=== PATIENT | female | born 1950 | race Caucasian/White ===

== ENCOUNTER → 2016-11-01 | Day surgery (SDC) | payer OTHER ==
[2016-10-31 13:31] VITALS: Ht 172.7 cm; Wt 94.1 kg
[~2016-11-01] VITALS: Ht 172.7 cm; Wt 94.1 kg
[~2016-11-01] MED LIST: FERR1TAB62 PO; FURO-85 PO; LIDOCAINE HCL 2% 2 ML VIAL (20MG/ML) ONE; LPR25 PO; MULT-506 PO; PROPOFOL IV EMULSION 10 MG/ML 20 ML VIAL IV ONE; SODIUM CHLORIDE 0.9% 500ML 500 ML IV ONE; TRAM-10 PO; WARF5TAB90 PO
[2016-11-01 08:52] VITALS: TEMP 36.5
--- NOTE | 2016-11-01 09:35 | Endo History and Physical ---
History & Physical Date of Service: November 01, 2016. Chief Complaint: varices Referring Physician: Dr. Ishan García History of Present Illness h/o varices, banding Past Medical History Atrial Fibrillation, Arthritis, Liver Disease Past Surgical History Hx Cardiac Surgery: Yes (HEART CATH, RESECTION OF PERICARDIAL CYST) Hx Internal Defibrillator: No Hx Pacemaker: Yes (PACEMAKER PLACED) Hx Abdominal Surgery: Yes (REBECCA, ABDOMINAL HERNIA, GASTRIC BYPASS, SPLEENECTOMY) Hx of Implantable Prosthesis: No Hx Post-Op Nausea and Vomiting: No Hx Cancer Surgery: No Hx Thoracic Surgery: No Hx Orthopedic: No Hx Urinary Tract Surgery: No Family History None Social History Smoking Status: Current Every Day Smoker Hx Substance Use: No Hx Alcohol Use: No Allergies Coded Allergies: Quinolones (Verified Allergy, Unknown, LOCAL REACTION TO LEVAQUIN, 10/31/16 ) ITCHING AND RASH Codeine (Verified Adverse Reaction, Unknown, VOMITING, 10/31/16) Current Medications Reported Home Medications Medications Dose Route/Sig Max Daily Dose Days Date Category Ultram (Tramadol HCl) 50 Mg Tab 50 Mg PO Q6H PRN 07/13/16 Reported Lasix (Furosemide) 20 Mg Tab 20 Mg PO DAILY PRN 07/13/16 Reported Ferrous Sulfate 325 Mg Tab 1 Tab PO BID 07/13/16 Reported Lopressor (Metoprolol Tartrate) 25 Mg Tab 0.5 Tab PO BID 07/13/16 Reported Coumadin (Warfarin Sodium) 5 Mg Tab 1.5 Tab PO 5XWK 07/13/16 Reported Coumadin (Warfarin Sodium) 5 Mg Tab 1 Tab PO 2XWK 90 07/13/16 Reported Multivitamin (Multivitamins) Tab 1 Tab PO QAM 12/28/14 Reported Vital Signs Weight (Kilograms): 94.09 Height (Feet): 5 Height (Inches): 8 Date Time Temp Pulse Resp B/P Pulse Ox O2 Delivery O2 Flow Rate FiO2 11/01/16 08:58 184/91 11/01/16 08:52 36.5 71 20 160/109 98 Room Air Physical Exam General Appearance: no apparent distress Respiratory/Chest: Respiratory effort: no dyspnea Cardiovascular: Heart Auscultation: RRR Abdomen: Inspection & Palpation: soft Assessment and Plan Varices = EGD
--- NOTE | 2016-11-01 09:45 | Discharge Instructions ---
Endoscopy Patient Instructions Date / Procedure(s) Performed November 01, 2016. EGD Allergy Information Coded Allergies: Quinolones (Verified Allergy, Unknown, LOCAL REACTION TO LEVAQUIN, 10/31/16 ) ITCHING AND RASH Codeine (Verified Adverse Reaction, Unknown, VOMITING, 10/31/16) Discharge Date / Findings November 01, 2016. Small varices Medication Instructions Stopped Medication(s): last dose coumadin on Sunday,bridged with Lovenox,last dose Sunday Resume coumadin today Provider Instructions Activity Restrictions - No exercising or heavy lifting for 24 hours. - Do not drink alcohol the day of the procedure. - Do not drive a car or operate machinery until the day after the procedure. - Do not make any important decisions or sign important papers in 24 hours after the procedure. Following Day: - Return to full activity which may include returning to work/school. Diet Start your diet with liquids and light foods (jello, soup, juice, toast). Then eat your usual diet if not nauseated. Treatment For Common After Affects For mild abdominal pain, bloating, or excessive gas: - Rest - Eat lightly - Lie on right side Follow-Up Information Follow-up with Dr. Ishan García as scheduled Anesthesia Information What You Should Know You have had a procedure that required some medicine to reduce anxiety and discomfort. This treatment is called moderate sedation. After receiving the treatment, you may be sleepy, but you will be able to breathe on your own. The effects of the treatment may last for several hours. Follow these instructions along with Activity/Diet recommendations noted above: * Do NOT do anything where dizziness or clumsiness would be dangerous. * Rest quietly at home today, then you can be up and about tomorrow. * Have a responsible person stay with you the rest of today. * You may have had an I.V. today. If so, you may take the dressing off later today. Recommendations Call your doctor if: * Trouble breathing * Continuous vomiting for more than 24 hours * Temperature above 101 degrees * Severe abdominal pain or bloating * Pain not relieved by pain medicine ordered * There is increased drainage or redness from any incision * A large amount of rectal bleeding greater than 2-3 tablespoons. (If you had a polyp/s removed or have hemorrhoids, a small amount of blood - from the rectum is to be expected.) * You have any unanswered questions or concerns. IN THE EVENT OF A SERIOUS EMERGENCY, GO TO THE NEAREST EMERGENCY ROOM Your discharge instructions were prepared by provider Rich Eason. Patient Instructions Signature Page Elly Lancaster Patient (or Guardian) Signature/Date: I have read and understand the instructions given to me by my caregivers. Caregiver/RN/Doctor Signature/Date: The above-named patient and/or guardian has received patient instructions on this date. + Original Patient Signature Page (only) stays with chart. Please make copy for patient.
--- NOTE | 2016-11-01 09:58 | GI REPORT ---
Procedure Date: 11/01/2016 9:31 AM Procedure: Upper GI endoscopy Indications: Follow-up of esophageal varices Medicines: See the Anesthesia note for documentation of the administered medications Complications: No immediate complications. Estimated Blood Loss: Estimated blood loss: none. Procedure: Pre-Anesthesia Assessment: - ASA Grade Assessment: III - A patient with severe systemic disease. After obtaining informed consent, the endoscope was passed under direct vision. Throughout the procedure, the patient's blood pressure, pulse, and oxygen saturations were monitored continuously. The scope was introduced through the mouth, and advanced to the afferent and efferent jejunal loops. The upper GI endoscopy was accomplished without difficulty. The patient tolerated the procedure well. Findings: Grade I varices were found in the lower third of the esophagus. There was stigmata of prior banding. The GE junction was at 35 cm. There was an unremarkable gastric pouch. There was an unremarkable gastroenteric anastamosis. There was suture material at the anastamosis. The small intestine was normal. Impression: - Grade I esophageal varices. - No specimens collected. Recommendation: - Discharge patient to home. Repeat exam in 2-3 years. Rich Quijano M.D. Rich Quijano MD 11/01/2016 9:59:05 AM This report has been signed electronically. Note Initiated On: 11/01/2016 9:31 AM I attest to the content of the Intraoperative Record and orders documented therein, exceptions below
[2016-11-01 10:30] VITALS: BP 160/92; PULSE 60; O2SAT 97
--- NOTE | 2016-11-01 10:50 | Anesthesiology Progress Note ---
Anesthesia Post Op Note Date & Time November 01, 2016 at 10:50 Vital Signs Pain Intensity: 0 Vital Signs Past 12 Hours Date Time Temp Pulse Resp B/P Pulse Ox O2 Delivery O2 Flow Rate FiO2 11/01/16 10:30 60 20 160/92 97 Room Air 11/01/16 10:14 61 20 166/93 97 Room Air 11/01/16 09:56 65 20 184/91 97 Room Air 11/01/16 08:58 184/91 11/01/16 08:52 36.5 71 20 160/109 98 Room Air Notes Mental Status: alert / awake / arousable, participated in evaluation Pt Amnestic to Procedure: Yes Nausea / Vomiting: adequately controlled Pain: adequately controlled Airway Patency, RR, SpO2: stable & adequate BP & HR: stable & adequate Hydration State: stable & adequate Anesthetic Complications: no major complications apparent
== END | disposition home or self-care (01) ==
LOC: C.GI 08:30
PROVIDERS: ATTEND Internal Medicine Gastroenterology
DX: Z09 Encounter for follow-up examination after completed treatment for conditions other than malignant neoplasm (principal); I85.00 Esophageal varices without bleeding; I10 Essential (primary) hypertension; I48.91 Unspecified atrial fibrillation; F17.200 Nicotine dependence, unspecified, uncomplicated; Z95.0 Presence of cardiac pacemaker; Z88.5 Allergy status to narcotic agent; Z90.49 Acquired absence of other specified parts of digestive tract; Z90.89 Acquired absence of other organs; Z98.890 Other specified postprocedural states; Z86.718 Personal history of other venous thrombosis and embolism; Z86.73 Personal history of transient ischemic attack (TIA), and cerebral infarction without residual deficits; Z98.49 Cataract extraction status, unspecified eye; Z98.84 Bariatric surgery status; Z68.31 Body mass index [BMI] 31.0-31.9, adult; Z79.01 Long term (current) use of anticoagulants

== ENCOUNTER 2017-06-06 10:30 | Emergency (ER) | payer OTHER ==
[~2017-06-06] VITALS: Ht 172.7 cm; Wt 97.4 kg
[~2017-06-06 10:30] MED LIST changes: -FERR1TAB62 PO; -LIDOCAINE HCL 2% 2 ML VIAL (20MG/ML) ONE; -MULT-506 PO; -PROPOFOL IV EMULSION 10 MG/ML 20 ML VIAL IV ONE; -SODIUM CHLORIDE 0.9% 500ML 500 ML IV ONE; -TRAM-10 PO
[2017-06-06 10:32] VITALS: TEMP 36.4; Ht 172.7 cm; Wt 97.4 kg
[2017-06-06] MEDS ORDERED: CIPR1TAB11 PO (11:15)
[2017-06-06] MEDS ORDERED: FERR1TAB61 PO (11:15)
[2017-06-06] MEDS ORDERED: ACETAMINOPHEN IV 100 ML IV ONE (11:45)
[2017-06-06 12:20] LABS: MANUAL MICROSCOPIC REQUIRED? NO; REVIEW REQ? YES; URINE APPEARANCE CLOUDY (CLEAR); URINE BILIRUBIN NEG (NEG); URINE COLOR DK YELLOW; URINE EPITHELIAL CELL AUTO >30 /lpf (0-5); URINE NITRITE NEG (NEG); URINE SPECIFIC GRAVITY 1.021 (1.000-1.030); UROBILINOGEN NEG (NEG)
[2017-06-06 12:28] LABS: BASO % 4.4 %; EOS % 8.2 %; HEMATOCRIT 36.4 % (37-47); IG% 0.1 %; LYMPH % 25.9 %; LYMPH ABS # 1.78 K/uL (1.2-3.4); MEAN CELL VOLUME 84.8 fL (80-100); MEAN CORPUSCULAR HGB CONC 31.9 g/dl (32-36); MONO % 10.9 %; NEUT % 50.5 %; PLATELET COUNT 248 K/uL (130-400); RED BLOOD COUNT 4.29 M/uL (4.2-5.4); WHITE BLOOD COUNT 6.87 K/uL (4.8-10.8)
[2017-06-06 12:38] LABS: INR 2.5 (0.9-1.1); PARTIAL THROMBOPLASTIN RATIO 1.4
[2017-06-06 12:49] LABS: BUN/CREATININE RATIO 22.5 (10-20); CALCIUM 8.6 mg/dl (8.5-10.1); CREATININE 1.06 mg/dl (0.60-1.20); POTASSIUM 4.1 mmol/L (3.5-5.1)
[2017-06-06 12:50] LABS: ACANTHOCYTES 1+; ANISOCYTOSIS PRESENT; COMPLETE YES; GIANT PLATELETS 1+; TARGET CELLS 1+
--- NOTE | 2017-06-06 13:20 | DIAGNOSTIC IMAGING REPORT ---
SACRUM COCCYX MIN 2 VIEWS CLINICAL HISTORY: sacrum pain pain COMPARISON STUDY: None FINDINGS: Nondisplaced cortical fracture sacrococcygeal junction. Sacral foramina are symmetric. Moderate degenerative change lower lumbar spine. Moderate degenerative sclerotic changes of the sacroiliac joints. IMPRESSION: Nondisplaced cortical fracture sacrococcygeal junction. Moderate generalized degenerative change. The above report was generated using voice recognition software. It may contain grammatical, syntax or spelling errors. Electronically signed by: Miguel Kessler M.D. 06/06/2017 1:19 PM Dictated Date/Time: 06/06/2017 1:18 PM
[2017-06-06] MEDS ORDERED: HYDR-5688 PO (13:49)
[2017-06-06 14:00] VITALS: BP 165/93; PULSE 60; O2SAT 99
--- NOTE | 2017-06-06 21:24 | EMERGENCY ROOM VISIT NOTE ---
ED Visit Note First contact with patient: 11:23 Chief Complaint: Left hip and buttocks pain. History of Present Illness: Ms. Lancaster is a 67-year-old white female who ambulates into the ED accompanied by her daughter complaining of pain in the left buttocks just lateral to the sacrum. Patient reports her pain started approximately 2 weeks ago and has been constant. She denies any initial injuries. She reports she is pain-free at rest, but when she is moving from the sitting to standing position or rolling in bed her pain becomes severe. She has difficulty describing her pain but she has good use acronym of sharp. She rates her discomfort 9/10. She reports last evening in bed for the first time her pain radiated down the posterior aspect of the left thigh and stopped at the level of the knee. She has been using acetaminophen for pain with minimal relief. Additionally she does report she was recently treated for urinary tract infection with ciprofloxacin. She reports she has a history of urinary incontinence and feels it is slightly worse since the onset of her pain 2 weeks ago. She denies any associated symptoms including falls, fevers, chills, skin eruptions, lower back pain, abdominal pain, nausea, vomiting, urinary symptoms, flank pain, diarrhea, constipation, fecal incontinence, lower extremity weakness /numbness/tingling, genital paresthesias. Review of Systems: As noted above in history of present illness. All body systems were reviewed and found to be negative as noted above. Past Medical History: Hypertension, pneumonia, gastric ulcers, lower extremity DVT, unspecified urinary symptoms, status post gastric bypass, pericardial sac removal, cholecystectomy, splenectomy, appendectomy, pacemaker implantation, colostomy. Current Medications: Allergies to Medications: Codeine, quinolones. Social History: Patient is currently employed; she feels safe in her home environment; she admits to tobacco and alcohol use. Physical Examination: Vital Signs: Date Time Temp Pulse Resp B/P (MAP) Pulse Ox O2 Delivery O2 Flow Rate FiO2 06/06/17 14:00 60 18 165/93 99 06/06/17 12:54 64 16 167/96 99 Room Air 06/06/17 10:32 36.4 64 18 119/81 99 Room Air GENERAL: 67-year-old female in mild to moderate distress due to pain, nontoxic- appearing, afebrile and hemodynamically stable. NEUROLOGICAL: Awake, alert and oriented to person, place and time. Answering questions appropriately and following commands. Normal gait. Good hand eye coordination. No focal motor or sensory deficits. SKIN: Warm, dry and pink. No soft tissue eruptions or trauma noted. HEENT: Atraumatic and normocephalic. PERRLA. Sclera white and conjunctiva pink. No drainage from naris. Oral cavity moist and pink. Pharynx is nonerythematous or edematous. Speech normal. No lymphadenopathy. Trachea midline. No jugular venous distention. BACK: No tenderness over the bony cervical, thoracic and lumbar spine. No CVA tenderness. Mild tenderness over the distal sacrum and coccyx without bony deformity or crepitus. I do not see any local swelling or ecchymosis. THORAX: Lungs sounds are clear to auscultation and equal bilaterally with symmetrical chest wall. No wheezing, rales or rhonchi. No crepitus, tenderness , subcutaneous air or deformities noted. HEART: Regular rate and rhythm. No gallops, rubs or murmurs are appreciated. ABDOMEN: Distended, soft and nontender. Positive bowel sounds in all quadrants. No guarding, rigidity or organomegaly. EXTREMITIES: Moves all extremities well on command and with purpose. All distal neurovascular statuses are intact and equal bilaterally. No calf tenderness or cords. ED Course: Patient is assessed as noted above. Patient's medication list was reviewed. Laboratory Testing: Test 06/06/17 12:00 06/06/17 12:05 Range/Units Urine Color DK YELLOW Urine Appearance CLOUDY CLEAR Urine pH 6.0 4.5-7.5 Urine Specific Varney 1.021 1.000-1.030 Urine Protein NEG NEG Urine Glucose (UA) NEG NEG Urine Ketones TRACE NEG Urine Occult Blood NEG NEG Urine Nitrite NEG NEG Urine Bilirubin NEG NEG Urine Urobilinogen NEG NEG Urine Leukocyte Esterase TRACE NEG Urine WBC (Auto) 1-5 0-5 /hpf Urine RBC (Auto) 0-4 0-4 /hpf Urine Hyaline Casts (Auto) 5-10 0-5 /lpf Urine Epithelial Cells (Auto) >30 0-5 /lpf Urine Bacteria (Auto) NEG NEG Urine Crystals TALC NONE PRSENT White Blood Count 6.87 4.8-10.8 K/uL Red Blood Count 4.29 4.2-5.4 M/uL Hemoglobin 11.6 12.0-16.0 g/dL Hematocrit 36.4 37-47 % Mean Corpuscular Volume 84.8 80-100 fL Mean Corpuscular Hemoglobin 27.0 25-34 pg Mean Corpuscular Hemoglobin Concent 31.9 32-36 g/dl Platelet Count 248 130-400 K/uL Mean Platelet Volume 12.0 7.4-10.4 fL Neutrophils (%) (Auto) 50.5 % Lymphocytes (%) (Auto) 25.9 % Monocytes (%) (Auto) 10.9 % Eosinophils (%) (Auto) 8.2 % Basophils (%) (Auto) 4.4 % Neutrophils # (Auto) 3.47 1.4-6.5 K/uL Lymphocytes # (Auto) 1.78 1.2-3.4 K/uL Monocytes # (Auto) 0.75 0.11-0.59 K/uL Eosinophils # (Auto) 0.56 0-0.5 K/uL Basophils # (Auto) 0.30 0-0.2 K/uL RDW Standard Deviation 70.3 36.4-46.3 fL RDW Coefficient of Variation 22.7 11.5-14.5 % Immature Granulocyte % (Auto) 0.1 % Immature Granulocyte # (Auto) 0.01 0.00-0.02 K/uL Giant Platelets 1+ Anisocytosis PRESENT Target Cells 1+ Acanthocytes 1+ Prothrombin Time 26.0 9.0-12.0 SECONDS Prothromb Time International Ratio 2.5 0.9-1.1 Activated Partial Thromboplast Time 35.2 21.0-31.0 SECONDS Partial Thromboplastin Ratio 1.4 Sodium Level 141 136-145 mmol/L Potassium Level 4.1 3.5-5.1 mmol/L Chloride Level 114 98-107 mmol/L Carbon Dioxide Level 24 21-32 mmol/L Anion Gap 3.0 3-11 mmol/L Blood Urea Nitrogen 24 7-18 mg/dl Creatinine 1.06 0.60-1.20 mg/dl Est Creatinine Clear Calc Drug Dose 64.6 ml/min Estimated GFR () 63.8 Estimated GFR (Non- 55.1 BUN/Creatinine Ratio 22.5 10-20 Random Glucose 87 70-99 mg/dl Calcium Level 8.6 8.5-10.1 mg/dl Total Bilirubin 0.6 0.2-1 mg/dl Direct Bilirubin 0.1 0-0.2 mg/dl Aspartate Amino Transf (AST/SGOT) 25 15-37 U/L Alanine Aminotransferase (ALT/SGPT) 25 12-78 U/L Alkaline Phosphatase 108 45-117 U/L Total Protein 6.8 6.4-8.2 gm/dl Albumin 3.3 3.4-5.0 gm/dl Sacrum/Coccyx X-Rays: Was reviewed by myself and read by the radiologist showing a nondisplaced cortical fracture of the sacrococcygeal junction. Moderate generalized degenerative changes. Patient was given 100 mL of acetaminophen IV for her pain. Patient was reassessed multiple times during her stay in the emergency department. Patient's case was reviewed with Dr. Portillo; we agreed on diagnostic approach , treatment, disposition and plan. Patient was educated about today's findings and instructed on her treatment plan ; she verbalized understanding and agreement with this plan. Clinical Impression: Fracture of the sacrococcygeal junction. Decision-Making: Slim a differential diagnosis I considered fracture, herniated disc with radicular pain, abscess, contusion and other causes. Disposition: Patient discharged home in stable condition accompanied by female friends; prior to departure she was reassessed and subjectively reported she was feeling much better and reported that she was pain-free. Plan: Patient was encouraged to continue her current medications as prescribed by her primary care provider. Patient was encouraged to rate her pain every 6 hours and for mild pain she should use 650 mg of acetaminophen and for severe pain she should use one Mather tablet; she was given appropriate narcotic precautions and her name was checked in the state database and no red flags were noted. Additional comfort measures were discussed with the patient including rest, proper lifting and moving techniques. Patient is encouraged follow-up with her PCP for recheck. Patient is encouraged return ED for worsening/uncontrolled pain, uncontrolled swelling, leg weakness/numbness/tingling, bright red blood per rectum or any new /concerning symptoms.
== END 2017-06-06 14:05 | disposition home or self-care (01) ==
LOC: C.EDB 10:31 → C.EDA 14:05
DX: S32.10XA Unspecified fracture of sacrum, initial encounter for closed fracture (principal); X58.XXXA Exposure to other specified factors, initial encounter; I10 Essential (primary) hypertension; K59.00 Constipation, unspecified; F17.200 Nicotine dependence, unspecified, uncomplicated; Z98.84 Bariatric surgery status; Z95.0 Presence of cardiac pacemaker; Z93.3 Colostomy status; Z86.718 Personal history of other venous thrombosis and embolism

== ENCOUNTER 2017-06-11 16:26 | Emergency (ER) | payer OTHER ==
[~2017-06-11] VITALS: Ht 172.7 cm; Wt 90.2 kg
[~2017-06-11 16:26] MED LIST changes: +CIPR1TAB11 PO; +FERR1TAB61 PO; +HYDR-5688 PO
[2017-06-11 16:39] VITALS: TEMP 36.6; Ht 172.7 cm; Wt 90.2 kg
[2017-06-11] MEDS ORDERED: IBUP-103 PO (16:53)
--- NOTE | 2017-06-11 16:54 | EMERGENCY ROOM VISIT NOTE ---
ED Visit Note First contact with patient: 16:48 CHIEF COMPLAINT: Tailbone pain HISTORY OF PRESENT ILLNESS: This 8-year-old female patient presents to the emergency department by private vehicle with her son complaining of pain in the tailbone for the past week. She was seen on 06/06, had an x-ray and diagnosed with a stress fracture of her sacrococcygeal junction. Patient states that she was given a prescription for Barnwell, she took her last pill of this this morning , but is still having pain. The patient rates the pain as aching and 6/10. She denies any known injury to the area, and denies any previous fractures to the area. She has not had any further injuries or falls. The patient has not had blood in their stool. The patient has not had difficulty with bowel or bladder functions. The patient is able to walk and denies numbness or tingling to the lower extremities. REVIEW OF SYSTEMS: A 6 system review of systems was completed with positives and pertinent negatives listed in the HPI. ALLERGIES: Reviewed in chart MEDICATIONS: Reviewed in chart PMH: Reviewed in chart SOCIAL HISTORY: Lives at home. Current smoker. PHYSICAL EXAM: VITALS: Vitals are noted on the nurse's note and reviewed by myself. Vital signs stable. GENERAL: Pleasant cooperative, in no acute distress, non-diaphoretic, well- developed well-nourished. HEART: Regular rate and rhythm, normal peripheral perfusion, 2+ radial and DP pulses, no edema. LUNGS: Clear to auscultation throughout, no wheezes, rhonchi, crackles heard. Equal expansion bilaterally. ABDOMEN: Soft, nontender, nondistended. Normal bowel sounds throughout. MUSCULOSKELETAL: The patient is tender to palpation over the coccyx. There is no tenderness to palpation over the thoracic or lumbar spine. No erythema, edema, or abscesses present. Full range of motion of the bilateral lower extremities. Strength 5/5 and equal in the bilateral lower extremities. Peripheral pulses 2+. Normal gait observed. NEURO: Patient was alert and oriented to person place and time. Normal sensation to light and sharp touch. No focal neurologic deficits. EMERGENCY DEPARTMENT COURSE: I examined the patient. No neurologic deficits. Patient states she is here because she needs something else for pain. I did explain to the patient that I am unable to prescribe her any further narcotics, but did offer her a dose of Percocet here for her pain, which she was agreeable to. I encouraged the patient to continue treating her pain with NSAIDs, and also suggested alternating ice and heat and the use of a donut cushion to help alleviate some of her pain. The patient was encouraged to follow closely with her primary care provider for ongoing pain management, she verbalized understanding. Patient was discharged home in stable condition and ambulatory. Medication Reconciliation: I attest that I have personally reviewed the patient' s current medication list. Blood pressure screening: The patient was found to have an elevated blood pressure and was referred to their primary doctor for recheck and further treatment. Problem List Medical Problems: (1) Cholecystectomy Status: Resolved (2) Cirrhosis of liver Status: Chronic (3) CL SKUL BASE FX W/O COMA Status: Chronic (4) Closed fracture thoracic vertebra Status: Resolved (5) Colostomy Status: Chronic (6) Gastric Bypass Status: Resolved (7) Hernia repair Status: Resolved (8) INTESTINAL BYPASS STATUS Status: Chronic (9) Iron deficiency anemia Status: Chronic (10) Open Heart Sugery Status: Resolved (11) Splenectomy Status: Resolved Current/Historical Medications Scheduled Ferrous Sulfate (Iron), 1 TAB PO DAILY Metoprolol Tartrate (Lopressor), 0.5 TAB PO BID Warfarin Sodium (Coumadin), 1 TAB PO DAILY Scheduled PRN Furosemide (Lasix), 20 MG PO DAILY PRN for LEG SWELLING Hydrocodone/Acetaminophen 5MG/325MG (Barnwell 5MG/325MG), 1 TABLET PO Q6H PRN for Pain Ibuprofen Tab (Advil), 400 MG PO Q6 PRN for Pain Allergies Coded Allergies: Quinolones (Verified Allergy, Unknown, LOCAL REACTION TO LEVAQUIN, 10/31/16 ) ITCHING AND RASH Codeine (Verified Adverse Reaction, Unknown, VOMITING, 10/31/16) Vital Signs Date Time Temp Pulse Resp B/P (MAP) Pulse Ox O2 Delivery O2 Flow Rate FiO2 06/11/17 17:32 60 18 138/79 97 06/11/17 16:39 36.6 63 20 150/96 100 Room Air Medications Administered Medications (Trade) Dose Ordered Sig/Tyrell Route Start Time Stop Time Status Last Admin Dose Admin Oxycodone/ Acetaminophen (Percocet 5-325mg Tab) 1 tab NOW ONCE PO 06/11/17 17:15 1/1/18 17:16 DC 06/11/17 17:13 1 TAB Departure Information Impression Primary Impression: Coccyx pain Dispostion Home / Self-Care Condition GOOD Referrals Ishan García D.OGustavo (PCP) Patient Instructions Coccygodynia, ED Fx Coccyx, [facility] Additional Instructions Take Aleve 1-2 tablets every 12 hours as needed for pain. You may also continue to take Tylenol 1,000mg every 8 hours as needed for pain. You can get a doughnut pillow from [employer] or most pharmacies that you can use to sit on to help reduce pain in your tailbone. Alternate between ice and heat to your tailbone area to help reduce discomfort. Follow-up with your primary care provider in the next few days if your symptoms are not getting any better.
[2017-06-11] MEDS ORDERED: OXYCODONE/ACETAMINOPHEN 5-325 TAB PO ONE (17:15)
[2017-06-11 17:32] VITALS: BP 138/79; PULSE 60; O2SAT 97
[2017-09-13] MEDS ORDERED: DILT-202 PO (12:09)
[2017-09-13] MEDS ORDERED: METO50TA16 PO (12:09)
[2017-09-13] MEDS ORDERED: LVNIS80 SQ (12:21)
[2017-09-13] MEDS ORDERED: KFL500 PO (12:22)
== END 2017-06-11 17:33 | disposition home or self-care (01) ==
LOC: C.EDB 16:27 → C.EDD 17:33
DX: M53.3 Sacrococcygeal disorders, not elsewhere classified (principal); F17.200 Nicotine dependence, unspecified, uncomplicated; K74.60 Unspecified cirrhosis of liver; D50.0 Iron deficiency anemia secondary to blood loss (chronic); Z79.01 Long term (current) use of anticoagulants

== ENCOUNTER 2017-09-10 00:35 | Inpatient (IN) | payer OTHER ==
[2017-09-10] VITALS (7 sets, daily range): BP systolic 110–135; BP diastolic 73–87; PULSE 91–130; TEMP 36.4–36.7; O2SAT 95–99; Ht 170.2 cm; Wt 103.7 kg
[~2017-09-10] VITALS: Ht 170.2 cm; Wt 103.7 kg
[~2017-09-10 00:35] MED LIST changes: -CIPR1TAB11 PO; +IBUP-103 PO
--- NOTE | 2017-09-10 01:04 | EMERGENCY ROOM VISIT NOTE ---
History Report prepared by Lorena: Shi Cantu Under the Supervision of: Dr. Susana Collins D.O. First contact with patient: 00:44 Chief Complaint: RESPIRATORY PROBLEMS Stated Complaint: CAN'T BREATHE History of Present Illness The patient is a 67 year old female who presents to the Emergency Room with complaints of worsening respiratory problems starting yesterday. She states that she is having difficulty breathing. She reports that her last Coumadin level was low. She states that she goes back on Sunday to have it rechecked. 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 The patient denies a history of PEs, chest pain, abdominal pain, nausea, vomiting, diaphoresis, swelling in her legs, and leg cramping. The patient notes a history of atrial fibrillation, pneumonia, and the placement of a pacemaker. Source of History: patient Onset: yesterday Position: other (global) Quality: other (respiraotry problems) Timing: worsening Associated Symptoms: No diaphoresis, No chest pain, No nausea, No vomiting, No abdominal pain Note: The patient denies swelling in her legs and leg cramping. Review of Systems See HPI for pertinent positives & negatives. A total of 10 systems reviewed and were otherwise negative. 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 Family History Hypertension Social History Smoking Status: Current Some Day Smoker Alcohol Use: none Drug Use: none Marital Status: Housing Status: lives with family Occupation Status: disabled Current/Historical Medications Scheduled Ferrous Sulfate (Iron), 1 TAB PO DAILY Metoprolol Tartrate (Lopressor), 0.5 TAB PO BID Warfarin Sodium (Coumadin), 1 TAB PO DAILY Scheduled PRN Furosemide (Lasix), 20 MG PO DAILY PRN for LEG SWELLING Ibuprofen Tab (Advil), 400 MG PO Q6 PRN for Pain Allergies Coded Allergies: Quinolones (Verified Allergy, Unknown, LOCAL REACTION TO LEVAQUIN, 4/2/18) ITCHING AND RASH Codeine (Verified Adverse Reaction, Unknown, VOMITING, 09/10/17) Physical Exam Vital Signs Date Time Temp Pulse Resp B/P (MAP) Pulse Ox O2 Delivery O2 Flow Rate FiO2 09/10/17 03:31 85 18 133/84 95 Room Air 09/10/17 03:01 88 12 137/64 96 Room Air 09/10/17 02:31 130 20 121/69 96 Room Air 09/10/17 02:25 121 16 110/74 94 Room Air 09/10/17 01:31 124 20 108/72 100 Room Air 09/10/17 01:00 137 16 108/73 99 Room Air 09/10/17 00:56 Room Air 09/10/17 00:51 129 09/10/17 00:40 36.3 64 24 114/75 100 Room Air Physical Exam HEENT: Head - normocephalic and atraumatic Pupils are equal, round, and reactive to light. Extraocular eye muscles are intact, and sclera are anicteric. Nose - moist nasal mucosa without discharge. Mouth - moist buccal mucosa. Oropharynx is nonerythematous and there is no tonsillar exudate or edema noted. Neck: Supple; no JVD, nuchal rigidity, cervical lymphadenopathy. Heart: Tachycardic rate and irregularly irregular rhythm. There is a normal S1 and S2 with no murmurs, clicks, or gallops appreciated. Lungs: Diminished breath sounds in bilateral lung bases. Clear to auscultation bilaterally with no wheezes, rales, or rhonchi. Abdomen: Soft, completely nontender, nondistended, with good bowel sounds. There are no palpable pulsatile masses or hepatosplenomegaly. There is no guarding, rigidity, or rebound noted. Extremities: 2+ edema in her lower extremities. No evidence of cyanosis or clubbing. There are easily palpable peripheral pulses. Skin: warm and dry with good turgor and no rashes. Medical Decision & Procedures ER Provider Diagnostic Interpretation: Radiology results as stated below per my review and the radiologist's interpretation: CHEST X-RAY: The results were interpreted by me. Cardiomegaly. Cardiac pacemaker in place. Mild pulmonary vascular congestion. CT CHEST With Contrast: No evidence of pulmonary embolus or aortic dissection. Main pulmonary artery is dilated. Pericardial calcifications and calcified left perihilar lymph nodes. Scattered calcified granulomas. Numerous upper abdominal varices and gastroesophageal varices. Post surgical changes involving the stomach. Radiologist: Rafael Rico DO Study ready at 02:25 and initial results transmitted at 02:32. Laboratory Results 09/10/17 01:02 Red Blood Count 3.58, Mean Corpuscular Volume 89.4, Mean Corpuscular Hemoglobin 29.9, Mean Corpuscular Hemoglobin Concent 33.4, Mean Platelet Volume 12.1, Neutrophils (%) (Auto) 36.0, Lymphocytes (%) (Auto) 46.0, Monocytes (%) (Auto) 11.3, Eosinophils (%) (Auto) 3.8, Basophils (%) (Auto) 2.8, Neutrophils # (Auto ) 2.89, Lymphocytes # (Auto) 3.68, Monocytes # (Auto) 0.90, Eosinophils # (Auto ) 0.30, Basophils # (Auto) 0.22 09/10/17 01:02 Test 09/10/17 01:02 09/10/17 02:48 White Blood Count 8.00 K/uL (4.8-10.8) Red Blood Count 3.58 M/uL (4.2-5.4) Hemoglobin 10.7 g/dL (12.0-16.0) Hematocrit 32.0 % (37-47) Mean Corpuscular Volume 89.4 fL (80-100) Mean Corpuscular Hemoglobin 29.9 pg (25-34) Mean Corpuscular Hemoglobin Concent 33.4 g/dl (32-36) Platelet Count 299 K/uL (130-400) Mean Platelet Volume 12.1 fL (7.4-10.4) Neutrophils (%) (Auto) 36.0 % Lymphocytes (%) (Auto) 46.0 % Monocytes (%) (Auto) 11.3 % Eosinophils (%) (Auto) 3.8 % Basophils (%) (Auto) 2.8 % Neutrophils # (Auto) 2.89 K/uL (1.4-6.5) Lymphocytes # (Auto) 3.68 K/uL (1.2-3.4) Monocytes # (Auto) 0.90 K/uL (0.11-0.59) Eosinophils # (Auto) 0.30 K/uL (0-0.5) Basophils # (Auto) 0.22 K/uL (0-0.2) RDW Standard Deviation 50.8 fL (36.4-46.3) RDW Coefficient of Variation 15.7 % (11.5-14.5) Immature Granulocyte % (Auto) 0.1 % Immature Granulocyte # (Auto) 0.01 K/uL (0.00-0.02) Prothrombin Time 14.0 SECONDS (9.0-12.0) Prothromb Time International Ratio 1.3 (0.9-1.1) Activated Partial Thromboplast Time 27.5 SECONDS (21.0-31.0) Partial Thromboplastin Ratio 1.1 Anion Gap 11.0 mmol/L (3-11) Est Creatinine Clear Calc Drug Dose 51.4 ml/min Estimated GFR () 48.1 Estimated GFR (Non- 41.5 BUN/Creatinine Ratio 29.8 (10-20) Calcium Level 8.3 mg/dl (8.5-10.1) Pro-B-Type Natriuretic Peptide 2264 pg/ml (0-900) Urine Color YELLOW Urine Appearance CLEAR (CLEAR) Urine pH 5.0 (4.5-7.5) Urine Specific [place] 1.045 (1.000-1.030) Urine Protein NEG (NEG) Urine Glucose (UA) NEG (NEG) Urine Ketones TRACE (NEG) Urine Occult Blood NEG (NEG) Urine Nitrite POS (NEG) Urine Bilirubin NEG (NEG) Urine Urobilinogen NEG (NEG) Urine Leukocyte Esterase SMALL (NEG) Urine WBC (Auto) 5-10 /hpf (0-5) Urine RBC (Auto) 0-4 /hpf (0-4) Urine Hyaline Casts (Auto) 1-5 /lpf (0-5) Urine Epithelial Cells (Auto) >30 /lpf (0-5) Urine Bacteria (Auto) 4+ (NEG) Laboratory results per my review. Medications Administered Medications (Trade) Dose Ordered Sig/Tyrell Route Start Time Stop Time Status Last Admin Dose Admin Diltiazem HCl (Cardizem Inj) 10 mg NOW STAT IV 09/10/17 02:41 09/10/17 02:43 DC 09/10/17 02:51 10 MG Procedure 0241: Ordered Cardizem Inj 10 mg IV. ECG Per My Interpretation Indication: SOB/dyspnea Rate (beats per minute): 129 Rhythm: atrial fibrillation (with RVR) Findings: T-wave inversion (Lateral, Inferior), other (concerning for ischemia) Comparison ECG Date: 08/12/2015 Change: Old showed atrial paced rhythm unlike the new. ED Course 0046: Past medical records reviewed. The patient was evaluated in room B2. A complete history and physical exam was performed. Laboratory studies were drawn as above. The patient was observed on the caul fat puller and pulse oximeter. A portable chest x-ray was performed. 0157: I revaluated the patient and her heart rate is still up. She will go for CT scan of the chest to rule out PE. 0241: The patient remains in atrial fibrillation with rapid ventricular response. I ordered Cardizem Inj 10 mg IV. 0310: I reevaluated the patient and she feels much better. Her breathing is much better, but her heart rate continues to go into the 120s. The patient had a repeat troponin which was 0.020. 0322: Discussed the patient's case with Dr. Be Carcamo. The patient will be evaluated for further management. Medical Decision The patient is a 67 year old female who presents to the Emergency Room with complaints of worsening respiratory problems starting yesterday. Differential diagnoses include PE, CHF, acute coronary syndrome. LABS: No leukocytosis Hemoglobin 10.7 Troponin 0.022 BNP 2264 BUN 40 Creatinine 1.3 INR 1.3 This is a 67-year-old female patient presents to the emergency department with a fairly sudden onset of shortness of breath. The patient has atrial fibrillation with a rapid ventricular response. She has a history of tachybradycardia syndrome for which she had a pacemaker placed. The pacer is not currently firing or overdrive pacing. The patient has a subtherapeutic INR. She was significantly short of breath upon presentation. I discussed the case with the [facility] and they will evaluate for further care. Medication Reconcilliation Current Medication List: was personally reviewed by me Blood Pressure Screening Patient's blood pressure: Normal blood pressure Will be monitored by the hospitalist. Consults Time Called: [phone] Consulting Physician: Dr. Be Carcamo Returned Call: [phone] Discussed the patient's case with Dr. Be Carcamo. The patient will be evaluated for further management. Impression Primary Impression: Atrial fibrillation with RVR Additional Impression: Subtherapeutic international normalized ratio (INR) Scribe Attestation The scribe's documentation has been prepared under my direction and personally reviewed by me in its entirety. I confirm that the note above accurately reflects all work, treatment, procedures, and medical decision making performed by me. Departure Information Dispostion Being Evaluated By Hospitalist Referrals Ishan García D.OGustavo (PCP) Patient Instructions My [facility] Problem Qualifiers
[2017-09-10 01:14] LABS: BASO % 2.8 %; BASO ABS # 0.22 K/uL (0-0.2); EOS % 3.8 %; HEMOGLOBIN 10.7 g/dL (12.0-16.0); IG# 0.01 K/uL (0.00-0.02); LYMPH ABS # 3.68 K/uL (1.2-3.4); MEAN CELL VOLUME 89.4 fL (80-100); MEAN CORPUSCULAR HEMOGLOBIN 29.9 pg (25-34); MEAN CORPUSCULAR HGB CONC 33.4 g/dl (32-36); MEAN PLATELET VOLUME 12.1 fL (7.4-10.4); MONO % 11.3 %; NEUT ABS # 2.89 K/uL (1.4-6.5); PLATELET COUNT 299 K/uL (130-400); RED CELL DISTRIBUTION WIDTH CV 15.7 % (11.5-14.5); RED CELL DISTRIBUTION WIDTH SD 50.8 fL (36.4-46.3)
[2017-09-10 01:24] LABS: INR 1.3 (0.9-1.1); PTT PATIENT 27.5 SECONDS (21.0-31.0)
[2017-09-10 01:34] LABS: CALCIUM 8.3 mg/dl (8.5-10.1); CREATININE 1.34 mg/dl (0.60-1.20); POTASSIUM 4.3 mmol/L (3.5-5.1)
[2017-09-10] MEDS ORDERED: OPTIRAY 320 IV PRN (02:00)
[2017-09-10] MEDS ORDERED: DILTIAZEM HCL 5 MG/ML 5 ML VIAL IV STA (02:41)
[2017-09-10] MEDS ORDERED: PERCOCET HOME PACK PO ONE (03:45)
[2017-09-10] MEDS ORDERED: CEFTRIAXONE SOD INJ 1 GM ADDVIAL IV STA (04:02)
[2017-09-10] MEDS ORDERED: METOPROLOL TARTRATE 25 MG TAB PO ONE (04:11)
[2017-09-10] MEDS ORDERED: WARFARIN SOD 5 MG TAB PO ONE (04:12)
[2017-09-10] MEDS ORDERED: TRAMADOL HCL 50 MG TAB PO PRN (04:15)
[2017-09-10] MEDS ORDERED: SODIUM CHLORIDE 0.45% 1000ML 1,000 ML IV SCH (04:15)
[2017-09-10] MEDS ORDERED: SODIUM CHLORIDE 0.45% 1000ML 1,000 ML IV ONE ×2 (04:15→07:00)
[2017-09-10] MEDS ORDERED: HYDROmorphone INJ 0.5 MG/0.5 ML SYR IV PRN (04:15)
[2017-09-10] MEDS ORDERED: ACETAMINOPHEN 325 MG TAB PO PRN (04:15)
[2017-09-10] MEDS ORDERED: PROCHLORPERAZINE INJ 5 MG in SYRINGE 4 ML IV PRN (04:15)
[2017-09-10] MEDS ORDERED: NITROGLYCERIN 0.4 MG SL PER TAB CHARGE SL PRN (04:15)
[2017-09-10 04:22] LABS: ALBUMIN 2.9 gm/dl (3.4-5.0)
[2017-09-10] MEDS ORDERED: HEPARIN IV LOW DOSE NO BOLUS SCH (04:27)
[2017-09-10] MEDS ORDERED: IV FLUIDS COMPLETED PRN (04:45)
[2017-09-10] MEDS ORDERED: HEPARIN 25000 UNIT/500 ML D5W ONE (05:16)
[2017-09-10] MEDS: HEPARIN 25,000 UNIT/500ML D5W 500 ML IV SCH ×2 (05:34→13:17)
--- NOTE | 2017-09-10 05:43 | HISTORY & PHYSICAL EXAMINATION ---
DATE OF ADMISSION: 09/10/2017 PRIMARY CARE DOCTOR: Dr. Walden. CHIEF COMPLAINT: Shortness of breath. HISTORY OF PRESENT ILLNESS: History obtained form the patient and record. Medical history significant for AFib, history of DVT on Coumadin, hypertension, ongoing tobacco abuse, history of gastric bypass, history of CVA as per records, chronic anemia (baseline hemoglobin 11-12), history mixed urinary incontinence as per records Recent confinement August 2015 for rapid AFib. Patient later noted to have bradycardic episodes. PPM placed for sick sinus syndrome. Yesterday patient noted shortness of breath symptoms on exertion. Denies palpitations. Denies chest pain. No unusual fluid retention as per patient. Increased urinary frequency, no fever, no chills, no abdominal pain, no black or bloody stools. At the Emergency Room, patient noted to be in rapid AFib, CR 130s. Received IV Diltiazem in the ER. CR currently 90-110s. MEDICAL HISTORY: As above. A 2D echo from 2014 showed AFib, EF 60-65%, LA dilatation, mild MR. SURGERIES: She has had splenectomy, gastric bypass, cholecystectomy, pacemaker placement, facial fracture surgery, resection of pericardial cyst HOME MEDICATIONS: Include furosemide p.r.n., ibuprofen, metoprolol, Coumadin, ferrous sulfate. FAMILY HISTORY: Hypertension. SOCIAL AND PERSONAL HISTORY: Past tobacco use, no chronic intake of alcoholic beverages. 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 REVIEW OF SYSTEMS: As per HPI. All 10 systems reviewed. All other ROS negative. PHYSICAL EXAMINATION: VITAL SIGNS: Blood pressure was noted to be 114/75, pulse rate 130 later 98, RR 24, temperature 36.3, sats 100 on room air. GENERAL: Noted to be obese, comfortable, no respiration distress. SKIN: Pallor, warm. HEENT: Pale palpebral conjunctiva. No ptosis. Dry mucosa. NECK: Supple, nontender. CHEST: Decreased breath sounds. No tenderness. HEART: irregular, no murmur. ABDOMEN: Some distention, nontender. RECTAL: Intact sphincter, yellow stool, heme negative. EXTREMITIES: No edema. No tenderness. No gross deformity except for healed scar on the right leg. NEUROLOGIC: Coherent. No gross focality. LABORATORY DATA: Hemoglobin noted to be 10.7, hematocrit 32, white cell count 10, platelets noted to be 299. Sodium 140, potassium 4.3, chloride 115, CO2 19, BUN 40, creatinine 1.34, glucose was noted to be 88. Troponin 0.022. INR 1.3. CTA initial read, no PE, dilated pulmonary artery, pericardial calcification, granulomas, numerous upper abdominal varices, postop gastric changes. UA, nitrite positive, WBCs positive, ketones. EKG as per my interpretation, rate 130s, AFib, some ST depression in inferolateral leads ASSESSMENT: 1. Rapid atrial fibrillation hx SSS sp PPM Multifactorial : Acute renal failure, mild clinical dehydration on the basis of ketonuria complicated urinary tract infection (hx mixed incontinence as per records). No overt sepsis for now. INR subtherapeutic. 2. HTN, stable History of deep venous thrombosis on anticoagulation. 3. Cirrhosis secondary to NAFLD no gross decompensation_. 4. History of cerebrovascular accident as per records. 5. Ongoing tobacco abuse. 6. Acute on chronic anemia, hemoglobin drop from baseline. Negative occult GI bleed iron deficiency from outpatient workup 7. hx CVA as per records 8. hx of bariatric surgery PLAN: PCU titrate Lopressor. (Patient takes only 6.25 mg PO BID citing fatigue at higher doses but is willing to try a gradual dose increase) Update TTE, Cardio consult, rapid AFib. monitor creatinine response to gentle IV hydrationt. Home diuretics for now. Follow urine cultures. IV Ceftriaxone. DVT prophylaxis, IV Heparin-Coumadin bridge. Goal INR 2-3 Patient counseled to stop smoking. Full code. MTDD
--- NOTE | 2017-09-10 06:58 | DIAGNOSTIC IMAGING REPORT ---
CT ANGIOGRAM OF THE CHEST CLINICAL HISTORY: Shortness of breath. COMPARISON STUDY: May 2008 TECHNIQUE: Following the IV administration of 110 mL of Optiray-320, CT angiogram of the thorax was performed from the thoracic inlet to the lung bases utilizing the pulmonary embolus protocol. Images are reviewed in the axial, sagittal, and coronal planes. IV contrast was administered without complication. MIP imaging was performed. A dose lowering technique was utilized adhering to the principles of ALARA. CT DOSE: 428.36 mGy.cm FINDINGS: There is a left-sided dual-chamber central venous pacemaker. There is a hiatal hernia. There are multiple esophageal varices. There are densely calcified left hilar lymph nodes. There are pericardial calcifications. There was no evidence of thoracic aortic dilatation. There were no pulmonary artery filling defects to indicate acute pulmonary embolism. There is mild dilatation of the main pulmonary artery segment. No pleural effusions are visualized. There is moderate respiratory motion artifact. There is no focal pulmonary consolidation. There is slight mosaic attenuation the lungs, likely secondary to air-trapping. There is mild lower lobe bronchial wall thickening. There are dependent atelectatic changes. There is scattered granulomatous calcifications. IMPRESSION: 1. No evidence of acute pulmonary embolism 2. Extensive esophageal varices 3. Mild lower lobe bronchial wall thickening 4. Pericardial calcifications. Densely calcified left hilar lymph nodes. 5. Slight mosaic attenuation, suggestive of air trapping. Electronically signed by: Jroje Fink M.D. 09/10/2017 6:56 AM Dictated Date/Time: 09/10/2017 6:51 AM
--- NOTE | 2017-09-10 07:08 | DIAGNOSTIC IMAGING REPORT ---
CHEST ONE VIEW PORTABLE HISTORY: Short of breath. COMPARISON: Chest 08/13/2015. FINDINGS: No pneumothorax. No pleural effusions. Density of the left lung base persist and favor scarring or atelectasis. No new focal lung consolidations. Stable calcified granuloma within the right midlung zone. Calcified left hilar lymph nodes and left pericardial calcification. Poststernotomy changes. Left-sided dual-chamber pacemaker. No evidence for pulmonary edema. The heart is mildly enlarged. IMPRESSION: No significant change compared to the prior study. No acute process. Electronically signed by: Tommie Ayon M.D. 09/10/2017 7:06 AM Dictated Date/Time: 09/10/2017 7:05 AM
[2017-09-10] MEDS: FERROUS SULFATE 325 MG TAB PO SCH (08:39)
--- NOTE | 2017-09-10 08:47 | ECHOCARDIOGRAM REPORT ---
*NOTICE TO RECEIVING LIBERTARIAN AGENCY This information is strictly Confidential and protected under [place] law. [place] law prohibits you from making any further disclosure of this information unless further disclosure is expressly permitted by the written consent of the person to whom it pertains or is authorized by law. A general authorization for the release of medical or other information is not sufficient for this purpose. Hospital accepts no responsibility if the information is made available to any other person, INCLUDING THE PATIENT. Interpretation Summary * Name: URMILA MOONEY Study Date: 09/10/2017 07:05 AM BP: 119/79 mmHg * Patient Location: C.2T\S\S233\S\1 HR: 110 * : 1950 (M/d/yyyy) Gender: Female Height: 67 in * Age: 67 yrs Ethnicity: CA Weight: 225 lb * Ordering Physician: Vega Lr * Referring Physician: Self, Referred * Performed By: Rosita Gurrola RDCS * * Reason For Study: AFIB * BSA: 2.1 m2 * -- Conclusions -- * Normal LV chamber size with moderate concentric LVH. * Normal LV systolic function, EF 60-65%. * No segmental left ventricular wall motion abnormalities are noted. * The right ventricular cavity size is normal (basal dimension <4.2 cm in right ventricular apical 4-chamber view). Reduced RV systolic function by TAPSE. * Aortic valve sclerosis mild, without significant aortic valvular stenosis. * Moderate left atrial enlargement. Procedure Details * A complete two-dimensional transthoracic echocardiogram was performed (2D, M-mode, Doppler and color flow Doppler). Left Ventricle * The left ventricle is normal in size. * There is moderate concentric left ventricular hypertrophy. * Left ventricular systolic function is normal. * No segmental left ventricular wall motion abnormalities are noted. * Ejection Fraction = 60-65%. * Flattened septum is consistent with RV pressure/volume overload. Right Ventricle * The right ventricular cavity size is normal (basal dimension <4.2 cm in right ventricular apical 4-chamber view). * There is a pacemaker lead in the right ventricle. * The right ventricular systolic function is reduced as assessed by tricuspid annular plane systolic excursion (TAPSE) (TAPSE <1.6 cm). Atria * The left atrium is moderately dilated. * Right atrial size is normal. * No ASD detected; PFO is not assessed. Mitral Valve * The mitral valve is normal in structure and function. Tricuspid Valve * The tricuspid valve is normal in structure and function. Aortic Valve * The aortic valve is trileaflet. * Aortic valve sclerosis mild, without significant aortic valvular stenosis. * There is no significant aortic regurgitation. Pulmonic Valve * The pulmonary valve is not well seen, but the Doppler examination is normal without significant regurgitation or stenosis. Great Vessels * The aortic root is normal size. Pericardium/Pleural * There is no pericardial effusion. MMode 2D Measurements and Calculations IVSd 1.9 cm IVSs 2.1 cm LVIDd 3.7 cm LVIDs 2.5 cm LVPWd 1.8 cm LVPWs 2.1 cm IVS/LVPW 1.1 FS 33.7 % EDV(Teich) 59.5 ml ESV(Teich) 21.8 ml EF(Teich) 63.4 % EDV(cubed) 52.1 ml ESV(cubed) 15.2 ml EF(cubed) 70.9 % % IVS thick 13.4 % % LVPW thick 21.9 % LV mass(C)d 288.6 grams LV mass(C)dI 135.8 grams/m\S\2 LV mass(C)s 241.9 grams LV mass(C)sI 113.8 grams/m\S\2 SV(Teich) 37.7 ml SI(Teich) 17.7 ml/m\S\2 SV(cubed) 37.0 ml SI(cubed) 17.4 ml/m\S\2 Ao root diam 3.2 cm Ao root area 8.1 cm\S\2 LA dimension 4.6 cm LA/Ao 1.4 LVAd ap4 25.3 cm\S\2 LVLd ap4 7.2 cm EDV(MOD-sp4) 73.5 ml EDV(sp4-el) 75.0 ml LVAs ap4 14.2 cm\S\2 LVLs ap4 6.1 cm ESV(MOD-sp4) 27.6 ml ESV(sp4-el) 27.9 ml EF(MOD-sp4) 62.4 % EF(sp4-el) 62.8 % LVAd ap2 27.6 cm\S\2 LVLd ap2 7.4 cm EDV(MOD-sp2) 85.4 ml EDV(sp2-el) 86.8 ml LVAs ap2 16.2 cm\S\2 LVLs ap2 7.0 cm ESV(MOD-sp2) 35.6 ml ESV(sp2-el) 31.9 ml EF(MOD-sp2) 58.3 % EF(sp2-el) 63.3 % LVLd %diff 2.7 % EDV(MOD-bp) 80.3 ml LVLs %diff 12.2 % ESV(MOD-bp) 32.9 ml EF(MOD-bp) 59.0 % SV(MOD-sp4) 45.9 ml SI(MOD-sp4) 21.6 ml/m\S\2 SV(MOD-sp2) 49.8 ml SI(MOD-sp2) 23.4 ml/m\S\2 SV(MOD-bp) 47.4 ml SI(MOD-bp) 22.3 ml/m\S\2 SV(sp4-el) 47.1 ml SI(sp4-el) 22.1 ml/m\S\2 SV(sp2-el) 54.9 ml SI(sp2-el) 25.8 ml/m\S\2 Doppler Measurements and Calculations Ao V2 max 116.5 cm/sec Ao max PG 5.4 mmHg Ao max PG (full) 3.0 mmHg LV V1 max PG 2.4 mmHg LV V1 max 77.1 cm/sec TR max lilly 177.3 cm/sec
--- NOTE | 2017-09-10 09:27 | Progress Note ---
Subjective Date of Service: Sep 10, 2017. Subjective Pt evaluation today including: conversation w/ patient, physical exam, lab review, review of studies, review of inpatient medication list Saw/examined the patient in room 233 No problems/issues at this time Her shortness of breath - resolved Denies chest pain or palpitations Problem List Medical Problems: (1) Atrial fibrillation with RVR Status: Acute (2) Atrial fibrillation with RVR Status: Acute (3) Coccyx pain Status: Acute (4) Increased ammonia level Status: Acute (5) Stress fracture of sacrococcygeal region Status: Acute (6) Subtherapeutic international normalized ratio (INR) Status: Acute (7) Subtherapeutic international normalized ratio (INR) Status: Acute Review of Systems Constitutional: No fever, No chills Respiratory: No cough, No sputum, No wheezing, No shortness of breath Cardiac: No chest pain, No edema, No palpitations Medications Current Inpatient Medications Medications (Trade) Dose Ordered Sig/Tyrell Route Start Time Stop Time Status Last Admin Dose Admin Ioversol (Optiray 320) 100 ml UD PRN IV 09/10/17 02:00 09/14/17 01:59 Metoprolol Tartrate (Lopressor Tab) 12.5 mg BID PO 09/10/17 21:00 10/10/17 20:59 Acetaminophen (Tylenol Tab) 650 mg Q4H PRN PO 09/10/17 04:15 10/10/17 04:14 Nitroglycerin (Nitrostat Tab) 0.4 mg UD PRN SL 09/10/17 04:15 10/10/17 04:14 Warfarin Sodium (Coumadin Tab) 5 mg DAILY@16 PO 09/11/17 16:00 10/11/17 15:59 Hydromorphone HCl (Dilaudid Inj) 0.5 mg Q3H PRN IV 09/10/17 04:15 09/24/17 04:14 Tramadol HCl (Ultram Tab) 25 mg Q6H PRN PO 09/10/17 04:15 10/10/17 04:14 Prochlorperazine Edisylate 5 mg/ Syringe 5 ml @ 5 mls/min Q6H PRN IV 09/10/17 04:15 10/10/17 04:14 Ceftriaxone Sodium 1 gm/ Dextrose 50 ml @ 100 mls/hr Q24H IV 09/11/17 04:00 09/21/17 03:59 Sodium Chloride 1,000 ml @ 75 mls/hr [id number] ONCE IV 09/10/17 07:00 09/10/17 20:19 09/10/17 08:40 75 MLS/HR Ferrous Sulfate (Feosol Tab) 325 mg DAILY PO 09/10/17 09:00 10/10/17 08:59 09/10/17 08:39 325 MG Miscellaneous (Iv Fluids Completed) 1 ea PRN PRN N/A 09/10/17 04:45 09/10/18 04:44 Heparin Sodium/ Dextrose 500 ml @ 18 mls/hr Q24H IV 09/10/17 05:30 10/10/17 05:29 09/10/17 05:34 18 MLS/HR Objective Vital Signs Date Time Temp Pulse Resp B/P (MAP) Pulse Ox O2 Delivery O2 Flow Rate FiO2 09/10/17 07:15 36.4 97 19 119/79 (92) 98 Room Air 09/10/17 04:20 36.4 91 18 135/87 (103) 99 Room Air 09/10/17 04:20 36.4 91 18 135/87 99 Room Air 09/10/17 03:54 98 09/10/17 03:53 85 18 133/84 95 09/10/17 03:31 85 18 133/84 95 Room Air 09/10/17 03:01 88 12 137/64 96 Room Air 09/10/17 02:31 130 20 121/69 96 Room Air 09/10/17 02:25 121 16 110/74 94 Room Air 09/10/17 01:31 124 20 108/72 100 Room Air 09/10/17 01:00 137 16 108/73 99 Room Air 09/10/17 00:56 Room Air 09/10/17 00:51 129 09/10/17 00:40 36.3 64 24 114/75 100 Room Air Physical Exam General Appearance: no apparent distress Respiratory/Chest: chest non-tender, lungs clear, normal breath sounds, no respiratory distress, no accessory muscle use, + pertinent finding (pacemaker in L chest wall) Cardiovascular: no murmur, + tachycardia, + irregularly irregular Extremities: normal inspection, no pedal edema Neurologic/Psychiatric: no motor/sensory deficits, alert, normal mood/affect Laboratory Results Last 24 Hours Test 09/10/17 01:02 09/10/17 02:48 09/10/17 03:44 White Blood Count 8.00 K/uL Red Blood Count 3.58 M/uL Hemoglobin 10.7 g/dL Hematocrit 32.0 % Mean Corpuscular Volume 89.4 fL Mean Corpuscular Hemoglobin 29.9 pg Mean Corpuscular Hemoglobin Concent 33.4 g/dl Platelet Count 299 K/uL Mean Platelet Volume 12.1 fL Neutrophils (%) (Auto) 36.0 % Lymphocytes (%) (Auto) 46.0 % Monocytes (%) (Auto) 11.3 % Eosinophils (%) (Auto) 3.8 % Basophils (%) (Auto) 2.8 % Neutrophils # (Auto) 2.89 K/uL Lymphocytes # (Auto) 3.68 K/uL Monocytes # (Auto) 0.90 K/uL Eosinophils # (Auto) 0.30 K/uL Basophils # (Auto) 0.22 K/uL RDW Standard Deviation 50.8 fL RDW Coefficient of Variation 15.7 % Immature Granulocyte % (Auto) 0.1 % Immature Granulocyte # (Auto) 0.01 K/uL Prothrombin Time 14.0 SECONDS Prothromb Time International Ratio 1.3 Activated Partial Thromboplast Time 27.5 SECONDS Partial Thromboplastin Ratio 1.1 Sodium Level 145 mmol/L Potassium Level 4.3 mmol/L Chloride Level 115 mmol/L Carbon Dioxide Level 19 mmol/L Anion Gap 11.0 mmol/L Blood Urea Nitrogen 40 mg/dl Creatinine 1.34 mg/dl Est Creatinine Clear Calc Drug Dose 51.4 ml/min Estimated GFR () 48.1 Estimated GFR (Non- 41.5 BUN/Creatinine Ratio 29.8 Random Glucose 88 mg/dl Calcium Level 8.3 mg/dl Troponin I 0.022 ng/ml 0.020 ng/ml Pro-B-Type Natriuretic Peptide 2264 pg/ml Urine Color YELLOW Urine Appearance CLEAR Urine pH 5.0 Urine Specific [place] 1.045 Urine Protein NEG Urine Glucose (UA) NEG Urine Ketones TRACE Urine Occult Blood NEG Urine Nitrite POS Urine Bilirubin NEG Urine Urobilinogen NEG Urine Leukocyte Esterase SMALL Urine WBC (Auto) 5-10 /hpf Urine RBC (Auto) 0-4 /hpf Urine Hyaline Casts (Auto) 1-5 /lpf Urine Epithelial Cells (Auto) >30 /lpf Urine Bacteria (Auto) 4+ Magnesium Level 2.3 mg/dl Total Bilirubin 0.7 mg/dl Direct Bilirubin 0.2 mg/dl Aspartate Amino Transf (AST/SGOT) 19 U/L Alanine Aminotransferase (ALT/SGPT) 17 U/L Alkaline Phosphatase 97 U/L Total Protein 6.0 gm/dl Albumin 2.9 gm/dl Thyroid Stimulating Hormone (TSH) 3.370 uIu/ml Assessment and Plan This is a 67 year old female with a PMH of paroxysmal atrial fibrillation, tachy -kaz syndrome s/p permanent pacemaker, hx of DVT on long-term anticoagulation , liver cirrhosis with esophageal varices and hx. of hepatic encephalopathy, anemia of chronic disease, hypertension, vitamin D deficiency - presents with shortness of breath and subsequently found to have atrial fibrillation with RVR , dehydration, acute kidney injury, and UTI Atrial Fibrillation with RVR - likely exacerbated by dehydration and UTI - patient's symptoms included shortness of breath - takes Lopressor 12.5mg BID - may consider increasing this; has had bradycardic episodes, but now has a pacemaker placed - will give IVFs and abx. monitor HRs - currently on IV heparin drip bridge to Coumadin; INR = 1.3, goal 2-3 Urinary Tract Infection - UA dirty, urine culture pending - previous cultures have grown E. coli and Klebsiella, sensitive to most abx. - currently on Rocephin, de-escalate once cultures return Acute Kidney Injury - secondary to dehydration - creatinine on admission 1.3, baseline is 1.0 - giving IVFs; received 1L, encourage PO intake Hx. of DVT - on Coumadin - plan to bridge with IV heparin Tachy-Kaz Syndrome s/p Permanent Pacemaker Liver Cirrhosis Esophageal Varices Anemia of Chronic Disease - Hgb is stable - no signs of ascitic fluid buildup - gentle IVF hydration given - LFTs wnl - boost breeze DVT ppx - IV heparin; Coumadin FULL CODE
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
[2017-09-10 12:12] LABS: PTT PATIENT 37.3 SECONDS (21.0-31.0)
[2017-09-10] MEDS ORDERED: HEPARIN IV BOLUS 4,500 UNIT in SYRINGE 0 ML IV ONE (13:15)
[2017-09-10] MEDS ORDERED: DILTIAZEM BOLUS / DRIP IV STA (16:35)
[2017-09-10] MEDS ORDERED: DILTIAZEM HCL 5 MG/ML 5 ML VIAL BOLUS/OMNI IV SCH (16:45)
[2017-09-10] MEDS ORDERED: DILTIAZEM HCL INJ 125 MG in DEXTROSE 5% 100ML IV PRN (16:45)
[2017-09-10 19:34] LABS: PTT PATIENT 66.2 SECONDS (21.0-31.0)
[2017-09-10] MEDS: METOPROLOL TARTRATE 25 MG TAB PO SCH (20:05)
[2017-09-10] MEDS ORDERED: METOPROLOL TARTRATE 25 MG TAB PO SCH (21:00)
[2017-09-11] VITALS (11 sets, daily range): BP systolic 92–127; BP diastolic 57–82; PULSE 66–95; TEMP 36.5–36.8; O2SAT 92–97
[2017-09-11] MEDS: CEFTRIAXONE SOD INJ 1 GM in DEXTROSE 5% ADD-VANTAGE 50ML 50 ML IV SCH (03:30)
[2017-09-11 06:13] LABS: BASO % 2.7 %; BASO ABS # 0.19 K/uL (0-0.2); EOS % 6.6 %; EOS ABS # 0.46 K/uL (0-0.5); HEMATOCRIT 28.8 % (37-47); HEMOGLOBIN 9.5 g/dL (12.0-16.0); IG# 0.01 K/uL (0.00-0.02); LYMPH % 49.9 %; LYMPH ABS # 3.46 K/uL (1.2-3.4); MEAN CELL VOLUME 88.1 fL (80-100); MEAN CORPUSCULAR HEMOGLOBIN 29.1 pg (25-34); MONO % 12.1 %; MONO ABS # 0.84 K/uL (0.11-0.59); NEUT % 28.6 %; NEUT ABS # 1.98 K/uL (1.4-6.5); PLATELET COUNT 285 K/uL (130-400); RED CELL DISTRIBUTION WIDTH CV 15.7 % (11.5-14.5); RED CELL DISTRIBUTION WIDTH SD 50.8 fL (36.4-46.3); WHITE BLOOD COUNT 6.94 K/uL (4.8-10.8)
[2017-09-11 06:30] LABS: INR 1.7 (0.9-1.1)
[2017-09-11 06:43] LABS: CALCIUM 7.9 mg/dl (8.5-10.1); CREATININE 1.06 mg/dl (0.60-1.20)
[2017-09-11 06:49] LABS: PTT PATIENT 49.5 SECONDS (21.0-31.0)
[2017-09-11] MEDS: HEPARIN 25,000 UNIT/500ML D5W 500 ML IV SCH (07:08)
--- NOTE | 2017-09-11 07:37 | Clinical Documentation Query ---
CLINICAL DOCUMENTATION QUERY 67 yo female admitted with A-fib with RVR. Echo showed moderate concentric LVH and EF = 60-65%. CXR showed cardiomegaly. Patient takes Lasix 20mg PO at home. In your clinical opinion is this patient being managed for: ( ) Chronic diastolic CHF ( ) Not Agree ( X ) Other explanation of clinical findings (Please Explain) - valvular heart disease; R ventricular systolic dysfunction ( ) Unable to determine (Please Define) ( ) Need to Discuss The medical record reflects the following clinical findings, treatment, and risk factors. Clinical Indicators: As above Treatment: Echo, CXR, telemetry Risk Factors: Age, A-fib, HTN, LENORE Please clarify and document your clinical opinion in the progress notes and discharge summary. Terms such as "probable", "suspected", "likely", "questionable", "possible", or "still to be ruled out" are acceptable. IF IN AGREEMENT, YOU MUST DOCUMENT ABOVE DIAGNOSTIC STATEMENT IN DAILY PROGRESS NOTES AND DISCHARGE SUMMARY. This document is not part of the patient's record. Thank You, Melyssa Davidson RN [phone]
[2017-09-11] MEDS: FERROUS SULFATE 325 MG TAB PO SCH (08:58)
[2017-09-11] MEDS: METOPROLOL TARTRATE 25 MG TAB PO SCH (08:58)
--- NOTE | 2017-09-11 10:10 | Cardiology Follow-Up ---
Subjective General Date of Service: Sep 11, 2017. Chief Complaint: Shortness of breath Pt evaluation today including: conversation w/ patient, physical exam, chart review, lab review, review of studies, review of inpatient medication list History of Present Illness Patient seen and examined. Didn't sleep well last night secondary to frequent interruptions. No further shortness of breath. Denies chest pain. Denies palpitations. Denies cough, orthopnea, PND, or increased peripheral edema. Telemetry: Atrial fibrillation ranging from 70 to 150 bpm, currently ~110 bpm. No sinus over the last 24 hours. Allergies Coded Allergies: Quinolones (Verified Allergy, Unknown, LOCAL REACTION TO LEVAQUIN, 09/10/17) ITCHING AND RASH Codeine (Verified Adverse Reaction, Unknown, VOMITING, 09/10/17) Social History Hx Tobacco Use In Past Year?: No Hx Alcohol Use - Type And Amou: No Hx Substance Use - Type And Am: No Problem List Medical Problems: (1) Atrial fibrillation with RVR Status: Acute (2) Atrial fibrillation with RVR Status: Acute (3) Coccyx pain Status: Acute (4) Increased ammonia level Status: Acute (5) Stress fracture of sacrococcygeal region Status: Acute (6) Subtherapeutic international normalized ratio (INR) Status: Acute (7) Subtherapeutic international normalized ratio (INR) Status: Acute Physical Exam Vital Signs Last Vital Signs Documentation Date Time Temp Pulse Resp B/P (MAP) Pulse Ox O2 Delivery O2 Flow Rate FiO2 09/11/17 09:02 77 102/65 (77) 09/11/17 07:24 36.5 18 94 Room Air Physical Exam Constitutional: Level of Distress: NAD Psychiatric: Mental Status: active & alert Orientation: to time, to place, to person Memory: recent memory normal, remote memory normal Head: normocephalic, atraumatic Eyes: Pupils: PERRLA Neck: pertinent finding (Normal JVP) Lungs: Respiratory effort: no dyspnea Auscultation: no wheezing, no rales/crackles, no rhonchi, deminished air movement Cardiovascular: Heart Auscultation: no murmurs, tachycardia, irregular rate rhythm Abdomen: Bowel Sounds: normal Inspection & Palpation: soft Extremities: no cyanosis, no clubbing, edema Neurologic: Cranial Nerves: grossly intact Assessment and Plan Assessment and Plan Admission with acute on chronic exertional dyspnea (resolved), UTI with associated acute kidney injury/dehydration, and recurrent paroxysmal atrial fibrillation with a RVR History of Tachy-Tod Syndrome s/p permanent dual chamber Medtronic pacemaker implantation History of DVT on long-term anticoagulation History of liver cirrhosis with esophageal varices, hepatic encephalopathy, anemia of chronic disease RECOMMENDATIONS: Rate control + proper anticoagulation. Increase Lopressor. Wean IV diltiazem No antiarrhythmic therapy or direct current cardioversion at this point given her asymptomatic state and the subtherapeutic INR on presentation. Heparin to proper Coumadin anticoagulation. INR Goal 2.0 to 3.0 Outpatient pharmacological stress testing Cardiology attending: Pt seen and examined, agree with findings and assessment as per Miguel Fallon. Rate stabilized with cardizem gtt. Will now start po cardizem and attempt to wean gtt to off. Laboratory Results Last 24 Hours Test 09/10/17 11:50 09/10/17 18:57 09/11/17 05:58 Activated Partial Thromboplast Time 37.3 SECONDS 66.2 SECONDS 49.5 SECONDS Partial Thromboplastin Ratio 1.4 2.5 1.9 White Blood Count 6.94 K/uL Red Blood Count 3.27 M/uL Hemoglobin 9.5 g/dL Hematocrit 28.8 % Mean Corpuscular Volume 88.1 fL Mean Corpuscular Hemoglobin 29.1 pg Mean Corpuscular Hemoglobin Concent 33.0 g/dl Platelet Count 285 K/uL Mean Platelet Volume 12.0 fL Neutrophils (%) (Auto) 28.6 % Lymphocytes (%) (Auto) 49.9 % Monocytes (%) (Auto) 12.1 % Eosinophils (%) (Auto) 6.6 % Basophils (%) (Auto) 2.7 % Neutrophils # (Auto) 1.98 K/uL Lymphocytes # (Auto) 3.46 K/uL Monocytes # (Auto) 0.84 K/uL Eosinophils # (Auto) 0.46 K/uL Basophils # (Auto) 0.19 K/uL RDW Standard Deviation 50.8 fL RDW Coefficient of Variation 15.7 % Immature Granulocyte % (Auto) 0.1 % Immature Granulocyte # (Auto) 0.01 K/uL Prothrombin Time 17.2 SECONDS Prothromb Time International Ratio 1.7 Sodium Level 143 mmol/L Potassium Level 4.0 mmol/L Chloride Level 115 mmol/L Carbon Dioxide Level 21 mmol/L Anion Gap 7.0 mmol/L Blood Urea Nitrogen 27 mg/dl Creatinine 1.06 mg/dl Est Creatinine Clear Calc Drug Dose 64.4 ml/min Estimated GFR () 63.8 Estimated GFR (Non- 55.1 BUN/Creatinine Ratio 25.1 Random Glucose 89 mg/dl Calcium Level 7.9 mg/dl
[2017-09-11] MEDS ORDERED: DILTIAZEM HCL 120 MG CAPCR PO ONE (12:32)
--- NOTE | 2017-09-11 14:59 | Progress Note ---
Internal Med Progress Note Date of Service: Sep 11, 2017. Provider Documentation: Subjective Patient has been off diltiazem drip. Ambulatory. Denies shortness of breath or chest pain or palpitations. Remains on heparin drip Physical Exam General: no acute distress Lungs: CTABL, no wheezing Heart: rate controlled, irregular Abdomen: soft, nontender, + bowel sounds Extremities: no edema ASSESSMENT & PLAN: Admission with acute on chronic exertional dyspnea (resolved), UTI with associated acute kidney injury/dehydration, and recurrent paroxysmal atrial fibrillation with a RVR History of Tachy-Tod Syndrome s/p permanent dual chamber Medtronic pacemaker implantation History of DVT on long-term anticoagulation History of liver cirrhosis with esophageal varices, hepatic encephalopathy, anemia of chronic disease Atrial Fibrillation with RVR -Rate stabilized with cardizem drip which is now stopped and started oral cardizem; Lopressor oral increased from 12.5 mg BID to 50 mg BID as per cardiology service -continue IV heparin drip bridge to Coumadin; INR = 1.7, goal 2 to 3 Urinary Tract Infection -previous cultures have grown E. coli and Klebsiella, sensitive to most abx. -currently on Rocephin -urine culture as gram negative bacilli, sensitivities to follow Acute Kidney Injury - secondary to dehydration vs UTI -creatinine downtrending Liver: normal LFTs, normal platelets, anemia present Hx. of DVT - on Coumadin, bridge with IV heparin to therapeutic INR FULL CODE Vital Signs: Date Time Temp Pulse Resp B/P (MAP) Pulse Ox O2 Delivery O2 Flow Rate FiO2 09/11/17 16:00 95 Room Air 09/11/17 15:18 36.6 95 20 127/82 (97) 97 Room Air 09/11/17 12:00 93 Room Air 09/11/17 11:37 36.7 76 18 92/57 (69) 95 Room Air 09/11/17 09:02 77 102/65 (77) 09/11/17 08:00 94 Room Air 09/11/17 07:24 36.5 76 18 98/64 (75) 94 Room Air 09/11/17 04:02 36.6 73 17 104/71 (82) 96 Room Air 09/11/17 04:00 Room Air 09/11/17 00:00 36.6 81 20 97 Room Air 09/11/17 00:00 97 Room Air 09/10/17 20:00 Room Air 09/10/17 19:40 36.7 94 20 121/78 (92) 95 Room Air Lab Results: Results Past 24 Hours Test 09/10/17 18:57 09/11/17 05:58 Range/Units Activated Partial Thromboplast Time 66.2 49.5 21.0-31.0 SECONDS Partial Thromboplastin Ratio 2.5 1.9 White Blood Count 6.94 4.8-10.8 K/uL Red Blood Count 3.27 4.2-5.4 M/uL Hemoglobin 9.5 12.0-16.0 g/dL Hematocrit 28.8 37-47 % Mean Corpuscular Volume 88.1 80-100 fL Mean Corpuscular Hemoglobin 29.1 25-34 pg Mean Corpuscular Hemoglobin Concent 33.0 32-36 g/dl Platelet Count 285 130-400 K/uL Mean Platelet Volume 12.0 7.4-10.4 fL Neutrophils (%) (Auto) 28.6 % Lymphocytes (%) (Auto) 49.9 % Monocytes (%) (Auto) 12.1 % Eosinophils (%) (Auto) 6.6 % Basophils (%) (Auto) 2.7 % Neutrophils # (Auto) 1.98 1.4-6.5 K/uL Lymphocytes # (Auto) 3.46 1.2-3.4 K/uL Monocytes # (Auto) 0.84 0.11-0.59 K/uL Eosinophils # (Auto) 0.46 0-0.5 K/uL Basophils # (Auto) 0.19 0-0.2 K/uL RDW Standard Deviation 50.8 36.4-46.3 fL RDW Coefficient of Variation 15.7 11.5-14.5 % Immature Granulocyte % (Auto) 0.1 % Immature Granulocyte # (Auto) 0.01 0.00-0.02 K/uL Prothrombin Time 17.2 9.0-12.0 SECONDS Prothromb Time International Ratio 1.7 0.9-1.1 Sodium Level 143 136-145 mmol/L Potassium Level 4.0 3.5-5.1 mmol/L Chloride Level 115 98-107 mmol/L Carbon Dioxide Level 21 21-32 mmol/L Anion Gap 7.0 3-11 mmol/L Blood Urea Nitrogen 27 7-18 mg/dl Creatinine 1.06 0.60-1.20 mg/dl Est Creatinine Clear Calc Drug Dose 64.4 ml/min Estimated GFR () 63.8 Estimated GFR (Non- 55.1 BUN/Creatinine Ratio 25.1 10-20 Random Glucose 89 70-99 mg/dl Calcium Level 7.9 8.5-10.1 mg/dl
[2017-09-11] MEDS: WARFARIN SOD 5 MG TAB PO SCH (16:44)
[2017-09-11] MEDS: METOPROLOL TARTRATE 50 MG TAB PO SCH (21:30)
[2017-09-12] VITALS (7 sets, daily range): BP systolic 111–118; BP diastolic 66–77; PULSE 80–112; TEMP 36.4–36.7; O2SAT 96–98
[2017-09-12] MEDS: CEFTRIAXONE SOD INJ 1 GM in DEXTROSE 5% ADD-VANTAGE 50ML 50 ML IV SCH (04:45)
[2017-09-12 04:57] LABS: BASO % 2.5 %; BASO ABS # 0.16 K/uL (0-0.2); EOS % 8.8 %; EOS ABS # 0.57 K/uL (0-0.5); HEMATOCRIT 27.5 % (37-47); HEMOGLOBIN 9.2 g/dL (12.0-16.0); IG# 0.02 K/uL (0.00-0.02); LYMPH % 49.5 %; MEAN CELL VOLUME 87.9 fL (80-100); MEAN CORPUSCULAR HEMOGLOBIN 29.4 pg (25-34); MEAN CORPUSCULAR HGB CONC 33.5 g/dl (32-36); MEAN PLATELET VOLUME 11.8 fL (7.4-10.4); MONO % 12.1 %; MONO ABS # 0.78 K/uL (0.11-0.59); NEUT % 26.8 %; NEUT ABS # 1.73 K/uL (1.4-6.5); PLATELET COUNT 262 K/uL (130-400); RED CELL DISTRIBUTION WIDTH CV 15.8 % (11.5-14.5); RED CELL DISTRIBUTION WIDTH SD 50.9 fL (36.4-46.3); WHITE BLOOD COUNT 6.46 K/uL (4.8-10.8)
[2017-09-12 05:15] LABS: CREATININE 0.91 mg/dl (0.60-1.20); POTASSIUM 4.1 mmol/L (3.5-5.1)
[2017-09-12 05:16] LABS: INR 1.5 (0.9-1.1)
[2017-09-12 05:17] LABS: PTT PATIENT 48.7 SECONDS (21.0-31.0)
[2017-09-12] MEDS: HEPARIN 25,000 UNIT/500ML D5W 500 ML IV SCH (06:16)
[2017-09-12] MEDS: FERROUS SULFATE 325 MG TAB PO SCH (09:29)
[2017-09-12] MEDS: METOPROLOL TARTRATE 50 MG TAB PO SCH ×2 (09:29→19:59)
[2017-09-12] MEDS: DILTIAZEM HCL 120 MG CAPCR PO SCH (09:30)
--- NOTE | 2017-09-12 10:22 | Cardiology Follow-Up ---
Subjective General Date of Service: Sep 12, 2017. Chief Complaint: Shortness of breath Pt evaluation today including: conversation w/ patient, physical exam, chart review, lab review, review of studies, review of inpatient medication list History of Present Illness Patient seen and examined. Mild lightheadedness when first rising from bed and walking in the hallway. No chest pain. No palpitations. No new or worsening shortness of breath. No cough, orthopnea, PND, or lower extremity peripheral edema. Telemetry: Atrial fibrillation ranging from 70 to 150 bpm, currently ~80 to 100 bpm. No sinus over the last 24 hours. Heart rates have come under better control following titration of Lopressor and the addition of oral Cardizem. Allergies Coded Allergies: Quinolones (Verified Allergy, Unknown, LOCAL REACTION TO LEVAQUIN, 09/10/17) ITCHING AND RASH Codeine (Verified Adverse Reaction, Unknown, VOMITING, 09/10/17) Social History Hx Tobacco Use In Past Year?: No Hx Alcohol Use - Type And Amou: No Hx Substance Use - Type And Am: No Problem List Medical Problems: (1) Atrial fibrillation with RVR Status: Acute (2) Atrial fibrillation with RVR Status: Acute (3) Coccyx pain Status: Acute (4) Increased ammonia level Status: Acute (5) Stress fracture of sacrococcygeal region Status: Acute (6) Subtherapeutic international normalized ratio (INR) Status: Acute (7) Subtherapeutic international normalized ratio (INR) Status: Acute Physical Exam Vital Signs Last Vital Signs Documentation Date Time Temp Pulse Resp B/P (MAP) Pulse Ox O2 Delivery O2 Flow Rate FiO2 09/12/17 08:00 Room Air 09/12/17 07:12 36.4 92 20 114/66 (82) 97 Physical Exam Constitutional: Level of Distress: NAD Psychiatric: Mental Status: active & alert Orientation: to time, to place, to person Memory: recent memory normal, remote memory normal Head: normocephalic, atraumatic Eyes: Pupils: PERRLA Neck: pertinent finding (Normal JVP) Lungs: Respiratory effort: no dyspnea Auscultation: no wheezing, no rales/crackles, no rhonchi, deminished air movement Cardiovascular: Heart Auscultation: no murmurs, tachycardia, irregular rate rhythm Abdomen: Bowel Sounds: normal Inspection & Palpation: soft Extremities: no cyanosis, no clubbing, edema Neurologic: Cranial Nerves: grossly intact Assessment and Plan Assessment and Plan Admission with acute on chronic exertional dyspnea (resolved), UTI with associated acute kidney injury/dehydration, and recurrent atrial fibrillation with a RVR History of Tachy-Tod Syndrome s/p permanent dual chamber Medtronic pacemaker implantation History of DVT on long-term anticoagulation History of liver cirrhosis with esophageal varices, hepatic encephalopathy, anemia of chronic disease RECOMMENDATIONS: Rate control + proper anticoagulation. No antiarrhythmic therapy or direct current cardioversion at this point given her asymptomatic state and the subtherapeutic INR. Heparin to proper Coumadin anticoagulation. INR Goal 2.0 to 3.0 Pending symptoms and ventricular response, future consideration may need to be made for utilization of antiarrhythmic therapy +/- DCC. Outpatient pharmacological stress testing Increase activity as tolerated. Cardiology attending: Pt seen and examined, agree with findings and assessment as per Miguel Fallon. Some lightheadedness overnight. Rates somewhat improved with addition of cardizem, will give additional 120mg po now and follow rates. Cont heparin/ coumadin. Patient asymptomatic with a history of esophageal varices, would like to avoid HALIE if at all possible. Will cont with rate control strategy, patient agreeable. Laboratory Results Last 24 Hours Test 09/12/17 04:42 White Blood Count 6.46 K/uL Red Blood Count 3.13 M/uL Hemoglobin 9.2 g/dL Hematocrit 27.5 % Mean Corpuscular Volume 87.9 fL Mean Corpuscular Hemoglobin 29.4 pg Mean Corpuscular Hemoglobin Concent 33.5 g/dl Platelet Count 262 K/uL Mean Platelet Volume 11.8 fL Neutrophils (%) (Auto) 26.8 % Lymphocytes (%) (Auto) 49.5 % Monocytes (%) (Auto) 12.1 % Eosinophils (%) (Auto) 8.8 % Basophils (%) (Auto) 2.5 % Neutrophils # (Auto) 1.73 K/uL Lymphocytes # (Auto) 3.20 K/uL Monocytes # (Auto) 0.78 K/uL Eosinophils # (Auto) 0.57 K/uL Basophils # (Auto) 0.16 K/uL RDW Standard Deviation 50.9 fL RDW Coefficient of Variation 15.8 % Immature Granulocyte % (Auto) 0.3 % Immature Granulocyte # (Auto) 0.02 K/uL Prothrombin Time 15.4 SECONDS Prothromb Time International Ratio 1.5 Activated Partial Thromboplast Time 48.7 SECONDS Partial Thromboplastin Ratio 1.9 Sodium Level 143 mmol/L Potassium Level 4.1 mmol/L Chloride Level 116 mmol/L Carbon Dioxide Level 20 mmol/L Anion Gap 7.0 mmol/L Blood Urea Nitrogen 30 mg/dl Creatinine 0.91 mg/dl Est Creatinine Clear Calc Drug Dose 72.0 ml/min Estimated GFR () 76.7 Estimated GFR (Non- 66.2 BUN/Creatinine Ratio 32.5 Random Glucose 90 mg/dl Calcium Level 8.0 mg/dl
[2017-09-12] MEDS ORDERED: DILTIAZEM HCL 120 MG CAPCR PO ONE (14:02)
[2017-09-12] MEDS: WARFARIN SOD 5 MG TAB PO SCH (15:20)
--- NOTE | 2017-09-12 18:48 | Progress Note ---
Internal Med Progress Note Date of Service: Sep 12, 2017. Provider Documentation: Subjective Ambulatory. Denies shortness of breath or chest pain or palpitations. Remains on heparin drip Physical Exam General: no acute distress Lungs: CTABL, no wheezing Heart: rate controlled, irregular Abdomen: soft, nontender, + bowel sounds Extremities: no edema ASSESSMENT & PLAN: Admission with acute on chronic exertional dyspnea (resolved), UTI with associated acute kidney injury/dehydration, and recurrent paroxysmal atrial fibrillation with a RVR History of Tachy-Tod Syndrome s/p permanent dual chamber Medtronic pacemaker implantation History of DVT on long-term anticoagulation History of liver cirrhosis with esophageal varices, hepatic encephalopathy, anemia of chronic disease Atrial Fibrillation with RVR -Rate stabilized after she was on cardizem drip. currently on oral cardizem with doses adjusted by cardiology service; Lopressor oral increased from 12.5 mg BID to 50 mg BID as per cardiology service -continue IV heparin drip bridge to Coumadin; INR = 1.5, goal 2 to 3 Urinary Tract Infection -has been on Ceftriaxone and with urine culture results as E.coli, the Ceftriaxone has been stopped and patient to be on oral BID Keflex -urine culture as gram negative bacilli, sensitivities to follow Acute Kidney Injury -secondary to dehydration vs UTI -creatinine downtrending Liver: normal LFTs, normal platelets, anemia present Hx. of DVT -on Coumadin, bridge with IV heparin to therapeutic INR FULL CODE Vital Signs: Date Time Temp Pulse Resp B/P (MAP) Pulse Ox O2 Delivery O2 Flow Rate FiO2 09/12/17 15:57 98 Room Air 09/12/17 15:24 36.4 85 20 112/74 (87) 97 Room Air 09/12/17 12:19 98 Room Air 09/12/17 11:13 36.6 112 20 118/76 (90) 98 Room Air 09/12/17 08:00 Room Air 09/12/17 07:12 36.4 92 20 114/66 (82) 97 Room Air 09/12/17 04:00 Room Air 09/12/17 03:44 36.7 80 20 117/72 (87) 96 Room Air 09/12/17 00:01 Room Air 09/11/17 23:50 36.8 82 20 105/71 (82) 97 Room Air 09/11/17 20:00 Room Air 09/11/17 19:31 36.5 66 18 126/71 (89) 92 Room Air Lab Results: Results Past 24 Hours Test 09/12/17 04:42 Range/Units White Blood Count 6.46 4.8-10.8 K/uL Red Blood Count 3.13 4.2-5.4 M/uL Hemoglobin 9.2 12.0-16.0 g/dL Hematocrit 27.5 37-47 % Mean Corpuscular Volume 87.9 80-100 fL Mean Corpuscular Hemoglobin 29.4 25-34 pg Mean Corpuscular Hemoglobin Concent 33.5 32-36 g/dl Platelet Count 262 130-400 K/uL Mean Platelet Volume 11.8 7.4-10.4 fL Neutrophils (%) (Auto) 26.8 % Lymphocytes (%) (Auto) 49.5 % Monocytes (%) (Auto) 12.1 % Eosinophils (%) (Auto) 8.8 % Basophils (%) (Auto) 2.5 % Neutrophils # (Auto) 1.73 1.4-6.5 K/uL Lymphocytes # (Auto) 3.20 1.2-3.4 K/uL Monocytes # (Auto) 0.78 0.11-0.59 K/uL Eosinophils # (Auto) 0.57 0-0.5 K/uL Basophils # (Auto) 0.16 0-0.2 K/uL RDW Standard Deviation 50.9 36.4-46.3 fL RDW Coefficient of Variation 15.8 11.5-14.5 % Immature Granulocyte % (Auto) 0.3 % Immature Granulocyte # (Auto) 0.02 0.00-0.02 K/uL Prothrombin Time 15.4 9.0-12.0 SECONDS Prothromb Time International Ratio 1.5 0.9-1.1 Activated Partial Thromboplast Time 48.7 21.0-31.0 SECONDS Partial Thromboplastin Ratio 1.9 Sodium Level 143 136-145 mmol/L Potassium Level 4.1 3.5-5.1 mmol/L Chloride Level 116 98-107 mmol/L Carbon Dioxide Level 20 21-32 mmol/L Anion Gap 7.0 3-11 mmol/L Blood Urea Nitrogen 30 7-18 mg/dl Creatinine 0.91 0.60-1.20 mg/dl Est Creatinine Clear Calc Drug Dose 72.0 ml/min Estimated GFR () 76.7 Estimated GFR (Non- 66.2 BUN/Creatinine Ratio 32.5 10-20 Random Glucose 90 70-99 mg/dl Calcium Level 8.0 8.5-10.1 mg/dl
[2017-09-12] MEDS ORDERED: NURSING VERBAL MED ORDER ONE (19:15)
[2017-09-12] MEDS: CEPHALEXIN MONOHYDRATE 500 MG CAP PO SCH (20:00)
[2017-09-12] MEDS ORDERED: SULFAMETHOXAZOLE/TRIMETHOPRIM DS 800/160MG TAB PO SCH (21:00)
[2017-09-13] VITALS (7 sets, daily range): BP systolic 98–111; BP diastolic 66–77; PULSE 78–96; TEMP 36.6–36.8; O2SAT 95–98
[2017-09-13] MEDS ORDERED: POLYETHYLENE (MIRALAX) 17 GM PACK PO STA (04:56)
[2017-09-13] MEDS: HEPARIN 25,000 UNIT/500ML D5W 500 ML IV SCH (05:04)
[2017-09-13 05:11] LABS: BASO ABS # 0.14 K/uL (0-0.2); EOS % 8.8 %; EOS ABS # 0.63 K/uL (0-0.5); HEMATOCRIT 28.8 % (37-47); HEMOGLOBIN 9.4 g/dL (12.0-16.0); IG# 0.01 K/uL (0.00-0.02); LYMPH % 43.3 %; LYMPH ABS # 3.09 K/uL (1.2-3.4); MEAN CELL VOLUME 88.3 fL (80-100); MEAN CORPUSCULAR HEMOGLOBIN 28.8 pg (25-34); MEAN CORPUSCULAR HGB CONC 32.6 g/dl (32-36); MEAN PLATELET VOLUME 11.4 fL (7.4-10.4); MONO % 12.1 %; MONO ABS # 0.86 K/uL (0.11-0.59); NEUT % 33.7 %; PLATELET COUNT 299 K/uL (130-400); RED CELL DISTRIBUTION WIDTH SD 51.1 fL (36.4-46.3); WHITE BLOOD COUNT 7.13 K/uL (4.8-10.8)
[2017-09-13 05:27] LABS: INR 1.5 (0.9-1.1)
[2017-09-13 05:31] LABS: PTT PATIENT 48.5 SECONDS (21.0-31.0)
[2017-09-13 05:36] LABS: CREATININE 0.93 mg/dl (0.60-1.20); POTASSIUM 3.9 mmol/L (3.5-5.1)
[2017-09-13] MEDS: CEPHALEXIN MONOHYDRATE 500 MG CAP PO SCH (08:33)
[2017-09-13] MEDS: FERROUS SULFATE 325 MG TAB PO SCH (08:33)
[2017-09-13] MEDS: DILTIAZEM HCL 120 MG CAPCR PO SCH (08:37)
[2017-09-13] MEDS: METOPROLOL TARTRATE 50 MG TAB PO SCH (08:37)
[2017-09-13] MEDS ORDERED: CEPHALEXIN MONOHYDRATE 500 MG CAP PO SCH (09:00)
--- NOTE | 2017-09-13 09:40 | Cardiology Follow-Up ---
Subjective General Date of Service: Sep 13, 2017. Chief Complaint: Shortness of breath Pt evaluation today including: conversation w/ patient, physical exam, chart review, lab review, review of studies, review of inpatient medication list History of Present Illness Patient seen and examined. Attributes fatigue to metoprolol. Denies chest pain, palpitations, new or worsening shortness of breath, cough, orthopnea, PND, peripheral edema, lightheadedness, dizziness, or near syncope. Constipated. Telemetry: Atrial fibrillation with a controlled ventricular response. Currently in the s. Rare ventricular pacing. No periods of sinus. Allergies Coded Allergies: Quinolones (Verified Allergy, Unknown, LOCAL REACTION TO LEVAQUIN, 09/10/17) ITCHING AND RASH Codeine (Verified Adverse Reaction, Unknown, VOMITING, 09/10/17) Social History Hx Tobacco Use In Past Year?: No Hx Alcohol Use - Type And Amou: No Hx Substance Use - Type And Am: No Problem List Medical Problems: (1) Atrial fibrillation with RVR Status: Acute (2) Atrial fibrillation with RVR Status: Acute (3) Coccyx pain Status: Acute (4) Increased ammonia level Status: Acute (5) Stress fracture of sacrococcygeal region Status: Acute (6) Subtherapeutic international normalized ratio (INR) Status: Acute (7) Subtherapeutic international normalized ratio (INR) Status: Acute Physical Exam Vital Signs Last Vital Signs Documentation Date Time Temp Pulse Resp B/P (MAP) Pulse Ox O2 Delivery O2 Flow Rate FiO2 09/13/17 07:33 36.6 78 20 98/66 (77) 95 Room Air Physical Exam Constitutional: Level of Distress: NAD Psychiatric: Mental Status: active & alert Orientation: to time, to place, to person Memory: recent memory normal, remote memory normal Head: normocephalic, atraumatic Eyes: Pupils: PERRLA Neck: pertinent finding (Normal JVP) Lungs: Respiratory effort: no dyspnea Auscultation: no wheezing, no rales/crackles, no rhonchi, deminished air movement Cardiovascular: Heart Auscultation: no murmurs, irregular rate rhythm Abdomen: Bowel Sounds: normal Inspection & Palpation: soft Extremities: no cyanosis, no clubbing, edema Neurologic: Cranial Nerves: grossly intact Assessment and Plan Assessment and Plan Admission with acute on chronic exertional dyspnea (resolved), UTI with associated acute kidney injury/dehydration, and recurrent atrial fibrillation with a RVR History of Tachy-Tod Syndrome s/p permanent dual chamber Medtronic pacemaker implantation History of DVT on long-term anticoagulation History of liver cirrhosis with esophageal varices, hepatic encephalopathy, anemia of chronic disease RECOMMENDATIONS: Rate control + proper anticoagulation. No antiarrhythmic therapy or direct current cardioversion at this point given her asymptomatic state and the subtherapeutic INR. Pending symptoms and ventricular response going forward, future (outpatient) consideration may need to be made for utilization of antiarrhythmic therapy +/- DCC. Note: Avoiding HALIE giving her history of esophageal varices. Heparin to proper Coumadin anticoagulation. INR Goal 2.0 to 3.0 Outpatient pharmacological stress testing Outpatient cardiology follow-up in 1-2 weeks at the [facility]. Cardiology attending: Pt seen and examined, agree with findings and assessment as per Miguel Fallon. Pt states that she feels fatigued and believes due to metoprolol, however, more likely due to interrupted sleep while hospitalized. Rates well controlled, INR still not at goal of 2-3, spoke with Dr. Linder, will see if we can get her Lovenox for home so she can be discharged. F/U as above. Laboratory Results Last 24 Hours Test 09/13/17 04:53 White Blood Count 7.13 K/uL Red Blood Count 3.26 M/uL Hemoglobin 9.4 g/dL Hematocrit 28.8 % Mean Corpuscular Volume 88.3 fL Mean Corpuscular Hemoglobin 28.8 pg Mean Corpuscular Hemoglobin Concent 32.6 g/dl Platelet Count 299 K/uL Mean Platelet Volume 11.4 fL Neutrophils (%) (Auto) 33.7 % Lymphocytes (%) (Auto) 43.3 % Monocytes (%) (Auto) 12.1 % Eosinophils (%) (Auto) 8.8 % Basophils (%) (Auto) 2.0 % Neutrophils # (Auto) 2.40 K/uL Lymphocytes # (Auto) 3.09 K/uL Monocytes # (Auto) 0.86 K/uL Eosinophils # (Auto) 0.63 K/uL Basophils # (Auto) 0.14 K/uL RDW Standard Deviation 51.1 fL RDW Coefficient of Variation 16.0 % Immature Granulocyte % (Auto) 0.1 % Immature Granulocyte # (Auto) 0.01 K/uL Prothrombin Time 15.3 SECONDS Prothromb Time International Ratio 1.5 Activated Partial Thromboplast Time 48.5 SECONDS Partial Thromboplastin Ratio 1.9 Sodium Level 143 mmol/L Potassium Level 3.9 mmol/L Chloride Level 117 mmol/L Carbon Dioxide Level 21 mmol/L Anion Gap 5.0 mmol/L Blood Urea Nitrogen 30 mg/dl Creatinine 0.93 mg/dl Est Creatinine Clear Calc Drug Dose 74.6 ml/min Estimated GFR () 74.7 Estimated GFR (Non- 64.5 BUN/Creatinine Ratio 32.3 Random Glucose 84 mg/dl Calcium Level 8.0 mg/dl
[2017-09-13] MEDS ORDERED: DILT-202 PO (12:09)
[2017-09-13] MEDS ORDERED: METO50TA16 PO (12:09)
[2017-09-13] MEDS ORDERED: LVNIS80 SQ (12:21)
[2017-09-13] MEDS ORDERED: KFL500 PO (12:22)
[2017-09-13] MEDS ORDERED: LOVENOX TEACHING KIT SCH (14:00)
[2017-09-13] MEDS ORDERED: WARFARIN SOD 5 MG TAB PO ONE (14:30)
[2017-09-13] MEDS ORDERED: ENOXAPARIN 150 MG/1ML SYR SQ ONE (14:30)
--- NOTE | 2017-09-13 14:37 | Progress Note ---
Internal Med Progress Note Date of Service: Sep 13, 2017. Provider Documentation: Subjective Ambulatory. Denies shortness of breath or chest pain or palpitations. INR today is still 1.5 Physical Exam General: no acute distress Lungs: CTABL, no wheezing Heart: rate controlled, irregular Abdomen: soft, nontender, + bowel sounds Extremities: no edema ASSESSMENT & PLAN: Hospital Course Admission with acute on chronic exertional dyspnea (resolved), UTI with associated acute kidney injury/dehydration, and recurrent paroxysmal atrial fibrillation with a RVR History of Tachy-Tod Syndrome s/p permanent dual chamber Medtronic pacemaker implantation History of DVT on long-term anticoagulation History of liver cirrhosis with esophageal varices, hepatic encephalopathy, anemia of chronic disease (Avoid HALIE given her history of esophageal varices) Atrial Fibrillation with RVR -Rate stabilized after she was on diltiazem drip. Currently on oral diltiazem; Lopressor oral increased from 12.5 mg BID to 50 mg BID as per cardiology service ; Patient to be discharged with prescriptions for diltiazem 120 mg daily and Metoprolol 50 mg BID -Patient to be discharged with Lovenox to bridge to coumadin with therapeutic INR. Heparin drip stopped and patient to received 5 mg coumadin and 150 mg Lovenox subcutaneous before leaving the hospital then she will continue coumadin and Lovenox at home for 3 more days before following up with anticoagulation clinic on 09/17/2017 Acute Kidney Injury secondary Urinary Tract Infection -has been on Ceftriaxone and with urine culture results as E.coli, the Ceftriaxone has been stopped and patient to be discharged on oral BID cephalexin (Keflex) Liver: normal LFTs, normal platelets, anemia present Discharge Instructions Patient is to take 150 mg Lovenox injections daily with her oral coumadin for 3 days and then follow up with 09/17/2017 6:15 PM [facility] to check the INR. Target INR is 2 to 3 Patient also to be taking Diltazem 120 mg once daily and Metoprolol 50 mg twice a day to control the heart rate Patient is to be taking cephalexin twice a day to complete antiniotic treatment for urinary tract infection Patient to also follow up with: 09/20/2017 11:00 AM Ishan García DO General Internal Medicine [facility] 09/28/2017 11:30 AM [facility] (possible Outpatient pharmacological stress testing) Vital Signs: Date Time Temp Pulse Resp B/P (MAP) Pulse Ox O2 Delivery O2 Flow Rate FiO2 09/13/17 12:00 95 Room Air 09/13/17 11:17 36.7 87 20 104/70 (81) 95 Room Air 09/13/17 08:00 95 Room Air 09/13/17 07:33 36.6 78 20 98/66 (77) 95 Room Air 09/13/17 04:00 Room Air 09/13/17 03:54 36.7 96 20 107/68 (81) 96 Room Air 09/13/17 00:06 36.8 84 18 111/77 (88) 98 Room Air 09/12/17 23:59 Room Air 09/12/17 20:00 Room Air 09/12/17 19:26 36.5 87 20 111/77 (88) 97 Room Air 09/12/17 15:57 98 Room Air 09/12/17 15:24 36.4 85 20 112/74 (87) 97 Room Air Lab Results: Results Past 24 Hours Test 09/13/17 04:53 Range/Units White Blood Count 7.13 4.8-10.8 K/uL Red Blood Count 3.26 4.2-5.4 M/uL Hemoglobin 9.4 12.0-16.0 g/dL Hematocrit 28.8 37-47 % Mean Corpuscular Volume 88.3 80-100 fL Mean Corpuscular Hemoglobin 28.8 25-34 pg Mean Corpuscular Hemoglobin Concent 32.6 32-36 g/dl Platelet Count 299 130-400 K/uL Mean Platelet Volume 11.4 7.4-10.4 fL Neutrophils (%) (Auto) 33.7 % Lymphocytes (%) (Auto) 43.3 % Monocytes (%) (Auto) 12.1 % Eosinophils (%) (Auto) 8.8 % Basophils (%) (Auto) 2.0 % Neutrophils # (Auto) 2.40 1.4-6.5 K/uL Lymphocytes # (Auto) 3.09 1.2-3.4 K/uL Monocytes # (Auto) 0.86 0.11-0.59 K/uL Eosinophils # (Auto) 0.63 0-0.5 K/uL Basophils # (Auto) 0.14 0-0.2 K/uL RDW Standard Deviation 51.1 36.4-46.3 fL RDW Coefficient of Variation 16.0 11.5-14.5 % Immature Granulocyte % (Auto) 0.1 % Immature Granulocyte # (Auto) 0.01 0.00-0.02 K/uL Prothrombin Time 15.3 9.0-12.0 SECONDS Prothromb Time International Ratio 1.5 0.9-1.1 Activated Partial Thromboplast Time 48.5 21.0-31.0 SECONDS Partial Thromboplastin Ratio 1.9 Sodium Level 143 136-145 mmol/L Potassium Level 3.9 3.5-5.1 mmol/L Chloride Level 117 98-107 mmol/L Carbon Dioxide Level 21 21-32 mmol/L Anion Gap 5.0 3-11 mmol/L Blood Urea Nitrogen 30 7-18 mg/dl Creatinine 0.93 0.60-1.20 mg/dl Est Creatinine Clear Calc Drug Dose 74.6 ml/min Estimated GFR () 74.7 Estimated GFR (Non- 64.5 BUN/Creatinine Ratio 32.3 10-20 Random Glucose 84 70-99 mg/dl Calcium Level 8.0 8.5-10.1 mg/dl
--- NOTE | 2017-09-13 14:46 | Discharge Instructions ---
Discharge Instructions Date of Service Sep 13, 2017. Admission Reason for Admission: Complicated Uti, Rapid Atrial Fibrillation Discharge Discharge Diagnosis / Problem: atrial fibrillation with RVR, on coumadin, urinary tract infection Discharge Goals Goal(s): Improve function, Improve disease control Activity Recommendations Activity Limitations: per Instructions/Follow-up section Shower/Bathe: no limitations . Instructions / Follow-Up Instructions / Follow-Up Hospital Course Admission with acute on chronic exertional dyspnea (resolved), UTI with associated acute kidney injury/dehydration, and recurrent paroxysmal atrial fibrillation with a RVR History of Tachy-Tod Syndrome s/p permanent dual chamber Medtronic pacemaker implantation History of DVT on long-term anticoagulation History of liver cirrhosis with esophageal varices, hepatic encephalopathy, anemia of chronic disease (Avoid HALIE given her history of esophageal varices) Atrial Fibrillation with RVR -Rate stabilized after she was on diltiazem drip. Currently on oral diltiazem; Lopressor oral increased from 12.5 mg BID to 50 mg BID as per cardiology service ; Patient to be discharged with prescriptions for diltiazem 120 mg daily and Metoprolol 50 mg BID -Patient to be discharged with Lovenox to bridge to coumadin with therapeutic INR. Heparin drip stopped and patient to received 5 mg coumadin and 150 mg Lovenox subcutaneous before leaving the hospital then she will continue coumadin and Lovenox at home for 3 more days before following up with anticoagulation clinic on 09/17/2017 Acute Kidney Injury secondary Urinary Tract Infection -has been on Ceftriaxone and with urine culture results as E.coli, the Ceftriaxone has been stopped and patient to be discharged on oral BID cephalexin (Keflex) Liver: normal LFTs, normal platelets, anemia present Discharge Instructions Patient is to take 150 mg Lovenox injections daily with her oral coumadin for 3 days and then follow up with 09/17/2017 6:15 PM [facility], [facility] to check the INR. Target INR is 2 to 3 Patient also to be taking Diltazem 120 mg once daily and Metoprolol 50 mg twice a day to control the heart rate Patient is to be taking cephalexin twice a day to complete antiniotic treatment for urinary tract infection Patient to also follow up with: 09/20/2017 11:00 AM Ishan García DO General Internal Medicine [facility] 09/28/2017 11:30 AM [facility], [facility] (possible Outpatient pharmacological stress testing) Current Hospital Diet Patient's current hospital diet: AHA Diet (Heart Healthy) Discharge Diet Recommended Diet: AHA Diet (Heart Healthy) Pending Studies Studies pending at discharge: no Laboratory Results 09/13/17 04:53 Red Blood Count 3.26, Mean Corpuscular Volume 88.3, Mean Corpuscular Hemoglobin 28.8, Mean Corpuscular Hemoglobin Concent 32.6, Mean Platelet Volume 11.4, Neutrophils (%) (Auto) 33.7, Lymphocytes (%) (Auto) 43.3, Monocytes (%) (Auto) 12.1, Eosinophils (%) (Auto) 8.8, Basophils (%) (Auto) 2.0, Neutrophils # (Auto ) 2.40, Lymphocytes # (Auto) 3.09, Monocytes # (Auto) 0.86, Eosinophils # (Auto ) 0.63, Basophils # (Auto) 0.14 09/13/17 04:53 Test 09/10/17 01:02 09/10/17 02:48 09/10/17 03:44 09/13/17 04:53 Pro-B-Type Natriuretic Peptide 2264 pg/ml (0-900) Urine Color YELLOW Urine Appearance CLEAR (CLEAR) Urine pH 5.0 (4.5-7.5) Urine Specific [place] 1.045 (1.000-1.030) Urine Protein NEG (NEG) Urine Glucose (UA) NEG (NEG) Urine Ketones TRACE (NEG) Urine Occult Blood NEG (NEG) Urine Nitrite POS (NEG) Urine Bilirubin NEG (NEG) Urine Urobilinogen NEG (NEG) Urine Leukocyte Esterase SMALL (NEG) Urine WBC (Auto) 5-10 /hpf (0-5) Urine RBC (Auto) 0-4 /hpf (0-4) Urine Hyaline Casts (Auto) 1-5 /lpf (0-5) Urine Epithelial Cells (Auto) >30 /lpf (0-5) Urine Bacteria (Auto) 4+ (NEG) Magnesium Level 2.3 mg/dl (1.8-2.4) Total Bilirubin 0.7 mg/dl (0.2-1) Direct Bilirubin 0.2 mg/dl (0-0.2) Aspartate Amino Transf (AST/SGOT) 19 U/L (15-37) Alanine Aminotransferase (ALT/SGPT) 17 U/L (12-78) Alkaline Phosphatase 97 U/L (45-117) Troponin I 0.020 ng/ml (0-0.045) Total Protein 6.0 gm/dl (6.4-8.2) Albumin 2.9 gm/dl (3.4-5.0) Thyroid Stimulating Hormone (TSH) 3.370 uIu/ml (0.300-4.500) White Blood Count 7.13 K/uL (4.8-10.8) Red Blood Count 3.26 M/uL (4.2-5.4) Hemoglobin 9.4 g/dL (12.0-16.0) Hematocrit 28.8 % (37-47) Mean Corpuscular Volume 88.3 fL (80-100) Mean Corpuscular Hemoglobin 28.8 pg (25-34) Mean Corpuscular Hemoglobin Concent 32.6 g/dl (32-36) Platelet Count 299 K/uL (130-400) Mean Platelet Volume 11.4 fL (7.4-10.4) Neutrophils (%) (Auto) 33.7 % Lymphocytes (%) (Auto) 43.3 % Monocytes (%) (Auto) 12.1 % Eosinophils (%) (Auto) 8.8 % Basophils (%) (Auto) 2.0 % Neutrophils # (Auto) 2.40 K/uL (1.4-6.5) Lymphocytes # (Auto) 3.09 K/uL (1.2-3.4) Monocytes # (Auto) 0.86 K/uL (0.11-0.59) Eosinophils # (Auto) 0.63 K/uL (0-0.5) Basophils # (Auto) 0.14 K/uL (0-0.2) RDW Standard Deviation 51.1 fL (36.4-46.3) RDW Coefficient of Variation 16.0 % (11.5-14.5) Immature Granulocyte % (Auto) 0.1 % Immature Granulocyte # (Auto) 0.01 K/uL (0.00-0.02) Prothrombin Time 15.3 SECONDS (9.0-12.0) Prothromb Time International Ratio 1.5 (0.9-1.1) Activated Partial Thromboplast Time 48.5 SECONDS (21.0-31.0) Partial Thromboplastin Ratio 1.9 Anion Gap 5.0 mmol/L (3-11) Est Creatinine Clear Calc Drug Dose 74.6 ml/min Estimated GFR () 74.7 Estimated GFR (Non- 64.5 BUN/Creatinine Ratio 32.3 (10-20) Calcium Level 8.0 mg/dl (8.5-10.1) Date/Time Source Procedure Growth Status 09/10/17 02:48 Urine , Clean Catch Urine Culture - Final Escherichia Coli Escherichia Coli#2 Complete Medical Emergencies . Who to Call and When: Medical Emergencies: If at any time you feel your situation is an emergency, please call 911 immediately. . Non-Emergent Contact Non-Emergency issues call your: Primary Care Provider, [employer] . . "Provider Documentation" section prepared by Anselmo Linder. .
--- NOTE | 2017-09-13 14:48 | Discharge Summary ---
Discharge Summary Date of Service Sep 13, 2017. Discharge Summary Admission Date: Sep 10, 2017 at 16:42 Discharge Date: Sep 13, 2017 Discharge Disposition: Home Principal Diagnosis: Atrial Fibrillation with RVR, on coumadin with subtherapeutic INR, was anticoagulated on heparin drip inpatient, urinary tract infection , acute kidney injury Procedures: TTE Normal LV chamber size with moderate concentric LVH. Normal LV systolic function, EF 60-65%. No segmental left ventricular wall motion abnormalities are noted. The right ventricular cavity size is normal (basal dimension <4.2 cm in right ventricular apical 4-chamber view). Reduced RV systolic function by TAPSE. Aortic valve sclerosis mild, without significant aortic valvular stenosis. Moderate left atrial enlargement. Procedure Details A complete two-dimensional transthoracic echocardiogram was performed (2D, M- mode, Doppler and color flow Doppler). Left Ventricle The left ventricle is normal in size. There is moderate concentric left ventricular hypertrophy. Left ventricular systolic function is normal. No segmental left ventricular wall motion abnormalities are noted. Ejection Fraction = 60-65%. Flattened septum is consistent with RV pressure/volume overload. Right Ventricle The right ventricular cavity size is normal (basal dimension <4.2 cm in right ventricular apical 4-chamber view). There is a pacemaker lead in the right ventricle. The right ventricular systolic function is reduced as assessed by tricuspid annular plane systolic excursion (TAPSE) (TAPSE <1.6 cm). Atria The left atrium is moderately dilated. Right atrial size is normal. No ASD detected; PFO is not assessed. Mitral Valve The mitral valve is normal in structure and function. Tricuspid Valve The tricuspid valve is normal in structure and function. Aortic Valve The aortic valve is trileaflet. Aortic valve sclerosis mild, without significant aortic valvular stenosis. There is no significant aortic regurgitation. Pulmonic Valve The pulmonary valve is not well seen, but the Doppler examination is normal without significant regurgitation or stenosis. Great Vessels The aortic root is normal size. Pericardium/Pleural There is no pericardial effusion. Consultations: cardiology Medication Reconciliation New Medications: Enoxaparin (Lovenox) 80 Mg/0.8 Ml Inj 150 MG SQ DAILY for 3 Days, #3 UNIT Cephalexin Monohydrate (Cephalexin) 500 Mg Cap 500 MG PO BID for 4 Days, #8 CAP Diltiazem HCl (Diltiazem Cd) 120 Mg Capcr 120 MG PO QAM for 30 Days, #30 Metoprolol Tartrate (Lopressor) (Lopressor) 50 Mg Tab 50 MG PO BID for 30 Days, #60 TAB Continued Medications: Ferrous Sulfate (Iron) 45 Mg Tab 1 TAB PO DAILY Furosemide (Lasix) 20 Mg Tab 20 MG PO DAILY PRN for LEG SWELLING, TAB Ibuprofen Tab (Advil) 200 Mg Tab 400 MG PO Q6 PRN for Pain, TAB Warfarin Sodium (Coumadin) 5 Mg Tab 1 TAB PO DAILY for 90 Days, #90 TAB 3 Refills Discontinued Medications: Metoprolol Tartrate (Lopressor) 25 Mg Tab 0.5 TAB PO BID, TAB Admission Information HPI (per Admitting provider): CHIEF COMPLAINT: Shortness of breath. HISTORY OF PRESENT ILLNESS: History obtained form the patient and record. Medical history significant for AFib, history of DVT on Coumadin, hypertension, ongoing tobacco abuse, history of gastric bypass, history of CVA as per records, chronic anemia (baseline hemoglobin 11-12), history mixed urinary incontinence as per records Recent confinement August 2015 for rapid AFib. Patient later noted to have bradycardic episodes. PPM placed for sick sinus syndrome. Yesterday patient noted shortness of breath symptoms on exertion. Denies palpitations. Denies chest pain. No unusual fluid retention as per patient. Increased urinary frequency, no fever, no chills, no abdominal pain, no black or bloody stools. At the Emergency Room, patient noted to be in rapid AFib, CR 130s. Received IV Diltiazem in the ER. CR currently 90-110s. Physical Exam (per Admitting): PHYSICAL EXAMINATION: VITAL SIGNS: Blood pressure was noted to be 114/75, pulse rate 130 later 98, RR 24, temperature 36.3, sats 100 on room air. GENERAL: Noted to be obese, comfortable, no respiration distress. SKIN: Pallor, warm. HEENT: Pale palpebral conjunctiva. No ptosis. Dry mucosa. NECK: Supple, nontender. CHEST: Decreased breath sounds. No tenderness. HEART: irregular, no murmur. ABDOMEN: Some distention, nontender. RECTAL: Intact sphincter, yellow stool, heme negative. EXTREMITIES: No edema. No tenderness. No gross deformity except for healed scar on the right leg. NEUROLOGIC: Coherent. No gross focality. Hospital Course Hospital Course Admission with acute on chronic exertional dyspnea (resolved), UTI with associated acute kidney injury/dehydration, and recurrent paroxysmal atrial fibrillation with a RVR History of Tachy-Tod Syndrome s/p permanent dual chamber Medtronic pacemaker implantation History of DVT on long-term anticoagulation History of liver cirrhosis with esophageal varices, hepatic encephalopathy, anemia of chronic disease (Avoid HALIE given her history of esophageal varices) Atrial Fibrillation with RVR -Rate stabilized after she was on diltiazem drip. Currently on oral diltiazem; Lopressor oral increased from 12.5 mg BID to 50 mg BID as per cardiology service ; Patient to be discharged with prescriptions for diltiazem 120 mg daily and Metoprolol 50 mg BID -Patient to be discharged with Lovenox to bridge to coumadin with therapeutic INR. Heparin drip stopped and patient to received 5 mg coumadin and 150 mg Lovenox subcutaneous before leaving the hospital then she will continue coumadin and Lovenox at home for 3 more days before following up with anticoagulation clinic on 09/17/2017 Acute Kidney Injury secondary Urinary Tract Infection -has been on Ceftriaxone and with urine culture results as E.coli, the Ceftriaxone has been stopped and patient to be discharged on oral BID cephalexin (Keflex) Liver: normal LFTs, normal platelets, anemia present Discharge Instructions Patient is to take 150 mg Lovenox injections daily with her oral coumadin for 3 days and then follow up with 09/17/2017 6:15 PM [facility], [facility] to check the INR. Target INR is 2 to 3 Patient also to be taking Diltazem 120 mg once daily and Metoprolol 50 mg twice a day to control the heart rate Patient is to be taking cephalexin twice a day to complete antiniotic treatment for urinary tract infection Patient to also follow up with: 09/20/2017 11:00 AM Ishan García DO General Internal Medicine [facility] 09/28/2017 11:30 AM [facility], [facility] (possible Outpatient pharmacological stress testing) Total time spent on discharge = 40 minutes This includes examination of the patient, discharge planning, medication reconciliation, and communication with other providers. Discharge Instructions see above
== END 2017-09-13 16:05 | disposition home or self-care (01) | DRG 309 ==
LOC: C.EDB 00:36 → C.2T 03:39 → ENRESERV 03:48 → OBSVTOIN 16:42
PROVIDERS: ADMIT Internal Medicine; ATTEND Hospitalist
DX: I48.0 Paroxysmal atrial fibrillation (principal); N17.9 Acute kidney failure, unspecified; N39.0 Urinary tract infection, site not specified; B96.20 Unspecified Escherichia coli [E. coli] as the cause of diseases classified elsewhere; E86.0 Dehydration; R79.1 Abnormal coagulation profile; I10 Essential (primary) hypertension; K74.60 Unspecified cirrhosis of liver; D63.8 Anemia in other chronic diseases classified elsewhere; N39.46 Mixed incontinence; F17.210 Nicotine dependence, cigarettes, uncomplicated; Z95.0 Presence of cardiac pacemaker; Z98.84 Bariatric surgery status; Z86.718 Personal history of other venous thrombosis and embolism; Z86.73 Personal history of transient ischemic attack (TIA), and cerebral infarction without residual deficits; Z79.01 Long term (current) use of anticoagulants; Z79.899 Other long term (current) drug therapy; Z88.1 Allergy status to other antibiotic agents; Z88.5 Allergy status to narcotic agent

== ENCOUNTER 2018-06-15 04:51 | Inpatient (IN) ==
[2018-06-15] MEDS ORDERED: SODIUM CHLORIDE 0.9% 1000ML 1,000 ML IV ONE (05:14)
[2018-06-15 05:27] LABS: Basophils % (auto) 2.3 %; Eosinophils # (auto) 0.46 K/uL (0-0.5); Eosinophils % (auto) 5.4 %; Hematocrit (blood only) 22.4 % (37-47); Hemoglobin 7.1 g/dL (12.0-16.0); Immature Granulocytes # (auto) 0.01 K/uL (0.00-0.02); Immature Granulocytes % (auto) 0.1 %; Lymphocytes # (auto) 3.12 K/uL (1.2-3.4); Lymphocytes % (auto) 36.5 %; Mean Corpuscular Hgb Conc 31.7 g/dL (32-36); Mean Corpuscular Volume 86.8 fL (80-100); Mean Platelet Volume 11.8 fL (7.4-10.4); Monocytes # (auto) 0.99 K/uL (0.11-0.59); Monocytes % (auto) 11.6 %; Neutrophils # (auto) 3.77 K/uL (1.4-6.5); Neutrophils % (auto) 44.1 %; Nucleated RBC # (auto) 0.03 K/uL (0-0); Nucleated RBC % (auto) 0.3 %; Platelet Count 358 K/uL (130-400); RDW Coefficient of Variation 16.2 % (11.5-14.5); RDW Standard Deviation 51.6 fL (36.4-46.3); Red Blood Count 2.58 M/uL (4.2-5.4); White Blood Count 8.55 K/uL (4.8-10.8)
[2018-06-15 05:45] LABS: Alanine Aminotransferase 19 U/L (12-78); Albumin Level 2.4 gm/dl (3.4-5.0); Aspartate Aminotransferase 20 U/L (15-37); BUN Creatinine Ratio 31.8 (10-20); Bilirubin Direct 0.2 mg/dl (0-0.2); Blood Urea Nitrogen 32 mg/dl (7-18); Calcium 7.7 mg/dl (8.5-10.1); Carbon Dioxide 19 mmol/L (21-32); Chloride 119 mmol/L (98-107); Est GFR (African American) 66.4; Est GFR (Non-African American) 57.3; Glucose 94 mg/dl (70-99); Magnesium 2.2 mg/dl (1.8-2.4); Sodium 144 mmol/L (136-145)
[2018-06-15 05:56] LABS: Alkaline Phosphatase 102 U/L (45-117); Bilirubin,Total 0.6 mg/dl (0.2-1); Total Protein 5.4 gm/dl (6.4-8.2); Troponin I 0.028 ng/ml (0-0.045)
[2018-06-15] MEDS ORDERED: PANTOPRAZOLE BOLUS/DRIP 1 EA IV STA (05:58)
[2018-06-15] MEDS ORDERED: PANTOprazole 80 MG in DEXTROSE 5% 100 ML IV ONE (05:58)
[2018-06-15] MEDS ORDERED: METOPROLOL TARTRATE 1 MG/ML VIAL IV STA (05:58)
[2018-06-15 06:01] LABS: Echinocytes 1+; Howell-Jolly Bodies 1+; Hypochromasia Present; Pappenheimer Bodies 1+; Schistocytes 1+
[2018-06-15] MEDS ORDERED: ALBUMIN 25% 50 ML IV ONE (06:06)
[2018-06-15 06:10] LABS: Prothrombin Time 89.6 Seconds (9.0-12.0)
--- NOTE | 2018-06-15 06:11 | Emergency Department Note ---
Entered by Rafael Loera acting as a scribe for ED Provider Note Name: Elly Lancaster Age: 68 Arrives Via: Personal vehicle Informant: Patient CC: Shortness of breath HPI: The patient is a 68 year old female who presents to the Emergency Room with complaints of intermittent shortness of breath that started this morning when she woke up. She did note it is getting better at the moment and she denies any chest pain, abdominal pain, urinary symptoms, fevers, falls, or syncopal episodes. However she has had diarrhea for the last couple of days, but it has resolved. Also, she had her INR checked yesterday and it came back at 13 so she was started on vitamin K. She is a current everyday smoker. ROS: See above HPI for pertinent positives & negatives. A total of 10 systems reviewed and were otherwise negative. Past Medical History: DVT, Afib, Pacemaker, pericarditis, liver cirrhosis see chart for complete list Past Surgical History: Gastric bypass, heart surgery, splenectomy, see chart for complete list Family History: Family history non contributory Social History: Smoker Home Medications: Metoprolol, Lovenox, Diltiazem, Lasix, Lopressor, Warfarin, see chart for complete list Allergies Quinolones and codeine Physical: Vitals: BP: 91/59, AZ: 101, RR: 22, Temp: 98.1F, O2 Sat: 100 on RA Exam: GENERAL: Patient is chronically unwell and dehydrated appearing and in mild distress. EYES: No scleral icterus, unremarkable pupils. ENT: Mucous membranes dry, no nasal congestion. NECK: No masses appreciated, no meningismus, trachea is midline. RESPIRATORY: No dyspnea. Clear to auscultation and equal bilaterally. No wheeze , no rhonchi. Mildly tachypneic. CARDIOVASCULAR: Tachycardic rate and irregular rhythm. No murmurs, rubs, gallops appreciated. GASTROINTESTINAL: Abdomen soft, non-tender, no peritonitis. Bowel sounds positive. No masses appreciated. BACK: No midline tenderness, no CVA tenderness EXTREMITIES: Normal motion all extremities, no cyanosis, no edema. NEUROLOGIC: Alert and oriented, no acute motor or sensory deficits, no focal weakness, cranial nerves grossly intact. SKIN: No rash, no jaundice, no diaphoresis. ED Course: Prior Medical Record, Triage/Nursing Notes, Medications, Allergies reviewed by Me Vital Signs: reviewed and remarkable for tachy, mild hypoxia Labs: Reviewed and remarkable for Elevated INR, low HgB Interventions: Saline Lock, NSS bolus 1 L IV, Lopressor 2.5mg IV, 2 U PRBC, VitK 5mg IV, Protonix IV Imaging: X ray results are stated below per my interpretation: Chest: 1 view: No overt low bar infiltrate, no effusion, normal cardiac border. Diffuse congestive findings. Pacemaker and sternal wires are intact. When compared to xray from 09/2017, congestion has increased. EKG: Atrial fibrillation with RVR rate of 130, anterior ST depressions, no STEMI, QTc 529. When compared to previous there is an increase in heart rate and new ST depressions Consults: Dr Lr 06:00 for admission Reassessments/Times: 0505: Past medical records reviewed. The patient was evaluated in room B03, and a complete history and physical examination were performed. 0530: Mild improvement in HR still afib RVR. Notes sob improved. 05:45; Stable. Rectal exam done with nurse present and dark brown soft ++Heme positive stool. Blood pressure: Low. No Referral necessary Disposition: Admission to hospitalist Prescriptions: none. Differentials: Differential: Sepsis, Infectious (UTI/Pneumonia/Meningitis/etc), Metabolic/Electrolyte Abnormality, Cardiac, Dehydration, Anemia, Hepatic, Endocrine, Toxicologic, Neurologic, amongst other pathologies entertained. Medical Decision Making: Pleasant 68 yr old female with complex PMH who arrives for sob this morning. She notes awakening with shob and fast HR. She was noted to have elevated INR yesterday and started on Vit K (2.5mg yesterday). She has had diarrhea the last several days as well which finally firmed up over last 12 hours. She denies syncope, chest pain. Exam consistent with chronic disease. Mild hypotension with Afib RVR thus with dehydrated exam given IV fluids first. HgB quite low from baseline thus rectal exam which revealed obvious heme + blood consistent with GI Bleed. Protonix Ordered as well as 2 U PRBC given her anemia , hypotension, and lateral ST depressions. She is not having chest pain and notes SOB improved. BP mildly improved with IV fluids thus given small dose Lopressor to try and help get HR under control as still afib RVR. She was foudn to have INR > 10 and thus given Vit K 5mg IV. Hospitalist consulted for further management. Suspect upper GI source given naproxen use, but will need further work-up evaluation for this. Impression: Atrial Fibrillation with Rapid Ventricular Response Acute GI Bleeding Acute Blood Loss Anemia Elevated INR Critical Care Time: I have personally spent greater than 45 minutes of critical care time in the direct management of this patient. Afib RVR with acute GI bleed, hypotension, elevated INR who required IV Vit K, PRBC Transfusion, IV Lopressor. This was a life/limb threatening event. This includes time spent evaluating patient, direct bedside care, chart review, placing orders, interpretation of diagnostic studies, discussion with consultants, patient, and family members, as well as other required patient management activities. This 45 minutes is in excess of all separately billable procedures. Austin Hankins MD The scribe's documentation has been prepared under my direction and personally reviewed by me in its entirety. I confirm that the note above accurately reflects all work, treatment, procedures, and medical decision making performed by me. Impression & Plan Atrial fibrillation with rapid ventricular response, Acute GI bleeding, Acute blood loss anemia, Elevated INR Past Med/Surg History Social History Feels Safe at Home: Yes Smoking Status: Current every day smoker Results & Data Vital Signs Vital Signs - 24 hr 06/15/18 04:54 06/15/18 06:04 06/15/18 06:19 Temperature 36.7 C Temperature Source Oral Sepsis Recent Fever Within 48 Hours No Sepsis Action Taken by Nursing No Action Required Pulse Rate 101 H Pulse Rate [Finger] 106 H Respiratory Rate 22 20 Respiratory Effort / Characteristics Non-Labored Respiratory Depth Normal Blood Pressure 91/59 L Blood Pressure [Left Arm] 93/67 L Blood Pressure Mean 69 Blood Pressure Mean [Left Arm] 75 Blood Pressure Position Sitting Pulse Oximetry 100 99 97 Oxygen Delivery Method Room Air Room Air Room Air 06/15/18 06:20 06/15/18 06:41 06/15/18 07:22 Temperature Temperature Source Sepsis Recent Fever Within 48 Hours Sepsis Action Taken by Nursing Pulse Rate Pulse Rate [Finger] 121 H 103 H 104 H Respiratory Rate 18 18 18 Respiratory Effort / Characteristics Non-Labored Non-Labored Respiratory Depth Normal Normal Blood Pressure Blood Pressure [Left Arm] 101/65 104/56 L 112/70 Blood Pressure Mean Blood Pressure Mean [Left Arm] 77 72 84 Blood Pressure Position Pulse Oximetry 97 98 94 Oxygen Delivery Method Room Air Room Air Room Air Laboratory Data Result diagrams: 06/15/18 05:12 06/15/18 05:12 Lab Results 06/15/18 06/15/18 06/15/18 Range/Units 05:12 05:12 05:12 WBC 8.55 (4.8-10.8) K/uL RBC 2.58 L (4.2-5.4) M/uL Hgb 7.1 L (12.0-16.0) g/dL Hct 22.4 L (37-47) % MCV 86.8 (80-100) fL MCH 27.5 (25-34) pg MCHC 31.7 L (32-36) g/dL RDW Std Deviation 51.6 H (36.4-46.3) fL RDW Coeff of Dayne 16.2 H (11.5-14.5) % Plt Count 358 (130-400) K/uL MPV 11.8 H (7.4-10.4) fL Immature Gran % (Auto) 0.1 % Neut % (Auto) 44.1 % Lymph % (Auto) 36.5 % [place] % (Auto) 11.6 % Eos % (Auto) 5.4 % Baso % (Auto) 2.3 % Immature Gran # (Auto) 0.01 (0.00-0.02) K/uL Neut # (Auto) 3.77 (1.4-6.5) K/uL Lymph # (Auto) 3.12 (1.2-3.4) K/uL [place] # (Auto) 0.99 H (0.11-0.59) K/uL Eos # (Auto) 0.46 (0-0.5) K/uL Baso # (Auto) 0.20 (0-0.2) K/uL Absolute Nucleated RBC 0.03 H (0-0) K/uL Nucleated RBC % (auto) 0.3 % Giant Platelets 1+ Hypochromasia Present Pappenheimer Bodies 1+ [place] Bodies 1+ Echinocytes 1+ Schistocytes 1+ PT 89.6 H (9.0-12.0) Seconds INR > 10.0 H* (0.9-1.1) Sodium 144 (136-145) mmol/L Potassium 4.0 (3.5-5.1) mmol/L Chloride 119 H (98-107) mmol/L Carbon Dioxide 19 L (21-32) mmol/L Anion Gap 6.0 (3-11) BUN 32 H (7-18) mg/dl Creatinine 1.02 (0.6-1.2) mg/dl Est Cr Clr Drug Dosing Not Reportable Est GFR ( Amer) 66.4 Est GFR (Non-Af Amer) 57.3 BUN/Creatinine Ratio 31.8 H (10-20) Glucose 94 (70-99) mg/dl Calcium 7.7 L (8.5-10.1) mg/dl Magnesium 2.2 (1.8-2.4) mg/dl Total Bilirubin 0.6 (0.2-1) mg/dl Direct Bilirubin 0.2 (0-0.2) mg/dl AST 20 (15-37) U/L ALT 19 (12-78) U/L Alkaline Phosphatase 102 (45-117) U/L Troponin I 0.028 (0-0.045) ng/ml NT-Pro-B Natriuret Pep (0-900) pg/ml Total Protein 5.4 L (6.4-8.2) gm/dl Albumin 2.4 L (3.4-5.0) gm/dl TSH 5.680 H (0.300-4.500) uIu/ml Urine Color Urine Appearance (Clear) Urine pH (4.5-7.5) Ur Specific [place] (1.000-1.030) Urine Protein (Negative) Urine Glucose (UA) (Negative) Urine Ketones (Negative) Urine Blood (Negative) Urine Nitrite (Negative) Urine Bilirubin (Negative) Urine Urobilinogen (Negative) Ur Leukocyte Esterase (Negative) Blood Type Antibody Screen Crossmatch 06/15/18 06/15/18 06/15/18 Range/Units 05:57 06:11 06:11 WBC (4.8-10.8) K/uL RBC (4.2-5.4) M/uL Hgb (12.0-16.0) g/dL Hct (37-47) % MCV (80-100) fL MCH (25-34) pg MCHC (32-36) g/dL RDW Std Deviation (36.4-46.3) fL RDW Coeff of Dayne (11.5-14.5) % Plt Count (130-400) K/uL MPV (7.4-10.4) fL Immature Gran % (Auto) % Neut % (Auto) % Lymph % (Auto) % [place] % (Auto) % Eos % (Auto) % Baso % (Auto) % Immature Gran # (Auto) (0.00-0.02) K/uL Neut # (Auto) (1.4-6.5) K/uL Lymph # (Auto) (1.2-3.4) K/uL [place] # (Auto) (0.11-0.59) K/uL Eos # (Auto) (0-0.5) K/uL Baso # (Auto) (0-0.2) K/uL Absolute Nucleated RBC (0-0) K/uL Nucleated RBC % (auto) % Giant Platelets Hypochromasia Pappenheimer Bodies [place] Bodies Echinocytes Schistocytes PT (9.0-12.0) Seconds INR (0.9-1.1) Sodium (136-145) mmol/L Potassium (3.5-5.1) mmol/L Chloride (98-107) mmol/L Carbon Dioxide (21-32) mmol/L Anion Gap (3-11) BUN (7-18) mg/dl Creatinine (0.6-1.2) mg/dl Est Cr Clr Drug Dosing Est GFR ( Amer) Est GFR (Non-Af Amer) BUN/Creatinine Ratio (10-20) Glucose (70-99) mg/dl Calcium (8.5-10.1) mg/dl Magnesium (1.8-2.4) mg/dl Total Bilirubin (0.2-1) mg/dl Direct Bilirubin (0-0.2) mg/dl AST (15-37) U/L ALT (12-78) U/L Alkaline Phosphatase (45-117) U/L Troponin I (0-0.045) ng/ml NT-Pro-B Natriuret Pep 547 (0-900) pg/ml Total Protein (6.4-8.2) gm/dl Albumin (3.4-5.0) gm/dl TSH (0.300-4.500) uIu/ml Urine Color Yellow Urine Appearance Clear (Clear) Urine pH 6.0 (4.5-7.5) Ur Specific [place] 1.020 (1.000-1.030) Urine Protein Negative (Negative) Urine Glucose (UA) Negative (Negative) Urine Ketones Negative (Negative) Urine Blood Negative (Negative) Urine Nitrite Negative (Negative) Urine Bilirubin Negative (Negative) Urine Urobilinogen Negative (Negative) Ur Leukocyte Esterase Negative (Negative) Blood Type B Negative Antibody Screen NEGATIVE Crossmatch See Detail Administered Medications Pantoprazole Sodium 40 mg/ (Dextrose) 100 mls @ 20 mls/hr IV Q5H MECHE Stop: 07/15/18 05:59 Last Admin: 06/15/18 06:36 Dose: 20 mls/hr Discontinued Medications Digoxin (Lanoxin) 250 mcg IV ONE ONE Stop: 06/15/18 06:24 Last Admin: 06/15/18 06:38 Dose: 250 mcg Sodium Chloride (Nss 1000ml) 1,000 mls @ 999 mls/hr IV .Q1H1M ONE Stop: 06/15/18 06:14 Last Infusion: 06/15/18 06:22 Dose: 0 mls/hr Admin: 06/15/18 05:21 Dose: 999 mls/hr Pantoprazole Sodium (Protonix Bolus/Drip) 0 mls @ 1 mls/hr IV ONE STA Stop: 06/15/18 05:59 Last Admin: 06/15/18 06:24 Dose: Not Given Pantoprazole Sodium 80 mg/ (Dextrose) 120 mls @ 400 mls/hr IV NOW ONE Stop: 06/15/18 06:15 Last Infusion: 06/15/18 06:49 Dose: Admin: 06/15/18 06:16 Dose: 400 mls/hr Albumin Human (Albumin 25%) 50 mls @ 50 mls/hr IV ONE ONE Stop: 06/15/18 07:05 Last Admin: 06/15/18 06:41 Dose: 50 mls/hr Phytonadione 10 mg/ Sodium (Chloride) 51 mls @ 102 mls/hr IV ONE ONE Stop: 06/15/18 07:03 Last Admin: 06/15/18 07:17 Dose: 102 mls/hr Prothrombin Complex Concent ( (Human) 5,000 units/ Syringe) 200 mls @ 10 mls/ min IV NOW ONE; Protocol Stop: 06/15/18 07:19 Last Admin: 06/15/18 07:17 Dose: 10 mls/min Metoprolol Tartrate (Lopressor) 2.5 mg IV NOW STA Stop: 06/15/18 05:59 Last Admin: 06/15/18 06:09 Dose: 2.5 mg Discharge Plan Visit Data Chief Complaint: Shortness of Breath/Dyspnea Stated Complaint: SOB ED Provider: Austin Hankins Discharge Problem: Atrial fibrillation with rapid ventricular response, Acute GI bleeding, Acute blood loss anemia, Elevated INR Forms Stand Alone Forms: My [facility] Prescriptions Prescriptions: No Action phytonadione (vitamin K1) 5 mg Tablet 2.5 mg PO UD RF: 0 warfarin 5 mg Tablet 5 mg PO DAILY RF: 0 nitroglycerin [Nitrostat] 0.4 mg Tablet, Sublingual 0.4 mg Sublingual UD RF: 0 ferrous sulfate 325 mg (65 mg iron) Tablet 325 mg PO BID RF: 0 diltiazem HCl [Cardizem CD] 120 mg Capsule,Extended Release 24hr 120 mg PO DAILY RF: 0 metoprolol tartrate 50 mg Tablet 50 mg PO BID RF: 0 furosemide 20 mg Tablet 20 mg PO UD PRN (Reason: Edema) RF: 0 multivitamin [Multiple Vitamins] Tablet 1 tab PO DAILY RF: 0 naproxen sodium 220 mg Capsule 440 mg PO BIDM RF: 0 lactulose 10 gram/15 mL Solution 30 ml PO BID RF: 0 acetaminophen [Tylenol Extra Strength] 500 mg Tablet 500 mg PO Q6H PRN (Reason: Pain) RF: 0 ciprofloxacin HCl [Cipro] 250 mg Tablet 250 mg PO BID RF: 0 The scribe's documentation has been prepared under my direction and personally reviewed by me in its entirety. I confirm that the note above accurately reflects all work, treatment, procedures, and medical decision making performed by me.
[2018-06-15] MEDS ORDERED: DIGOXIN 500 MCG/2 ML AMP IV ONE (06:23)
[2018-06-15 06:31] LABS: INR > 10.0 (0.9-1.1)
[2018-06-15] MEDS ORDERED: PHYTONADIONE 5 MG in SODIUM CHLORIDE 0.9% 50 ML IV ONE (06:32)
[2018-06-15] MEDS ORDERED: PHYTONADIONE 10 MG in SODIUM CHLORIDE 0.9% 50 ML IV ONE (06:34)
[2018-06-15] MEDS: PANTOprazole 40 MG in DEXTROSE 5% 100 ML IV SCH ×4 (06:36→20:41)
--- NOTE | 2018-06-15 06:49 | XRay Report ---
XR chest 1V portable CLINICAL HISTORY: shob, weak dyspnea COMPARISON STUDY: 09/10/2017 FINDINGS: Mild cardiomegaly. Increased prominence of the pulmonary vasculature. Slightly progressive interstitial change left base. IMPRESSION: Mild congestive heart failure. Potential superimposed infiltrative process left base. The above report was generated using voice recognition software. It may contain grammatical, syntax or spelling errors. Electronically signed by: Miguel Kessler M.D. 06/15/2018 6:48 AM
[2018-06-15] MEDS ORDERED: PROTHROMBIN COMP CONC- KCENTRA 5,000 UNITS in SYRINGE 0 ML IV ONE (07:00)
--- NOTE | 2018-06-15 07:02 | History & Physical Report ---
Date of Service June 15, 2018 Assessment & Plan (1) UGIB (upper gastrointestinal bleed): Coumadin coagulopathy hx NAFLD cirrhosis Possible etiologies : Gastritis, PUD, variceal bleed hemodynamic instability with borderline BP and tachycardia, hemoglobin drop from baseline Rapid A. fib secondary to UGIB hx SSS sp PPM INR supratherapeutic Shortness of breath secondary to anemia, rapid A. fib, mild pulmonary congestion past hx DVT as per records hypertension, BP on the lower side History CVA as per records past tobacco abuse, history of gastric bypass, ICU Hold Coumadin Vitamin K and Kcentra appropriate for Coumadin coagulopathy with hemodynamic instability as per Hematology recommendations Transfuse pRBC for symptomatic anemia IV PPI for UGIB IV Octreotide drip for possible variceal bleed IV Ceftriaxone for SBP prophylaxis in a cirrhotic patient with ongoing UGIB GI consult RE UGIB Hold parameters for home BB, CCB given borderline BP DVT prophylaxis. SCDs while INR less than 2 while Coumadin on hold Full code Total critical time was 45 minutes. History of Present Illness Chief Complaint: Weakness Primary Care Provider: Ishan García DO History obtained from patient and records. Medical history significant for SSS sp PPM on Coumadin, past hx DVT, hypertension, History CVA, NAFLD cirrhosis, history of esophageal varices, hx gastric bypass, past tobacco abuse, history of gastric bypass, chronic anemia (baseline hemoglobin 9-10), history mixed urinary incontinence as per records Recent confinement September 2017 for A. fib with RVR. Last week patient had a transient diarrheal illness. 2 days ago outpatient INR was noted to be greater than 8. Patient instructed by Coumadin clinic to hold Coumadin and take vitamin K tablet. Yesterday patient noted generalized weakness, shortness of breath on exertion. Dark stools noted at home. No emesis. No abdominal pain. Intake of Aleve tablets at least once weekly for joint aches as per patient. At the ER, IV PPI given for UGIB. MEDICAL HISTORY: As above. EGD October 2016 showed grade 1 esophageal varices SURGERIES: She has had splenectomy, gastric bypass, cholecystectomy, pacemaker placement, facial fracture surgery, resection of pericardial cyst, hernia repair FAMILY HISTORY: Hypertension. SOCIAL AND PERSONAL HISTORY: Past tobacco use, no chronic intake of alcoholic beverages. 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 Allergies Allergy/AdvReac Type Severity Reaction Status Date / Time Quinolones Allergy Unknown LOCAL Verified 06/15/18 05:30 REACTION TO LEVAQUIN codeine AdvReac Unknown VOMITING Verified 06/15/18 05:30 nickel AdvReac Redness of Verified 06/15/18 11:13 Skin Home Medications Home Medications Medication Instructions Recorded Confirmed Type acetaminophen [Tylenol Extra 500 mg PO Q6H PRN 06/15/18 06/15/18 History Strength] ciprofloxacin HCl [Cipro] 250 mg PO BID 06/15/18 06/15/18 History diltiazem HCl [Cardizem CD] 120 mg PO DAILY 06/15/18 06/15/18 History ferrous sulfate 325 mg PO BID 06/15/18 06/15/18 History furosemide 20 mg PO UD PRN 06/15/18 06/15/18 History lactulose 30 ml PO BID 06/15/18 06/15/18 History metoprolol tartrate 50 mg PO BID 06/15/18 06/15/18 History multivitamin [Multiple Vitamins] 1 tab PO DAILY 06/15/18 06/15/18 History naproxen sodium 440 mg PO BIDM 06/15/18 06/15/18 History nitroglycerin [Nitrostat] 0.4 mg SUBLINGUAL UD 06/15/18 06/15/18 History phytonadione (vitamin K1) 2.5 mg PO UD 06/15/18 06/15/18 History warfarin 5 mg PO DAILY 06/15/18 06/15/18 History Past Med/Surg History Medical History Anemia Atrial fibrillation with RVR CVA (cerebral vascular accident) Patient denies states she had metabolic encephalopathy from elevated ammonia levels. 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 Placed for tachy-kaz syndrome UGIB (upper gastrointestinal bleed) Surgical History H/O gastric bypass History of esophagogastroduodenoscopy (EGD) Social History Current Living Situation: Family Other Information That Helps Us Care for You: No Feels Safe at Home: Yes Safety Concerns: Feels Safe At This Time Smoking Status: Current some day smoker Tobacco Type: cigarettes Do You Dip or Chew Tobacco: No Hx Alcohol Use: No Hx Substance Use: No Beliefs That Will Affect Care: None Communication Ability: Effective Review of Systems As per HPI, all 10 systems reviewed, all other ROS negative Physical Exam 2 Vital Signs (Past 24 Hours): Last Vital Signs Temp 36.7 C 06/15/18 04:54 Pulse 103 H 06/15/18 06:41 Resp 18 06/15/18 06:41 BP 104/56 L 06/15/18 06:41 Pulse Ox 98 06/15/18 06:41 Physical Exam: GENERAL: Slightly anxious, obese , no respiratory distress SKIN: Pallor, warm HEENT: Pale palpebral conjunctivae, no ptosis, dry buccal mucosa NECK : Supple, short, no tenderness CHEST : CTA, no tenderness HEART : Irregular, tachycardic, systolic murmur ABDOMEN: Some distention, no overt tenderness EXTREMITIES : minimal LE swelling, no tenderness, no other conspicuous deformities noted NEUROLOGIC : Coherent, no facial asymmetry, no other gross focality Results & Data Laboratory Results Laboratory Results WBC 8.55 K/uL (4.8-10.8) 06/15/18 05:12 RBC 2.58 M/uL (4.2-5.4) L 06/15/18 05:12 Hgb 7.1 g/dL (12.0-16.0) L 06/15/18 05:12 Hct 22.4 % (37-47) L 06/15/18 05:12 MCV 86.8 fL (80-100) 06/15/18 05:12 MCH 27.5 pg (25-34) 06/15/18 05:12 MCHC 31.7 g/dL (32-36) L 06/15/18 05:12 RDW Std Deviation 51.6 fL (36.4-46.3) H 06/15/18 05:12 RDW Coeff of Dayne 16.2 % (11.5-14.5) H 06/15/18 05:12 Plt Count 358 K/uL (130-400) 06/15/18 05:12 MPV 11.8 fL (7.4-10.4) H 06/15/18 05:12 Immature Gran % (Auto) 0.1 % 06/15/18 05:12 Neut % (Auto) 44.1 % 06/15/18 05:12 Lymph % (Auto) 36.5 % 06/15/18 05:12 [place] % (Auto) 11.6 % 06/15/18 05:12 Eos % (Auto) 5.4 % 06/15/18 05:12 Baso % (Auto) 2.3 % 06/15/18 05:12 Immature Gran # (Auto) 0.01 K/uL (0.00-0.02) 06/15/18 05:12 Neut # (Auto) 3.77 K/uL (1.4-6.5) 06/15/18 05:12 Lymph # (Auto) 3.12 K/uL (1.2-3.4) 06/15/18 05:12 [place] # (Auto) 0.99 K/uL (0.11-0.59) H 06/15/18 05:12 Eos # (Auto) 0.46 K/uL (0-0.5) 06/15/18 05:12 Baso # (Auto) 0.20 K/uL (0-0.2) 06/15/18 05:12 Absolute Nucleated RBC 0.03 K/uL (0-0) H 06/15/18 05:12 Nucleated RBC % (auto) 0.3 % 06/15/18 05:12 Giant Platelets 1+ 06/15/18 05:12 Hypochromasia Present 06/15/18 05:12 Pappenheimer Bodies 1+ 06/15/18 05:12 [place] Bodies 1+ 06/15/18 05:12 Echinocytes 1+ 06/15/18 05:12 Schistocytes 1+ 06/15/18 05:12 PT 89.6 Seconds (9.0-12.0) H 06/15/18 05:12 INR > 10.0 (0.9-1.1) H* 06/15/18 05:12 Sodium 144 mmol/L (136-145) 06/15/18 05:12 Potassium 4.0 mmol/L (3.5-5.1) 06/15/18 05:12 Chloride 119 mmol/L (98-107) H 06/15/18 05:12 Carbon Dioxide 19 mmol/L (21-32) L 06/15/18 05:12 Anion Gap 6.0 (3-11) 06/15/18 05:12 BUN 32 mg/dl (7-18) H 06/15/18 05:12 Creatinine 1.02 mg/dl (0.6-1.2) 06/15/18 05:12 Est Cr Clr Drug Dosing Not Reportable 06/15/18 05:12 Est GFR ( Amer) 66.4 06/15/18 05:12 Est GFR (Non-Af Amer) 57.3 06/15/18 05:12 BUN/Creatinine Ratio 31.8 (10-20) H 06/15/18 05:12 Glucose 94 mg/dl (70-99) 06/15/18 05:12 Calcium 7.7 mg/dl (8.5-10.1) L 06/15/18 05:12 Magnesium 2.2 mg/dl (1.8-2.4) 06/15/18 05:12 Total Bilirubin 0.6 mg/dl (0.2-1) 06/15/18 05:12 Direct Bilirubin 0.2 mg/dl (0-0.2) 06/15/18 05:12 AST 20 U/L (15-37) 06/15/18 05:12 ALT 19 U/L (12-78) 06/15/18 05:12 Alkaline Phosphatase 102 U/L (45-117) 06/15/18 05:12 Troponin I 0.028 ng/ml (0-0.045) 06/15/18 05:12 Total Protein 5.4 gm/dl (6.4-8.2) L 06/15/18 05:12 Albumin 2.4 gm/dl (3.4-5.0) L 06/15/18 05:12 TSH 5.680 uIu/ml (0.300-4.500) H 06/15/18 05:12 Crossmatch See Detail 06/15/18 06:11 Diagnostic Findings Chest x-ray as per my interpretation congestion, atelectasis EKG as per my interpretation : Rate 130, A. fib, ST depression lateral leads
[2018-06-15 07:10] LABS: Appearance Urine Clear (Clear); Bilirubin Urine Negative (Negative); Color Urine Yellow; Glucose Urine UA Negative (Negative); Ketones Urine Negative (Negative); Leukocyte Esterase Urine Negative (Negative); Nitrite Urine Negative (Negative); Protein Urine Negative (Negative); Urobilinogen Urine Negative (Negative)
[2018-06-15] MEDS ORDERED: OCTREOTIDE ACETATE 50 MCG in SYRINGE 9.5 ML IV STA (08:06)
[2018-06-15] MEDS ORDERED: ACETAMINOPHEN 325 MG TAB PO PRN (08:11)
[2018-06-15] MEDS ORDERED: ICU PROTOCOL FOR HYPERGLYCEMIA PRN (08:11)
[2018-06-15] MEDS ORDERED: PROCHLORPERAZINE 5 MG in SYRINGE 4 ML IV PRN (08:11)
[2018-06-15] MEDS ORDERED: TRAMADOL HCL 50 MG TABLET PO PRN (08:11)
[2018-06-15] MEDS: OCTREOTIDE ACETATE 500 MCG in 0.9 % SODIUM CHLORIDE 100 ML IV SCH ×2 (08:29→17:48)
--- NOTE | 2018-06-15 09:25 | History & Physical Report ---
Date of Service June 15, 2018 History of Present Illness Chief Complaint: Anemia Primary Care Provider: Ishan García, DO 68 yo fm with a history of prior rygb in 2002, cirrhosis (last imaging in [facility]- [facility] in 2014) with prior pvt with cavernous transformation, afib on coumadin, pacemaker in place, last cath done in 2018 with normal ef, admitted now with reported dark stools and found to be in afib. She is hemodynamically stable and without overt complaints of hematemesis, abdominal pain, melena at bedside. States she always has dark stools as she takes her iron and has been for years. She was folding laundry yesterday and felt fine other than a little sob that has improved now. She went to the coumadin clinic yesterday and was told her INR was 13, took one vitamin K orally but then came in thru the ER thereafter. She was admitted thru the ER early this am. Hemodynamically stable other that tachycardia from afib. Labs sig for hgb of 7, normal platelets, suprathepeutic INR of 10. She is voicing no complaints of hematemesis/belly pain, melena at the current time. She is alert and oriented to person/place/time. Aware that she used to follow with Dr. Curtis but states she hasn't seen him in some time. Her prior records indicate she had cirrhosis per imaging last in 2014, she had borderline ev and phg per last endoscopy also in 2014, other decompensation in the form of he. She has had issues with iron deficiency anemia in the past from her prior rygb for which she has remained on oral iron for the past few years. Allergies Allergy/AdvReac Type Severity Reaction Status Date / Time Quinolones Allergy Unknown LOCAL Verified 06/15/18 05:30 REACTION TO LEVAQUIN codeine AdvReac Unknown VOMITING Verified 06/15/18 05:30 Home Medications Home Medications Medication Instructions Recorded Confirmed Type acetaminophen [Tylenol Extra 500 mg PO Q6H PRN 06/15/18 06/15/18 History Strength] ciprofloxacin HCl [Cipro] 250 mg PO BID 06/15/18 06/15/18 History diltiazem HCl [Cardizem CD] 120 mg PO DAILY 06/15/18 06/15/18 History ferrous sulfate 325 mg PO BID 06/15/18 06/15/18 History furosemide 20 mg PO UD PRN 06/15/18 06/15/18 History lactulose 30 ml PO BID 06/15/18 06/15/18 History metoprolol tartrate 50 mg PO BID 06/15/18 06/15/18 History multivitamin [Multiple Vitamins] 1 tab PO DAILY 06/15/18 06/15/18 History naproxen sodium 440 mg PO BIDM 06/15/18 06/15/18 History nitroglycerin [Nitrostat] 0.4 mg SUBLINGUAL UD 06/15/18 06/15/18 History phytonadione (vitamin K1) 2.5 mg PO UD 06/15/18 06/15/18 History warfarin 5 mg PO DAILY 06/15/18 06/15/18 History Past Med/Surg History Social History Current Living Situation: Family Other Information That Helps Us Care for You: No Feels Safe at Home: Yes Safety Concerns: Feels Safe At This Time Smoking Status: Current some day smoker Tobacco Type: cigarettes Do You Dip or Chew Tobacco: No Second Hand Exposure: No Tobacco Cessation Education Requested by Patient: No Hx Alcohol Use: No Hx Substance Use: No Beliefs That Will Affect Care: None Preferred Language: Nepalese Communication Ability: Effective Enterprise Infrastructure Architect Required: No Review of Systems Constitutional: no fever and no chills No jaundice Respiratory: no cough and no dyspnea Cardiovascular: no chest pain Gastrointestinal: no abdominal pain, no vomiting, no coffee ground emesis and no hematemesis Physical Exam 2 Vital Signs (Past 24 Hours): Last Vital Signs Temp 36.7 C 06/15/18 08:50 Pulse 121 H 06/15/18 08:50 Resp 18 06/15/18 08:50 BP 102/73 06/15/18 08:50 Pulse Ox 100 06/15/18 08:50 Physical Exam: Lying in bed in no acute distress Constitutional: well developed and well nourished Respiratory: normal respiratory effort Cardiovascular: Rate/Rhythm: + tachycardic Gastrointestinal (Abdomen): normal bowel sounds, soft, nontender, no hepatosplenomegaly Neurologic: PERRL, EOMI, accommodation nl, no face palsy, no dysarthria Results & Data Laboratory Results Labs reviewed Hgb of 7 INR of 10 Normal platelets Normal wbc count Diagnostic Findings Cxray reviewed Supervising Physician Co-Signing Physician Notes 68 yo fm with a known history of afib on coumadin, prior pacemaker placement ( recent cath in 2018 shows normal ef), cirrhosis presumably from jonny/boland per imaging last in 2015 (abd gina), known phg and known cee from prior rygb for which she is on oral iron. Admitted thru the ER to medicine then the ICU for reported dark stools and labs significant for hgb of 7 and high INR. She is denying any abdominal pain, confusion, or hematemesis currently. Recent ? URI but breathing fine. She is currently in afib on the monitor. Her black stools she states are chronic as she has been on oral iron for the past few years. If they had become more black it could be in the setting of a supratherapeutic INR at this time. She is reluctant to undergo an egd unless absolutely necessary as she was stating she does nt ohave insurance at this time. At the current time, we discussed trying to medically optimize her- reverse her INR, give her 1 unit of blood (with PHG and her liver condition ideally her hgb should be around 8), would not attempt to over transfuse her, IV PPI infusion and octreotide infusions and once more medically optimized will assess her need for egd. Repeat hgb/INR pending blood transfusion and vitamin K administration. Her Cxray is suggestive of possible chf- would defer to primary team's workup/ mgmt of this. She is alert and oriented at the time of my examination. If EGD is pursued, will likely need to be done in the OR with anesthesia.
[2018-06-15 09:37] LABS: INR 1.1 (0.9-1.1); Prothrombin Time 11.2 Seconds (9.0-12.0)
[2018-06-15] MEDS: MULTIVITAMIN TAB PO SCH (09:48)
[2018-06-15] MEDS: LACTULOSE SYRUP 20 GM/30 ML UDC PO SCH ×2 (09:49→20:41)
[2018-06-15] MEDS: cefTRIAXone SODIUM 1,000 MG in DEXTROSE 5% 50 ML IV SCH (10:06)
--- NOTE | 2018-06-15 11:49 | Anesthesiology Consultation ---
Date of Service June 15, 2018 Per [employer] rep a magnet placed during the procedure is nor necessary unless there is interference in which it ill pace at 88 bpm. No postop interrogation is necessary. Assessment & Plan (1) Encounter for pre-operative examination: Chart Review Chart Review: Acceptable Risk for Surgery History Surgery Operation Date: 06/15/18 13:00 Proposed Procedures p EGD Biopsy Dilatation - Annette Brock M.D. Height/Weight Height: 5 ft 8 in Weight: 104.8 kg Allergies Allergy/AdvReac Type Severity Reaction Status Date / Time Quinolones Allergy Unknown LOCAL Verified 06/15/18 05:30 REACTION TO LEVAQUIN codeine AdvReac Unknown VOMITING Verified 06/15/18 05:30 nickel AdvReac Redness of Verified 06/15/18 11:13 Skin Medications Home Medications Medication Instructions Recorded Confirmed Last Taken acetaminophen [Tylenol Extra 500 mg PO Q6H PRN 06/15/18 06/15/18 Unknown Strength] ciprofloxacin HCl [Cipro] 250 mg PO BID 06/15/18 06/15/18 Unknown diltiazem HCl [Cardizem CD] 120 mg PO DAILY 06/15/18 06/15/18 Unknown ferrous sulfate 325 mg PO BID 06/15/18 06/15/18 Unknown furosemide 20 mg PO UD PRN 06/15/18 06/15/18 Unknown lactulose 30 ml PO BID 06/15/18 06/15/18 Unknown metoprolol tartrate 50 mg PO BID 06/15/18 06/15/18 Unknown multivitamin [Multiple Vitamins] 1 tab PO DAILY 06/15/18 06/15/18 Unknown naproxen sodium 440 mg PO BIDM 06/15/18 06/15/18 Unknown nitroglycerin [Nitrostat] 0.4 mg SUBLINGUAL UD 06/15/18 06/15/18 Unknown phytonadione (vitamin K1) 2.5 mg PO UD 06/15/18 06/15/18 06/14/18 warfarin 5 mg PO DAILY 06/15/18 06/15/18 06/13/18 Active Medications Generic Name Dose Route Start Last Admin Trade Name Freq PRN Reason Stop Dose Admin Pantoprazole Sodium 40 mg/ 100 mls @ 20 mls/hr 06/15/18 06:00 06/15/18 11:30 Dextrose IV 07/15/18 05:59 20 mls/hr Q5H MECHE Administration Octreotide Acetate 500 mcg/ 105 mls @ 10.5 mls/hr 06/15/18 08:15 06/15/18 08: 29 Sodium Chloride IV 07/15/18 08:14 50 mcg/hr .Q10H MECHE 10.5 mls/hr Administration 50 MCG/HR Ceftriaxone Sodium 1,000 mg/ 60 mls @ 100 mls/hr 06/15/18 09:30 06/15/18 10: 40 Dextrose IV 06/25/18 09:29 Infused Q24H MECHE Infusion Lactulose 20 gm 06/15/18 09:30 06/15/18 09:49 Chronulac PO 07/15/18 09:29 Not Given BID MECHE Multivitamins 1 tab 06/15/18 09:30 06/15/18 09:48 Multivitamin PO 07/15/18 09:29 Not Given DAILY MECHE Past Medical History Medical History Anemia Atrial fibrillation with RVR CVA (cerebral vascular accident) Patient denies states she had metabolic encephalopathy from elevated ammonia levels. 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 Placed for tachy-kaz syndrome UGIB (upper gastrointestinal bleed) Past Surgical History Surgical History H/O gastric bypass History of esophagogastroduodenoscopy (EGD) Social History Smoking Status: Current some day smoker tobacco type: cigarettes Do You Dip or Chew Tobacco: No Hx Alcohol Use: No Hx Substance Use: No Physical Exam Vital Signs Last Vital Signs Temp 36.8 C 06/15/18 12:28 Pulse 119 H 06/15/18 12:28 Resp 16 06/15/18 12:28 BP 95/65 L 06/15/18 12:28 Pulse Ox 100 06/15/18 12:28 Testing Electrocardiogram Date: 06/15/18 Atrial fibrillation with rapid ventricular response ST & T wave abnormality, consider inferior ischemia Abnormal ECG When compared with ECG of 10-SEP-2017 06:23, Nonspecific T wave abnormality, improved in Anterior leads Chest X-Ray Date: 06/15/18 Mild congestive heart failure. Potential superimposed infiltrative process left base. Echocardiogram Date: 04/02/18 Normal LV chamber size with moderate concentric LVH. Normal LV systolic function, EF 60-65%. No segmental left ventricular wall motion abnormalities are noted. The right ventricular cavity size is normal (basal dimension <4.2 cm in right ventricular apical 4-chamber view). Reduced RV systolic function by TAPSE. Aortic valve sclerosis mild, without significant aortic valvular stenosis. Moderate left atrial enlargement. Laboratory Results 06/15/18 11:52 06/15/18 05:12 Blood Type B Negative 06/15/18 06:11 Antibody Screen NEGATIVE 06/15/18 06:11 PT 11.2 Seconds (9.0-12.0) 06/15/18 09:14 INR 1.1 (0.9-1.1) 06/15/18 09:14 Urine Color Yellow 06/15/18 05:57 Urine Appearance Clear (Clear) 06/15/18 05:57 Urine pH 6.0 (4.5-7.5) 06/15/18 05:[address] [place] 1.020 (1.000-1.030) 06/15/18 05:57 Urine Protein Negative (Negative) 06/15/18 05:57 Urine Glucose (UA) Negative (Negative) 06/15/18 05:57 Urine Ketones Negative (Negative) 06/15/18 05:57 Urine Nitrite Negative (Negative) 06/15/18 05:57 Ur Leukocyte Esterase Negative (Negative) 06/15/18 05:57 06/15/18 11:34 POC Glucose 110 H
[2018-06-15 12:12] LABS: Hematocrit (blood only) 24.5 % (37-47); Hemoglobin 7.7 g/dL (12.0-16.0)
[2018-06-15] MEDS ORDERED: PROPOFOL IV EMULSION 10 MG/ML 20 ML VIAL IV ONE (12:37)
[2018-06-15] MEDS ORDERED: LIDOCAINE HCL 2% 2 ML VIAL/AMP(20MG/ML) INFIL ONE (12:37)
[2018-06-15] MEDS ORDERED: ONDANSETRON INJ 2 MG/ML 2 ML VIAL ONE (12:52)
[2018-06-15] MEDS ORDERED: ETOMIDATE 2 MG/ML 20 ML VIAL IV ONE (12:52)
--- NOTE | 2018-06-15 13:02 | History & Physical Bridge Note ---
Date of Service June 15, 2018 History & Physical Bridge Note I have examined the patient, reviewed the History & Physical and in the interval since the performance of the History & Physical I have noted the following changes of clinical significance: no changes noted She has received 1 unit of blood since initial examination this am - slight increase in her hgb (less than 1 gram after 1 unit). Her heart rate has improved slightly with blood transfusion. She is in no acute distress currently. Consent signed. Proceed with EGD in the OR.
--- NOTE | 2018-06-15 13:53 | Hospitalist Progress Note ---
Date of Service June 15, 2018 Assessment & Plan (1) UGIB (upper gastrointestinal bleed): Coumadin Induced coagulopathy Symptomatic Anemia H/O NAFLD cirrhosis, Iron deficeicny anemia, Gastric Bypass S/P VItamin K and Kcentra S/P PRBC transfusion PT/INR: >10 >>1.1 Planned for EGD Continue Protonix ggt and Octreotide Monitor H&H Appreciate GI help Cautious use of IV fluids given mild volume overload status On lactulose and diuretics at home Continue Ceftriaxone in setting of Upper GI bleed with H/O cirrhosis Avoid NSAIDs Afib RVR INR supratherapeutic Mild Pulmonary congestion Continue Metoprolol Resume Cardizem when appropriate Monitor INR HTN: Bp relatively low monitor H/O DVT was on Coumadin at home DVT Px: SCDs Re: GI bleed Code Status: Full Code Subjective Patient is seen and examined at bedside Currently offers no symptoms Dyspnea improved Denies any chest pain, dizziness, nausea, abd pain Had blood transfusion Planned for EGD today Afib RVR on monitor, patient asymptomatic Physical Exam 2 Vital Signs (Past 24 Hours): Last Vital Signs Temp 36.8 C 06/15/18 12:28 Pulse 133 H 06/15/18 13:00 Resp 15 06/15/18 13:00 BP 116/87 06/15/18 12:46 Pulse Ox 99 06/15/18 13:00 Physical Exam: Physical Exam: Vitals signs as noted above General Appearance:Moderately built and nourished, no apparent distress Head: normocephalic, Atraumatic Eyes: normal inspection, EOMI Neck: supple, Trachea midline Respiratory/Chest: Decreased breath sounds, CTA Cardiovascular: Irregularly Irregular, +Tachycardia, No murmur Abdomen/GI:Soft, Non tender, +distended, Bowel sounds present Extremities/Musculoskelatal:normal inspection, 1-2 + B/L LE edema Neurologic/Psych:AAOX3, grossly no focal neurological deficits Skin: normal color, warm Results & Data Laboratory Results Short CBC 06/15/18 06/15/18 Range/Units 05:12 11:52 WBC 8.55 (4.8-10.8) K/uL Hgb 7.1 L 7.7 L (12.0-16.0) g/dL Hct 22.4 L 24.5 L (37-47) % Plt Count 358 (130-400) K/uL BMP 06/15/18 05:12 Sodium 144 Potassium 4.0 Chloride 119 H Carbon Dioxide 19 L BUN 32 H Creatinine 1.02 Glucose 94 Calcium 7.7 L Cardiac Enzymes 06/15/18 Range/Units 05:12 Troponin I 0.028 (0-0.045) ng/ml Liver Function 06/15/18 Range/Units 05:12 Total Bilirubin 0.6 (0.2-1) mg/dl Direct Bilirubin 0.2 (0-0.2) mg/dl AST 20 (15-37) U/L ALT 19 (12-78) U/L Alkaline Phosphatase 102 (45-117) U/L Albumin 2.4 L (3.4-5.0) gm/dl Urine 06/15/18 Range/Units 05:57 Urine Color Yellow Urine Appearance Clear (Clear) Urine pH 6.0 (4.5-7.5) Ur Specific [place] 1.020 (1.000-1.030) Urine Protein Negative (Negative) Urine Glucose (UA) Negative (Negative) Diagnostic Findings CXR: Mild congestive heart failure. Potential superimposed infiltrative process left base. Medications Administered Current Inpatient Medications Acetaminophen (Tylenol) 325 mg PO Q6H PRN PRN Reason: Fever Stop: 07/15/18 08:10 Pantoprazole Sodium 40 mg/ (Dextrose) 100 mls @ 20 mls/hr IV Q5H [facility] Stop: 07/15/18 05:59 Last Admin: 06/15/18 11:30 Dose: 20 mls/hr Octreotide Acetate 500 mcg/ (Sodium Chloride) 105 mls @ 10.5 mls/hr IV .Q10H MECHE Stop: 07/15/18 08:14 Last Admin: 06/15/18 08:29 Dose: 50 mcg/hr, 10.5 mls/hr Ceftriaxone Sodium 1,000 mg/ (Dextrose) 60 mls @ 100 mls/hr IV Q24H MECHE Stop: 06/25/18 09:29 Last Infusion: 06/15/18 10:40 Dose: Infused Prochlorperazine 5 mg/ Syringe 5 mls @ 5 mls/min IV Q6H PRN PRN Reason: Nausea And Vomiting Stop: 07/15/18 08:10 Lactulose (Chronulac) 20 gm PO BID MECHE Stop: 07/15/18 09:29 Last Admin: 06/15/18 09:49 Dose: Not Given Metoprolol Tartrate (Lopressor) 12.5 mg PO BID MECHE Stop: 07/15/18 20:59 Miscellaneous (Icu Protocol For Hyperglycemia) 1 ea N/A PRN PRN; Protocol PRN Reason: Hyperglycemia Protocol Stop: 06/17/18 08:10 Multivitamins (Multivitamin) 1 tab PO DAILY MECHE Stop: 07/15/18 09:29 Last Admin: 06/15/18 09:48 Dose: Not Given Tramadol HCl (Ultram) 25 mg PO Q4H PRN PRN Reason: Pain Stop: 07/15/18 08:10
[2018-06-15] MEDS ORDERED: ACETAMINOPHEN 500 MG TAB PO PRN (13:55)
[2018-06-15] MEDS ORDERED: FUROSEMIDE 20 MG TAB PO PRN (13:55)
--- NOTE | 2018-06-15 13:57 | Operative Report ---
Post Operative Report Pre & Post Diagnosis Operation Date: 06/15/18 13:00 Pre-Op Diagnosis: Anemia Black Stools Post-Op Diagnosis: Anastomtic Ulcer Procedure Operation Date: 06/15/18 13:00 Actual Procedures p EGD - Annette Brock M.D. Surgeon Annette Brock Skiving Machine Operator Layne Pozo Estimated Blood Loss 0 Findings Consistent with Post-Op Diagnosis Specimens None I attest to the content of the Intraoperative Record and any orders documented therein. Any exceptions are noted below.
[2018-06-15] MEDS ORDERED: PHYTONADIONE 5 MG TAB PO SCH (14:00)
[2018-06-15] MEDS ORDERED: NITROGLYCERIN SL 0.4 MG/TAB TAB SL PRN (14:00)
[2018-06-15] MEDS ORDERED: SUCRALFATE 1 GM TAB PO STA (14:08)
--- NOTE | 2018-06-15 14:30 | GI REPORT ---
Patient Name: Elly Lancaster Procedure Date: 06/15/2018 1:32 PM Date of : 1950 Admit Type: Inpatient Age: 68 Gender: Female Attending MD: Annette Brock M.d. Procedure: Upper GI endoscopy Providers: Annette Brock M.d. Referring MD: Simone Cordova Md Indications: Anemia and black stools Medicines: Propofol per Anesthesia, See anesthesia record for additional medications administered Complications: No immediate complications. Estimated Blood Loss: Estimated blood loss was minimal. Estimated blood loss: none. Procedure: Pre-Anesthesia Assessment: - Patient identification and proposed procedure were verified prior to the procedure by the physician, the nurse and the anesthesiologist. The procedure was verified in the pre-procedure area. - Prior to the procedure, a History and Physical was performed, and patient medications, allergies and sensitivities were reviewed. The patient's tolerance of previous anesthesia was reviewed. - The risks and benefits of the procedure and the sedation options and risks were discussed with the patient. All questions were answered and informed consent was obtained. - ASA Grade Assessment: IV - A patient with severe systemic disease that is a constant threat to life. After obtaining informed consent, the endoscope was passed under direct vision. Throughout the procedure, the patient's blood pressure, pulse, and oxygen saturations were monitored continuously. The Scope was introduced through the mouth, and advanced to the jejunum. The upper GI endoscopy was accomplished without difficulty. The patient tolerated the procedure well. Findings: The examined esophagus appeared normal. After insufflation of the esophagus, no evidence of varices was noted. Evidence of a gastric bypass was found. A gastric pouch with a normal size was found. There was a clean based ulcer without a visible vessel or pigmented spot seen within the ulcer. The gastrojejunal anastomosis was traversed. The examined jejunum appeared normal. Impression: - Normal esophagus. - Gastric bypass with a normal-sized pouch and a clean based ulcer noted in the gastric pouch without evidence of a visible vessel or pigmented spot. Suture was noted but this could not be removed. - Normal examined jejunum. Recommendation: - She may have bled from a supratherapeutic INR in the setting of an anastomotic ulcer noted on the gastric side of her pouch. It was clean based and without evidence of a visible vessel or pigmented spot. - Recommend liquid Carafate 1 gram QID, PPI infusion for the next 24-48 hours. - She can try a clear liquid diet later today. - Avoid NSAID's, tobacco. Annette Brock M.D. Annette Brock M.d. 06/15/2018 2:29:58 PM This report has been signed electronically. Note Initiated On: 06/15/2018 1:32 PM Number of Addenda: 0 I attest to the content of the Intraoperative Record and orders documented therein, exceptions below {[id number]}
--- NOTE | 2018-06-15 14:57 | Anesthesiology Progress Note ---
Date of Service June 15, 2018 Anesthesia Post Procedure Vital Signs Vital Signs: Temp Pulse Pulse Pulse Resp BP BP 06/15/18 14:26 122 H 15 116/86 06/15/18 14:21 123 H 15 140/98 06/15/18 14:19 36.5 C 126 H 16 123/95 06/15/18 14:17 114 H 17 06/15/18 14:16 36.6 C 133 H 133 H 18 123/95 123/95 06/15/18 14:15 113 H 18 06/15/18 14:11 36.4 C L 110 H 115 H 18 119/93 119/83 06/15/18 14:10 132 H 18 127/75 06/15/18 14:08 36.5 C 109 H 18 103/79 06/15/18 14:03 125 H 22 103/79 06/15/18 14:02 36.4 C L 138 H 121 H 18 103/79 06/15/18 13:16 124 H 20 141/109 H 06/15/18 13:15 123 H 16 06/15/18 13:01 132 H 18 146/97 H 06/15/18 13:00 133 H 15 06/15/18 12:46 109 H 23 116/87 06/15/18 12:45 121 H 20 06/15/18 12:31 115 H 13 128/80 06/15/18 12:30 109 H 16 06/15/18 12:28 36.8 C 119 H 16 95/65 L 06/15/18 12:16 103 H 21 95/65 L 06/15/18 12:15 115 H 13 06/15/18 12:01 110 H 21 123/77 06/15/18 12:00 116 H 17 06/15/18 11:46 127 H 20 115/71 06/15/18 11:45 117 H 18 06/15/18 11:31 120 H 15 110/72 06/15/18 11:30 122 H 14 06/15/18 11:16 149 H 14 127/75 06/15/18 11:15 114 H 14 06/15/18 11:01 130 H 16 112/80 06/15/18 11:00 101 H 11 L 06/15/18 10:46 125 H 16 111/78 06/15/18 10:45 104 H 20 06/15/18 10:31 125 H 15 116/69 06/15/18 10:30 123 H 14 06/15/18 10:16 110 H 16 99/64 L 06/15/18 10:15 119 H 15 06/15/18 10:11 118 H 18 92/63 L 06/15/18 10:01 122 H 16 06/15/18 09:59 123 H 16 06/15/18 09:45 112 H 12 06/15/18 09:31 130 H 13 111/60 06/15/18 09:30 109 H 16 06/15/18 09:22 135 H 15 104/57 L 06/15/18 09:16 109 H 17 06/15/18 09:15 121 H 16 06/15/18 09:02 114 H 18 06/15/18 09:00 119 H 17 06/15/18 08:50 36.7 C 121 H 18 102/73 06/15/18 08:49 36.4 C L 120 H 18 102/73 06/15/18 08:48 110 H 14 116/72 06/15/18 08:45 111 H 11 L 06/15/18 08:30 112 H 26 H 06/15/18 08:21 112 H 19 107/98 06/15/18 08:20 06/15/18 08:15 36.4 C L 113 H 18 107/98 06/15/18 07:56 100 H 18 122/84 06/15/18 07:22 104 H 18 112/70 06/15/18 06:41 103 H 18 104/56 L 06/15/18 06:20 121 H 18 101/65 06/15/18 06:19 06/15/18 06:04 106 H 20 93/67 L 06/15/18 04:54 36.7 C 101 H 22 91/59 L Pulse Ox 06/15/18 14:26 93 06/15/18 14:21 93 06/15/18 14:19 94 06/15/18 14:17 93 06/15/18 14:16 94 06/15/18 14:15 97 06/15/18 14:11 93 06/15/18 14:10 95 06/15/18 14:08 98 06/15/18 14:03 100 06/15/18 14:02 99 06/15/18 13:16 97 06/15/18 13:15 99 06/15/18 13:01 100 06/15/18 13:00 99 06/15/18 12:46 92 06/15/18 12:45 98 06/15/18 12:31 92 06/15/18 12:30 97 06/15/18 12:28 100 06/15/18 12:16 98 06/15/18 12:15 98 06/15/18 12:01 98 06/15/18 12:00 100 06/15/18 11:46 98 06/15/18 11:45 98 06/15/18 11:31 96 06/15/18 11:30 98 06/15/18 11:16 95 06/15/18 11:15 95 06/15/18 11:01 96 06/15/18 11:00 96 06/15/18 10:46 98 06/15/18 10:45 97 06/15/18 10:31 95 06/15/18 10:30 95 06/15/18 10:16 95 06/15/18 10:15 97 06/15/18 10:11 98 06/15/18 10:01 99 06/15/18 09:59 98 06/15/18 09:45 06/15/18 09:31 95 06/15/18 09:30 95 06/15/18 09:22 100 06/15/18 09:16 100 06/15/18 09:15 99 06/15/18 09:02 99 06/15/18 09:00 98 06/15/18 08:50 100 06/15/18 08:49 100 06/15/18 08:48 96 06/15/18 08:45 100 06/15/18 08:30 06/15/18 08:21 100 06/15/18 08:20 99 06/15/18 08:15 100 06/15/18 07:56 99 06/15/18 07:22 94 06/15/18 06:41 98 06/15/18 06:20 97 06/15/18 06:19 97 06/15/18 06:04 99 06/15/18 04:54 100 Notes Mental Status: alert / awake / arousable and participated in evaluation Nausea / Vomiting: adequately controlled Pain: adequately controlled Airway Patency, RR, SpO2: stable & adequate BP & HR: stable & adequate Hydration State: stable & adequate Anesthetic Complications: no major complications apparent and Pt Satisfied with anesthetic care
[2018-06-15] MEDS: SUCRALFATE 1 GM/10 ML UDC PO SCH ×3 (15:43→20:41)
[2018-06-15] MEDS ORDERED: SUCRALFATE 1 GM TAB PO SCH (17:00)
[2018-06-15 18:24] LABS: Hematocrit (blood only) 28.8 % (37-47); Hemoglobin 9.1 g/dL (12.0-16.0)
--- NOTE | 2018-06-15 19:13 | Critical Care Consultation ---
Date of Consultation June 15, 2018 Assessment & Plan (1) UGIB (upper gastrointestinal bleed): Impression: 1. Upper GI bleeding secondary to anastomosis peptic ulcer disease. Status post EGD by Dr. Brock. Appreciated. 2. History of [place], history of esophageal varices in the past, followed by Dr. Castro. 3. A. fib, RVR, due to volume loss. 4. Coagulopathy secondary to Coumadin use, given K Centra, vitamin K. Current INR is 1.1. 5. History of Naprosyn use prior to arrival. Plan: 1. Continue with H&H monitoring. 2. 2 units of packed RBC has been transfused. 3. INR has been normalized today, we will recheck it in the morning. 4. Appreciate Dr. Brock input from GI, status post EGD with anastomosis ulcers of previous gastric bypass, managed endoscopically. 5. Follow the blood pressure. 6. Once the patient blood pressure is acceptable, I will start the patient on RVR controlling medicine. 7. SCD for DVT prophylaxis. 8. Continue IV fluid. 9. Continue with Protonix drip. 10. Continue with octreotide drip. 11. If stated otherwise for the drips by GI, will follow recommendations. 12. Discussed with the staff on rounds and details, discussed with Dr. Edwards , appreciate his assistance. Critical care time spent with the patient was 45 minutes. History of Present Illness Reason for Consultation: GI bleeding Requesting Physician: Dr. Edwards Attending Physician: Simone Cordova MD History of Present Illness Dear Dr. Alarcon: Thank you for the kind referral of Mrs. Lancaster to critical care service. This is 68-year-old female with a history of [place], has been seen by Dr. Castro as an outpatient, the patient has endoscopy done in the past where she has esophageal varices according to her, she does not remember what to be done at that time. The patient was in her usual status of health up until today when she started feeling nauseous and she threw up with bile and denies any hematemesis. She denies any bloody diarrhea but she did have diarrhea for the past several days. No abdominal pain was reported. The patient has been taking Naprosyn for the past several days on regular basis for her arthritis. She did not have dizziness in supine position but only in standing up. She felt generalized fatigue, no pain whatsoever. No shortness of breath as well. The patient is on Coumadin for A. fib, and recently was seen in the Coumadin clinic and found to have INR elevated, she was advised to take vitamin K p.o. And hold the Coumadin. In the ED, the patient was found to have low hematocrit compared to her baseline , and her INR was above than 10. She was tachycardic and hypotensive requiring IV fluid resuscitation, the patient was given 2 units of blood in addition she received K Centra and vitamin K. The patient was admitted to the ICU for further management. She underwent EGD by Dr. Brock, and found to have peptic ulcer disease at the anastomosis from previous gastric bypass surgery. Her family history is not contributing to her current illness, she is non- smoker lifetime, but she does have secondhand exposure to smoking. Her past medical history as mentioned above. Allergies Allergy/AdvReac Type Severity Reaction Status Date / Time Quinolones Allergy Unknown LOCAL Verified 06/15/18 05:30 REACTION TO LEVAQUIN codeine AdvReac Unknown VOMITING Verified 06/15/18 05:30 nickel AdvReac Redness of Verified 06/15/18 11:13 Skin Home Medications Home Medications Medication Instructions Recorded Confirmed Type acetaminophen [Tylenol Extra 500 mg PO Q6H PRN 06/15/18 06/15/18 History Strength] ciprofloxacin HCl [Cipro] 250 mg PO BID 06/15/18 06/15/18 History diltiazem HCl [Cardizem CD] 120 mg PO DAILY 06/15/18 06/15/18 History ferrous sulfate 325 mg PO BID 06/15/18 06/15/18 History furosemide 20 mg PO UD PRN 06/15/18 06/15/18 History lactulose 30 ml PO BID 06/15/18 06/15/18 History metoprolol tartrate 50 mg PO BID 06/15/18 06/15/18 History multivitamin [Multiple Vitamins] 1 tab PO DAILY 06/15/18 06/15/18 History naproxen sodium 440 mg PO BIDM 06/15/18 06/15/18 History nitroglycerin [Nitrostat] 0.4 mg SUBLINGUAL UD 06/15/18 06/15/18 History phytonadione (vitamin K1) 2.5 mg PO UD 06/15/18 06/15/18 History warfarin 5 mg PO DAILY 06/15/18 06/15/18 History Patient History Medical History Anemia Atrial fibrillation with RVR CVA (cerebral vascular accident) Patient denies states she had metabolic encephalopathy from elevated ammonia levels. 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 Placed for tachy-kaz syndrome UGIB (upper gastrointestinal bleed) Surgical History H/O gastric bypass History of esophagogastroduodenoscopy (EGD) Social History Current Living Situation: Family Other Information That Helps Us Care for You: No Feels Safe at Home: Yes Safety Concerns: Feels Safe At This Time Smoking Status: Current some day smoker Tobacco Type: cigarettes Do You Dip or Chew Tobacco: No Hx Alcohol Use: No Hx Substance Use: No Beliefs That Will Affect Care: None Preferred Language: Uzbek Communication Ability: Effective Spine Supervisor Required: No Review of Systems 14 systems has been reviewed, apart from the above, it was unremarkable. Physical Exam 2 Vital Signs (Past 24 Hours): Last Vital Signs Temp 36.5 C 06/15/18 14: Pulse 117 H 06/15/18 18:01 Resp 14 06/15/18 18:01 BP 136/98 06/15/18 18:01 Pulse Ox 96 06/15/18 18:01 Physical Exam: Physical exam revealed elderly female, appears pale, not in apparent distress, vital signs showed blood pressure is borderline and heart rate is 122 with A. fib. S1-S2 audible, abdomen is soft and benign, no edema. Neurologically she is intact. She does have pallor in her conjunctiva. Results & Data Laboratory Results Hematocrit was noted to be dropping down from 33-24, and then dropped down further to 21, her platelet counts remain stable. BUN and creatinine also are stable. Diagnostic Findings Chest x-ray without any significant changes although it was read as pulmonary vascular congestion but I did not appreciate that on my own evaluation.
[2018-06-15] MEDS: FERROUS SULFATE 325 MG TAB PO SCH (20:41)
[2018-06-15] MEDS: METOPROLOL TARTRATE 25 MG TAB PO SCH (20:41)
[2018-06-15] MEDS ORDERED: METOPROLOL TARTRATE 50 MG TAB PO SCH (21:00)
[2018-06-16] MEDS: PANTOprazole 40 MG in DEXTROSE 5% 100 ML IV SCH ×5 (01:46→23:34)
[2018-06-16] MEDS: OCTREOTIDE ACETATE 500 MCG in 0.9 % SODIUM CHLORIDE 100 ML IV SCH ×2 (04:03→13:34)
[2018-06-16 05:09] LABS: Basophils # (auto) 0.17 K/uL (0-0.2); Basophils % (auto) 2.2 %; Eosinophils # (auto) 0.58 K/uL (0-0.5); Eosinophils % (auto) 7.7 %; Hematocrit (blood only) 27.3 % (37-47); Hemoglobin 8.6 g/dL (12.0-16.0); Immature Granulocytes # (auto) 0.01 K/uL (0.00-0.02); Immature Granulocytes % (auto) 0.1 %; Lymphocytes # (auto) 3.13 K/uL (1.2-3.4); Lymphocytes % (auto) 41.3 %; Mean Corpuscular Hgb Conc 31.5 g/dL (32-36); Mean Corpuscular Volume 87.2 fL (80-100); Monocytes # (auto) 1.37 K/uL (0.11-0.59); Monocytes % (auto) 18.1 %; Neutrophils # (auto) 2.31 K/uL (1.4-6.5); Neutrophils % (auto) 30.6 %; Nucleated RBC # (auto) 0.04 K/uL (0-0); Nucleated RBC % (auto) 0.5 %; Platelet Count 292 K/uL (130-400); RDW Coefficient of Variation 15.4 % (11.5-14.5); Red Blood Count 3.13 M/uL (4.2-5.4); White Blood Count 7.57 K/uL (4.8-10.8)
[2018-06-16 05:27] LABS: INR 1.1 (0.9-1.1); Prothrombin Time 11.1 Seconds (9.0-12.0)
[2018-06-16 05:35] LABS: Albumin Level 2.4 gm/dl (3.4-5.0); BUN Creatinine Ratio 22.8 (10-20); Calcium 7.7 mg/dl (8.5-10.1); Creatinine Clr Calc Pharmacy 92.3 ml/min; Est GFR (African American) 94.7; Est GFR (Non-African American) 81.7; Potassium 3.7 mmol/L (3.5-5.1)
[2018-06-16 05:39] LABS: Albumin Globulin Ratio 0.8 (0.9-2); Bilirubin,Total 1.2 mg/dl (0.2-1); Globulin 2.9 gm/dl (2.5-4.0); Total Protein 5.3 gm/dl (6.4-8.2)
[2018-06-16 05:44] LABS: Howell-Jolly Bodies 1+; Poikilocytosis Present; Target Cells 1+
[2018-06-16] MEDS: SUCRALFATE 1 GM/10 ML UDC PO SCH ×4 (07:47→21:53)
[2018-06-16] MEDS: LACTULOSE SYRUP 20 GM/30 ML UDC PO SCH ×2 (07:47→21:53)
[2018-06-16] MEDS: dilTIAZem HCL 120 MG CAPCR PO SCH (07:47)
[2018-06-16] MEDS: METOPROLOL TARTRATE 25 MG TAB PO SCH ×2 (07:48→21:54)
[2018-06-16] MEDS: FERROUS SULFATE 325 MG TAB PO SCH ×2 (07:48→21:53)
[2018-06-16] MEDS: MULTIVITAMIN TAB PO SCH (07:48)
--- NOTE | 2018-06-16 07:55 | Anesthesiology Progress Note ---
Date of Service June 16, 2018 Anesthesia Post Procedure Vital Signs Vital Signs: Temp Pulse Pulse Pulse Resp BP BP 06/16/18 06:01 99 H 17 129/77 06/16/18 05:01 106 H 14 103/59 L 06/16/18 04:10 36.6 C 06/16/18 04:02 114 H 18 118/68 06/16/18 03:01 84 17 130/87 06/16/18 02:01 108 H 18 115/89 06/16/18 01:01 107 H 17 138/84 06/16/18 00:01 110 H 16 159/113 H 06/15/18 23:45 36.8 C 06/15/18 23:01 103 H 11 L 155/102 H 06/15/18 22:01 102 H 13 161/126 H 06/15/18 21:02 130 H 19 158/54 H 06/15/18 20:02 114 H 17 146/81 H 06/15/18 19:42 36.8 C 06/15/18 19:01 99 H 14 153/105 H 06/15/18 18:01 117 H 14 136/98 06/15/18 18:00 116 H 15 06/15/18 17:50 120 H 27 H 06/15/18 17:48 105 H 18 152/114 H 06/15/18 17:40 93 H 16 06/15/18 17:30 115 H 18 06/15/18 17:20 106 H 22 06/15/18 17:10 81 15 06/15/18 17:01 89 18 126/95 06/15/18 17:00 122 H 17 06/15/18 16:50 117 H 17 06/15/18 16:40 113 H 18 06/15/18 16:30 123 H 18 06/15/18 16:20 108 H 17 06/15/18 16:10 108 H 18 06/15/18 16:02 103 H 13 141/98 H 06/15/18 16:00 102 H 14 06/15/18 15:50 107 H 13 06/15/18 15:45 103 H 19 69/54 L 06/15/18 15:41 106 H 14 136/79 06/15/18 15:40 96 H 16 06/15/18 15:36 96 H 15 130/105 H 06/15/18 15:31 111 H 14 124/89 06/15/18 15:30 107 H 15 06/15/18 15:26 138 H 16 135/113 H 06/15/18 15:22 104 H 15 117/92 06/15/18 15:20 101 H 14 06/15/18 15:16 113 H 15 129/93 06/15/18 15:11 112 H 14 111/89 06/15/18 15:10 120 H 14 06/15/18 15:07 116 H 15 124/83 06/15/18 15:01 89 15 105/86 06/15/18 15:00 110 H 17 06/15/18 14:56 106 H 17 112/88 06/15/18 14:52 134 H 16 126/89 06/15/18 14:50 108 H 14 06/15/18 14:46 106 H 19 167/158 H 06/15/18 14:41 104 H 15 136/84 06/15/18 14:40 115 H 12 06/15/18 14:36 88 12 141/86 H 06/15/18 14:31 121 H 15 123/99 06/15/18 14:30 132 H 17 06/15/18 14:26 122 H 15 116/86 06/15/18 14:21 123 H 15 140/98 06/15/18 14:20 115 H 15 06/15/18 14:19 36.5 C 126 H 16 123/95 06/15/18 14:17 114 H 17 06/15/18 14:16 36.6 C 133 H 133 H 18 123/95 123/95 06/15/18 14:15 113 H 18 06/15/18 14:11 36.4 C L 110 H 115 H 18 119/93 119/83 06/15/18 14:10 132 H 18 127/75 06/15/18 14:08 36.5 C 109 H 18 103/79 06/15/18 14:03 125 H 22 103/79 06/15/18 14:02 36.4 C L 138 H 121 H 18 103/79 06/15/18 13:20 124 H 14 06/15/18 13:16 124 H 20 141/109 H 06/15/18 13:15 123 H 16 06/15/18 13:10 122 H 15 06/15/18 13:01 132 H 18 146/97 H 06/15/18 13:00 133 H 15 06/15/18 12:50 114 H 11 L 06/15/18 12:46 109 H 23 116/87 06/15/18 12:45 121 H 20 06/15/18 12:40 113 H 18 06/15/18 12:31 115 H 13 128/80 06/15/18 12:30 109 H 16 06/15/18 12:28 36.8 C 119 H 16 95/65 L 06/15/18 12:20 144 H 23 06/15/18 12:16 103 H 21 95/65 L 06/15/18 12:15 115 H 13 06/15/18 12:10 109 H 16 06/15/18 12:01 110 H 21 123/77 06/15/18 12:00 116 H 17 06/15/18 11:50 107 H 16 06/15/18 11:46 127 H 20 115/71 06/15/18 11:45 117 H 18 06/15/18 11:40 97 H 25 H 06/15/18 11:31 120 H 15 110/72 06/15/18 11:30 122 H 14 06/15/18 11:20 125 H 15 06/15/18 11:16 149 H 14 127/75 06/15/18 11:15 114 H 14 06/15/18 11:10 116 H 15 06/15/18 11:01 130 H 16 112/80 06/15/18 11:00 101 H 11 L 06/15/18 10:50 105 H 14 06/15/18 10:46 125 H 16 111/78 06/15/18 10:45 104 H 20 06/15/18 10:40 113 H 15 06/15/18 10:31 125 H 15 116/69 06/15/18 10:30 123 H 14 06/15/18 10:20 117 H 12 06/15/18 10:16 110 H 16 99/64 L 06/15/18 10:15 119 H 15 06/15/18 10:11 118 H 18 92/63 L 06/15/18 10:10 122 H 12 06/15/18 10:01 122 H 16 06/15/18 09:59 123 H 16 06/15/18 09:50 136 H 17 06/15/18 09:45 112 H 12 06/15/18 09:40 118 H 15 06/15/18 09:31 130 H 13 111/60 06/15/18 09:30 109 H 16 06/15/18 09:22 135 H 15 104/57 L 06/15/18 09:20 128 H 15 06/15/18 09:16 109 H 17 06/15/18 09:15 121 H 16 06/15/18 09:10 120 H 18 06/15/18 09:02 114 H 18 06/15/18 09:00 119 H 17 06/15/18 08:50 36.7 C 121 H 18 102/73 06/15/18 08:49 36.4 C L 120 H 18 102/73 06/15/18 08:48 110 H 14 116/72 06/15/18 08:45 111 H 11 L 06/15/18 08:30 112 H 26 H 06/15/18 08:21 112 H 19 107/98 06/15/18 08:20 06/15/18 08:15 36.4 C L 113 H 18 107/98 06/15/18 07:56 100 H 18 122/84 Pulse Ox 06/16/18 06:01 94 06/16/18 05:01 92 06/16/18 04:10 06/16/18 04:02 94 06/16/18 03:01 95 06/16/18 02:01 96 06/16/18 01:01 96 06/16/18 00:01 95 06/15/18 23:45 06/15/18 23:01 98 06/15/18 22:01 95 06/15/18 21:02 90 06/15/18 20:02 94 06/15/18 19:42 06/15/18 19:01 95 06/15/18 18:01 96 06/15/18 18:00 92 06/15/18 17:50 91 06/15/18 17:48 95 06/15/18 17:40 96 06/15/18 17:30 97 06/15/18 17:20 95 06/15/18 17:10 96 06/15/18 17:01 94 06/15/18 17:00 94 06/15/18 16:50 95 06/15/18 16:40 97 06/15/18 16:30 95 06/15/18 16:20 97 06/15/18 16:10 95 06/15/18 16:02 95 06/15/18 16:00 94 06/15/18 15:50 97 06/15/18 15:45 92 06/15/18 15:41 93 06/15/18 15:40 93 06/15/18 15:36 94 06/15/18 15:31 96 06/15/18 15:30 93 06/15/18 15:26 96 06/15/18 15:22 93 06/15/18 15:20 94 06/15/18 15:16 94 06/15/18 15:11 94 06/15/18 15:10 93 06/15/18 15:07 93 06/15/18 15:01 93 06/15/18 15:00 93 06/15/18 14:56 96 06/15/18 14:52 99 06/15/18 14:50 98 06/15/18 14:46 90 06/15/18 14:41 97 06/15/18 14:40 98 06/15/18 14:36 95 06/15/18 14:31 93 06/15/18 14:30 94 06/15/18 14:26 93 06/15/18 14:21 93 06/15/18 14:20 92 06/15/18 14:19 94 06/15/18 14:17 93 06/15/18 14:16 94 06/15/18 14:15 97 06/15/18 14:11 93 06/15/18 14:10 95 06/15/18 14:08 98 06/15/18 14:03 100 06/15/18 14:02 99 06/15/18 13:20 98 06/15/18 13:16 97 06/15/18 13:15 99 06/15/18 13:10 94 06/15/18 13:01 100 06/15/18 13:00 99 06/15/18 12:50 99 06/15/18 12:46 92 06/15/18 12:45 98 06/15/18 12:40 99 06/15/18 12:31 92 06/15/18 12:30 97 06/15/18 12:28 100 06/15/18 12:20 98 06/15/18 12:16 98 06/15/18 12:15 98 06/15/18 12:10 97 06/15/18 12:01 98 06/15/18 12:00 100 06/15/18 11:50 97 06/15/18 11:46 98 06/15/18 11:45 98 06/15/18 11:40 95 06/15/18 11:31 96 06/15/18 11:30 98 06/15/18 11:20 97 06/15/18 11:16 95 06/15/18 11:15 95 06/15/18 11:10 96 06/15/18 11:01 96 06/15/18 11:00 96 06/15/18 10:50 97 06/15/18 10:46 98 06/15/18 10:45 97 06/15/18 10:40 94 06/15/18 10:31 95 06/15/18 10:30 95 06/15/18 10:20 97 06/15/18 10:16 95 06/15/18 10:15 97 06/15/18 10:11 98 06/15/18 10:10 94 06/15/18 10:01 99 06/15/18 09:59 98 06/15/18 09:50 99 06/15/18 09:45 06/15/18 09:40 94 06/15/18 09:31 95 06/15/18 09:30 95 06/15/18 09:22 100 06/15/18 09:20 99 06/15/18 09:16 100 06/15/18 09:15 99 06/15/18 09:10 99 06/15/18 09:02 99 06/15/18 09:00 98 06/15/18 08:50 100 06/15/18 08:49 100 06/15/18 08:48 96 06/15/18 08:45 100 06/15/18 08:30 06/15/18 08:21 100 06/15/18 08:20 99 06/15/18 08:15 100 06/15/18 07:56 99 Notes Mental Status: alert / awake / arousable and participated in evaluation Nausea / Vomiting: adequately controlled Pain: adequately controlled Airway Patency, RR, SpO2: stable & adequate BP & HR: stable & adequate Hydration State: stable & adequate Anesthetic Complications: no major complications apparent and Pt Satisfied with anesthetic care
[2018-06-16] MEDS ORDERED: WARFARIN SOD 5 MG TAB PO SCH (09:00)
--- NOTE | 2018-06-16 09:25 | Gastroenterology Progress Note ---
Date of Service June 16, 2018 Supervising Physician Co-Signing Physician Notes 68 yo fm with prior rgyb on supplemental oral iron admitted with afib with rvr with supratherapeutic INR and reported dark stools with anemia. S/p EGD on 06/14/18 showing a clean based ulcer in her gastric pouch - treating with IV PPI + liquid carafate quid. Would advance her diet to liquids today. Let IV PPI infusion run out, then oral PPI twice daily. Carafate can be converted to tablets when ready for discharge. Primary team can resume anticoagulation Sunday if remains stable today for her afib. Further mgmt of her afib per primary team. She will need outpatient hepatology follow-up with Dr. Magallon (her prior provider) or someone from the [facility] group when ready for discharge. Subjective No acute distress Sitting up in bed feeling better this morning Talking on the phone Review of Systems All systems reviewed & are unremarkable except as noted in HPI & below Constitutional: no fever and no chills Eyes: as per Subjective / HPI Respiratory: no cough and no chest congestion Gastrointestinal: no abdominal pain Physical Exam 2 Vital Signs (Past 24 Hours): Last Vital Signs Temp 36.9 C 06/16/18 07:00 Pulse 57 L 06/16/18 08:40 Resp 16 06/16/18 08:40 BP 111/74 06/16/18 08:01 Pulse Ox 98 06/16/18 08:40 Physical Exam: Sitting up beside her bed in no acute distress Constitutional: well developed and well nourished Eyes: PERRL, conjunctivae normal, anicteric sclerae Cardiovascular: Rate/Rhythm: + tachycardic Gastrointestinal (Abdomen): normal bowel sounds, soft, nontender, no hepatosplenomegaly Results & Data Laboratory Results Hgb has improved post 2 units of transfusion on 06/15/18 to 9 and slight downward trend BUN has normalized
[2018-06-16] MEDS: cefTRIAXone SODIUM 1,000 MG in DEXTROSE 5% 50 ML IV SCH (09:53)
--- NOTE | 2018-06-16 12:21 | Critical Care Progress Note ---
Date of Service June 16, 2018 Assessment & Plan (1) UGIB (upper gastrointestinal bleed): Impression: 1. Upper GI bleeding secondary to anastomosis peptic ulcer disease. Status post EGD by Dr. Brock. Appreciated. 2. History of [place], history of esophageal varices in the past, followed by Dr. Castro. 3. A. fib, RVR, due to volume loss. 4. Coagulopathy secondary to Coumadin use, given K Centra, vitamin K. Current INR is 1.1. 5. History of Naprosyn use prior to arrival. Plan: 1. Check hemoglobin and hematocrit this afternoon. 2. Daily labs. 3. We will check with GI to discontinue octreotide. 4. Appreciate Dr. Brock input from GI, status post EGD with anastomosis ulcers of previous gastric bypass, managed endoscopically. 5. Continue with Protonix drip. 6. Oral intake if recommended by GI. 7. SCD for DVT prophylaxis. 8. Continue IV fluid. 9. We will keep in mind the need for Coumadin down the road was cleared by GI. 10. INR today is 1.1. 11. The patient was given ceftriaxone I would assume prophylactically. Also check with GI if it can be stopped. 12. Discussed with the staff on rounds and details. 13. Transferred to regular floor, discussed with Dr. Lopez, appreciate his acceptance of this case. Critical care time spent with the patient was 35 minutes. Subjective The patient is asymptomatic today, sitting out of bed in upright position, denies any nausea or vomiting, no abdominal pain, no dizziness, no hematemesis or hematochezia. Appears comfortable and hemodynamically stable. No events overnight. Hematocrit is remained stable. Physical Exam 2 Vital Signs (Past 24 Hours): Last Vital Signs Temp 36.9 C 06/16/18 07:00 Pulse 76 06/16/18 12:10 Resp 13 06/16/18 12:10 BP 130/91 06/16/18 12:01 Pulse Ox 92 06/16/18 12:10 Physical Exam: Vital signs are stable, S1-S2 irregularly irregular, abdomen is benign, edema in the periphery. No asterixis. Neurologically she is intact. Results & Data Laboratory Results Hematocrit is stable, she received 2 units of blood transfusion yesterday. No evidence of active bleeding. Diagnostic Findings No new imaging. Previous chest x-ray from yesterday showed pulmonary edema.
[2018-06-16 15:58] LABS: Hematocrit (blood only) 30.2 % (37-47); Hemoglobin 9.4 g/dL (12.0-16.0)
--- NOTE | 2018-06-16 16:32 | Hospitalist Progress Note ---
Date of Service June 16, 2018 Assessment & Plan (1) UGIB (upper gastrointestinal bleed): Anastomotic Peptic Ulcer disease Coumadin Induced coagulopathy Symptomatic Anemia H/O NAFLD cirrhosis, Iron deficeicny anemia, Gastric Bypass S/P VItamin K and Kcentra S/P PRBC transfusion PT/INR: >10 >>1.1 S/P EGD:clean based ulcer in her gastric pouch Continue Protonix ggt and Octreotide ggt today Monitor H&H Appreciate GI help Received IV fluids On lactulose and diuretics at home Continue Ceftriaxone in setting of Upper GI bleed with H/O cirrhosis Avoid NSAIDs Plan to switch to PO Protonix in AM Liquid diet today Needs outpatient Hepatology follow up upon discharge Afib RVR INR supratherapeutic Mild Pulmonary congestion Continue Metoprolol, Cardizem when appropriate Monitor INR Increase Metoprolol to home dose as able HTN: Stable monitor Continue current meds H/O DVT was on Coumadin at home DVT Px: SCDs Re: GI bleed Code Status: Full Code Subjective Patient is seen and examined at bedside States feeling very tired today Had BM, denies bleeding today Denies any chest pain, dyspnea, dizziness, nausea, abd pain Physical Exam 2 Vital Signs (Past 24 Hours): Last Vital Signs Temp 36.9 C 06/16/18 07:00 Pulse 76 06/16/18 12:10 Resp 13 06/16/18 12:10 BP 130/91 06/16/18 12:01 Pulse Ox 92 06/16/18 12:10 Physical Exam: Physical Exam: Vitals signs as noted above General Appearance:Moderately built and nourished, no apparent distress Head: normocephalic, Atraumatic Eyes: normal inspection, EOMI Neck: supple, Trachea midline Respiratory/Chest: Decreased breath sounds, CTA Cardiovascular: Irregularly Irregular, +Tachycardia, No murmur Abdomen/GI:Soft, Non tender, +distended, Bowel sounds present Extremities/Musculoskelatal:normal inspection, 1-2 + B/L LE edema Neurologic/Psych:AAOX3, grossly no focal neurological deficits Skin: normal color, warm Results & Data Laboratory Results Short CBC 06/15/18 06/16/18 06/16/18 Range/Units 18:00 04:37 15:48 WBC 7.57 (4.8-10.8) K/uL Hgb 9.1 L 8.6 L 9.4 L (12.0-16.0) g/dL Hct 28.8 L 27.3 L 30.2 L (37-47) % Plt Count 292 (130-400) K/uL BMP 06/16/18 04:37 Sodium 142 Potassium 3.7 Chloride 117 H Carbon Dioxide 22 BUN 17 Creatinine 0.76 Glucose 106 H Calcium 7.7 L Liver Function 06/16/18 Range/Units 04:37 Total Bilirubin 1.2 H D (0.2-1) mg/dl AST 20 (15-37) U/L ALT 17 (12-78) U/L Alkaline Phosphatase 88 (45-117) U/L Albumin 2.4 L (3.4-5.0) gm/dl
[2018-06-17] MEDS: OCTREOTIDE ACETATE 500 MCG in 0.9 % SODIUM CHLORIDE 100 ML IV SCH (02:07)
[2018-06-17] MEDS: PANTOprazole 40 MG in DEXTROSE 5% 100 ML IV SCH ×2 (04:28→09:54)
[2018-06-17 06:55] LABS: Hematocrit (blood only) 27.3 % (37-47); Hemoglobin 8.7 g/dL (12.0-16.0)
[2018-06-17 07:13] LABS: INR 1.1 (0.9-1.1); Prothrombin Time 11.3 Seconds (9.0-12.0)
[2018-06-17 07:37] LABS: BUN Creatinine Ratio 10.6 (10-20); Calcium 7.9 mg/dl (8.5-10.1); Creatinine Clr Calc Pharmacy 81.1 ml/min; Est GFR (African American) 82.8; Est GFR (Non-African American) 71.4; Potassium 3.4 mmol/L (3.5-5.1)
--- NOTE | 2018-06-17 08:08 | Anesthesiology Progress Note ---
Date of Service June 17, 2018 Anesthesia Post Procedure Vital Signs Vital Signs: Temp Pulse Pulse Resp BP BP Pulse Ox 06/17/18 07:58 36.5 C 65 18 150/79 H 93 06/17/18 04:00 36.3 C L 87 20 121/72 95 06/16/18 23:00 36.9 C 76 19 148/85 H 94 06/16/18 19:00 36.3 C L 85 20 142/95 H 97 06/16/18 17:30 36.5 C 89 20 139/76 97 06/16/18 16:32 82 17 06/16/18 16:20 78 16 100 06/16/18 16:10 91 H 14 96 06/16/18 16:01 87 22 135/82 96 06/16/18 16:00 37.0 C 84 15 97 06/16/18 15:50 82 21 98 06/16/18 15:40 84 13 100 06/16/18 15:30 78 13 100 06/16/18 15:20 75 15 96 06/16/18 15:10 92 H 14 98 06/16/18 15:01 89 14 139/91 99 06/16/18 15:00 75 17 96 06/16/18 14:51 79 9 L 06/16/18 14:40 102 H 15 97 06/16/18 14:30 82 18 86 L 06/16/18 14:20 65 18 94 06/16/18 14:10 73 18 96 06/16/18 14:01 95 H 16 127/96 96 06/16/18 14:00 96 H 19 97 06/16/18 13:50 88 20 94 06/16/18 13:40 102 H 16 91 06/16/18 13:33 82 19 137/89 96 06/16/18 13:30 102 H 32 H 06/16/18 13:20 109 H 15 95 06/16/18 13:10 97 H 16 96 06/16/18 13:01 87 14 147/97 H 91 06/16/18 13:00 93 H 21 90 06/16/18 12:50 94 H 17 96 06/16/18 12:40 92 H 17 92 06/16/18 12:33 86 16 141/85 H 94 06/16/18 12:30 89 13 94 01/06/19 12:20 85 14 92 06/16/18 12:10 76 13 92 06/16/18 12:01 87 19 130/91 91 06/16/18 12:00 105 H 19 93 06/16/18 11:50 81 14 94 06/16/18 11:40 101 H 23 96 06/16/18 11:30 103 H 19 94 06/16/18 11:20 84 12 91 06/16/18 11:10 93 H 14 90 06/16/18 11:01 89 0 L 126/76 94 06/16/18 11:00 75 9 L 90 06/16/18 10:50 69 0 L 95 06/16/18 10:40 110 H 14 90 06/16/18 10:30 87 15 95 06/16/18 10:20 93 H 15 94 06/16/18 10:10 80 17 95 06/16/18 10:01 97 H 22 117/90 89 L 06/16/18 10:00 81 18 97 06/16/18 09:50 115 H 12 06/16/18 09:40 88 17 06/16/18 09:30 94 H 19 97 06/16/18 09:20 79 19 97 06/16/18 09:10 107 H 15 97 06/16/18 09:01 102 H 17 125/87 97 06/16/18 09:00 89 16 97 06/16/18 08:50 83 18 96 06/16/18 08:40 57 L 16 98 06/16/18 08:30 90 21 93 06/16/18 08:20 95 H 22 96 06/16/18 08:10 111 H 11 L 93 Notes Mental Status: alert / awake / arousable and participated in evaluation Patient Amnestic to Procedure: Yes Nausea / Vomiting: adequately controlled Pain: adequately controlled Airway Patency, RR, SpO2: stable & adequate BP & HR: stable & adequate Hydration State: stable & adequate Anesthetic Complications: no major complications apparent
[2018-06-17] MEDS: METOPROLOL TARTRATE 25 MG TAB PO SCH ×2 (08:29→21:01)
[2018-06-17] MEDS: MULTIVITAMIN TAB PO SCH (08:29)
[2018-06-17] MEDS: FERROUS SULFATE 325 MG TAB PO SCH ×2 (08:29→21:01)
[2018-06-17] MEDS: LACTULOSE SYRUP 20 GM/30 ML UDC PO SCH ×3 (08:30→21:04)
[2018-06-17] MEDS: dilTIAZem HCL 120 MG CAPCR PO SCH (08:30)
[2018-06-17] MEDS: PANTOprazole 40 MG TAB PO SCH ×2 (08:30→21:01)
[2018-06-17] MEDS: SUCRALFATE 1 GM/10 ML UDC PO SCH ×4 (08:30→21:01)
[2018-06-17] MEDS ORDERED: POTASSIUM CHLORIDE 20 MEQ TABCR PO STA (09:05)
[2018-06-17] MEDS: cefTRIAXone SODIUM 1,000 MG in DEXTROSE 5% 50 ML IV SCH (09:53)
[2018-06-17] MEDS ORDERED: FUROSEMIDE 40 MG TAB PO ONE (10:05)
--- NOTE | 2018-06-17 16:51 | Hospitalist Progress Note ---
Date of Service June 17, 2018 Assessment & Plan (1) UGIB (upper gastrointestinal bleed): Anastomotic Peptic Ulcer disease Coumadin Induced coagulopathy Symptomatic Anemia H/O NAFLD cirrhosis, Iron deficeicny anemia, Gastric Bypass S/P VItamin K and Kcentra S/P PRBC transfusion PT/INR: >10 >>1.1 S/P EGD:clean based ulcer in her gastric pouch Continue Protonix ggt and Octreotide ggt>> transitioned to PO Protonix BID Monitor H&H Appreciate GI help Received IV fluids On lactulose and diuretics at home Continue Ceftriaxone in setting of Upper GI bleed with H/O cirrhosis Avoid NSAIDs Advance diet as tolerated Needs outpatient Hepatology follow up upon discharge Hb stable Hypokalemia: Replace potassium as neeeded Afib RVR INR supratherapeutic Mild Pulmonary congestion Continue Metoprolol, Cardizem Monitor INR Resume coumadin today Monitor for any bleeding issues HTN: Stable monitor Continue current meds H/O DVT on Coumadin DVT Px: Initially SCDs Re: GI bleed Coumadin resumed Code Status: Full Code Subjective Patient is seen and examined at bedside Reports feeling tired and has dyspnea on exertion Denies any bleeding issues Denies any chest pain, dizziness, nausea, abd pain No other complaints Physical Exam 2 Vital Signs (Past 24 Hours): Last Vital Signs Temp 36.7 C 06/17/18 16:29 Pulse 103 H 06/17/18 16:29 Resp 20 06/17/18 16:29 BP 113/81 06/17/18 16:29 Pulse Ox 98 06/17/18 16:29 Physical Exam: Physical Exam: Vitals signs as noted above General Appearance:Moderately built and nourished, no apparent distress Head: normocephalic, Atraumatic Eyes: normal inspection, EOMI Neck: supple, Trachea midline Respiratory/Chest: Decreased breath sounds, Basal Crackles Cardiovascular: Irregularly Irregular, No murmur Abdomen/GI:Soft, Non tender, +distended, Bowel sounds present Extremities/Musculoskelatal:normal inspection, 1-2 + B/L LE edema Neurologic/Psych:AAOX3, grossly no focal neurological deficits Skin: normal color, warm Results & Data Laboratory Results Short CBC 06/17/18 Range/Units 06:35 Hgb 8.7 L (12.0-16.0) g/dL Hct 27.3 L (37-47) % BMP 06/17/18 06:35 Sodium 142 Potassium 3.4 L Chloride 113 H Carbon Dioxide 23 BUN 9 D Creatinine 0.85 Glucose 116 H Calcium 7.9 L Medications Administered Current Inpatient Medications Acetaminophen (Tylenol) 325 mg PO Q6H PRN PRN Reason: Fever Stop: 07/15/18 08:10 Diltiazem HCl (Cardizem Cd) 120 mg PO DAILY [facility] Stop: 07/16/18 08:59 Last Admin: 06/17/18 08:30 Dose: 120 mg Ferrous Sulfate (Feosol) 325 mg PO BID [facility] Stop: 07/15/18 20:59 Last Admin: 06/17/18 08:29 Dose: 325 mg Furosemide (Lasix) 20 mg PO MoWeFr PRN PRN Reason: Edema Stop: 07/15/18 13:54 Ceftriaxone Sodium 1,000 mg/ (Dextrose) 60 mls @ 100 mls/hr IV Q24H [facility] Stop: 06/25/18 09:29 Last Infusion: 06/17/18 10:45 Dose: Infused Prochlorperazine 5 mg/ Syringe 5 mls @ 5 mls/min IV Q6H PRN PRN Reason: Nausea And Vomiting Stop: 07/15/18 08:10 Lactulose (Chronulac) 20 gm PO BID [facility] Stop: 07/15/18 09:29 Last Admin: 06/17/18 08:30 Dose: 20 gm Metoprolol Tartrate (Lopressor) 12.5 mg PO BID [facility] Stop: 07/15/18 20:59 Last Admin: 06/17/18 08:29 Dose: 12.5 mg Miscellaneous (Order Awaiting Action) 1 ea N/A QS [facility] Stop: 07/15/18 15:59 Last Admin: 06/17/18 15:21 Dose: Not Given Multivitamins (Multivitamin) 1 tab PO DAILY [facility] Stop: 07/15/18 09:29 Last Admin: 06/17/18 08:29 Dose: 1 tab Nitroglycerin (Nitrostat) 0.4 mg SL UD PRN PRN Reason: Angina Stop: 07/15/18 13:59 Pantoprazole Sodium (Protonix) 40 mg PO BID [facility] Stop: 07/17/18 08:59 Last Admin: 06/17/18 08:30 Dose: 40 mg Sucralfate (Carafate) 1 gm PO QID [facility] Stop: 07/15/18 14:29 Last Admin: 06/17/18 15:21 Dose: 1 gm Tramadol HCl (Ultram) 25 mg PO Q4H PRN PRN Reason: Pain Stop: 07/15/18 08:10 Warfarin Sodium (Coumadin) 5 mg PO NOW ONE Stop: 06/17/18 16:44 Warfarin Sodium (Coumadin) 5 mg PO DAILY@1600 [facility] Stop: 07/18/18 15:59
[2018-06-17] MEDS ORDERED: WARFARIN SOD 5 MG TAB PO ONE (17:00)
[2018-06-17 20:18] LABS: Hematocrit (blood only) 29.2 % (37-47); Hemoglobin 9.2 g/dL (12.0-16.0)
--- NOTE | 2018-06-18 07:04 | XRay Report ---
XR chest 1V portable CLINICAL HISTORY: Dyspnea COMPARISON STUDY: 06/15/2018 FINDINGS: There are postsurgical changes of a midline sternotomy. There is a left subclavian dual-elías mber central venous pacemaker present. There is improving mild pulmonary vascular congestion. There i s no lobar consolidation. Old granulomatous changes are present with densely calcified mediastinal an d hilar lymph nodes. There is a right midlung zone calcified granuloma.[ IMPRESSION: Improving mild congestive failure. Electronically signed by: Jorje Fink M.D. 06/18/2018 7:02 AM
[2018-06-18 07:39] LABS: Hematocrit (blood only) 28.3 % (37-47)
[2018-06-18 07:45] LABS: INR 1.2 (0.9-1.1); Prothrombin Time 11.6 Seconds (9.0-12.0)
[2018-06-18 08:13] LABS: BUN Creatinine Ratio 8.8 (10-20); Calcium 7.8 mg/dl (8.5-10.1); Creatinine Clr Calc Pharmacy 60.5 ml/min; Est GFR (African American) 59.3; Est GFR (Non-African American) 51.1; Potassium 3.5 mmol/L (3.5-5.1)
[2018-06-18] MEDS: PANTOprazole 40 MG TAB PO SCH ×2 (08:19→20:23)
[2018-06-18] MEDS: MULTIVITAMIN TAB PO SCH (08:19)
[2018-06-18] MEDS: dilTIAZem HCL 120 MG CAPCR PO SCH (08:21)
[2018-06-18] MEDS: SUCRALFATE 1 GM/10 ML UDC PO SCH ×4 (08:21→20:21)
[2018-06-18] MEDS: LACTULOSE SYRUP 20 GM/30 ML UDC PO SCH ×2 (08:21→21:09)
[2018-06-18] MEDS: FERROUS SULFATE 325 MG TAB PO SCH ×2 (08:21→20:21)
[2018-06-18] MEDS: cefTRIAXone SODIUM 1,000 MG in DEXTROSE 5% 50 ML IV SCH (08:22)
[2018-06-18] MEDS: METOPROLOL TARTRATE 25 MG TAB PO SCH ×2 (08:32→20:22)
--- NOTE | 2018-06-18 15:37 | Hospitalist Progress Note ---
Date of Service June 18, 2018 Assessment & Plan (1) UGIB (upper gastrointestinal bleed): Anastomotic Peptic Ulcer disease Coumadin Induced coagulopathy Symptomatic Anemia H/O NAFLD cirrhosis, Iron deficeicny anemia, Gastric Bypass S/P Vitamin K and Kcentra S/P PRBC transfusion PT/INR: >10--Reversed S/P EGD:clean based ulcer in her gastric pouch Continue Protonix ggt and Octreotide ggt>> transitioned to PO Protonix BID Monitor H&H Appreciate GI help Received IV fluids On lactulose and diuretics at home for cirrhosis Avoid NSAIDs Needs outpatient Hepatology follow up upon discharge Hb stable Monitor H&H and transfuse PRBCs PRN Hypokalemia: Replace potassium as neeeded monitor Afib RVR Mild Pulmonary congestion Continue Metoprolol, Cardizem Monitor INR: 1.2 today Continue coumadin Monitor for any bleeding issues HTN: Stable monitor Continue current meds H/O DVT on Coumadin DVT Px: Initially SCDs Re: GI bleed Coumadin resumed Code Status: Full Code Disposition: PT/OT eval prior to DC Subjective Patient is seen and examined at bedside Feels very tired today Dyspnea improving Hb stable No bleeding issues Denies any chest pain, dizziness, abd pain No other complaints Physical Exam 2 Vital Signs (Past 24 Hours): Last Vital Signs Temp 36.6 C 06/18/18 15:24 Pulse 74 06/18/18 15:24 Resp 18 06/18/18 15:24 BP 124/79 06/18/18 15:24 Pulse Ox 92 06/18/18 15:24 Physical Exam: Physical Exam: Vitals signs as noted above General Appearance:Moderately built and nourished, no apparent distress Head: normocephalic, Atraumatic Eyes: normal inspection, EOMI Neck: supple, Trachea midline Respiratory/Chest: Decreased breath sounds, minimal Basal Crackles Cardiovascular: Irregularly Irregular, No murmur Abdomen/GI:Soft, Non tender, +distended, Bowel sounds present Extremities/Musculoskelatal:normal inspection, 1-2 + B/L LE edema Neurologic/Psych:AAOX3, grossly no focal neurological deficits Skin: normal color, warm Results & Data Laboratory Results Short CBC 06/17/18 06/18/18 Range/Units 19:58 06:54 Hgb 9.2 L 9.0 L (12.0-16.0) g/dL Hct 29.2 L 28.3 L (37-47) % BMP 06/18/18 06:54 Sodium 139 Potassium 3.5 Chloride 107 Carbon Dioxide 25 BUN 10 Creatinine 1.12 Glucose 102 H Calcium 7.8 L Diagnostic Findings CXR: Improving mild congestive failure.
[2018-06-18] MEDS: WARFARIN SOD 5 MG TAB PO SCH (16:01)
[2018-06-19 08:57] LABS: Hematocrit (blood only) 28.7 % (37-47)
[2018-06-19] MEDS: cefTRIAXone SODIUM 1,000 MG in DEXTROSE 5% 50 ML IV SCH (08:58)
[2018-06-19] MEDS: METOPROLOL TARTRATE 25 MG TAB PO SCH ×2 (08:58→21:44)
[2018-06-19] MEDS: MULTIVITAMIN TAB PO SCH (08:58)
[2018-06-19] MEDS: SUCRALFATE 1 GM/10 ML UDC PO SCH ×4 (08:59→21:41)
[2018-06-19] MEDS: LACTULOSE SYRUP 20 GM/30 ML UDC PO SCH ×2 (08:59→21:42)
[2018-06-19 09:03] LABS: INR 1.2 (0.9-1.1); Prothrombin Time 11.7 Seconds (9.0-12.0)
[2018-06-19] MEDS: PANTOprazole 40 MG TAB PO SCH ×2 (09:59→21:45)
[2018-06-19] MEDS: FERROUS SULFATE 325 MG TAB PO SCH ×2 (09:59→21:44)
[2018-06-19] MEDS: dilTIAZem HCL 120 MG CAPCR PO SCH (09:59)
[2018-06-19] MEDS: WARFARIN SOD 5 MG TAB PO SCH (16:18)
--- NOTE | 2018-06-19 16:46 | Hospitalist Progress Note ---
Date of Service June 19, 2018 Assessment & Plan (1) UGIB (upper gastrointestinal bleed): Anastomotic Peptic Ulcer disease Coumadin Induced coagulopathy H/O NAFLD cirrhosis, Iron deficeicny anemia, Gastric Bypass S/P Vitamin K and Kcentra S/P PRBC transfusion S/P EGD:clean based ulcer in her gastric pouch Continue Protonix ggt and Octreotide ggt>> transitioned to PO Protonix BID Avoid NSAIDs Needs outpatient Hepatology follow up upon discharge Hemoglobin remains stable Patient is likely to be discharged tomorrow following physical therapy evaluation Hypokalemia: Replace potassium as neeeded monitor-corrected Afib RVR Mild Pulmonary congestion Continue Metoprolol, Cardizem Monitor INR: 1.2 today Continue coumadin Monitor for any bleeding issues HTN: Stable monitor Continue current meds H/O DVT on Coumadin DVT Px: Initially SCDs Re: GI bleed Coumadin resumed INR is 1.2 today and will continue Coumadin at this dose Code Status: Full Code Disposition: PT/OT eval prior to DC Subjective 68 years old female with significant past medical history of SSS sp PPM on Coumadin, past hx DVT, hypertension, History CVA, NAFLD cirrhosis, history of esophageal varices, hx gastric bypass, past tobacco abuse, history of gastric bypass, chronic anemia (baseline hemoglobin 9-10), was admitted with melena with supratherapeutic INR. Noted to have anastomotic ulcer disease on EGD. 06/19 The patient was seen and examined in medical telemetry Complaint history of generalized weakness but no other symptoms Will ask for PT and OT evaluation before discharge Before Physical Exam 2 Vital Signs (Past 24 Hours): Last Vital Signs Temp 36.7 C 06/19/18 07:35 Pulse 105 H 06/19/18 07:35 Resp 20 06/19/18 07:35 BP 90/60 L 06/19/18 07:35 Pulse Ox 95 06/19/18 07:35 Constitutional: well developed, well nourished and + obese No apparent distress at rest Eyes: PERRL, conjunctivae normal, anicteric sclerae ENMT: Mouth: + dentures Mallampati Class: II Neck: normal visual inspection Respiratory: normal respiratory effort Auscultation: lungs clear to auscultation bilaterally Cardiovascular: Rate/Rhythm: + tachycardic; + abnormal rate and + abnormal rhythm Chest (Breasts): Chest: + pacemaker Gastrointestinal (Abdomen): normal bowel sounds, soft, nontender, no hepatosplenomegaly Neurologic: PERRL, EOMI, accommodation nl, no face palsy, no dysarthria Psychiatric: Orientation: alert and oriented x 3 Results & Data Laboratory Results Short CBC 06/19/18 Range/Units 08:37 Hgb 9.0 L (12.0-16.0) g/dL Hct 28.7 L (37-47) % Medications Administered Current Inpatient Medications Acetaminophen (Tylenol) 325 mg PO Q6H PRN PRN Reason: Fever Stop: 07/15/18 08:10 Diltiazem HCl (Cardizem Cd) 120 mg PO DAILY [facility] Stop: 07/16/18 08:59 Last Admin: 06/19/18 09:59 Dose: 120 mg Ferrous Sulfate (Feosol) 325 mg PO BID [facility] Stop: 07/15/18 20:59 Last Admin: 06/19/18 09:59 Dose: 325 mg Furosemide (Lasix) 20 mg PO MoWeFr PRN PRN Reason: Edema Stop: 07/15/18 13:54 Ceftriaxone Sodium 1,000 mg/ (Dextrose) 60 mls @ 100 mls/hr IV Q24H [facility] Stop: 06/25/18 09:29 Last Infusion: 06/19/18 10:37 Dose: Infused Prochlorperazine 5 mg/ Syringe 5 mls @ 5 mls/min IV Q6H PRN PRN Reason: Nausea And Vomiting Stop: 07/15/18 08:10 Lactulose (Chronulac) 20 gm PO BID [facility] Stop: 07/15/18 09:29 Last Admin: 06/19/18 08:59 Dose: Not Given Metoprolol Tartrate (Lopressor) 50 mg PO BID [facility] Stop: 07/17/18 20:59 Last Admin: 06/19/18 08:58 Dose: 50 mg Multivitamins (Multivitamin) 1 tab PO DAILY [facility] Stop: 07/15/18 09:29 Last Admin: 06/19/18 08:58 Dose: 1 tab Nitroglycerin (Nitrostat) 0.4 mg SL UD PRN PRN Reason: Angina Stop: 07/15/18 13:59 Pantoprazole Sodium (Protonix) 40 mg PO BID [facility] Stop: 07/17/18 08:59 Last Admin: 06/19/18 09:59 Dose: 40 mg Sucralfate (Carafate) 1 gm PO QID [facility] Stop: 07/15/18 14:29 Last Admin: 06/19/18 13:38 Dose: 1 gm Tramadol HCl (Ultram) 25 mg PO Q4H PRN PRN Reason: Pain Stop: 07/15/18 08:10 Warfarin Sodium (Coumadin) 5 mg PO DAILY@1600 [facility] Stop: 07/18/18 15:59 Last Admin: 06/19/18 16:18 Dose: 5 mg
[2018-06-20] MEDS: METOPROLOL TARTRATE 25 MG TAB PO SCH ×2 (07:45→21:17)
[2018-06-20] MEDS: MULTIVITAMIN TAB PO SCH (07:45)
[2018-06-20] MEDS: FERROUS SULFATE 325 MG TAB PO SCH ×2 (07:46→21:17)
[2018-06-20] MEDS: PANTOprazole 40 MG TAB PO SCH ×2 (07:46→21:17)
[2018-06-20] MEDS: LACTULOSE SYRUP 20 GM/30 ML UDC PO SCH ×2 (07:47→21:16)
[2018-06-20] MEDS: SUCRALFATE 1 GM/10 ML UDC PO SCH ×4 (07:47→21:17)
[2018-06-20] MEDS: dilTIAZem HCL 120 MG CAPCR PO SCH (07:48)
[2018-06-20 08:02] LABS: Basophils # (auto) 0.17 K/uL (0-0.2); Basophils % (auto) 1.7 %; Eosinophils # (auto) 0.45 K/uL (0-0.5); Eosinophils % (auto) 4.6 %; Hematocrit (blood only) 27.7 % (37-47); Hemoglobin 8.8 g/dL (12.0-16.0); Immature Granulocytes # (auto) 0.02 K/uL (0.00-0.02); Immature Granulocytes % (auto) 0.2 %; Lymphocytes # (auto) 2.39 K/uL (1.2-3.4); Lymphocytes % (auto) 24.5 %; Mean Corpuscular Hgb Conc 31.8 g/dL (32-36); Mean Corpuscular Volume 88.5 fL (80-100); Mean Platelet Volume 11.2 fL (7.4-10.4); Monocytes # (auto) 1.75 K/uL (0.11-0.59); Monocytes % (auto) 17.9 %; Neutrophils # (auto) 4.97 K/uL (1.4-6.5); Neutrophils % (auto) 51.1 %; Nucleated RBC # (auto) 0.07 K/uL (0-0); Nucleated RBC % (auto) 0.7 %; Platelet Count 215 K/uL (130-400); RDW Coefficient of Variation 17.9 % (11.5-14.5); RDW Standard Deviation 52.6 fL (36.4-46.3); Red Blood Count 3.13 M/uL (4.2-5.4); White Blood Count 9.75 K/uL (4.8-10.8)
[2018-06-20 08:09] LABS: INR 1.3 (0.9-1.1); Prothrombin Time 12.8 Seconds (9.0-12.0)
[2018-06-20 08:38] LABS: Howell-Jolly Bodies 1+; Target Cells 1+
[2018-06-20 08:56] LABS: BUN Creatinine Ratio 21.9 (10-20); Calcium 7.7 mg/dl (8.5-10.1); Creatinine Clr Calc Pharmacy 80.8 ml/min; Est GFR (African American) 81.6; Est GFR (Non-African American) 70.4; Magnesium 2.1 mg/dl (1.8-2.4); Potassium 3.5 mmol/L (3.5-5.1)
[2018-06-20] MEDS: cefTRIAXone SODIUM 1,000 MG in DEXTROSE 5% 50 ML IV SCH (09:45)
--- NOTE | 2018-06-20 14:46 | Hospitalist Progress Note ---
Date of Service June 20, 2018 Assessment & Plan (1) UGIB (upper gastrointestinal bleed): Anastomotic Peptic Ulcer disease Coumadin Induced coagulopathy H/O NAFLD cirrhosis, Iron deficeicny anemia, Gastric Bypass S/P Vitamin K and Kcentra S/P PRBC transfusion S/P EGD:clean based ulcer in her gastric pouch Continue Protonix ggt and Octreotide ggt>> transitioned to PO Protonix BID Avoid NSAIDs Needs outpatient Hepatology follow up upon discharge Hemoglobin remains stable Patient is likely to be discharged tomorrow following physical therapy evaluation Complaints of generalized weakness today Hemoglobin remains stable and did well physical Left thigh pain Likely secondary to superficial phlebitis Will get ultrasound to rule out any deep venous thrombosis Hypokalemia: Replace potassium as neeeded monitor-corrected Afib RVR Mild Pulmonary congestion Continue Metoprolol, Cardizem Monitor INR: 1.2 today Continue coumadin Monitor for any bleeding issues HTN: Stable monitor Continue current meds H/O DVT on Coumadin DVT Px: Initially SCDs Re: GI bleed Coumadin resumed INR is 1.2 today and will continue Coumadin at this dose Code Status: Full Code Disposition: PT/OT eval prior to DC Subjective 68 years old female with significant past medical history of SSS sp PPM on Coumadin, past hx DVT, hypertension, History CVA, NAFLD cirrhosis, history of esophageal varices, hx gastric bypass, past tobacco abuse, history of gastric bypass, chronic anemia (baseline hemoglobin 9-10), was admitted with melena with supratherapeutic INR. Noted to have anastomotic ulcer disease on EGD. 06/19 The patient was seen and examined in medical telemetry Complaint history of generalized weakness but no other symptoms Will ask for PT and OT evaluation before discharge 06/20 Patient was seen and examined in medical floor She complains of pain in the left thigh but apparently went down by herself to the gift shop Denies any other symptoms Physical Exam 2 Vital Signs (Past 24 Hours): Last Vital Signs Temp 37.5 C 06/20/18 11:05 Pulse 83 06/20/18 11:05 Resp 20 06/20/18 11:05 BP 102/64 06/20/18 11:05 Pulse Ox 95 06/20/18 11:05 Constitutional: well developed, well nourished and + obese Eyes: PERRL, conjunctivae normal, anicteric sclerae ENMT: Mouth: + dentures Mallampati Class: II Neck: normal visual inspection Respiratory: normal respiratory effort Auscultation: lungs clear to auscultation bilaterally Cardiovascular: Rate/Rhythm: + abnormal rate and + abnormal rhythm Chest (Breasts): Chest: + pacemaker Gastrointestinal (Abdomen): normal bowel sounds, soft, nontender, no hepatosplenomegaly Musculoskeletal: Minimal tenderness involving the medial aspect of left thigh likely secondary to superficial phlebitis Neurologic: PERRL, EOMI, accommodation nl, no face palsy, no dysarthria Psychiatric: Orientation: alert and oriented x 3 Results & Data Laboratory Results Short CBC 06/20/18 Range/Units 07:33 WBC 9.75 (4.8-10.8) K/uL Hgb 8.8 L (12.0-16.0) g/dL Hct 27.7 L (37-47) % Plt Count 215 (130-400) K/uL BMP 06/20/18 07:33 Sodium 142 Potassium 3.5 Chloride 113 H Carbon Dioxide 24 BUN 19 H Creatinine 0.86 Glucose 92 Calcium 7.7 L Medications Administered Current Inpatient Medications Acetaminophen (Tylenol) 325 mg PO Q6H PRN PRN Reason: Fever Stop: 07/15/18 08:10 Diltiazem HCl (Cardizem Cd) 120 mg PO DAILY [facility] Stop: 07/16/18 08:59 Last Admin: 06/20/18 07:48 Dose: 120 mg Ferrous Sulfate (Feosol) 325 mg PO BID [facility] Stop: 07/15/18 20:59 Last Admin: 06/20/18 07:46 Dose: 325 mg Furosemide (Lasix) 20 mg PO MoWeFr PRN PRN Reason: Edema Stop: 07/15/18 13:54 Ceftriaxone Sodium 1,000 mg/ (Dextrose) 60 mls @ 100 mls/hr IV Q24H [facility] Stop: 06/25/18 09:29 Last Infusion: 06/20/18 10:21 Dose: Infused Prochlorperazine 5 mg/ Syringe 5 mls @ 5 mls/min IV Q6H PRN PRN Reason: Nausea And Vomiting Stop: 07/15/18 08:10 Lactulose (Chronulac) 20 gm PO BID [facility] Stop: 07/15/18 09:29 Last Admin: 06/20/18 07:47 Dose: 20 gm Metoprolol Tartrate (Lopressor) 50 mg PO BID [facility] Stop: 07/17/18 20:59 Last Admin: 06/20/18 07:45 Dose: 50 mg Multivitamins (Multivitamin) 1 tab PO DAILY [facility] Stop: 07/15/18 09:29 Last Admin: 06/20/18 07:45 Dose: 1 tab Nitroglycerin (Nitrostat) 0.4 mg SL UD PRN PRN Reason: Angina Stop: 07/15/18 13:59 Pantoprazole Sodium (Protonix) 40 mg PO BID [facility] Stop: 07/17/18 08:59 Last Admin: 06/20/18 07:46 Dose: 40 mg Sucralfate (Carafate) 1 gm PO QID [facility] Stop: 07/15/18 14:29 Last Admin: 06/20/18 13:38 Dose: 1 gm Tramadol HCl (Ultram) 25 mg PO Q4H PRN PRN Reason: Pain Stop: 07/15/18 08:10 Warfarin Sodium (Coumadin) 5 mg PO DAILY@1600 [facility] Stop: 07/18/18 15:59 Last Admin: 06/19/18 16:18 Dose: 5 mg
--- NOTE | 2018-06-20 14:58 | Ultrasound Report ---
BILATERAL LOWER EXTREMITY VENOUS DOPPLER HISTORY: Acute pain and swelling of the bilateral lower extremities r/o DVT COMPARISON STUDY: Duplex venous Doppler study 11/21/2014. FINDINGS: RIGHT: Normal compressibility, flow, and augmentation within the right lower extremity deep venous structure s. LEFT: Occlusive thrombus involves the entirety of the greater saphenous vein extending 1.4 cm distal to the common femoral vein confluence. Linear stranding noted about the popliteal vein without occlusive th rombus. The remaining deep venous structures are unremarkable. IMPRESSION: 1. No sonographic evidence of right-sided deep venous thrombosis. 2. Extensive superficial venous thrombosis of the left greater saphenous vein extending 1.4 cm distal to the common femoral vein confluence. 3. Linear stranding about the left popliteal vein suggests fibrin from remote thrombus. No occlusive left deep venous thrombosis. Electronically signed by: Shyam Hughes M.D. 06/20/2018 2:57 PM
[2018-06-20] MEDS: WARFARIN SOD 5 MG TAB PO SCH (16:35)
[2018-06-21] MEDS: SUCRALFATE 1 GM/10 ML UDC PO SCH ×2 (09:00→13:32)
[2018-06-21] MEDS: METOPROLOL TARTRATE 25 MG TAB PO SCH (09:00)
[2018-06-21 09:01] LABS: INR 1.4 (0.9-1.1); Prothrombin Time 13.6 Seconds (9.0-12.0)
[2018-06-21] MEDS: MULTIVITAMIN TAB PO SCH (09:01)
[2018-06-21] MEDS: LACTULOSE SYRUP 20 GM/30 ML UDC PO SCH (09:01)
[2018-06-21] MEDS: FERROUS SULFATE 325 MG TAB PO SCH (09:01)
[2018-06-21] MEDS: dilTIAZem HCL 120 MG CAPCR PO SCH (09:01)
[2018-06-21] MEDS: PANTOprazole 40 MG TAB PO SCH (09:01)
[2018-06-21] MEDS: cefTRIAXone SODIUM 1,000 MG in DEXTROSE 5% 50 ML IV SCH (09:08)
--- NOTE | 2018-06-21 12:52 | Hospitalist Progress Note ---
Date of Service June 21, 2018 Assessment & Plan (1) UGIB (upper gastrointestinal bleed): Clean base peptic Ulcer in the gastric pouch Coumadin Induced coagulopathy H/O NAFLD cirrhosis, Iron deficeicny anemia, Gastric Bypass S/P Vitamin K and Kcentra S/P PRBC transfusion S/P EGD:clean based ulcer in her gastric pouch Continue Protonix ggt and Octreotide ggt>> transitioned to PO Protonix BID Avoid NSAIDs Needs outpatient Hepatology follow up upon discharge Hemoglobin remains stable Patient is likely to be discharged tomorrow following physical therapy evaluation Has been ambulating well and ready to be discharged left thigh pain Likely secondary to superficial phlebitis Will get ultrasound to rule out any deep venous thrombosis-no deep vein thrombosis noted Has superficial thrombophlebitis Will use local NSAID cream Hypokalemia: Replace potassium as neeeded monitor-corrected Afib RVR Mild Pulmonary congestion Continue Metoprolol, Cardizem Monitor INR: 1.2 today Continue coumadin Monitor for any bleeding issues HTN: Stable monitor Continue current meds H/O DVT on Coumadin DVT Px: Initially SCDs Re: GI bleed Coumadin resumed INR is 1.2 today and will continue Coumadin at this dose Code Status: Full Code Disposition: PT/OT eval prior to DC Subjective 68 years old female with significant past medical history of SSS sp PPM on Coumadin, past hx DVT, hypertension, History CVA, NAFLD cirrhosis, history of esophageal varices, hx gastric bypass, past tobacco abuse, history of gastric bypass, chronic anemia (baseline hemoglobin 9-10), was admitted with melena with supratherapeutic INR. Noted to have anastomotic ulcer disease on EGD. 06/19 The patient was seen and examined in medical telemetry Complaint history of generalized weakness but no other symptoms Will ask for PT and OT evaluation before discharge 06/20 Patient was seen and examined in medical floor She complains of pain in the left thigh but apparently went down by herself to the gift shop Denies any other symptoms 06/21 Patient was seen and examined in medical floor She complains to have left inner thigh pain Has been ambulating without any problem No more episodes of black stool Will be discharged home this afternoon Physical Exam 2 Vital Signs (Past 24 Hours): Last Vital Signs Temp 36.6 C 06/21/18 12:10 Pulse 69 06/21/18 12:10 Resp 16 06/21/18 12:10 BP 122/76 06/21/18 12:10 Pulse Ox 95 06/21/18 12:10 Constitutional: well developed, well nourished and + obese Eyes: PERRL, conjunctivae normal, anicteric sclerae ENMT: Mouth: + dentures Mallampati Class: II Neck: normal visual inspection Respiratory: normal respiratory effort Auscultation: lungs clear to auscultation bilaterally Cardiovascular: Rate/Rhythm: + abnormal rate and + abnormal rhythm Chest (Breasts): Chest: + pacemaker Gastrointestinal (Abdomen): normal bowel sounds, soft, nontender, no hepatosplenomegaly Musculoskeletal: Mild to moderate tenderness involving the inner side of the thigh Secondary to superficial thrombophlebitis Neurologic: PERRL, EOMI, accommodation nl, no face palsy, no dysarthria Psychiatric: Orientation: alert and oriented x 3 Results & Data Medications Administered Current Inpatient Medications Acetaminophen (Tylenol) 325 mg PO Q6H PRN PRN Reason: Fever Stop: 07/15/18 08:10 Last Admin: 06/21/18 00:17 Dose: 325 mg Diclofenac Sodium (Voltaren 1% Top) 1 appln EXT BID [facility] Stop: 07/21/18 12:59 Diltiazem HCl (Cardizem Cd) 120 mg PO DAILY [facility] Stop: 07/16/18 08:59 Last Admin: 06/21/18 09:01 Dose: 120 mg Ferrous Sulfate (Feosol) 325 mg PO BID [facility] Stop: 07/15/18 20:59 Last Admin: 06/21/18 09:01 Dose: 325 mg Furosemide (Lasix) 20 mg PO MoWeFr PRN PRN Reason: Edema Stop: 07/15/18 13:54 Ceftriaxone Sodium 1,000 mg/ (Dextrose) 60 mls @ 100 mls/hr IV Q24H [facility] Stop: 06/25/18 09:29 Last Infusion: 06/21/18 10:02 Dose: Infused Prochlorperazine 5 mg/ Syringe 5 mls @ 5 mls/min IV Q6H PRN PRN Reason: Nausea And Vomiting Stop: 07/15/18 08:10 Lactulose (Chronulac) 20 gm PO BID [facility] Stop: 07/15/18 09:29 Last Admin: 06/21/18 09:01 Dose: Not Given Metoprolol Tartrate (Lopressor) 50 mg PO BID [facility] Stop: 07/17/18 20:59 Last Admin: 06/21/18 09:00 Dose: 50 mg Multivitamins (Multivitamin) 1 tab PO DAILY [facility] Stop: 07/15/18 09:29 Last Admin: 06/21/18 09:01 Dose: 1 tab Nitroglycerin (Nitrostat) 0.4 mg SL UD PRN PRN Reason: Angina Stop: 07/15/18 13:59 Pantoprazole Sodium (Protonix) 40 mg PO BID [facility] Stop: 07/17/18 08:59 Last Admin: 06/21/18 09:01 Dose: 40 mg Sucralfate (Carafate) 1 gm PO QID [facility] Stop: 07/15/18 14:29 Last Admin: 06/21/18 09:00 Dose: 1 gm Tramadol HCl (Ultram) 25 mg PO Q4H PRN PRN Reason: Pain Stop: 07/15/18 08:10 Last Admin: 06/21/18 02:28 Dose: 25 mg Warfarin Sodium (Coumadin) 5 mg PO DAILY@1600 [facility] Stop: 07/18/18 15:59 Last Admin: 06/20/18 16:35 Dose: 5 mg
[2018-06-21] MEDS ORDERED: DICLOFENAC SOD 1% GEL 100 GM TUBE EXT SCH (13:00)
--- NOTE | 2018-06-22 08:10 | Discharge Summary ---
Date of Service June 22, 2018 Admission HPI Per Admitting Provider History obtained from patient and records. Medical history significant for SSS sp PPM on Coumadin, past hx DVT, hypertension, History CVA, NAFLD cirrhosis, history of esophageal varices, hx gastric bypass, past tobacco abuse, history of gastric bypass, chronic anemia (baseline hemoglobin 9-10), history mixed urinary incontinence as per records Recent confinement September 2017 for A. fib with RVR. Last week patient had a transient diarrheal illness. 2 days ago outpatient INR was noted to be greater than 8. Patient instructed by Coumadin clinic to hold Coumadin and take vitamin K tablet. Yesterday patient noted generalized weakness, shortness of breath on exertion. Dark stools noted at home. No emesis. No abdominal pain. Intake of Aleve tablets at least once weekly for joint aches as per patient. At the ER, IV PPI given for UGIB. MEDICAL HISTORY: As above. EGD October 2016 showed grade 1 esophageal varices SURGERIES: She has had splenectomy, gastric bypass, cholecystectomy, pacemaker placement, facial fracture surgery, resection of pericardial cyst, hernia repair FAMILY HISTORY: Hypertension. SOCIAL AND PERSONAL HISTORY: Past tobacco use, no chronic intake of alcoholic beverages. 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 Admission Exam Per Admitting Provider Vital Signs (Past 24 Hours): Last Vital Signs Temp 36.7 C 06/15/18 04:54 Pulse 103 H 06/15/18 06:41 Resp 18 06/15/18 06:41 BP 104/56 L 06/15/18 06:41 Pulse Ox 98 06/15/18 06:41 Physical Exam: GENERAL: Slightly anxious, obese , no respiratory distress SKIN: Pallor, warm HEENT: Pale palpebral conjunctivae, no ptosis, dry buccal mucosa NECK : Supple, short, no tenderness CHEST : CTA, no tenderness HEART : Irregular, tachycardic, systolic murmur ABDOMEN: Some distention, no overt tenderness EXTREMITIES : minimal LE swelling, no tenderness, no other conspicuous deformities noted NEUROLOGIC : Coherent, no facial asymmetry, no other gross focality Principal Diagnosis Upper GI bleed secondary to clean based peptic ulcer in the gastric pouch, atrial fibrillation on Coumadin Discharge Exam Constitutional well developed, well nourished and + obese Eyes PERRL, conjunctivae normal, anicteric sclerae ENMT Mouth: + dentures Mallampati Class: II Neck normal visual inspection Respiratory normal respiratory effort Auscultation: lungs clear to auscultation bilaterally Cardiovascular Rate/Rhythm: + abnormal rate and + abnormal rhythm Chest (Breasts) Chest: + pacemaker Gastrointestinal (Abdomen) normal bowel sounds, soft, nontender, no hepatosplenomegaly Neurologic PERRL, EOMI, accommodation nl, no face palsy, no dysarthria Psychiatric Orientation: alert and oriented x 3 Discharge Data Allergies Allergy/AdvReac Type Severity Reaction Status Date / Time Quinolones Allergy Unknown LOCAL Verified 06/15/18 05:30 REACTION TO LEVAQUIN codeine AdvReac Unknown VOMITING Verified 06/15/18 05:30 nickel AdvReac Redness of Verified 06/15/18 11:13 Skin Consultations 06/15/18 05:59 ED Decision to Admit Stat 06/15/18 06:56 Consult Food Expeditor Routine 06/15/18 08:11 Consult Case Management - Discharge Planning Routine Consult Gastroenterology Routine Procedures Performed Operation Date: 06/15/18 13:00 Actual Procedures p Esophagogastroduodenoscopy - Annette Brock M.D. Ordered Studies 06/20/18 11:57 US venous doppler [facility] Stat Hospital Course (1) UGIB (upper gastrointestinal bleed): Clean base peptic Ulcer in the gastric pouch Coumadin Induced coagulopathy H/O NAFLD cirrhosis, Iron deficeicny anemia, Gastric Bypass S/P Vitamin K and Kcentra S/P PRBC transfusion S/P EGD:clean based ulcer in her gastric pouch Continue Protonix ggt and Octreotide ggt>> transitioned to PO Protonix BID Avoid NSAIDs Needs outpatient Hepatology follow up upon discharge Hemoglobin remains stable Patient is likely to be discharged tomorrow following physical therapy evaluation Has been ambulating well and ready to be discharged left thigh pain Likely secondary to superficial phlebitis Will get ultrasound to rule out any deep venous thrombosis-no deep vein thrombosis noted Has superficial thrombophlebitis Will use local NSAID cream Hypokalemia: Replace potassium as neeeded monitor-corrected Afib RVR Mild Pulmonary congestion Continue Metoprolol, Cardizem Monitor INR: 1.2 today Continue coumadin Monitor for any bleeding issues HTN: Stable monitor Continue current meds H/O DVT on Coumadin DVT Px: Initially SCDs Re: GI bleed Coumadin resumed INR is 1.2 today and will continue Coumadin at this dose Code Status: Full Code Disposition: PT/OT eval prior to DC Total Time Total Time Spent Total Time Spent (In Minutes): 35 minutes Total Time Includes: Examination of the Patient, Discharge Planning, Medication Reconciliation and Communication With Other Providers Discharge Plan Discharge Items Patient Disposition: Home - Self-Care Reason For Visit: ANEMIA,GI BLEED Discharge Diagnosis: Upper GI bleed secondary to clean based peptic ulcer in the gastric pouch, atrial fibrillation on Coumadin Condition: Good Discharge Goals: Decrease discomfort, Improve disease control and Improve function Activity: Resume your previous activity Activity Comment: Please take precaution to avoid fall Non-emergency contact: Primary Care Provider Call non-emergency contact if: you have any medication questions and your symptoms worsen Follow-up/Referrals: Ishan García DO [Primary Care Provider] - 06/25/18 8:45 am (Will need to have GI follow-up with Dr. Quijano and regular coagulation clinic follow- up as well) Diet: Heart Healthy and Low Sodium (2gm) Addtl Provider Instructions: Do not use any oral NSAID Prescriptions: New sucralfate 100 mg/mL Suspension 10 ml PO QID 10 Days Qty: 400 RF: 0 pantoprazole 40 mg Tablet,Delayed Release (Dr/Ec) 40 mg PO BID 30 Days Qty: 60 RF: 0 diclofenac sodium [Voltaren] 1 % Gel 1 applic EXT BID 30 Days Qty: 25 RF: 0 Continue warfarin 5 mg Tablet 5 mg PO DAILY RF: 0 nitroglycerin [Nitrostat] 0.4 mg Tablet, Sublingual 0.4 mg Sublingual UD RF: 0 ferrous sulfate 325 mg (65 mg iron) Tablet 325 mg PO BID RF: 0 diltiazem HCl [Cardizem CD] 120 mg Capsule,Extended Release 24hr 120 mg PO DAILY RF: 0 metoprolol tartrate 50 mg Tablet 50 mg PO BID RF: 0 furosemide 20 mg Tablet 20 mg PO UD PRN (Reason: Edema) RF: 0 multivitamin [Multiple Vitamins] Tablet 1 tab PO DAILY RF: 0 lactulose 10 gram/15 mL Solution 30 ml PO BID RF: 0 acetaminophen [Tylenol Extra Strength] 500 mg Tablet 500 mg PO Q6H PRN (Reason: Pain) RF: 0 ciprofloxacin HCl [Cipro] 250 mg Tablet 250 mg PO BID RF: 0 Discontinued phytonadione (vitamin K1) 5 mg Tablet 2.5 mg PO UD RF: 0 naproxen sodium 220 mg Capsule 440 mg PO BIDM RF: 0 Visit Report Forms: [facility] Stand-Alone Forms: [facility] Discharge Orders: Discharge Order (Routine); Ordered 06/21/18 Ordered By: Luis Vaughn Admission Data Admit Date/Time: 06/15/18 06:56 Attending Provider: Luis Vaughn Admit Provider: Vega Lr Primary Care Provider: Ishan García Other Providers: Vega Lr ; Arpan Vela ; Laron Omer ; Angela Hendrix ; Taina Knowles ; Teddy Watters ; Tariq Kenny ; Rich Quijano ; Heidi Magdaleno ; Randall Castro ; Jimy Thurston. ; Suha Gong ; Zahraa Whipple ; Leah Shaffer ; Annette Brock ; Lakeshia Prado ; Simone Cordova Service: Medical Other Interventions: Discharge Summary Assessment (RN) Last Done: 06/21/18 12:10 DC Date/Time DO NOT enter until pt leaves facility: 06/21/18 14:25
== END 2018-06-21 14:25 | disposition home or self-care (01) | DRG 813 ==
LOC: ED 04:51 → 1E 06:56 → SUATTDRO 06:56 → 1E 08:05 → 2W 06-16 16:18 → 4W 06-20 18:59

== ENCOUNTER 2018-07-15 12:18 | Inpatient (IN) ==
[2018-07-15] MEDS ORDERED: SODIUM CHLORIDE 0.9% 500 ML IV STA (13:05)
[2018-07-15] MEDS ORDERED: METOPROLOL TARTRATE 1 MG/ML VIAL IV STA (13:05)
--- NOTE | 2018-07-15 13:11 | XRay Report ---
XR chest 1V portable CLINICAL HISTORY: 68 years-old Female presenting with SOB. TECHNIQUE: Portable upright AP view of the chest was obtained. COMPARISON: 06/18/2018. FINDINGS: Left subclavian pacer with leads to the right atrium and right ventricular apex. Median sternotomy wi res intact. Atherosclerosis of aortic arch. Cardiac silhouette mildly enlarged. Redemonstration of mu ltiple calcified left hilar lymph nodes. Pulmonary vascular prominence has increased from prior. Mild bronchial wall thickening is similar. Vague opacity in the right midlung most likely represents flui d in the right minor fissure new from prior. Small right pleural effusion. Mildly low lung volumes wi th minimal bibasilar opacities. No pneumothorax. Degenerative changes of the thoracic spine. Cholecys tectomy clips noted. IMPRESSION: 1. Mild cardiomegaly with volume overload/congestive change, which is stable to slightly worsened fr om prior exam. 2. Small right pleural effusion with fluid in the minor fissure. Electronically signed by: Dick Massey M.D. 07/15/2018 1:10 PM
[2018-07-15 14:18] LABS: Hematocrit (blood only) 29.7 % (37-47); Mean Corpuscular Hgb Conc 30.3 g/dL (32-36); Mean Corpuscular Volume 88.4 fL (80-100); Mean Platelet Volume 11.8 fL (7.4-10.4); Platelet Count 325 K/uL (130-400); RDW Coefficient of Variation 19.1 % (11.5-14.5); RDW Standard Deviation 60.3 fL (36.4-46.3); Red Blood Count 3.36 M/uL (4.2-5.4); White Blood Count 6.61 K/uL (4.8-10.8)
[2018-07-15 14:19] LABS: Alanine Aminotransferase 19 U/L (12-78); Albumin Globulin Ratio 0.7 (0.9-2); Albumin Level 2.6 gm/dl (3.4-5.0); Alkaline Phosphatase 125 U/L (45-117); Aspartate Aminotransferase 31 U/L (15-37); BUN Creatinine Ratio 20.9 (10-20); Bilirubin,Total 0.4 mg/dl (0.2-1); Blood Urea Nitrogen 19 mg/dl (7-18); Calcium 8.2 mg/dl (8.5-10.1); Carbon Dioxide 20 mmol/L (21-32); Chloride 116 mmol/L (98-107); Creatinine Clr Calc Pharmacy 75.7 ml/min; Est GFR (African American) 74.2; Globulin 3.8 gm/dl (2.5-4.0); Glucose 99 mg/dl (70-99); NT Pro B Type Natriuretic Pept 1610 pg/ml (0-900); Potassium 4.1 mmol/L (3.5-5.1); Sodium 143 mmol/L (136-145); Total Protein 6.4 gm/dl (6.4-8.2); Troponin I < 0.015 ng/ml (0-0.045)
[2018-07-15 14:21] LABS: Basophils # (auto) 0.19 K/uL (0-0.2); Basophils % (auto) 2.9 %; Echinocytes 1+; Eosinophils # (auto) 0.33 K/uL (0-0.5); Howell-Jolly Bodies 1+; Immature Granulocytes # (auto) 0.01 K/uL (0.00-0.02); Immature Granulocytes % (auto) 0.2 %; Lymphocytes # (auto) 2.28 K/uL (1.2-3.4); Lymphocytes % (auto) 34.5 %; Monocytes # (auto) 0.81 K/uL (0.11-0.59); Monocytes % (auto) 12.3 %; Neutrophils # (auto) 2.99 K/uL (1.4-6.5); Neutrophils % (auto) 45.1 %; Poikilocytosis Present; Schistocytes 1+
[2018-07-15] MEDS ORDERED: FUROSEMIDE 40 MG/4 ML VIAL IV STA (14:38)
[2018-07-15 15:25] LABS: Prothrombin Time 70.9 Seconds (9.0-12.0)
[2018-07-15 15:36] LABS: INR 7.9 (0.9-1.1); Partial Thromboplastin Time 51.7 Seconds (21.0-31.0)
--- NOTE | 2018-07-15 15:49 | History & Physical Report ---
Date of Service July 15, 2018 Assessment & Plan (1) CHF (congestive heart failure): Likely secondary to diastolic dysfunction with history of A. fib and RVR She had a right and left cardiac cath on 23 Oct 2017 in [place] and she was noted to have no coronary artery disease but had moderate elevation in left ventricular end-diastolic pressure and moderate increase in pulmonary capillary wedge pressure which were thought to be the cause for her shortness of breath. Chest x-ray suggestive of CHF and also has increased weight gain since discharge from the hospital Lasix 40 mg twice daily will be administered Echocardiogram Cardiology evaluation Present on Admission?: Yes (2) Atrial fibrillation with RVR: She has been on Cardizem as an outpatient Noted to have A. fib with RVR on admission with a heart rate of 131 Received 5 mg of IV Lopressor and the heart rate went down below 100 We will continue current medications Cardiology evaluation (3) Anemia: Has chronic anemia with hemoglobin around 9 EGD during last admission showed clean based gastric ulcer in the gastric pouch Has been on iron No recent history of hematemesis and melena We will continue Protonix and monitor hemoglobin (4) Cirrhosis: History of nonalcoholic cirrhosis History of esophageal varices No acute symptoms at this time (5) Esophageal varices: (6) DVT (deep venous thrombosis): She has history of DVT and atrial fibrillation Has been on Coumadin INR noted to be more than 7 in clinic today We will repeat INR Hold Coumadin for now We did not reverse INR as there is no evidence of bleeding History of Present Illness Chief Complaint: Increasing shortness of breath with palpitation Primary Care Provider: Ishan García DO She is a 68 years old female with significant past medical history of atrial fibrillation wth SSS sp PPM on Coumadin, past hx DVT, hypertension, h/o CVA, NAFLD cirrhosis, history of esophageal varices, hx gastric bypass, past tobacco abuse, chronic anemia (baseline hemoglobin 9-10), history mixed urinary incontinence as per records was brought into ER with increasing shortness of breath since middle of June associated with palpitation and fluid overload. Apparently she was discharged from the hospital when cleared from June following upper GI bleed secondary to clean based ulcer in the gastric pouch. She has been complaining of shortness of breath since discharge and Mr. appointment with the primary care as scheduled. She was seen by Dr. García in the clinic today and noted to have defibrillation with rapid ventricular response, CHF with fluid overload and increased INR from that point he was advised to come to the emergency room. She denies any chest pain but has palpitation, denies any abdominal pain, nausea and/or vomiting, denies any significant problem with urine and her bowel habit. She has noted to have CHF and chest x-ray and A. fib with RVR with an INR of more than 7 but hemoglobin is stable at one-point. She was admitted to telemetry unit for continued care. Allergies Allergy/AdvReac Type Severity Reaction Status Date / Time Quinolones Allergy Unknown LOCAL Verified 07/15/18 13:57 REACTION TO LEVAQUIN codeine AdvReac Unknown VOMITING Verified 07/15/18 13:57 nickel AdvReac Redness of Verified 07/15/18 13:57 Skin Home Medications Home Medications Medication Instructions Recorded Confirmed Type acetaminophen [Tylenol Extra 500 mg PO Q6H PRN 06/15/18 07/15/18 History Strength] ciprofloxacin HCl [Cipro] 250 mg PO BID 06/15/18 07/15/18 History diltiazem HCl [Cardizem CD] 120 mg PO DAILY 06/15/18 07/15/18 History ferrous sulfate 325 mg PO BID 06/15/18 07/15/18 History furosemide 20 mg PO UD PRN 06/15/18 07/15/18 History lactulose 30 ml PO BID 06/15/18 07/15/18 History metoprolol tartrate 50 mg PO BID 06/15/18 07/15/18 History multivitamin [Multiple Vitamins] 1 tab PO DAILY 06/15/18 07/15/18 History nitroglycerin [Nitrostat] 0.4 mg SUBLINGUAL UD 06/15/18 07/15/18 History diclofenac sodium [Voltaren] 1 applic EXT BID 30 Days #25 gm 06/21/18 07/15/18 Rx pantoprazole 40 mg PO BID 30 Days #60 tab 06/21/18 07/15/18 Rx warfarin 7.5 mg PO DAILY 07/15/18 07/15/18 History Past Med/Surg History Medical History UGIB (upper gastrointestinal bleed) Atrial fibrillation with RVR DVT (deep venous thrombosis) Pacemaker [employer]. Placed for tachy-kaz syndrome Anemia CVA (cerebral vascular accident) Patient denies states she had metabolic encephalopathy from elevated ammonia levels. Cirrhosis NAFLD Esophageal varices Surgical History H/O gastric bypass History of esophagogastroduodenoscopy (EGD) Social History Current Living Situation: Family Other Information That Helps Us Care for You: No Feels Safe at Home: Yes Safety Concerns: Feels Safe At This Time Smoking Status: Former smoker Tobacco Type: cigarettes Hx Alcohol Use: No Hx Substance Use: No Beliefs That Will Affect Care: None Preferred Language: Tanzanian Communication Ability: Effective Review of Systems All systems reviewed & are unremarkable except as noted in HPI & below Constitutional: + weight gain and + problem reported (Shortness of breath with minimal exertion) Gastrointestinal: no melena Physical Exam 2 Vital Signs (Past 24 Hours): Last Vital Signs Temp 36.4 C L 07/15/18 12:25 Pulse 96 H 07/15/18 14:52 Resp 18 07/15/18 14:52 BP 143/122 H 07/15/18 14:52 Pulse Ox 97 07/15/18 14:52 Physical Exam: Lying in bed comfortably with minimal or no respiratory distress Constitutional: WD/WN, vitals as above Eyes: PERRL, conjunctivae normal, anicteric sclerae ENMT: external ear and nose normal, oropharynx normal Neck: trachea midline, no thyromegaly Respiratory: + respiratory distress (Minimal ) Auscultation: + diminished lung sounds and + crackles (Bibasilar crackles); no wheezes Cardiovascular: Rate/Rhythm: + tachycardic; + abnormal rhythm Heart Sounds : normal S1 and normal S2 Extremities: + edema Gastrointestinal (Abdomen): Inspection/Auscultation: normal bowel sounds Percussion/Palpation: abdomen nontender A small ulceration above the umbilicus Neurologic: Alert, awake and oriented x3, generally weak Results & Data Laboratory Results Short CBC 07/15/18 Range/Units 13:34 WBC 6.61 (4.8-10.8) K/uL Hgb 9.0 L (12.0-16.0) g/dL Hct 29.7 L (37-47) % Plt Count 325 (130-400) K/uL BMP 07/15/18 13:34 Sodium 143 Potassium 4.1 Chloride 116 H Carbon Dioxide 20 L BUN 19 H Creatinine 0.93 Glucose 99 Calcium 8.2 L Cardiac Enzymes 07/15/18 Range/Units 13:34 Troponin I < 0.015 (0-0.045) ng/ml Liver Function 07/15/18 Range/Units 13:34 Total Bilirubin 0.4 (0.2-1) mg/dl AST 31 (15-37) U/L ALT 19 (12-78) U/L Alkaline Phosphatase 125 H (45-117) U/L Albumin 2.6 L (3.4-5.0) gm/dl Code Status & VTE Plan Code Status FUll VTE Prophylaxis Plan VTE Prophylaxis will be ordered: Yes _ (1) CHF (congestive heart failure) Heart failure chronicity: acute Heart failure type: unspecified Qualified Code(s): I50.9 - Heart failure, unspecified (2) Anemia Anemia type: unspecified type Bone marrow failure anemia type: Chronic kidney disease stage: Folate deficiency anemia type: Hemolytic anemia type: Iron deficiency anemia type: Other causes of anemia: Vitamin B12 deficiency anemia type: Qualified Code(s): D64.9 - Anemia, unspecified
--- NOTE | 2018-07-15 16:44 | Emergency Department Note ---
Entered by Melyssa Huffman acting as a scribe for History of Present Illness General Chief complaint: Shortness of Breath/Dyspnea Stated complaint: SHORTNESS OF BREATH - HIGH HEART RATE Time Seen by Provider: 07/15/18 12:55 Source: patient Mode of arrival: ambulatory Limitations: no limitations History of Present Illness Onset (ago): week(s) 1 Location: chest Pain Consistency: + other (worsening) Exacerbated By: + movement Associated symptoms: no cough and no fever/chills (The patient denies fever. ) The patient is a 68 year old female who presents to the ED with complaints of worsening shortness of breath that onset 1 week ago. Per nursing staff, the patient was sent to the ED by Dr. García for 1 week of shortness of breath. They note that they found pneumonia in the right lung, rapid atrial fibrillation , and an INR of 7. The patient states that the SOB is exacerbated with movement. The patient denies increased coughing and fever. She states that she has recently had a blood transfusion for an ulcer. The patient notes that she takes Coumadin and was told today to hold the Coumadin. Home Medications Home Medications Medication Instructions Recorded Confirmed Type acetaminophen [Tylenol Extra 500 mg PO Q6H PRN 06/15/18 07/15/18 History Strength] ciprofloxacin HCl [Cipro] 250 mg PO BID 06/15/18 07/15/18 History diltiazem HCl [Cardizem CD] 120 mg PO DAILY 06/15/18 07/15/18 History ferrous sulfate 325 mg PO BID 06/15/18 07/15/18 History furosemide 20 mg PO UD PRN 06/15/18 07/15/18 History lactulose 30 ml PO BID 06/15/18 07/15/18 History metoprolol tartrate 50 mg PO BID 06/15/18 07/15/18 History multivitamin [Multiple Vitamins] 1 tab PO DAILY 06/15/18 07/15/18 History nitroglycerin [Nitrostat] 0.4 mg SUBLINGUAL UD 06/15/18 07/15/18 History diclofenac sodium [Voltaren] 1 applic EXT BID 30 Days #25 gm 06/21/18 07/15/18 Rx pantoprazole 40 mg PO BID 30 Days #60 tab 06/21/18 07/15/18 Rx warfarin 7.5 mg PO DAILY 07/15/18 07/15/18 History Allergies Allergy/AdvReac Type Severity Reaction Status Date / Time Quinolones Allergy Unknown LOCAL Verified 07/15/18 13:57 REACTION TO LEVAQUIN codeine AdvReac Unknown VOMITING Verified 07/15/18 13:57 nickel AdvReac Redness of Verified 07/15/18 13:57 Skin Past Med/Surg History Medical History UGIB (upper gastrointestinal bleed) Atrial fibrillation with RVR DVT (deep venous thrombosis) Pacemaker [employer]. Placed for tachy-kaz syndrome Anemia CVA (cerebral vascular accident) Patient denies states she had metabolic encephalopathy from elevated ammonia levels. Cirrhosis NAFLD Esophageal varices Surgical History H/O gastric bypass History of esophagogastroduodenoscopy (EGD) Social History Current Living Situation: Family Other Information That Helps Us Care for You: No Feels Safe at Home: Yes Safety Concerns: Feels Safe At This Time Smoking Status: Former smoker Tobacco Type: cigarettes Hx Alcohol Use: No Hx Substance Use: No Beliefs That Will Affect Care: None Preferred Language: [place] Communication Ability: Effective Review of Systems See HPI for pertinent positives & negatives. and A total of 10 systems reviewed and were otherwise negative Physical Exam Vital Signs Vital Signs - 24 hr 07/15/18 12:25 07/15/18 12:50 07/15/18 12:52 Temperature 36.4 C L Temperature Source Oral Sepsis Recent Fever Within 48 Hours No Sepsis New/Unexplained Change in Mental Status No Sepsis Action Taken by Nursing No Action Required Pulse Rate 102 H Pulse Rate [Finger] 137 H Pulse Rhythm [Finger] Pulse Strength [Finger] Respiratory Rate 20 18 Respiratory Effort / Characteristics Non-Labored Respiratory Depth Normal Respiratory Pattern Blood Pressure 117/78 Blood Pressure [Left Arm] 119/71 Blood Pressure [Right Arm] Blood Pressure Mean 91 Blood Pressure Mean [Left Arm] 87 Blood Pressure Mean [Right Arm] Blood Pressure Position [Right Arm] Pulse Oximetry 95 100 100 Oxygen Delivery Method Room Air Nasal Cannula Nasal Cannula Oxygen Flow Rate 2 2 07/15/18 14:43 07/15/18 14:52 07/15/18 15:00 Temperature Temperature Source Sepsis Recent Fever Within 48 Hours Sepsis New/Unexplained Change in Mental Status Sepsis Action Taken by Nursing Pulse Rate 115 H Pulse Rate [Finger] 96 H Pulse Rhythm [Finger] Irregular Pulse Strength [Finger] Respiratory Rate 18 Respiratory Effort / Characteristics Non-Labored Spontaneous Short of Breath SOB on Exertion Respiratory Depth Normal Normal Respiratory Pattern Regular Tachypnea Blood Pressure 120/106 H Blood Pressure [Left Arm] 143/122 H Blood Pressure [Right Arm] Blood Pressure Mean Blood Pressure Mean [Left Arm] 129 Blood Pressure Mean [Right Arm] Blood Pressure Position [Right Arm] Pulse Oximetry 97 Oxygen Delivery Method Nasal Cannula Nasal Cannula Oxygen Flow Rate 2 2 07/15/18 17:22 Temperature 36.5 C Temperature Source Oral Sepsis Recent Fever Within 48 Hours Sepsis New/Unexplained Change in Mental Status Sepsis Action Taken by Nursing Pulse Rate Pulse Rate [Finger] 130 H Pulse Rhythm [Finger] Irregular Pulse Strength [Finger] Normal Respiratory Rate 20 Respiratory Effort / Characteristics SOB on Exertion Respiratory Depth Normal Respiratory Pattern Regular Blood Pressure Blood Pressure [Left Arm] Blood Pressure [Right Arm] 133/87 Blood Pressure Mean Blood Pressure Mean [Left Arm] Blood Pressure Mean [Right Arm] 102 Blood Pressure Position [Right Arm] Lying Pulse Oximetry 96 Oxygen Delivery Method Room Air Oxygen Flow Rate GENERAL: Patient is in no acute distress. HEENT: No acute trauma, normocephalic atraumatic, mucous membranes moist, no nasal congestion, no scleral icterus. NECK: No stridor, no adenopathy, no meningismus, trachea is midline. LUNGS: Crackles on the left. Right lung seems clear. No respiratory distress. Exam performed listening anteriorly. HEART: Tachycardic, rhythm is irregular, no murmurs. ABDOMEN: Soft, nontender, bowel sounds positive, no hernias, no peritonitis. EXTREMITIES: No cyanosis or edema, full range of motion of all the joints without pain or difficulty, no signs for acute trauma. NEUROLOGIC: Oriented x 3, no acute motor or sensory deficits, no focal weakness. SKIN: No rash, no jaundice, no diaphoresis. Course 1258: Past medical records reviewed. The patient was evaluated in room B5, and a complete history and physical examination were performed. 1421: I updated the patient. Upon reevaluation, the patient is resting comfortably. 1456: I reviewed the patient's case with Maribel Rodriguez. She will evaluate the patient for further management. Consultations Consultation #1: 1451: I reviewed the patient's case with Maribel Rodriguez. She will evaluate the patient for further management. Time: 14:56 Administered Medications Diltiazem HCl (Cardizem Cd) 120 mg PO DAILY MECHE Stop: 08/14/18 17:19 Last Admin: 07/15/18 18:09 Dose: 120 mg Ferrous Sulfate (Feosol) 325 mg PO BIDM MECHE Stop: 08/14/18 16:59 Last Admin: 07/15/18 18:09 Dose: 325 mg Furosemide 40 mg/ Syringe 4 mls @ 4 mls/min IV BID17 MECHE Stop: 08/14/18 16:59 Last Admin: 07/15/18 18:05 Dose: 4 mls/min Discontinued Medications Furosemide (Lasix) 40 mg IV NOW STA Stop: 07/15/18 14:39 Last Admin: 07/15/18 14:45 Dose: 40 mg Sodium Chloride (Nss) 500 mls @ 999 mls/hr IV .Q31M STA Stop: 07/15/18 13:35 Last Admin: 07/15/18 14:45 Dose: Not Given Metoprolol Tartrate (Lopressor) 5 mg IV NOW STA Stop: 07/15/18 13:06 Last Admin: 07/15/18 14:43 Dose: 5 mg Medical Decision Making Differential Diagnosis Differential Diagnoses Include: Rapid atrial fibrillation, anemia, electrolyte imbalance, CHF, PNA , [place], bronchitis. Medical Records Attestation: I reviewed the patient's medical records. Home Medications Current Medication List: was personally reviewed by me Laboratory Data Attestation: I reviewed the patient's lab results. Result diagrams: 07/15/18 13:34 07/15/18 13:34 Lab Results 07/15/18 07/15/18 07/15/18 Range/Units 13:34 13:34 13:34 WBC 6.61 (4.8-10.8) K/uL RBC 3.36 L (4.2-5.4) M/uL Hgb 9.0 L (12.0-16.0) g/dL Hct 29.7 L (37-47) % MCV 88.4 (80-100) fL MCH 26.8 (25-34) pg MCHC 30.3 L (32-36) g/dL RDW Std Deviation 60.3 H (36.4-46.3) fL RDW Coeff of Dayne 19.1 H (11.5-14.5) % Plt Count 325 (130-400) K/uL MPV 11.8 H (7.4-10.4) fL Immature Gran % (Auto) 0.2 % Neut % (Auto) 45.1 % Lymph % (Auto) 34.5 % [place] % (Auto) 12.3 % Eos % (Auto) 5.0 % Baso % (Auto) 2.9 % Immature Gran # (Auto) 0.01 (0.00-0.02) K/uL Neut # (Auto) 2.99 (1.4-6.5) K/uL Lymph # (Auto) 2.28 (1.2-3.4) K/uL [place] # (Auto) 0.81 H (0.11-0.59) K/uL Eos # (Auto) 0.33 (0-0.5) K/uL Baso # (Auto) 0.19 (0-0.2) K/uL Poikilocytosis Present Ramirez-Rubicon Bodies 1+ Echinocytes 1+ Schistocytes 1+ PT Cancelled INR Cancelled APTT Cancelled PTT Ratio Cancelled Sodium 143 (136-145) mmol/L Potassium 4.1 (3.5-5.1) mmol/L Chloride 116 H (98-107) mmol/L Carbon Dioxide 20 L (21-32) mmol/L Anion Gap 7.0 (3-11) BUN 19 H (7-18) mg/dl Creatinine 0.93 (0.6-1.2) mg/dl Est Cr Clr Drug Dosing 75.7 ml/min Est GFR ( Amer) 74.2 Est GFR (Non-Af Amer) 64.0 BUN/Creatinine Ratio 20.9 H (10-20) Glucose 99 (70-99) mg/dl Calcium 8.2 L (8.5-10.1) mg/dl Magnesium 2.0 (1.8-2.4) mg/dl Total Bilirubin 0.4 (0.2-1) mg/dl AST 31 (15-37) U/L ALT 19 (12-78) U/L Alkaline Phosphatase 125 H (45-117) U/L Troponin I < 0.015 (0-0.045) ng/ml NT-Pro-B Natriuret Pep 1610 H (0-900) pg/ml Total Protein 6.4 (6.4-8.2) gm/dl Albumin 2.6 L (3.4-5.0) gm/dl Globulin 3.8 (2.5-4.0) gm/dl Albumin/Globulin Ratio 0.7 L (0.9-2) Specimen Hemolysis Nasal Screen MRSA (PCR) (Negative) 07/15/18 07/15/18 Range/Units 14:40 17:00 WBC (4.8-10.8) K/uL RBC (4.2-5.4) M/uL Hgb (12.0-16.0) g/dL Hct (37-47) % MCV (80-100) fL MCH (25-34) pg MCHC (32-36) g/dL RDW Std Deviation (36.4-46.3) fL RDW Coeff of Dayne (11.5-14.5) % Plt Count (130-400) K/uL MPV (7.4-10.4) fL Immature Gran % (Auto) % Neut % (Auto) % Lymph % (Auto) % [place] % (Auto) % Eos % (Auto) % Baso % (Auto) % Immature Gran # (Auto) (0.00-0.02) K/uL Neut # (Auto) (1.4-6.5) K/uL Lymph # (Auto) (1.2-3.4) K/uL [place] # (Auto) (0.11-0.59) K/uL Eos # (Auto) (0-0.5) K/uL Baso # (Auto) (0-0.2) K/uL Poikilocytosis Ramirez-Rubicon Bodies Echinocytes Schistocytes PT 70.9 H INR 7.9 H* APTT 51.7 H* PTT Ratio 2.0 Sodium (136-145) mmol/L Potassium (3.5-5.1) mmol/L Chloride (98-107) mmol/L Carbon Dioxide (21-32) mmol/L Anion Gap (3-11) BUN (7-18) mg/dl Creatinine (0.6-1.2) mg/dl Est Cr Clr Drug Dosing ml/min Est GFR ( Amer) Est GFR (Non-Af Amer) BUN/Creatinine Ratio (10-20) Glucose (70-99) mg/dl Calcium (8.5-10.1) mg/dl Magnesium (1.8-2.4) mg/dl Total Bilirubin (0.2-1) mg/dl AST (15-37) U/L ALT (12-78) U/L Alkaline Phosphatase (45-117) U/L Troponin I (0-0.045) ng/ml NT-Pro-B Natriuret Pep (0-900) pg/ml Total Protein (6.4-8.2) gm/dl Albumin (3.4-5.0) gm/dl Globulin (2.5-4.0) gm/dl Albumin/Globulin Ratio (0.9-2) Specimen Hemolysis Nasal Screen MRSA (PCR) Negative (Negative) Imaging Data Radiologist's Impression: Radiology results as stated below per my review and the radiologist's interpretation: XR chest 1V portable CLINICAL HISTORY: 68 years-old Female presenting with SOB. TECHNIQUE: Portable upright AP view of the chest was obtained. COMPARISON: 06/18/2018. FINDINGS: Left subclavian pacer with leads to the right atrium and right ventricular apex. Median sternotomy wires intact. Atherosclerosis of aortic arch. Cardiac silhouette mildly enlarged. Redemonstration of multiple calcified left hilar lymph nodes. Pulmonary vascular prominence has increased from prior. Mild bronchial wall thickening is similar. Vague opacity in the right midlung most likely represents fluid in the right minor fissure new from prior. Small right pleural effusion. Mildly low lung volumes with minimal bibasilar opacities. No pneumothorax. Degenerative changes of the thoracic spine. Cholecystectomy clips noted. IMPRESSION: 1. Mild cardiomegaly with volume overload/congestive change, which is stable to slightly worsened from prior exam. 2. Small right pleural effusion with fluid in the minor fissure. Electronically signed by: Dick Massey M.D. 07/15/2018 1:10 PM Dictated: 07/15/18 1308 Transcribed: 07/15/18 1308 ECG Data Attestation: I personally reviewed and interpreted this ECG as follows: Indication: SOB/dyspnea Rate (beats per minute): 131 Rhythm: atrial fibrillation (rapid) Findings: + other (Non specific ST changes, artifact seen.); no ST elevation Blood Pressure Blood Pressure Findings: Elevated blood pressure Blood Pressure Disposition: further management by hospitalist MIGEL Narrative There is no leukocytosis. The patient is anemic but she carries this history and her hemoglobin value does seem stable looking back at previous testing. No significant electrolyte abnormality or kidney failure. BNP was elevated consistent with fluid overload. EKG shows a rapid A. fib, no acute ischemic changes. Cardiac enzyme testing x1 is not consistent with acute cardiac injury. INR was elevated at 7.9, she is over anticoagulated. Chest film does suggest CHF. No focal pneumonia, no pneumothorax. The patient was placed on nasal cannula O2. She received IV Lasix and IV metoprolol. Her heart rate is better controlled after the dose of metoprolol. Patient presents in rapid A. fib. She is short of breath and appears to be in heart failure. She has a history of anemia. Her dyspnea has worsened for the last week. With her findings, a hospital stay is warranted. I did speak to the patient and case management. The on-call hospitalist was consulted. Impression & Plan Atrial fibrillation, rapid, Breath shortness, Anemia, CHF (congestive heart failure) Discharge Plan Visit Data *Final* Discharge Date/Time: 07/15/18 16:59 Chief Complaint: Shortness of Breath/Dyspnea Stated Complaint: SHORTNESS OF BREATH - HIGH HEART RATE ED Provider: Maximino Elkins Discharge Problem: Atrial fibrillation, rapid, Breath shortness, Anemia, CHF (congestive heart failure) Patient Disposition: Admitted As Inpatient Discharge Instructions Interventions: ED Discharge Assessment Last Done: 07/15/18 16:59 The richibe's documentation has been prepared under my direction and personally reviewed by me in its entirety. I confirm that the note above accurately reflects all work, treatment, procedures, and medical decision making performed by me.
[2018-07-15] MEDS ORDERED: dilTIAZem HCL 120 MG CAPCR PO SCH (17:20)
[2018-07-15] MEDS ORDERED: NITROGLYCERIN SL 0.4 MG/TAB TAB SL PRN (17:20)
[2018-07-15] MEDS ORDERED: ACETAMINOPHEN 500 MG TAB PO PRN (17:20)
[2018-07-15] MEDS: FUROSEMIDE 40 MG in SYRINGE 0 ML IV SCH (18:05)
[2018-07-15] MEDS: FERROUS SULFATE 325 MG TAB PO SCH (18:09)
[2018-07-15] MEDS ORDERED: FUROSEMIDE 40 MG/4 ML VIAL IV SCH (21:00)
[2018-07-15] MEDS: DICLOFENAC SOD 1% GEL 100 GM TUBE EXT SCH (21:27)
[2018-07-15] MEDS ORDERED: DIGOXIN 250 MCG in SYRINGE 9 ML IV SCH (21:30)
[2018-07-15] MEDS ORDERED: ALBUMIN 25% 50 ML IV ONE (21:35)
[2018-07-15] MEDS: PANTOprazole 40 MG TAB PO SCH (21:39)
[2018-07-15] MEDS: METOPROLOL TARTRATE 50 MG TAB PO SCH (21:39)
[2018-07-15] MEDS: LACTULOSE SYRUP 20 GM/30 ML UDC PO SCH (21:39)
[2018-07-16 04:53] LABS: Basophils # (auto) 0.17 K/uL (0-0.2); Basophils % (auto) 2.8 %; Eosinophils # (auto) 0.48 K/uL (0-0.5); Eosinophils % (auto) 7.8 %; Hematocrit (blood only) 27.7 % (37-47); Hemoglobin 8.5 g/dL (12.0-16.0); Immature Granulocytes # (auto) 0.01 K/uL (0.00-0.02); Immature Granulocytes % (auto) 0.2 %; Lymphocytes # (auto) 2.41 K/uL (1.2-3.4); Lymphocytes % (auto) 39.1 %; Mean Corpuscular Hgb Conc 30.7 g/dL (32-36); Mean Platelet Volume 10.7 fL (7.4-10.4); Monocytes # (auto) 0.87 K/uL (0.11-0.59); Monocytes % (auto) 14.1 %; Neutrophils # (auto) 2.23 K/uL (1.4-6.5); Platelet Count 394 K/uL (130-400); RDW Coefficient of Variation 18.7 % (11.5-14.5); RDW Standard Deviation 57.7 fL (36.4-46.3); Red Blood Count 3.22 M/uL (4.2-5.4); White Blood Count 6.17 K/uL (4.8-10.8)
[2018-07-16 05:08] LABS: Prothrombin Time 65.5 Seconds (9.0-12.0)
[2018-07-16 05:13] LABS: BUN Creatinine Ratio 23.7 (10-20); Calcium 7.7 mg/dl (8.5-10.1); Creatinine Clr Calc Pharmacy 92.7 ml/min; Est GFR (African American) 94.7; Est GFR (Non-African American) 81.7; Potassium 3.6 mmol/L (3.5-5.1)
[2018-07-16 05:15] LABS: INR 7.3 (0.9-1.1)
[2018-07-16 05:28] LABS: Howell-Jolly Bodies 1+; Pappenheimer Bodies 1+; Schistocytes Occasional; Target Cells 1+
[2018-07-16] MEDS ORDERED: PHYTONADIONE 5 MG TAB PO STA (05:29)
[2018-07-16] MEDS ORDERED: PHYTONADIONE PED 2 MG, ORA-SWEET SYRUP 2.25 ML, ORA-PLUS SUSP VEHICLE 2.25 ML, BARCODE ... PO SCH (06:00)
[2018-07-16] MEDS: METOPROLOL TARTRATE 50 MG TAB PO SCH ×2 (09:00→20:41)
[2018-07-16] MEDS: LACTULOSE SYRUP 20 GM/30 ML UDC PO SCH ×4 (09:11→20:50)
[2018-07-16] MEDS: FUROSEMIDE 40 MG in SYRINGE 0 ML IV SCH ×2 (09:11→17:51)
[2018-07-16] MEDS: FERROUS SULFATE 325 MG TAB PO SCH ×2 (09:11→17:52)
[2018-07-16] MEDS: MULTIVITAMIN TAB PO SCH (09:11)
[2018-07-16] MEDS: PANTOprazole 40 MG TAB PO SCH ×2 (09:12→20:41)
[2018-07-16] MEDS: DICLOFENAC SOD 1% GEL 100 GM TUBE EXT SCH ×3 (09:12→20:50)
[2018-07-16] MEDS: dilTIAZem HCL 240 MG CAPCR PO SCH (09:14)
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
--- NOTE | 2018-07-16 19:36 | Hospitalist Progress Note ---
Date of Service July 16, 2018 Assessment & Plan (1) CHF (congestive heart failure): Presented with CHF associated with AF with RVR. Echo showed LVEF 70%. Acute on chronic left ventricular diastolic heart failure. Diurese. Manage AF as discussed below. (2) Atrial fibrillation with RVR: Ventricular rate improved. Continue metoprolol. Diltiazem added. Titrate warfarin. (3) Anemia: Chronic anemia, multifactoral. Recent GI bleed requiring 2 units pRBC's. Found to have anastomotic ulcer. Hgb 8.8 on 06/20/18. No melena or hematochezia. Hgb on admission 9.0, repeat today = 8.5. Hgb may rise with diuresis. Recheck H/H in the morning. Consider transfusion if Hgb remains < 9. Continue PPI. Check stools for OB. Reconsult GI if stools heme positive. (4) DVT prophylaxis: On warfarin with supratherapeutic INR. Ambulate as able. (5) Discharge planning issues: Anticipated discharge to home. Internal Medicine follow-up with Dr. García. Subjective Recheck for multiple problems. Pt seen in her room around 1930. Admitted with rapid AF and CHF. Feels better today. No chest pain. Less SOB. No fever. No cough. No nausea or vomiting. No melena or hematochezia. No dysuria. Physical Exam 2 Vital Signs (Past 24 Hours): Last Vital Signs Temp 36.7 C 07/16/18 16:00 Pulse 68 07/16/18 16:00 Resp 16 07/16/18 16:00 BP 108/59 L 07/16/18 16:00 Pulse Ox 95 07/16/18 16:00 Constitutional: no acute distress Respiratory: no respiratory distress Auscultation: lungs clear to auscultation bilaterally Cardiovascular: Rate/Rhythm: regular rhythm (irregularly irregular) Heart Sounds: no gallop Vessels: no JVD Extremities: + edema (trace); no calf tenderness Gastrointestinal (Abdomen): normal bowel sounds, soft, nontender, no hepatosplenomegaly Skin: no rashes, warm and dry Psychiatric: Orientation: alert and oriented x 3 Results & Data Laboratory Results Laboratory Results - last 24 hr 07/16/18 07/16/18 07/16/18 04:31 04:31 04:31 Hypersegmented Neuts 1+ Pappenheimer Bodies 1+ Target Cells 1+ Ramirez-Wanette Bodies 1+ Schistocytes Occasional PT 65.5 H INR 7.3 H* Sodium 144 Potassium 3.6 Chloride 112 H Carbon Dioxide 25 Anion Gap 7.0 BUN 18 Creatinine 0.76 Est Cr Clr Drug Dosing 92.7 Est GFR ( Amer) 94.7 Est GFR (Non-Af Amer) 81.7 BUN/Creatinine Ratio 23.7 H Glucose 81 Calcium 7.7 L _ (1) CHF (congestive heart failure) Heart failure chronicity: acute Heart failure type: unspecified Qualified Code(s): I50.9 - Heart failure, unspecified (2) Anemia Anemia type: unspecified type Bone marrow failure anemia type: Chronic kidney disease stage: Folate deficiency anemia type: Hemolytic anemia type: Iron deficiency anemia type: Other causes of anemia: Vitamin B12 deficiency anemia type: Qualified Code(s): D64.9 - Anemia, unspecified
--- NOTE | 2018-07-17 07:06 | XRay Report ---
XR chest 1V portable HISTORY: 68 years-old Female CHF acute shortness breath with congestive heart failure COMPARISON: Chest radiograph 07/15/2017, CTA chest 09/10/2017 TECHNIQUE: Portable AP view of the chest FINDINGS: Cardiac silhouette is enlarged, unchanged. Calcified hilar lymph nodes redemonstrated. Prior median s ternotomy. Left subclavian pacer appears unchanged. Pulmonary vascular congestion with slightly decre ased pulmonary edema. Trace pleural effusions with left basilar and right midlung alveolar opacities. No pneumothorax. Degenerative changes of the shoulders and spine. IMPRESSION: 1. Cardiomegaly and pulmonary vascular congestion with decreased pulmonary edema. 2. Trace pleural effusions with left basilar and right midlung alveolar opacities suggestive of atele ctasis or pneumonitis. 3. Prior granulomatous disease. The above report was generated using voice recognition software. It may contain grammatical, syntax o r spelling errors. Electronically signed by: Shyam Hughes M.D. 07/17/2018 7:05 AM
[2018-07-17] MEDS: LACTULOSE SYRUP 20 GM/30 ML UDC PO SCH ×2 (07:20→21:20)
[2018-07-17] MEDS: FERROUS SULFATE 325 MG TAB PO SCH ×2 (07:20→17:29)
[2018-07-17] MEDS: MULTIVITAMIN TAB PO SCH (07:21)
[2018-07-17] MEDS: PANTOprazole 40 MG TAB PO SCH ×2 (07:21→21:20)
[2018-07-17 07:29] LABS: Hematocrit (blood only) 29.2 % (37-47); Hemoglobin 9.1 g/dL (12.0-16.0)
[2018-07-17 07:38] LABS: INR 1.9 (0.9-1.1); Prothrombin Time 18.2 Seconds (9.0-12.0)
[2018-07-17] MEDS: DICLOFENAC SOD 1% GEL 100 GM TUBE EXT SCH ×2 (07:43→21:21)
[2018-07-17] MEDS: METOPROLOL TARTRATE 50 MG TAB PO SCH ×3 (07:44→21:20)
[2018-07-17] MEDS: dilTIAZem HCL 240 MG CAPCR PO SCH ×2 (07:44→10:50)
[2018-07-17 07:58] LABS: BUN Creatinine Ratio 21.1 (10-20); Calcium 7.9 mg/dl (8.5-10.1); Creatinine Clr Calc Pharmacy 58.7 ml/min; Est GFR (Non-African American) 50.1; Potassium 3.9 mmol/L (3.5-5.1)
[2018-07-17] MEDS: FUROSEMIDE 40 MG in SYRINGE 0 ML IV SCH (07:58)
--- NOTE | 2018-07-17 09:42 | Cardiology Progress Note ---
Date of Service July 17, 2018 Assessment & Plan (1) Atrial fibrillation, rapid: chronic rates improved with uptitration of cardizem cont cardizem and metoprolol will hold off adding dig at this time in terms of anticoagulation going forward: will need to follow patient very closely with [facility] clinic as outpatient do not believe she is a good candidate for NOAC given hx of noncompliance (2) CHF (congestive heart failure): likely a combination of diastolic dysfunction and high output failure with anemia does not examine as volume overloaded dry by numbers will hold further IV diuresis for now and follow volume status clinically daughter did speak with bedside nurse today to inform us that patient is not compliant with salt restriction or activity recommendations: she eats copious amounts of salt and only walks from her bed to the couch (3) Pacemaker: stable (4) Anemia: will defer to primary team (5) Elevated INR: will need very close follow up AST and ALT are normal Subjective Pt seen and examined, states that her breathing is improved now. Not sure if back to baseline yet but a definite improvement. She asked that I speak to son on the phone which I did to update him on her cardiac situation. Otherwise, denies chest pain, palpitations, lightheadedness or dizziness. tele reviewed: afib 80's-90's overnight Review of Systems All systems reviewed & are unremarkable except as noted in HPI & below Physical Exam 2 Vital Signs (Past 24 Hours): Last Vital Signs Temp 36.7 C 07/17/18 08:00 Pulse 79 07/17/18 04:17 Resp 16 07/17/18 04:17 BP 94/61 L 07/17/18 04:17 Pulse Ox 97 07/17/18 04:17 Physical Exam: General: Awake, alert and oriented x 3. No acute distress. HEENT: Normocephalic, atraumatic. Pupils equal, round and reactive to light and accommodation. Extraocular muscles are intact. Anicteric sclera. Moist mucous membranes. Neck: No JVD. No bruit. Cardiovascular: regularly irregular, unable to appreciate murmur, rub or gallop. Pulmonary: Clear to auscultation bilaterally. No rales, rhonchi, or wheezing. Abdomen: Bowel sounds x 4, soft. No rebound, guarding or tenderness. No organomegaly. Extremities: No clubbing, cyanosis or edema. +2 pedal pulses bilaterally. Skin: Warm and dry. _ (1) CHF (congestive heart failure) Heart failure chronicity: acute Heart failure type: unspecified Qualified Code(s): I50.9 - Heart failure, unspecified (2) Anemia Anemia type: unspecified type Bone marrow failure anemia type: Chronic kidney disease stage: Folate deficiency anemia type: Hemolytic anemia type: Iron deficiency anemia type: Other causes of anemia: Vitamin B12 deficiency anemia type: Qualified Code(s): D64.9 - Anemia, unspecified
[2018-07-17] MEDS: HEPARIN SOD 5,000 UNIT/0.5 ML VIAL SQ SCH ×2 (17:08→21:21)
[2018-07-17] MEDS: WARFARIN SOD 7.5 MG TAB PO SCH (17:08)
--- NOTE | 2018-07-17 17:59 | Hospitalist Progress Note ---
Date of Service July 17, 2018 Assessment & Plan (1) CHF (congestive heart failure): Presented with Decompensated CHF with diastolic dysfunction CHF associated with AF with RVR. Echo showed LVEF 70%.-Possible high output heart failure secondary to anemia Status post right and left heart cath on October 23, 2017 in [place] No evidence of coronary artery disease Moderate elevation of left ventricular end-diastolic pressure Mild increase in pulmonary capillary wedge pressure Acute on chronic left ventricular diastolic heart failure Appropriate diuresis with IV Lasix 40 mg twice daily Home regimen was 20 mg Lasix p.o. 2-3 times in a week as needed for lower extremity edema Will benefit with increased Lasix dose at home Poorly compliant with salt and fluid restriction Counseling provided (2) Atrial fibrillation with RVR: Presented with A. fib RVR, Appreciate input from cardiology/Remains in rate controlled A. fib, Cardizem dose increased Continue on metoprolol 50 mg twice daily On chronic anticoagulation with Coumadin Not a candidate for NOAC -For history of noncompliance Needs close follow-up with MTM to (3) Anemia: Chronic anemia, multifactoral. Recent GI bleed requiring 2 units pRBC's. EGD: Showed clean-based ulcer at the anastomotic site No evidence of GI bleed at present, stool heme occult negative Hemoglobin 9.1 Continue to monitor Transfuse for hemoglobin less than 9 (4) DVT prophylaxis: On warfarin INR 1.9 Added subcu heparin,-DC when INR 2 (5) Discharge planning issues: Lives at home with son and daughter Poorly compliant with salt restriction, fluid restriction, and medication Will benefit with [facility] referral Patient is counseled repeated time to limit salt intake PT OT evaluation ordered Plan of care discussed with son present at bedside Anticipated discharge to home. Internal Medicine follow-up with Dr. García. (6) Cirrhosis: History of cirrhosis, with evidence of esophageal varices in EGD No evidence of upper GI bleed, no hematemesis or melena (7) H/O gastric bypass: Subjective Patient seen at bedside, family visiting Patient states breathing, shortness of breath has markedly improved No orthopnea, no dyspnea on exertion On 2 L oxygen via nasal cannula (patient was not on home O2 Has minimum cough, no fever or chills Remains in rate controlled A. fib No blood noted in stool, no melena, has chronic dark stool (takes iron supplement Physical Exam 2 Vital Signs (Past 24 Hours): Last Vital Signs Temp 36.5 C 07/17/18 16:00 Pulse 84 07/17/18 16:00 Resp 18 07/17/18 16:00 BP 112/65 07/17/18 16:00 Pulse Ox 98 07/17/18 16:00 Constitutional: + ill appearing; no acute distress Eyes: PERRL, conjunctivae normal, anicteric sclerae ENMT: external ear and nose normal, oropharynx normal Neck: trachea midline, no thyromegaly Respiratory: normal respiratory effort and + cough Auscultation: + rales and + wheezes Cardiovascular: Rate/Rhythm: + abnormal rhythm (Chronic A. fib irregularly irregular with rate controlled) Gastrointestinal (Abdomen): Inspection/Auscultation: abdomen normal to inspection Percussion/Palpation: abdomen soft; abdomen nontender Musculoskeletal: Improved bilateral lower extremity edema Neurologic: PERRL, EOMI, accommodation nl, no face palsy, no dysarthria _ (1) CHF (congestive heart failure) Heart failure chronicity: acute Heart failure type: unspecified Qualified Code(s): I50.9 - Heart failure, unspecified (2) Anemia Anemia type: unspecified type Bone marrow failure anemia type: Chronic kidney disease stage: Folate deficiency anemia type: Hemolytic anemia type: Iron deficiency anemia type: Other causes of anemia: Vitamin B12 deficiency anemia type: Qualified Code(s): D64.9 - Anemia, unspecified (3) Cirrhosis Hepatic cirrhosis type: unspecified hepatic cirrhosis Ascites presence: without ascites Qualified Code(s): K74.60 - Unspecified cirrhosis of liver
[2018-07-18] MEDS: HEPARIN SOD 5,000 UNIT/0.5 ML VIAL SQ SCH (05:26)
[2018-07-18 06:57] LABS: Hematocrit (blood only) 30.8 % (37-47); Hemoglobin 9.5 g/dL (12.0-16.0); Mean Corpuscular Hgb Conc 30.8 g/dL (32-36); Mean Corpuscular Volume 86.8 fL (80-100); Mean Platelet Volume 10.5 fL (7.4-10.4); Nucleated RBC # (auto) 0.06 K/uL (0-0); Nucleated RBC % (auto) 1.2 %; Platelet Count 394 K/uL (130-400); RDW Coefficient of Variation 19.2 % (11.5-14.5); RDW Standard Deviation 60.6 fL (36.4-46.3); Red Blood Count 3.55 M/uL (4.2-5.4); White Blood Count 4.85 K/uL (4.8-10.8)
[2018-07-18 07:19] LABS: INR 1.6 (0.9-1.1); Prothrombin Time 15.5 Seconds (9.0-12.0)
[2018-07-18 07:24] LABS: BUN Creatinine Ratio 25.6 (10-20); Calcium 8.3 mg/dl (8.5-10.1); Creatinine Clr Calc Pharmacy 68.8 ml/min; Est GFR (African American) 71.4; Est GFR (Non-African American) 61.6; Potassium 3.9 mmol/L (3.5-5.1)
[2018-07-18] MEDS: MULTIVITAMIN TAB PO SCH (07:46)
[2018-07-18] MEDS: METOPROLOL TARTRATE 50 MG TAB PO SCH ×2 (07:46→20:29)
[2018-07-18] MEDS: PANTOprazole 40 MG TAB PO SCH ×2 (07:46→20:28)
[2018-07-18] MEDS: FERROUS SULFATE 325 MG TAB PO SCH ×2 (07:47→16:25)
[2018-07-18] MEDS: dilTIAZem HCL 240 MG CAPCR PO SCH (07:47)
[2018-07-18] MEDS: DICLOFENAC SOD 1% GEL 100 GM TUBE EXT SCH ×2 (07:49→20:28)
[2018-07-18] MEDS: LACTULOSE SYRUP 20 GM/30 ML UDC PO SCH ×3 (07:49→20:28)
[2018-07-18] MEDS ORDERED: Heparin IV Standard *NO* Bolus IV SCH (10:43)
--- NOTE | 2018-07-18 11:19 | Cardiology Progress Note ---
Date of Service July 18, 2018 Assessment & Plan (1) Atrial fibrillation, rapid: chronic rates improved with uptitration of cardizem cont cardizem and metoprolol will hold off adding dig at this time in terms of anticoagulation going forward: will need to follow patient very closely with [facility] clinic as outpatient do not believe she is a good candidate for NOAC given hx of noncompliance INR subtherapeutic today at 1.6 will give trial of heparin without bolus will then follow hemoglobin closely should it drop with therapeutic anticoagulation, would recommend reconsulting GI (2) CHF (congestive heart failure): likely a combination of diastolic dysfunction and high output failure with anemia does not examine as volume overloaded dry by numbers will hold further IV diuresis for now and follow volume status clinically daughter did speak with bedside nurse today to inform us that patient is not compliant with salt restriction or activity recommendations: she eats copious amounts of salt and only walks from her bed to the couch (3) Pacemaker: stable (4) Anemia: will defer to primary team (5) Elevated INR: will need very close follow up with MTM as outpatient given hx of cirrhosis AST and ALT are normal Subjective Pt seen and examined, states that she feels well. States that she feels back to her baseline. Denies Physical Exam 2 Vital Signs (Past 24 Hours): Last Vital Signs Temp 36.7 C 07/18/18 07:00 Pulse 80 07/18/18 07:00 Resp 18 07/18/18 07:00 BP 105/72 07/18/18 07:00 Pulse Ox 99 07/18/18 07:00 Physical Exam: General: Awake, alert and oriented x 3. No acute distress. HEENT: Normocephalic, atraumatic. Pupils equal, round and reactive to light and accommodation. Extraocular muscles are intact. Anicteric sclera. Moist mucous membranes. Neck: No JVD. No bruit. Cardiovascular: regularly irregular, unable to appreciate murmur, rub or gallop. Pulmonary: Clear to auscultation bilaterally. No rales, rhonchi, or wheezing. Abdomen: Bowel sounds x 4, soft. No rebound, guarding or tenderness. No organomegaly. Extremities: No clubbing, cyanosis or edema. +2 pedal pulses bilaterally. Skin: Warm and dry. _ (1) CHF (congestive heart failure) Heart failure chronicity: acute Heart failure type: unspecified Qualified Code(s): I50.9 - Heart failure, unspecified (2) Anemia Anemia type: unspecified type Bone marrow failure anemia type: Chronic kidney disease stage: Folate deficiency anemia type: Hemolytic anemia type: Iron deficiency anemia type: Other causes of anemia: Vitamin B12 deficiency anemia type: Qualified Code(s): D64.9 - Anemia, unspecified
[2018-07-18 12:07] LABS: Allen Test Pos (Pos); HCO3 ABG 23 mmol/L (19-24); PCO2 ABG 30 mmHg (35-46); PO2 ABG 89 mm/Hg (80-95); pH ABG 7.49 (7.35-7.45)
[2018-07-18] MEDS ORDERED: ONDANSETRON INJ 2 MG/ML 2 ML VIAL IV PRN (12:36)
--- NOTE | 2018-07-18 12:57 | CT Scan Report ---
CT head/brain wo con CLINICAL HISTORY: 68 years-old Female with confusion R/o CVA . Acutely altered mental status with co nfusion and acute strokelike symptoms TECHNIQUE: Multiple axial CT images of the head were obtained without contrast. A dose lowering tech nique was utilized adhering to the principles of ALARA. CT DOSE: 2106.94 mGycm COMPARISON: CT head 11/22/2014. FINDINGS: No acute intracranial hemorrhage, midline shift, intracranial mass, hydrocephalus, territorial ischem ia or abnormal extra-axial collection. Age-related involutional changes. Patchy white matter hypodens ities suggestive of chronic microvascular ischemic changes. Senescent calcifications noted about the lentiform nuclei. The calvarium is intact. Prior bilateral cataract repair. The paranasal sinuses, mastoid air cells, a nd middle ear cavities are clear. IMPRESSION: No acute intracranial abnormality. The above report was generated using voice recognition software. It may contain grammatical, syntax o r spelling errors. Electronically signed by: Shyam Hughes M.D. 07/18/2018 12:56 PM
[2018-07-18] MEDS: HEPARIN STANDARD DEXTROSE 25,000 UNITS/500 ML IV SCH (13:26)
[2018-07-18 13:48] LABS: Albumin Level 2.8 gm/dl (3.4-5.0); Bilirubin Direct 0.2 mg/dl (0-0.2); Bilirubin,Total 0.6 mg/dl (0.2-1); Total Protein 6.4 gm/dl (6.4-8.2)
[2018-07-18 14:05] LABS: Partial Thromboplastin Ratio 1.2; Partial Thromboplastin Time 31.1 Seconds (21.0-31.0)
--- NOTE | 2018-07-18 14:32 | Hospitalist Progress Note ---
Date of Service July 18, 2018 Assessment & Plan (1) CHF (congestive heart failure): clinically compensated at present no evidence of vol overload , lower ext edema improved lasix on hold for now per cardiology Presented with Decompensated CHF with diastolic dysfunction CHF associated with AF with RVR. Echo showed LVEF 70%.-Possible high output heart failure secondary to anemia Status post right and left heart cath on October 23, 2017 in [place] No evidence of coronary artery disease Moderate elevation of left ventricular end-diastolic pressure Mild increase in pulmonary capillary wedge pressure Acute on chronic left ventricular diastolic heart failure was diuresis with IV Lasix 40 mg twice daily Lasix been on hold ,as pt appeared to be on dry side was Home regimen was 20 mg Lasix p.o. 2-3 times in a week as needed for lower extremity edema Will benefit with increased Lasix dose at home-will d/w cardiology Poorly compliant with salt and fluid restriction Counseling provided (2) Atrial fibrillation with RVR: remains in rate controlled afib Presented with A. fib RVR, Appreciate input from cardiology/Remains in rate controlled A. fib, Cardizem dose increased Continue on metoprolol 50 mg twice daily On chronic anticoagulation with Coumadin Not a candidate for NOAC -For history of noncompliance on Coumadin and IV heparin bridge for INR ~1.4 Needs close follow-up with MTM to (3) Anemia: Chronic anemia, multifactorial.( anemi of chronic disease ) Recent GI bleed requiring 2 units pRBC's. EGD: Showed clean-based ulcer at the anastomotic site No evidence of GI bleed at present, stool heme occult negative Hemoglobin 9.1-remains stable , did not require any PRBC transfusion Continue to monitor Transfuse for hemoglobin less than 9 (4) Cirrhosis: History of cirrhosis, with evidence of esophageal varices in EGD No evidence of upper GI bleed, no hematemesis or melena cont on lactulose Lasix on hold for now will be resumed on discharge cont low salt diet with fluid restriction Present on Admission?: Yes (5) Hepatic encephalopathy: developed increased confusion /forgetfulness possible hepatic encephalopathy ( CT head negative for Acute CVA , no evidence of infection ) Ammonia level 112 cont lactulose will increase dose to TID monitor clinically (6) DVT prophylaxis: On warfarin /Iv heparin till INR theraputic (7) Discharge planning issues: Lives at home with son and daughter Poorly compliant with salt restriction, fluid restriction, and medication Will benefit with [facility] home referral Patient is counseled repeated time to limit salt intake cont PT OT evaluation Internal Medicine follow-up with Dr. García. (8) H/O gastric bypass: Subjective per nursing pt was more confused , forgetful this morning no focal weakness or slurred speech remains in rate controlled Afib stat CT head negative for acute CVA ABG shows no evidence of Co2 retention pt seen at bedside-awake , slow to answer questions , increased forgetfulness no overt agitation or confusion noted elevated Ammonia level > 100 pt refused lactulose this AM took Lactulose the afternoon pt is counselled to take lactulose as directed , willing to comply Physical Exam 2 Vital Signs (Past 24 Hours): Last Vital Signs Temp 37 C 07/18/18 11:44 Pulse 53 L 07/18/18 11:44 Resp 18 07/18/18 11:44 BP 113/70 07/18/18 11:44 Pulse Ox 99 07/18/18 07:00 Constitutional: + ill appearing and + altered mental status; no acute distress increased forgetful, slow to response -change from yesterday Eyes: PERRL, conjunctivae normal, anicteric sclerae ENMT: external ear and nose normal, oropharynx normal Neck: trachea midline, no thyromegaly Respiratory: normal respiratory effort and + cough Auscultation: + rales and + wheezes Cardiovascular: Rate/Rhythm: + abnormal rhythm (Chronic A. fib irregularly irregular with rate controlled) Gastrointestinal (Abdomen): Inspection/Auscultation: abdomen normal to inspection Percussion/Palpation: abdomen soft; abdomen nontender Neurologic: PERRL, EOMI, accommodation nl, no face palsy, no dysarthria Psychiatric: Orientation: alert, oriented to person and oriented to place _ (1) CHF (congestive heart failure) Heart failure chronicity: acute Heart failure type: unspecified Qualified Code(s): I50.9 - Heart failure, unspecified (2) Anemia Anemia type: unspecified type Bone marrow failure anemia type: Chronic kidney disease stage: Folate deficiency anemia type: Hemolytic anemia type: Iron deficiency anemia type: Other causes of anemia: Vitamin B12 deficiency anemia type: Qualified Code(s): D64.9 - Anemia, unspecified (3) Cirrhosis Hepatic cirrhosis type: unspecified hepatic cirrhosis Ascites presence: without ascites Qualified Code(s): K74.60 - Unspecified cirrhosis of liver
[2018-07-18] MEDS: WARFARIN SOD 7.5 MG TAB PO SCH (16:25)
[2018-07-18 20:37] LABS: Partial Thromboplastin Ratio 3.4
[2018-07-18 22:49] LABS: Partial Thromboplastin Time 87.4 Seconds (21.0-31.0)
[2018-07-19 07:03] LABS: Hematocrit (blood only) 32.3 % (37-47); Hemoglobin 9.8 g/dL (12.0-16.0); Mean Corpuscular Hgb Conc 30.3 g/dL (32-36); Mean Corpuscular Volume 86.8 fL (80-100); Platelet Count 434 K/uL (130-400); RDW Coefficient of Variation 19.3 % (11.5-14.5); Red Blood Count 3.72 M/uL (4.2-5.4); White Blood Count 6.38 K/uL (4.8-10.8)
[2018-07-19 07:35] LABS: INR 1.9 (0.9-1.1); Partial Thromboplastin Ratio 4.8; Prothrombin Time 18.5 Seconds (9.0-12.0)
[2018-07-19] MEDS: FERROUS SULFATE 325 MG TAB PO SCH ×2 (07:38→15:49)
[2018-07-19] MEDS: LACTULOSE SYRUP 20 GM/30 ML UDC PO SCH ×3 (07:38→20:26)
[2018-07-19] MEDS: METOPROLOL TARTRATE 50 MG TAB PO SCH ×2 (07:38→20:27)
[2018-07-19] MEDS: PANTOprazole 40 MG TAB PO SCH ×2 (07:38→20:27)
[2018-07-19] MEDS: dilTIAZem HCL 240 MG CAPCR PO SCH (07:38)
[2018-07-19] MEDS: MULTIVITAMIN TAB PO SCH (07:38)
[2018-07-19] MEDS: DICLOFENAC SOD 1% GEL 100 GM TUBE EXT SCH ×2 (07:39→20:27)
[2018-07-19 07:40] LABS: BUN Creatinine Ratio 30.4 (10-20); Calcium 8.3 mg/dl (8.5-10.1); Creatinine Clr Calc Pharmacy 83.2 ml/min; Est GFR (African American) 90.4; Potassium 3.7 mmol/L (3.5-5.1)
[2018-07-19 07:44] LABS: Partial Thromboplastin Time 123.5 Seconds (21.0-31.0)
[2018-07-19] MEDS: HEPARIN STANDARD DEXTROSE 25,000 UNITS/500 ML IV SCH (08:47)
--- NOTE | 2018-07-19 09:59 | Cardiology Progress Note ---
Date of Service July 19, 2018 Assessment & Plan (1) Atrial fibrillation, rapid: chronic rates improved with uptitration of cardizem cont cardizem and metoprolol will hold off adding dig at this time in terms of anticoagulation going forward: will need to follow patient very closely with [facility]TM clinic as outpatient do not believe she is a good candidate for NOAC given hx of noncompliance her hemoglobin has increased with therapeutic heparin gtt INR of 1.9 today ok to d/c to home from cardiac standpoint. my office will call to arrange f/u with Miguel Handy in 2-4 weeks (2) CHF (congestive heart failure): likely a combination of diastolic dysfunction and high output failure with anemia does not examine as volume overloaded dry by numbers daughter did speak with bedside nurse today to inform us that patient is not compliant with salt restriction or activity recommendations: she eats copious amounts of salt and only walks from her bed to the couch would d/c to home with lasix 20mg po daily recommend dietary eval to reinforce salt restriction (3) Pacemaker: stable (4) Anemia: will defer to primary team improved recommend close f/u as an outpatient (5) Elevated INR: will need very close follow up with MTM as outpatient given hx of cirrhosis AST and ALT are normal Subjective Pt seen and examined, oob in chair asleep, states that she feels well today just tired. Denies cp, sob, palpitations, lightheadedness or dizziness. tele reviewed: atrial fibrillation rate controlled Review of Systems All systems reviewed & are unremarkable except as noted in HPI & below Physical Exam 2 Vital Signs (Past 24 Hours): Last Vital Signs Temp 36.4 C L 07/19/18 08:00 Pulse 61 07/19/18 08:00 Resp 16 07/19/18 08:00 BP 89/58 L 07/19/18 08:00 Pulse Ox 100 07/19/18 08:00 Physical Exam: General: Awake, alert and oriented x 3. No acute distress. HEENT: Normocephalic, atraumatic. Pupils equal, round and reactive to light and accommodation. Extraocular muscles are intact. Anicteric sclera. Moist mucous membranes. Neck: No JVD. No bruit. Cardiovascular: irregularly irregular, unable to appreciate murmur, rub or gallop. Pulmonary: Clear to auscultation bilaterally. No rales, rhonchi, or wheezing. Abdomen: Bowel sounds x 4, soft. No rebound, guarding or tenderness. No organomegaly. Extremities: No clubbing, cyanosis or edema. +2 pedal pulses bilaterally. Skin: Warm and dry. _ (1) CHF (congestive heart failure) Heart failure chronicity: acute Heart failure type: unspecified Qualified Code(s): I50.9 - Heart failure, unspecified (2) Anemia Anemia type: unspecified type Bone marrow failure anemia type: Chronic kidney disease stage: Folate deficiency anemia type: Hemolytic anemia type: Iron deficiency anemia type: Other causes of anemia: Vitamin B12 deficiency anemia type: Qualified Code(s): D64.9 - Anemia, unspecified
[2018-07-19] MEDS: WARFARIN SOD 7.5 MG TAB PO SCH (15:48)
[2018-07-19 16:10] LABS: Partial Thromboplastin Ratio 2.3
[2018-07-19 16:18] LABS: Partial Thromboplastin Time 59.7 Seconds (21.0-31.0)
--- NOTE | 2018-07-19 19:14 | Hospitalist Progress Note ---
Date of Service July 19, 2018 Assessment & Plan (1) CHF (congestive heart failure): clinically compensated at present no evidence of vol overload , lower ext edema improved Compensated Presented with Decompensated CHF with diastolic dysfunction CHF associated with AF with RVR. Echo showed LVEF 70%.-Possible high output heart failure secondary to anemia Status post right and left heart cath on October 23, 2017 in [place] No evidence of coronary artery disease Moderate elevation of left ventricular end-diastolic pressure Mild increase in pulmonary capillary wedge pressure Acute on chronic left ventricular diastolic heart failure was diuresis with IV Lasix 40 mg twice daily Lasix been on hold ,as pt appeared to be on dry side was Home regimen was 20 mg Lasix p.o. 2-3 times in a week as needed for lower extremity edema Will benefit with increased Lasix dose at home-will d/w cardiology Poorly compliant with salt and fluid restriction Counseling provided (2) Atrial fibrillation with RVR: remains in rate controlled afib Presented with A. fib RVR, Appreciate input from cardiology/Remains in rate controlled A. fib, Cardizem dose increased Continue on metoprolol 50 mg twice daily On chronic anticoagulation with Coumadin Not a candidate for NOAC -For history of noncompliance on Coumadin and IV heparin bridge INR 1.9 today Plan to discharge home with family support tomorrow 07/20/2018 Needs close follow-up with MTM to (3) Anemia: Chronic anemia, multifactorial.( anemi of chronic disease ) Recent GI bleed requiring 2 units pRBC's. EGD: Showed clean-based ulcer at the anastomotic site No evidence of GI bleed at present, stool heme occult negative Hemoglobin 9.1-remains stable , did not require any PRBC transfusion (4) Cirrhosis: History of cirrhosis, with evidence of esophageal varices in EGD No evidence of upper GI bleed, no hematemesis or melena cont on lactulose Lasix on hold for now will be resumed on discharge cont low salt diet with fluid restriction (5) Hepatic encephalopathy: Resolved, mental status at baseline developed increased confusion /forgetfulness possible hepatic encephalopathy ( CT head negative for Acute CVA , no evidence of infection ) Ammonia level 112 cont lactulose (6) DVT prophylaxis: On warfarin /Iv heparin till INR theraputic (7) Discharge planning issues: Lives at home with son and daughter Poorly compliant with salt restriction, fluid restriction, and medication Will benefit with [facility] home referral Patient is counseled repeated time to limit salt intake Plan for discharge home tomorrow with family support Internal Medicine follow-up with Dr. García. (8) H/O gastric bypass: Subjective Mental status at baseline, alert and awake and appropriate answering question No cough no orthopnea no fever or chills Physical Exam 2 Vital Signs (Past 24 Hours): Last Vital Signs Temp 37.0 C 07/19/18 16:13 Pulse 83 07/19/18 16:13 Resp 18 07/19/18 16:13 BP 131/82 07/19/18 16:13 Pulse Ox 99 07/19/18 16:13 Constitutional: + ill appearing; no acute distress Eyes: + anicteric sclerae Neck: trachea midline Respiratory: no respiratory distress and no cough Cardiovascular: Rate/Rhythm: + abnormal rhythm (Chronic A. fib irregularly irregular with rate controlled) Gastrointestinal (Abdomen): Inspection/Auscultation: abdomen not distended and no abdominal edema Percussion/Palpation: abdomen soft; abdomen nontender Musculoskeletal: no cyanosis or clubbing, extremities motor strength 5/5 Head/Neck/Chest: normocephalic and head atraumatic Neurologic: PERRL, EOMI, accommodation nl, no face palsy, no dysarthria _ (1) CHF (congestive heart failure) Heart failure chronicity: acute Heart failure type: unspecified Qualified Code(s): I50.9 - Heart failure, unspecified (2) Anemia Anemia type: unspecified type Bone marrow failure anemia type: Chronic kidney disease stage: Folate deficiency anemia type: Hemolytic anemia type: Iron deficiency anemia type: Other causes of anemia: Vitamin B12 deficiency anemia type: Qualified Code(s): D64.9 - Anemia, unspecified (3) Cirrhosis Ascites presence: without ascites Hepatic cirrhosis type: unspecified hepatic cirrhosis Qualified Code(s): K74.60 - Unspecified cirrhosis of liver
[2018-07-20 07:40] LABS: Hematocrit (blood only) 29.6 % (37-47); Hemoglobin 9.1 g/dL (12.0-16.0); Mean Corpuscular Hgb Conc 30.7 g/dL (32-36); Mean Platelet Volume 10.6 fL (7.4-10.4); Platelet Count 385 K/uL (130-400); RDW Coefficient of Variation 19.5 % (11.5-14.5); RDW Standard Deviation 61.3 fL (36.4-46.3); Red Blood Count 3.44 M/uL (4.2-5.4); White Blood Count 7.56 K/uL (4.8-10.8)
[2018-07-20 08:01] LABS: Partial Thromboplastin Ratio 2.4
[2018-07-20] MEDS: PANTOprazole 40 MG TAB PO SCH (08:03)
[2018-07-20] MEDS: MULTIVITAMIN TAB PO SCH (08:03)
[2018-07-20] MEDS: METOPROLOL TARTRATE 50 MG TAB PO SCH (08:03)
[2018-07-20] MEDS: LACTULOSE SYRUP 20 GM/30 ML UDC PO SCH ×2 (08:04→14:03)
[2018-07-20] MEDS: dilTIAZem HCL 240 MG CAPCR PO SCH (08:04)
[2018-07-20] MEDS: FERROUS SULFATE 325 MG TAB PO SCH (08:04)
[2018-07-20] MEDS: DICLOFENAC SOD 1% GEL 100 GM TUBE EXT SCH (08:07)
[2018-07-20 08:24] LABS: Partial Thromboplastin Time 61.2 Seconds (21.0-31.0)
[2018-07-20] MEDS: HEPARIN STANDARD DEXTROSE 25,000 UNITS/500 ML IV SCH (09:23)
[2018-07-20 10:08] LABS: Prothrombin Time 28.9 Seconds (9.0-12.0)
--- NOTE | 2018-07-20 13:36 | Cardiology Progress Note ---
Date of Service July 20, 2018 Assessment & Plan (1) Atrial fibrillation, rapid: chronic rates improved with uptitration of cardizem cont cardizem and metoprolol will hold off adding dig at this time in terms of anticoagulation going forward: will need to follow patient very closely with [facility] clinic as outpatient do not believe she is a good candidate for NOAC given hx of noncompliance her hemoglobin has increased with therapeutic heparin gtt INR of 3 today ok to d/c to home from cardiac standpoint. my office will call to arrange f/u with Miguel Handy in 2-4 weeks recommend MTM follow up in next 2-3 days to follow closely (2) CHF (congestive heart failure): likely a combination of diastolic dysfunction and high output failure with anemia does not examine as volume overloaded dry by numbers daughter did speak with bedside nurse today to inform us that patient is not compliant with salt restriction or activity recommendations: she eats copious amounts of salt and only walks from her bed to the couch would d/c to home with lasix 20mg po daily recommend dietary eval to reinforce salt restriction (3) Pacemaker: stable (4) Anemia: will defer to primary team improved recommend close f/u as an outpatient (5) Elevated INR: will need very close follow up with [facility]TM as outpatient given hx of cirrhosis AST and ALT are normal Subjective Pt seen and examined, upright in bed asleep, states that she feels well today just tired. Denies cp, sob, palpitations, lightheadedness or dizziness. Anxious for discharge. tele reviewed: atrial fibrillation rate controlled Physical Exam 2 Vital Signs (Past 24 Hours): Last Vital Signs Temp 37.4 C 07/20/18 12:44 Pulse 77 07/20/18 12:44 Resp 18 07/20/18 12:44 BP 110/73 07/20/18 12:44 Pulse Ox 96 07/20/18 12:44 _ (1) CHF (congestive heart failure) Heart failure chronicity: acute Heart failure type: unspecified Qualified Code(s): I50.9 - Heart failure, unspecified (2) Anemia Anemia type: unspecified type Bone marrow failure anemia type: Chronic kidney disease stage: Folate deficiency anemia type: Hemolytic anemia type: Iron deficiency anemia type: Other causes of anemia: Vitamin B12 deficiency anemia type: Qualified Code(s): D64.9 - Anemia, unspecified
--- NOTE | 2018-07-20 15:58 | Discharge Summary ---
Date of Service July 20, 2018 Admission HPI Per Admitting Provider She is a 68 years old female with significant past medical history of atrial fibrillation wth SSS sp PPM on Coumadin, past hx DVT, hypertension, h/o CVA, NAFLD cirrhosis, history of esophageal varices, hx gastric bypass, past tobacco abuse, chronic anemia (baseline hemoglobin 9-10), history mixed urinary incontinence as per records was brought into ER with increasing shortness of breath since middle of June associated with palpitation and fluid overload. Apparently she was discharged from the hospital when cleared from June following upper GI bleed secondary to clean based ulcer in the gastric pouch. She has been complaining of shortness of breath since discharge and MrGustavo appointment with the primary care as scheduled. She was seen by Dr. García in the clinic today and noted to have defibrillation with rapid ventricular response, CHF with fluid overload and increased INR from that point he was advised to come to the emergency room. She denies any chest pain but has palpitation, denies any abdominal pain, nausea and/or vomiting, denies any significant problem with urine and her bowel habit. She has noted to have CHF and chest x-ray and A. fib with RVR with an INR of more than 7 but hemoglobin is stable at one-point. She was admitted to telemetry unit for continued care. Principal Diagnosis Rapid A. fib RVR, decompensated CHF with diastolic dysfunction Discharge Exam Constitutional + ill appearing; no acute distress Eyes PERRL, conjunctivae normal, anicteric sclerae + anicteric sclerae ENMT external ear and nose normal, oropharynx normal Neck trachea midline, no thyromegaly trachea midline Respiratory no respiratory distress and no cough Auscultation: + rales and + wheezes Cardiovascular Rate/Rhythm: + abnormal rhythm (Chronic A. fib irregularly irregular with rate controlled) Gastrointestinal (Abdomen) Inspection/Auscultation: abdomen not distended and no abdominal edema Percussion/Palpation: abdomen soft; abdomen nontender Musculoskeletal no cyanosis or clubbing, extremities motor strength 5/5 Head/Neck/Chest: normocephalic and head atraumatic Neurologic PERRL, EOMI, accommodation nl, no face palsy, no dysarthria Psychiatric Orientation: alert, oriented to person and oriented to place Discharge Data Allergies Allergy/AdvReac Type Severity Reaction Status Date / Time Quinolones Allergy Unknown LOCAL Verified 07/15/18 13:57 REACTION TO LEVAQUIN codeine AdvReac Unknown VOMITING Verified 07/15/18 13:57 nickel AdvReac Redness of Verified 07/15/18 13:57 Skin Consultations 07/15/18 14:55 ED Decision to Admit Stat 07/15/18 15:38 Consult Cardiology Routine 07/15/18 15:40 Consult Case Management - Discharge Planning Routine Ordered Studies 07/18/18 11:34 CT head/brain wo con Stat Hospital Course (1) CHF (congestive heart failure): clinically compensated at present no evidence of vol overload , lower ext edema improved Compensated Presented with Decompensated CHF with diastolic dysfunction CHF associated with AF with RVR. Echo showed LVEF 70%.-Possible high output heart failure secondary to anemia Status post right and left heart cath on October 23, 2017 in [place] No evidence of coronary artery disease Moderate elevation of left ventricular end-diastolic pressure Mild increase in pulmonary capillary wedge pressure Acute on chronic left ventricular diastolic heart failure was diuresis with IV Lasix 40 mg twice daily Lasix been on hold ,as pt appeared to be on dry side was Home regimen was 20 mg Lasix p.o. 2-3 times in a week as needed for lower extremity edema will be discharged with Lasix 20 mg daily Poorly compliant with salt and fluid restriction Counseling provided (2) Atrial fibrillation with RVR: remains in rate controlled afib Presented with A. fib RVR, Appreciate input from cardiology/Remains in rate controlled A. fib, Cardizem dose increased Continue on metoprolol 50 mg twice daily On chronic anticoagulation with Coumadin Not a candidate for NOAC -For history of noncompliance on Coumadin and IV heparin bridge INR theraputic ~3 Iv heparin D/cheri Plan to discharge home with family support Needs close follow-up with MTM has scheduled follow up on Saturday 07/22 (3) Anemia: Chronic anemia, multifactorial.( anemi of chronic disease ) Recent GI bleed requiring 2 units pRBC's. EGD: Showed clean-based ulcer at the anastomotic site No evidence of GI bleed at present, stool heme occult negative Hemoglobin 9.1-remains stable , did not require any PRBC transfusion (4) Cirrhosis: History of cirrhosis, with evidence of esophageal varices in EGD No evidence of upper GI bleed, no hematemesis or melena cont on lactulose /lasix dose adjusted to 20 mg dauily cont low salt diet with fluid restriction (5) Hepatic encephalopathy: Resolved, mental status at baseline developed increased confusion /forgetfulness possible hepatic encephalopathy ( CT head negative for Acute CVA , no evidence of infection ) Ammonia level 112 cont lactulose menttal status improved to baseline pt is counselled to take Lactulose twice daily as instructed ( has been refusing is past due to loose stool ) (6) DVT prophylaxis: INR theraputic on comadin (7) Discharge planning issues: discharged home today will make referral for [facility] at home Internal Medicine follow-up with Dr. García. (8) H/O gastric bypass: Total Time Total Time Spent Total Time Spent (In Minutes): 40 mins Total Time Includes: Discharge Planning and Medication Reconciliation Discharge Plan Discharge Items Patient Disposition: Home - Self-Care Reason For Visit: AF WITH RVR,CHF Discharge Diagnosis: Rapid A. fib RVR, decompensated CHF with diastolic dysfunction Discharge Goals: Decrease discomfort, Improve disease control and Therapeutic intervention Activity: Resume your previous activity Non-emergency contact: Primary Care Provider Call non-emergency contact if: you have any medication questions Follow-up/Referrals: Miguel Handy [Physician Patrol Deputy Sheriff] - Diet: Heart Healthy and Low Sodium (2gm) Fluids: 1500ml (6 cups) Other Ambulatory Orders: Basic Metabolic Panel (Routine) Timeframe: 20180722 Location: Determined by Patient Ordered By: Karen Myers Basic Metabolic Panel (Routine) Timeframe: 20180722 Location: Determined by Patient Ordered By: Karen Myers Add Provider Instructions: [facility], [facility] 07/22/2018 6:15 PM-for PT/INR check Fifi Rocha PA-C Cardiology, [facility] 08/02/2018 3:00 PM Call your Primary Care doctor if any of the following symptoms or problems start or get worse: * Shortness of breath or difficulty breathing * Wake up at night short of breath * Chest pain * Cough * Swelling of your hands, feet, or legs * More fatigued or tired with your normal activity * Palpitations - sudden fast heart beats WEIGHT * Weigh yourself every morning after using the bathroom. * Use the same scale. * Wear the same amount of clothing. * Write your weight down on a chart. * Call your Primary Care doctor if you gain more than 2-3 pounds in 1-2 days. MEDICATIONS * Use this discharge instruction sheet for medication instructions. * Take your medications at the time your doctor ordered. * Do not skip a dose of your medicines. * If you miss a dose of medicine, take it as soon as possible, but DO NOT DOUBLE A DOSE. * Read your medicine information when you get home. * Know all of the side effects of your medicine. If in doubt, ask your pharmacist * Call your Primary Care doctor's office if you have any side effects. * Be sure all of your doctors know what medicine and herbs you take (including cold, flu, and herbal medicine). Take the following with you to your follow-up doctor appointments: * Weight Chart * Medication List * List of questions Do not drink excessive alcohol, beer or wine. Prescriptions: New diltiazem HCl 240 mg Capsule,Extended Release 24hr 240 mg PO DAILY 30 Days Qty: 30 RF: 2 furosemide [Lasix] 20 mg tablet 20 mg PO DAILY 30 Days Qty: 30 RF: 3 Continue warfarin 7.5 mg Tablet 7.5 mg PO DAILY RF: 0 nitroglycerin [Nitrostat] 0.4 mg Tablet, Sublingual 0.4 mg Sublingual UD RF: 0 ferrous sulfate 325 mg (65 mg iron) Tablet 325 mg PO BID RF: 0 metoprolol tartrate 50 mg Tablet 50 mg PO BID RF: 0 multivitamin [Multiple Vitamins] Tablet 1 tab PO DAILY RF: 0 lactulose 10 gram/15 mL Solution 30 ml PO BID RF: 0 acetaminophen [Tylenol Extra Strength] 500 mg Tablet 500 mg PO Q6H PRN (Reason: Pain) RF: 0 Discontinued diltiazem HCl [Cardizem CD] 120 mg Capsule,Extended Release 24hr 120 mg PO DAILY RF: 0 furosemide 20 mg Tablet 20 mg PO UD PRN (Reason: Edema) RF: 0 ciprofloxacin HCl [Cipro] 250 mg Tablet 250 mg PO BID RF: 0 Stand-Alone Forms: [employer]/Other Patient Handouts: Choices Low Salt, Heart Failure Diet Changes Discharge Orders: Discharge Order (Routine); Ordered 07/20/18 Ordered By: Karen Myers Admission Data Admit Date/Time: 07/15/18 15:38 Attending Provider: Karen Myers Admit Provider: Luis Vaughn Primary Care Provider: Ishan García Other Providers: Luis Vaughn ; Abdiel Kraft ; Ady Christensen ; Oscar Hood ; Kan Foster ; Kobi Campo ; Miguel Handy ; Fifi Rocha ; Cornelia Bailey ; Munir Bradley Service: Telemetry Other Interventions: Discharge Summary Assessment (RN) Last Done: 07/20/18 14:55 DC Date/Time DO NOT enter until pt leaves facility: 07/20/18 15:30
== END 2018-07-20 15:30 | disposition home or self-care (01) | DRG 308 ==
LOC: ED 12:18 → 1E 15:38 → SUATTDRO 15:38 → 1E 16:59 → 2S 07-17 17:34

== ENCOUNTER 2019-02-20 15:54 | Inpatient (IN) ==
--- OUTSIDE RECORDS SUMMARY | 2019-02-20 15:58 | External Medical Summary | Continuity of Care Document ---
:1950 Author Name Rosa Wilkerson, Provider Address Unavailable Unavailable , Care Team Providers Name Role Phone Unavailable Unavailable Unavailable JULIET ALANIZ Unavailable Unavailable Problems Active medical history not documented Allergies and Adverse Reactions Allergy history not documented Medications Medications not documented Procedures Procedures not documented Immunizations Immunizations not documented Plan of Treatment Planned Observations Planned Goals not documented Results No Known Results Results not documented
--- NOTE | 2019-02-20 16:45 | XRay Report ---
XR chest 1V portable CLINICAL HISTORY: 69 years-old Female presenting with weakness. TECHNIQUE: Portable upright AP view of the chest was obtained. COMPARISON: 07/17/2018. FINDINGS: Left subclavian pacer with leads to the right atrium and right ventricular apex. Median sternotomy wi res. Calcified left hilar lymphadenopathy. Atherosclerosis of the aortic arch. Cardiac silhouette mil dly enlarged. Mild pulmonary vascular prominence. Mild bronchial wall thickening and vague perihilar opacity. Mildly low lung volumes as on prior exam. Minimal left basilar opacity. Trace pleural effusi ons may be present. No large pneumothorax. Degenerative changes of the thoracic spine. Upper abdomen normal. IMPRESSION: 1. Cardiomegaly with mild volume overload and congestive change. No lissy pulmonary edema. 2. Suspected left basilar atelectasis versus developing edema. 3. Trace pleural effusions may be present. 4. Evidence of old granulomatous disease. Electronically signed by: Dick Massey M.D. 02/20/2019 4:44 PM
[2019-02-20 17:27] LABS: Basophils # (auto) 0.31 K/uL (0-0.2); Basophils % (auto) 3.8 %; Eosinophils # (auto) 0.32 K/uL (0-0.5); Eosinophils % (auto) 3.9 %; Hematocrit (blood only) 32.6 % (37-47); Hemoglobin 9.7 g/dL (12.0-16.0); Immature Granulocytes # (auto) 0.01 K/uL (0.00-0.02); Immature Granulocytes % (auto) 0.1 %; Lymphocytes # (auto) 2.75 K/uL (1.2-3.4); Lymphocytes % (auto) 33.9 %; Mean Corpuscular Hemoglobin 25.7 pg (25-34); Mean Corpuscular Hgb Conc 29.8 g/dL (32-36); Mean Corpuscular Volume 86.5 fL (80-100); Mean Platelet Volume 12.3 fL (7.4-10.4); Monocytes # (auto) 0.98 K/uL (0.11-0.59); Monocytes % (auto) 12.1 %; Neutrophils # (auto) 3.75 K/uL (1.4-6.5); Neutrophils % (auto) 46.2 %; Platelet Count 343 K/uL (130-400); RDW Coefficient of Variation 16.8 % (11.5-14.5); RDW Standard Deviation 52.9 fL (36.4-46.3); Red Blood Count 3.77 M/uL (4.2-5.4); White Blood Count 8.12 K/uL (4.8-10.8)
[2019-02-20 17:45] LABS: Alanine Aminotransferase 25 U/L (12-78); Albumin Level 2.9 gm/dl (3.4-5.0); Aspartate Aminotransferase 25 U/L (15-37); Blood Urea Nitrogen 27 mg/dl (7-18); Calcium 8.7 mg/dl (8.5-10.1); Carbon Dioxide 19 mmol/L (21-32); Chloride 116 mmol/L (98-107); Est GFR (African American) 62.2; Est GFR (Non-African American) 53.7; Glucose 79 mg/dl (70-99); Potassium 4.1 mmol/L (3.5-5.1); Sodium 144 mmol/L (136-145)
[2019-02-20 17:55] LABS: Albumin Globulin Ratio 0.8 (0.9-2); Alkaline Phosphatase 100 U/L (45-117); Bilirubin,Total 0.7 mg/dl (0.2-1); Creatine Kinase 74 U/L (26-192); Creatine Kinase MB 1.2 ng/ml (0.5-3.6); Globulin 3.5 gm/dl (2.5-4.0); Total Protein 6.4 gm/dl (6.4-8.2); Troponin I < 0.015 ng/ml (0-0.045)
[2019-02-20] MEDS ORDERED: METOPROLOL TARTRATE 1 MG/ML VIAL IV PRN (18:31)
[2019-02-20 18:32] LABS: INR 2.2 (0.9-1.1); Prothrombin Time 20.9 Seconds (9.0-12.0)
[2019-02-20] MEDS: MAGNESIUM SULFATE / D5W 1 GM/100 ML BAG IV SCH ×4 (18:43→21:51)
[2019-02-20] MEDS: SODIUM CHLORIDE 0.9% 1000ML 1,000 ML IV ONE ×2 (18:43→22:44)
[2019-02-20] MEDS ORDERED: FUROSEMIDE 40 MG in SYRINGE 0 ML IV ONE (19:22)
[2019-02-20] MEDS ORDERED: METOPROLOL TARTRATE 1 MG/ML VIAL IV STA (19:23)
[2019-02-20] MEDS ORDERED: DIGOXIN 250 MCG in SYRINGE 9 ML IV STA (19:39)
[2019-02-20] MEDS ORDERED: FUROSEMIDE 40 MG/4 ML VIAL IV ONE (20:30)
[2019-02-20] MEDS ORDERED: METOPROLOL TARTRATE 50 MG TAB ONE (20:30)
--- NOTE | 2019-02-20 21:14 | History & Physical Report ---
Date of Service February 20, 2019 Assessment & Plan (1) Decompensated heart failure: hx chronic diastolic heart failure (EF 70%, TTE 2019) Multifactorial : Dietary discretion, home diuretic noncompliance, uncontrolled A. fib SSS sp PPM on Coumadin, patient in rapid A. fib, INR therapeutic past hx DVT/portal vein thrombosis hypertension, BP on the lower side prior to rapid A. fib history CVA NAFLD cirrhosis, no overt decompensation except fluid retention from CHF history of esophageal varices chronic anemia, hemoglobin at baseline ongoing tobacco abuse PCU Diuretic Rx Strict I/Os, daily weights, CHF education, fluid restriction Cardiology consult RE decompensated CHF Continue home beta-kike Rx for A. fib, may need dose titration if BP permits; Digoxin as needed for rate control given borderline BP Nicotine replacement therapy PRN DVT prophylaxis Coumadin INR goal between 2 and 3 Full code History of Present Illness Chief Complaint: Shortness of breath, sent by field laboratory operator Primary Care Provider: Ishan García, History obtained from patient and records. Medical history significant for chronic diastolic heart failure (EF 70%, TTE 2019), SSS sp PPM on Coumadin, past hx DVT/portal vein thrombosis, hypertension, History CVA, NAFLD cirrhosis, history of esophageal varices, hx gastric bypass, chronic anemia (baseline hemoglobin 9-10), history mixed urinary incontinence as per records, ongoing tobacco abuse. Recent confinement July 2018 for decompensated CHF. 2 weeks history of intermittent S OB and exertion without chest pain or palpitations, weight gain of 20 pounds, increase bilateral leg swelling. Patient admits to dietary indiscretion, consumption of fried potatoes, skipping some Lasix doses. Patient also had lightheadedness symptoms. At the field laboratory operator office, SBP noted to be 60-80s. Noted to be in rapid A. fib 130s. Patient sent to the ER for evaluation for CHF. MEDICAL HISTORY: As above. SURGERIES: She has had splenectomy, gastric bypass, cholecystectomy, pacemaker placement, facial fracture surgery, resection of pericardial cyst, hernia repair FAMILY HISTORY: Heart disease SOCIAL AND PERSONAL HISTORY: Few cigarettes a week, no chronic intake of alcoholic beverages. 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 Allergies Allergy/AdvReac Type Severity Reaction Status Date / Time Quinolones Allergy Unknown LOCAL Verified 02/20/19 16:43 REACTION TO LEVAQUIN codeine AdvReac Unknown VOMITING Verified 02/20/19 16:43 nickel AdvReac Redness of Verified 02/20/19 16:43 Skin Home Medications Home Medications Medication Instructions Recorded Confirmed Type acetaminophen [Tylenol Extra 500 mg PO Q6H PRN 06/15/18 02/20/19 History Strength] ferrous sulfate 325 mg PO BID 06/15/18 02/20/19 History lactulose 30 ml PO BID 06/15/18 02/20/19 History metoprolol tartrate 50 mg PO BID 06/15/18 02/20/19 History multivitamin [Multiple Vitamins] 1 tab PO DAILY 06/15/18 02/20/19 History nitroglycerin [Nitrostat] 0.4 mg SUBLINGUAL UD 06/15/18 02/20/19 History warfarin 2 mg PO 2XWK 02/20/19 02/20/19 History warfarin 4 mg PO 5XWK 02/20/19 02/20/19 History Past Med/Surg History Medical History UGIB (upper gastrointestinal bleed) Atrial fibrillation with RVR DVT (deep venous thrombosis) Pacemaker [employer]. Placed for tachy-kaz syndrome Anemia CVA (cerebral vascular accident) Patient denies states she had metabolic encephalopathy from elevated ammonia levels. Cirrhosis (Chronic) NAFLD Esophageal varices Surgical History H/O gastric bypass History of esophagogastroduodenoscopy (EGD) Social History Preferred Language: Andorran Communication Ability: Effective Visual Impairment: No Limitations Hearing Ability: Normal Marketing Associate Required: No Beliefs That Will Affect Care: None marital status: / Current Living Situation: Alone Feels Safe at Home: Yes Safety Concerns: Feels Safe At This Time Smoking Status: Smoker, status unknown Hx Alcohol Use: Yes ("once in a while") Alcohol type: beer Hx Substance Use: No Review of Systems Review of Systems: As per HPI, all 10 systems reviewed, all other ROS negative Physical Exam Physical Exam: GENERAL: Comfortable, obese, no respiratory distress SKIN: Pallor, warm HEENT: Pale palpebral conjunctivae, no ptosis, dry buccal mucosa NECK : Supple, short neck, no tenderness CHEST : Decreased breath sounds , no tenderness HEART : Tachycardic, irregular , no obvious murmurs ABDOMEN: distention, nontender EXTREMITIES : Bilateral LE swelling, no LE tenderness, no other conspicuous deformities noted NEUROLOGIC : Coherent, no facial asymmetry, no other gross focality Results & Data Vital Signs (Past 12 Hours) Vital Signs Temp Pulse Resp BP Pulse Ox 02/20/19 20:55 87 21 126/82 97 02/20/19 20:54 123 H 02/20/19 20:50 111 H 21 96 02/20/19 20:45 110 H 18 99 02/20/19 20:43 114 H 26 H 119/96 99 02/20/19 20:31 108 H 21 106/77 98 02/20/19 20:30 98 H 17 92 02/20/19 20:20 123 H 19 97 02/20/19 20:15 114 H 19 122/86 97 02/20/19 20:10 117 H 17 90 02/20/19 20:01 108 H 20 121/86 98 02/20/19 20:00 117 H 21 02/20/19 19:50 140 H 15 91 02/20/19 19:46 105 H 17 134/89 98 02/20/19 19:40 118 H 14 97 02/20/19 19:31 113 H 23 98 02/20/19 19:30 115 H 17 98 02/20/19 19:20 123 H 24 97 02/20/19 19:15 113 H 21 134/86 98 02/20/19 19:10 124 H 25 H 98 02/20/19 19:00 117 H 16 124/89 91 02/20/19 18:50 106 H 21 98 02/20/19 18:43 129 H 128/92 02/20/19 18:42 139 H 16 128/92 98 02/20/19 18:41 132 H 12 98 02/20/19 18:10 128 H 21 90 02/20/19 18:01 130 H 23 140/65 95 02/20/19 18:00 122 H 25 H 02/20/19 17:50 122 H 23 99 02/20/19 17:43 132 H 20 98/72 L 99 02/20/19 17:40 135 H 18 99 02/20/19 17:30 143 H 23 99 02/20/19 17:20 135 H 16 99 02/20/19 17:10 135 H 20 97 02/20/19 17:00 137 H 19 97 02/20/19 16:50 135 H 16 97 02/20/19 16:40 121 H 26 H 96 02/20/19 16:34 98 02/20/19 16:30 122 H 18 02/20/19 16:22 120 H 18 98 02/20/19 16:13 116 H 23 106/67 93 02/20/19 16:00 36.4 C L 83 22 90/53 L 99 Laboratory Results Laboratory Results WBC 8.12 K/uL (4.8-10.8) 02/20/19 17:19 RBC 3.77 M/uL (4.2-5.4) L 02/20/19 17:19 Hgb 9.7 g/dL (12.0-16.0) L 02/20/19 17:19 Hct 32.6 % (37-47) L 02/20/19 17:19 MCV 86.5 fL (80-100) 02/20/19 17:19 MCH 25.7 pg (25-34) 02/20/19 17:19 MCHC 29.8 g/dL (32-36) L 02/20/19 17:19 RDW Std Deviation 52.9 fL (36.4-46.3) H 02/20/19 17:19 RDW Coeff of Dayne 16.8 % (11.5-14.5) H 02/20/19 17:19 Plt Count 343 K/uL (130-400) 02/20/19 17:19 MPV 12.3 fL (7.4-10.4) H 02/20/19 17:19 Immature Gran % (Auto) 0.1 % 02/20/19 17:19 Neut % (Auto) 46.2 % 02/20/19 17:19 Lymph % (Auto) 33.9 % 02/20/19 17:19 Aiken % (Auto) 12.1 % 02/20/19 17:19 Eos % (Auto) 3.9 % 02/20/19 17:19 Baso % (Auto) 3.8 % 02/20/19 17:19 Immature Gran # (Auto) 0.01 K/uL (0.00-0.02) 02/20/19 17:19 Neut # (Auto) 3.75 K/uL (1.4-6.5) 02/20/19 17:19 Lymph # (Auto) 2.75 K/uL (1.2-3.4) 02/20/19 17:19 Aiken # (Auto) 0.98 K/uL (0.11-0.59) H 02/20/19 17:19 Eos # (Auto) 0.32 K/uL (0-0.5) 02/20/19 17:19 Baso # (Auto) 0.31 K/uL (0-0.2) H 02/20/19 17:19 PT 20.9 Seconds (9.0-12.0) H 02/20/19 18:10 INR 2.2 (0.9-1.1) H 02/20/19 18:10 Sodium 144 mmol/L (136-145) 02/20/19 17:19 Potassium 4.1 mmol/L (3.5-5.1) 02/20/19 17:19 Chloride 116 mmol/L (98-107) H 02/20/19 17:19 Carbon Dioxide 19 mmol/L (21-32) L 02/20/19 17:19 Anion Gap 9.0 (3-11) 02/20/19 17:19 BUN 27 mg/dl (7-18) H 02/20/19 17:19 Creatinine 1.07 mg/dl (0.6-1.2) 02/20/19 17:19 Est Cr Clr Drug Dosing Not Reportable 02/20/19 17:19 Est GFR ( Amer) 62.2 02/20/19 17:19 Est GFR (Non-Af Amer) 53.7 02/20/19 17:19 BUN/Creatinine Ratio 25.0 (10-20) H 02/20/19 17:19 Glucose 79 mg/dl (70-99) 02/20/19 17:19 Calcium 8.7 mg/dl (8.5-10.1) 02/20/19 17:19 Total Bilirubin 0.7 mg/dl (0.2-1) 02/20/19 17:19 AST 25 U/L (15-37) 02/20/19 17:19 ALT 25 U/L (12-78) 02/20/19 17:19 Alkaline Phosphatase 100 U/L (45-117) 02/20/19 17:19 Ammonia 22.0 umol/L (11-32) 02/20/19 17:19 Total Creatine Kinase 74 U/L (26-192) 02/20/19 17:19 CK-MB (CK-2) 1.2 ng/ml (0.5-3.6) 02/20/19 17: CK/CKMB % Calc 1.6 (0-3.0) 02/20/19 17:19 Troponin I < 0.015 ng/ml (0-0.045) 02/20/19 17:19 NT-Pro-B Natriuret Pep 3564 pg/ml (0-900) H 02/20/19 17: Total Protein 6.4 gm/dl (6.4-8.2) 02/20/19 17:19 Albumin 2.9 gm/dl (3.4-5.0) L 02/20/19 17:19 Globulin 3.5 gm/dl (2.5-4.0) 02/20/19 17:19 Albumin/Globulin Ratio 0.8 (0.9-2) L 02/20/19 17:19 TSH 3.400 uIu/ml (0.300-4.500) 02/20/19 17:19 Diagnostic Findings Chest x-ray : 1. Cardiomegaly with mild volume overload and congestive change. No lissy pulmonary edema. 2. Suspected left basilar atelectasis versus developing edema. 3. Trace pleural effusions may be present. 4. Evidence of old granulomatous disease. EKG as per my interpretation : Rate 120, A. fib, LAD, LAFB, incomplete RBBB, T wave abnormalities on the inferior and septal leads
[2019-02-20] MEDS ORDERED: PROMETHAZINE HCL 12.5 MG in SODIUM CHLORIDE 0.9% 50 ML IV PRN (22:41)
[2019-02-20] MEDS ORDERED: ACETAMINOPHEN 325 MG TAB PO PRN (22:41)
[2019-02-20] MEDS ORDERED: NITROGLYCERIN SL 0.4 MG/TAB TAB SL SCH (22:41)
[2019-02-20] MEDS ORDERED: NITROGLYCERIN SL 0.4 MG/TAB TAB SL PRN (22:41)
[2019-02-20] MEDS ORDERED: METOPROLOL TARTRATE 50 MG TAB PO SCH (23:00)
[2019-02-20] MEDS: LACTULOSE SYRUP 20 GM/30 ML UDC PO SCH (23:50)
[2019-02-21] MEDS ORDERED: DIGOXIN 250 MCG in SYRINGE 9 ML IV STA (00:01)
--- NOTE | 2019-02-21 00:21 | Emergency Department Note ---
Entered by Jasmyn Birch acting as a scribe for Fly Chaudhary MD History of Present Illness General Chief complaint: Arrhythmia/Palpitations Stated complaint: SOB,AFIB W RVR,DIZZINESS,WEIGH GAIN,HYPOTENSION Time Seen by Provider: 02/20/19 16:05 Source: patient History of Present Illness Onset (ago): day(s) 1 Location: left (lung) and right (lung) Pain Consistency: + other (Worsened) Quality: + other (Shortness of breath) Exacerbated By: + movement Associated symptoms: + shortness of breath and + other (Positive lower extremity swelling, dizziness. Negative abdominal pain.); no nausea/vomiting and no syncope The patient is a 69 year old female presenting to the Emergency Department complaining of persistent shortness of breath starting 1 day ago. The patient reports that she is short of breath. She states that her lower extremities are swollen and that this has worsened since yesterday. She explains that she feels dizzy and that when she gets up and walks around her dizziness and shortness of breath worsens. She notes that she sees her [facility] PCP at [facility]. She adds that her iron is usually low. The patient reports that she regularly takes Coumadin for her A-fib. She patient denies syncope, nausea, vomiting and abdominal pain. Home Medications Home Medications Medication Instructions Recorded Confirmed Type acetaminophen [Tylenol Extra 500 mg PO Q6H PRN 06/15/18 02/20/19 History Strength] ferrous sulfate 325 mg PO BID 06/15/18 02/20/19 History lactulose 30 ml PO BID 06/15/18 02/20/19 History metoprolol tartrate 50 mg PO BID 06/15/18 02/20/19 History multivitamin [Multiple Vitamins] 1 tab PO DAILY 06/15/18 02/20/19 History nitroglycerin [Nitrostat] 0.4 mg SUBLINGUAL UD 06/15/18 02/20/19 History warfarin 2 mg PO 2XWK 02/20/19 02/20/19 History warfarin 4 mg PO 5XWK 02/20/19 02/20/19 History Allergies Allergy/AdvReac Type Severity Reaction Status Date / Time Quinolones Allergy Unknown LOCAL Verified 02/20/19 16:43 REACTION TO LEVAQUIN codeine AdvReac Unknown VOMITING Verified 02/20/19 16:43 nickel AdvReac Redness of Verified 02/20/19 16:43 Skin Past Med/Surg History Medical History UGIB (upper gastrointestinal bleed) Atrial fibrillation with RVR DVT (deep venous thrombosis) Pacemaker Medtronic. Placed for tachy-kaz syndrome Anemia CVA (cerebral vascular accident) Patient denies states she had metabolic encephalopathy from elevated ammonia levels. Cirrhosis (Chronic) NAFLD Esophageal varices Surgical History H/O gastric bypass History of esophagogastroduodenoscopy (EGD) Social History Preferred Language: Japanese Communication Ability: Impaired Visual Impairment: No Limitations Hearing Ability: Normal Director Of Curriculum Required: No Beliefs That Will Affect Care: None marital status: / Current Living Situation: Alone Feels Safe at Home: Yes Safety Concerns: Feels Safe At This Time Smoking Status: Smoker, status unknown Hx Alcohol Use: Yes ("once in a while") Alcohol type: beer Hx Substance Use: No Review of Systems See HPI for pertinent positives & negatives. and A total of 10 systems reviewed and were otherwise negative Physical Exam Vital Signs Vital Signs - 24 hr 02/20/19 16:00 02/20/19 16:13 02/20/19 16:22 Temperature 36.4 C L Temperature Source Oral Sepsis Recent Fever Within 48 Hours No Sepsis New/Unexplained Change in Mental Status No Sepsis Action Taken by Nursing No Action Required Pulse Rate 83 116 H 120 H Pulse Rate from SpO2 Sensor 82 102 H Respiratory Rate 22 23 18 Respiratory Effort / Characteristics Non-Labored Spontaneous Blood Pressure 90/53 L 106/67 Blood Pressure Mean 65 80 Pulse Oximetry 99 93 98 Oxygen Delivery Method Room Air 02/20/19 16:30 02/20/19 16:34 02/20/19 16:40 Temperature Temperature Source Sepsis Recent Fever Within 48 Hours Sepsis New/Unexplained Change in Mental Status Sepsis Action Taken by Nursing Pulse Rate 122 H 121 H Pulse Rate from SpO2 Sensor 97 H 106 H Respiratory Rate 18 26 H Respiratory Effort / Characteristics Blood Pressure Blood Pressure Mean Pulse Oximetry 98 96 Oxygen Delivery Method Room Air 02/20/19 16:50 02/20/19 17:00 02/20/19 17:10 Temperature Temperature Source Sepsis Recent Fever Within 48 Hours Sepsis New/Unexplained Change in Mental Status Sepsis Action Taken by Nursing Pulse Rate 135 H 137 H 135 H Pulse Rate from SpO2 Sensor 89 99 H 86 Respiratory Rate 16 19 20 Respiratory Effort / Characteristics Blood Pressure Blood Pressure Mean Pulse Oximetry 97 97 97 Oxygen Delivery Method 02/20/19 17:20 02/20/19 17:30 02/20/19 17:40 Temperature Temperature Source Sepsis Recent Fever Within 48 Hours Sepsis New/Unexplained Change in Mental Status Sepsis Action Taken by Nursing Pulse Rate 135 H 143 H 135 H Pulse Rate from SpO2 Sensor 86 88 94 H Respiratory Rate 16 23 18 Respiratory Effort / Characteristics Blood Pressure Blood Pressure Mean Pulse Oximetry 99 99 99 Oxygen Delivery Method 02/20/19 17:43 02/20/19 17:50 02/20/19 18:00 Temperature Temperature Source Sepsis Recent Fever Within 48 Hours Sepsis New/Unexplained Change in Mental Status Sepsis Action Taken by Nursing Pulse Rate 132 H 122 H 122 H Pulse Rate from SpO2 Sensor 79 73 111 H Respiratory Rate 20 23 25 H Respiratory Effort / Characteristics Blood Pressure 98/72 L Blood Pressure Mean 80 Pulse Oximetry 99 99 Oxygen Delivery Method 02/20/19 18:01 02/20/19 18:10 02/20/19 18:41 Temperature Temperature Source Sepsis Recent Fever Within 48 Hours Sepsis New/Unexplained Change in Mental Status Sepsis Action Taken by Nursing Pulse Rate 130 H 128 H 132 H Pulse Rate from SpO2 Sensor 71 95 H 95 H Respiratory Rate 23 21 12 Respiratory Effort / Characteristics Blood Pressure 140/65 Blood Pressure Mean 90 Pulse Oximetry 95 90 98 Oxygen Delivery Method 02/20/19 18:42 02/20/19 18:43 02/20/19 18:50 Temperature Temperature Source Sepsis Recent Fever Within 48 Hours Sepsis New/Unexplained Change in Mental Status Sepsis Action Taken by Nursing Pulse Rate 139 H 129 H 106 H Pulse Rate from SpO2 Sensor 85 93 H Respiratory Rate 16 21 Respiratory Effort / Characteristics Blood Pressure 128/92 128/92 Blood Pressure Mean 104 Pulse Oximetry 98 98 Oxygen Delivery Method 02/20/19 19:00 02/20/19 19:10 02/20/19 19:15 Temperature Temperature Source Sepsis Recent Fever Within 48 Hours Sepsis New/Unexplained Change in Mental Status Sepsis Action Taken by Nursing Pulse Rate 117 H 124 H 113 H Pulse Rate from SpO2 Sensor 87 88 97 H Respiratory Rate 16 25 H 21 Respiratory Effort / Characteristics Blood Pressure 124/89 134/86 Blood Pressure Mean 100 102 Pulse Oximetry 91 98 98 Oxygen Delivery Method 02/20/19 19:20 02/20/19 19:30 02/20/19 19:31 Temperature Temperature Source Sepsis Recent Fever Within 48 Hours Sepsis New/Unexplained Change in Mental Status Sepsis Action Taken by Nursing Pulse Rate 123 H 115 H 113 H Pulse Rate from SpO2 Sensor 87 89 87 Respiratory Rate 24 17 23 Respiratory Effort / Characteristics Blood Pressure Blood Pressure Mean Pulse Oximetry 97 98 98 Oxygen Delivery Method 02/20/19 19:40 02/20/19 19:46 02/20/19 19:50 Temperature Temperature Source Sepsis Recent Fever Within 48 Hours Sepsis New/Unexplained Change in Mental Status Sepsis Action Taken by Nursing Pulse Rate 118 H 105 H 140 H Pulse Rate from SpO2 Sensor 101 H 80 93 H Respiratory Rate 14 17 15 Respiratory Effort / Characteristics Blood Pressure 134/89 Blood Pressure Mean 104 Pulse Oximetry 97 98 91 Oxygen Delivery Method 02/20/19 20:00 02/20/19 20:01 02/20/19 20:10 Temperature Temperature Source Sepsis Recent Fever Within 48 Hours Sepsis New/Unexplained Change in Mental Status Sepsis Action Taken by Nursing Pulse Rate 117 H 108 H 117 H Pulse Rate from SpO2 Sensor 84 84 105 H Respiratory Rate 21 20 17 Respiratory Effort / Characteristics Blood Pressure 121/86 Blood Pressure Mean 97 Pulse Oximetry 98 90 Oxygen Delivery Method 02/20/19 20:15 02/20/19 20:20 02/20/19 20:30 Temperature Temperature Source Sepsis Recent Fever Within 48 Hours Sepsis New/Unexplained Change in Mental Status Sepsis Action Taken by Nursing Pulse Rate 114 H 123 H 98 H Pulse Rate from SpO2 Sensor 98 H 93 H 97 H Respiratory Rate 19 19 17 Respiratory Effort / Characteristics Blood Pressure 122/86 Blood Pressure Mean 98 Pulse Oximetry 97 97 92 Oxygen Delivery Method 02/20/19 20:31 02/20/19 20:43 02/20/19 20:45 Temperature Temperature Source Sepsis Recent Fever Within 48 Hours Sepsis New/Unexplained Change in Mental Status Sepsis Action Taken by Nursing Pulse Rate 108 H 114 H 110 H Pulse Rate from SpO2 Sensor 85 98 H 88 Respiratory Rate 21 26 H 18 Respiratory Effort / Characteristics Blood Pressure 106/77 119/96 Blood Pressure Mean 86 103 Pulse Oximetry 98 99 99 Oxygen Delivery Method 02/20/19 20:50 02/20/19 20:54 02/20/19 20:55 Temperature Temperature Source Sepsis Recent Fever Within 48 Hours Sepsis New/Unexplained Change in Mental Status Sepsis Action Taken by Nursing Pulse Rate 111 H 123 H 87 Pulse Rate from SpO2 Sensor 98 H 83 Respiratory Rate 21 21 Respiratory Effort / Characteristics Blood Pressure 126/82 Blood Pressure Mean 96 Pulse Oximetry 96 97 Oxygen Delivery Method 02/20/19 21:00 02/20/19 21:10 Temperature Temperature Source Sepsis Recent Fever Within 48 Hours Sepsis New/Unexplained Change in Mental Status Sepsis Action Taken by Nursing Pulse Rate 124 H 93 H Pulse Rate from SpO2 Sensor 93 H 92 H Respiratory Rate 26 H 23 Respiratory Effort / Characteristics Blood Pressure 134/90 Blood Pressure Mean 104 Pulse Oximetry 98 98 Oxygen Delivery Method GENERAL: Awake, alert, well-appearing, in no acute distress HENT: Normocephalic, atraumatic. Oropharynx unremarkable. EYES: Normal conjunctiva. Sclera non-icteric. NECK: Supple. No nuchal rigidity. FROM. No JVD. RESPIRATORY: Clear to auscultation. CARDIAC: Regular rate, normal rhythm. Extremities warm and well perfused. Pulses equal. ABDOMEN: Soft, non-distended. No tenderness to palpation. No rebound or guarding. No masses. RECTAL: Deferred. MUSCULOSKELETAL: Chest examination reveals no tenderness. The back is symmetrical on inspection without obvious abnormality. There is no CVA tenderness to palpation. No joint edema. LOWER EXTREMITIES: Calves are equal size bilaterally and non-tender. No edema. No discoloration. NEURO: Normal sensorium. No sensory or motor deficits noted. SKIN: No rash or jaundice noted. Course 160: The patient was evaluated in room B8, and a complete history and physical examination were performed. 1917: I discussed the patient's case with Dr. Be tavarez. He will evaluate the patient for further management. 1919: I updated the patient at this time. Consultations Consultation #1: I discussed the patient's case with Dr. Be tavarez. He will evaluate the patient for further management. Time: 19:18 Administered Medications Digoxin (Lanoxin) 0.125 mg PO DAILY@1600 [facility] Stop: 03/23/19 09:59 Last Admin: 02/26/19 15:58 Dose: 0.125 mg Documented by: [id number] Admin: 02/25/19 17:06 Dose: 0.125 mg Documented by: [id number] Admin: 02/24/19 17:01 Dose: 0.125 mg Documented by: [id number] Admin: 02/23/19 17:38 Dose: 0.125 mg Documented by: [id number] Admin: 02/22/19 16:53 Dose: 0.125 mg Documented by: [id number] Admin: 02/21/19 10:55 Dose: 0.125 mg Documented by: [id number] Ferrous Sulfate (Feosol) 325 mg PO BID [facility] Stop: 03/23/19 08:59 Last Admin: 02/26/19 09:24 Dose: 325 mg Documented by: [id number] Admin: 02/25/19 20:57 Dose: 325 mg Documented by: [id number] Admin: 02/25/19 07:57 Dose: 325 mg Documented by: [id number] Admin: 02/24/19 21:00 Dose: 325 mg Documented by: [id number] Admin: 02/24/19 09:21 Dose: 325 mg Documented by: [id number] Admin: 02/23/19 20:48 Dose: 325 mg Documented by: [id number] Admin: 02/23/19 07:50 Dose: 325 mg Documented by: [id number] Admin: 02/22/19 19:39 Dose: 325 mg Documented by: [id number] Admin: 02/22/19 10:05 Dose: 325 mg Documented by: [id number] Admin: 02/21/19 20:04 Dose: 325 mg Documented by: [id number] Admin: 02/21/19 08:33 Dose: 325 mg Documented by: [id number] Furosemide (Lasix) 20 mg PO BID17 [facility] Stop: 03/28/19 16:59 Last Admin: 02/26/19 15:57 Dose: 20 mg Documented by: [id number] Lactulose (Chronulac) 30 gm PO BID [facility] Stop: 03/22/19 22:40 Last Admin: 02/26/19 09:24 Dose: Not Given Documented by: [id number] Admin: 02/25/19 21:00 Dose: Not Given Documented by: [id number] Admin: 02/25/19 08:02 Dose: Not Given Documented by: [id number] Admin: 02/24/19 21:01 Dose: 30 gm Documented by: [id number] Admin: 02/24/19 09:21 Dose: Not Given Documented by: [id number] Admin: 02/23/19 20:48 Dose: 30 gm Documented by: [id number] Admin: 02/23/19 10:29 Dose: Not Given Documented by: [id number] Admin: 02/22/19 19:45 Dose: Not Given Documented by: [id number] Admin: 02/22/19 09:58 Dose: Not Given Documented by: [id number] Admin: 02/21/19 19:59 Dose: 30 gm Documented by: [id number] Admin: 02/21/19 08:35 Dose: Not Given Documented by: [id number] Admin: 02/20/19 23:50 Dose: Not Given Documented by: [id number] Metoprolol Tartrate (Lopressor) 25 mg PO BID [facility] Stop: 03/26/19 20:59 Last Admin: 02/26/19 09:24 Dose: 25 mg Documented by: [id number] Admin: 02/25/19 20:57 Dose: 25 mg Documented by: [id number] Admin: 02/25/19 07:56 Dose: 25 mg Documented by: [id number] Admin: 02/24/19 21:01 Dose: 25 mg Documented by: [id number] Multivitamins (Multivitamin Tab) 1 tab PO DAILY [facility] Stop: 03/23/19 08:59 Last Admin: 02/26/19 09:24 Dose: 1 tab Documented by: [id number] Admin: 02/25/19 07:57 Dose: 1 tab Documented by: [id number] Admin: 02/24/19 09:21 Dose: 1 tab Documented by: [id number] Admin: 02/23/19 07:51 Dose: 1 tab Documented by: [id number] Admin: 02/22/19 10:05 Dose: 1 tab Documented by: [id number] Admin: 02/21/19 08:33 Dose: 1 tab Documented by: [id number] Rifaximin (Xifaxan) 550 mg PO Q12H [facility] Stop: 03/26/19 15:59 Last Admin: 02/26/19 09:24 Dose: 550 mg Documented by: [id number] Admin: 02/25/19 20:57 Dose: 550 mg Documented by: [id number] Admin: 02/25/19 07:57 Dose: 550 mg Documented by: [id number] Admin: 02/24/19 17:35 Dose: 550 mg Documented by: [id number] Tramadol HCl (Ultram) 25 mg PO Q4H PRN PRN Reason: Pain Stop: 03/22/19 22:40 Last Admin: 02/26/19 03:16 Dose: 25 mg Documented by: [id number] Admin: 02/21/19 22:39 Dose: 25 mg Documented by: [id number] Warfarin Sodium (Coumadin) 6 mg PO MoWeFr@1600 [facility] Stop: 03/23/19 18:29 Last Admin: 02/26/19 15:57 Dose: 6 mg Documented by: [id number] Admin: 02/24/19 17:02 Dose: 6 mg Documented by: [id number] Admin: 02/21/19 18:51 Dose: 6 mg Documented by: [id number] Warfarin Sodium (Coumadin) 4 mg PO SuTuThSa@1600 [facility] Stop: 03/24/19 15:59 Last Admin: 02/25/19 17:06 Dose: 4 mg Documented by: [id number] Admin: 02/23/19 17:38 Dose: 4 mg Documented by: [id number] Admin: 02/22/19 16:53 Dose: 4 mg Documented by: [id number] Discontinued Medications Furosemide (Lasix) Confirm Administered Dose 40 mg IV .STK-MED ONE Stop: 02/20/19 20:31 Last Admin: 02/20/19 20:38 Dose: 40 mg Documented by: [id number] Sodium Chloride (Nss 1000ml) 1,000 mls @ 999 mls/hr IV .Q1H1M ONE Stop: 02/20/19 17:31 Last Admin: 02/20/19 22:44 Dose: Not Given Documented by: [id number] Magnesium Sulfate/Dextrose (Magnesium Sulfate / D5w) 1 gm in 100 mls @ 100 m ls/hr IV Q1H [facility] Stop: 02/20/19 22:44 Last Infusion: 02/20/19 22:45 Dose: 0 mls/hr Documented by: [id number] Admin: 02/20/19 21:51 Dose: 130 mls/hr Documented by: [id number] Infusion: 02/20/19 21:51 Dose: 0 mls/hr Documented by: [id number] Admin: 02/20/19 20:40 Dose: 120 mls/hr Documented by: [id number] Infusion: 02/20/19 20:40 Dose: 0 mls/hr Documented by: [id number] Admin: 02/20/19 19:44 Dose: 130 mls/hr Documented by: [id number] Infusion: 02/20/19 19:44 Dose: 0 mls/hr Documented by: [id number] Admin: 02/20/19 18:43 Dose: 100 mls/hr Documented by: [id number] Furosemide 40 mg/ Syringe 4 mls @ 4 mls/min IV ONE ONE Stop: 02/20/19 19:23 Last Admin: 02/20/19 20:53 Dose: Not Given Documented by: [id number] Digoxin 250 mcg/ Syringe 10 mls @ 2 mls/min IV NOW STA Stop: 02/20/19 19:43 Last Admin: 02/20/19 20:54 Dose: 2 mls/min Documented by: [id number] Furosemide 40 mg/ Syringe 4 mls @ 4 mls/min IV BID@0900,1700 [facility] Stop: 02/21/19 17:00 Last Admin: 02/21/19 16:52 Dose: 4 mls/min Documented by: [id number] Admin: 02/21/19 08:35 Dose: 4 mls/min Documented by: [id number] Digoxin 250 mcg/ Syringe 10 mls @ 2 mls/min IV NOW STA Stop: 02/21/19 00:05 Last Admin: 02/21/19 00:34 Dose: 2 mls/min Documented by: [id number] Furosemide 40 mg/ Syringe 4 mls @ 4 mls/min IV Q12H [facility] Stop: 03/24/19 17:59 Last Admin: 02/22/19 18:37 Dose: 4 mls/min Documented by: [id number] Albumin Human (Albumin 25%) 50 mls @ 50 mls/hr IV ONE ONE Stop: 02/23/19 06:09 Last Infusion: 02/23/19 06:44 Dose: 0 mls/hr Documented by: [id number] Admin: 02/23/19 05:24 Dose: 50 mls/hr Documented by: [id number] Lorazepam (Ativan) 0.25 mg PO NOW STA Stop: 02/22/19 01:28 Last Admin: 02/22/19 01:51 Dose: 0.25 mg Documented by: [id number] Metoprolol Tartrate (Lopressor) 5 mg IV Q5M PRN PRN Reason: Tachycardia Stop: 03/22/19 18:30 Last Admin: 02/20/19 18:43 Dose: 5 mg Documented by: [id number] Metoprolol Tartrate (Lopressor) 2.5 mg IV NOW STA Stop: 02/20/19 19:24 Last Admin: 02/20/19 20:52 Dose: Not Given Documented by: [id number] Metoprolol Tartrate (Lopressor) 50 mg PO BID [facility] Stop: 03/22/19 22:59 Last Admin: 02/20/19 23:35 Dose: 50 mg Documented by: [id number] Metoprolol Tartrate (Lopressor) Confirm Administered Dose 50 mg .ROUTE .STK-MED ONE Stop: 02/20/19 20:31 Last Admin: 02/20/19 20:55 Dose: 50 mg Documented by: [id number] Metoprolol Tartrate (Lopressor) 50 mg PO BID [facility] Stop: 03/23/19 07:44 Last Admin: 02/22/19 19:39 Dose: 50 mg Documented by: [id number] Admin: 02/22/19 10:05 Dose: Not Given Documented by: [id number] Admin: 02/21/19 20:06 Dose: 50 mg Documented by: [id number] Admin: 02/21/19 08:34 Dose: 50 mg Documented by: [id number] Metoprolol Tartrate (Lopressor) 12.5 mg PO BID [facility] Stop: 03/25/19 08:59 Last Admin: 02/24/19 09:21 Dose: 12.5 mg Documented by: [id number] Admin: 02/23/19 20:49 Dose: 12.5 mg Documented by: [id number] Admin: 02/23/19 10:29 Dose: Not Given Documented by: [id number] Metoprolol Tartrate (Lopressor) 12.5 mg PO NOW ONE Stop: 02/24/19 10:01 Last Admin: 02/24/19 10:20 Dose: 12.5 mg Documented by: [id number] Potassium Chloride (Klor-Con M10) 20 meq PO BID [facility] Stop: 03/23/19 08:59 Last Admin: 02/23/19 07:50 Dose: 20 meq Documented by: [id number] Admin: 02/22/19 19:38 Dose: 20 meq Documented by: [id number] Admin: 02/22/19 10:04 Dose: 20 meq Documented by: [id number] Admin: 02/21/19 20:05 Dose: 20 meq Documented by: [id number] Admin: 02/21/19 08:33 Dose: 20 meq Documented by: [id number] Medical Decision Making Differential Diagnosis Differential diagnoses includes but is not limited to acute coronary syndrome, m yocardial infarction, pericarditis, pulmonary embolus, aortic dissection, pneumonia, pneumothorax, musculoskeletal, shingles, esophageal. Medical Records Attestation: I reviewed the patient's medical records. Home Medications Current Medication List: was personally reviewed by me Laboratory Data Attestation: I reviewed the patient's lab results. Result diagrams: 02/24/19 15:23 02/26/19 05:55 Lab Results 02/20/19 02/20/19 02/20/19 Range/Units 17:19 17: 17:19 WBC 8.12 (4.8-10.8) K/uL RBC 3.77 L (4.2-5.4) M/uL Hgb 9.7 L (12.0-16.0) g/dL Hct 32.6 L (37-47) % MCV 86.5 (80-100) fL MCH 25.7 (25-34) pg MCHC 29.8 L (32-36) g/dL RDW Std Deviation 52.9 H (36.4-46.3) fL RDW Coeff of Dayne 16.8 H (11.5-14.5) % Plt Count 343 (130-400) K/uL MPV 12.3 H (7.4-10.4) fL Immature Gran % (Auto) 0.1 % Neut % (Auto) 46.2 % Lymph % (Auto) 33.9 % [place] % (Auto) 12.1 % Eos % (Auto) 3.9 % Baso % (Auto) 3.8 % Immature Gran # (Auto) 0.01 (0.00-0.02) K/uL Neut # (Auto) 3.75 (1.4-6.5) K/uL Lymph # (Auto) 2.75 (1.2-3.4) K/uL [place] # (Auto) 0.98 H (0.11-0.59) K/uL Eos # (Auto) 0.32 (0-0.5) K/uL Baso # (Auto) 0.31 H (0-0.2) K/uL PT (9.0-12.0) Seconds INR (0.9-1.1) Sodium 144 (136-145) mmol/L Potassium 4.1 (3.5-5.1) mmol/L Chloride 116 H (98-107) mmol/L Carbon Dioxide 19 L (21-32) mmol/L Anion Gap 9.0 (3-11) BUN 27 H (7-18) mg/dl Creatinine 1.07 (0.6-1.2) mg/dl Est Cr Clr Drug Dosing Not Reportable Est GFR ( Amer) 62.2 Est GFR (Non-Af Amer) 53.7 BUN/Creatinine Ratio 25.0 H (10-20) Glucose 79 (70-99) mg/dl Calcium 8.7 (8.5-10.1) mg/dl Total Bilirubin 0.7 (0.2-1) mg/dl AST 25 (15-37) U/L ALT 25 (12-78) U/L Alkaline Phosphatase 100 (45-117) U/L Ammonia 22.0 (11-32) umol/L Total Creatine Kinase 74 (26-192) U/L CK-MB (CK-2) 1.2 (0.5-3.6) ng/ml CK/CKMB % Calc 1.6 (0-3.0) Troponin I < 0.015 (0-0.045) ng/ml NT-Pro-B Natriuret Pep (0-900) pg/ml Total Protein 6.4 (6.4-8.2) gm/dl Albumin 2.9 L (3.4-5.0) gm/dl Globulin 3.5 (2.5-4.0) gm/dl Albumin/Globulin Ratio 0.8 L (0.9-2) TSH 3.400 (0.300-4.500) uIu/ml 02/20/19 02/20/19 Range/Units 17:19 18:10 WBC (4.8-10.8) K/uL RBC (4.2-5.4) M/uL Hgb (12.0-16.0) g/dL Hct (37-47) % MCV (80-100) fL MCH (25-34) pg MCHC (32-36) g/dL RDW Std Deviation (36.4-46.3) fL RDW Coeff of Dayne (11.5-14.5) % Plt Count (130-400) K/uL MPV (7.4-10.4) fL Immature Gran % (Auto) % Neut % (Auto) % Lymph % (Auto) % [place] % (Auto) % Eos % (Auto) % Baso % (Auto) % Immature Gran # (Auto) (0.00-0.02) K/uL Neut # (Auto) (1.4-6.5) K/uL Lymph # (Auto) (1.2-3.4) K/uL [place] # (Auto) (0.11-0.59) K/uL Eos # (Auto) (0-0.5) K/uL Baso # (Auto) (0-0.2) K/uL PT 20.9 H (9.0-12.0) Seconds INR 2.2 H (0.9-1.1) Sodium (136-145) mmol/L Potassium (3.5-5.1) mmol/L Chloride (98-107) mmol/L Carbon Dioxide (21-32) mmol/L Anion Gap (3-11) BUN (7-18) mg/dl Creatinine (0.6-1.2) mg/dl Est Cr Clr Drug Dosing Est GFR ( Amer) Est GFR (Non-Af Amer) BUN/Creatinine Ratio (10-20) Glucose (70-99) mg/dl Calcium (8.5-10.1) mg/dl Total Bilirubin (0.2-1) mg/dl AST (15-37) U/L ALT (12-78) U/L Alkaline Phosphatase (45-117) U/L Ammonia (11-32) umol/L Total Creatine Kinase (26-192) U/L CK-MB (CK-2) (0.5-3.6) ng/ml CK/CKMB % Calc (0-3.0) Troponin I (0-0.045) ng/ml NT-Pro-B Natriuret Pep 3564 H (0-900) pg/ml Total Protein (6.4-8.2) gm/dl Albumin (3.4-5.0) gm/dl Globulin (2.5-4.0) gm/dl Albumin/Globulin Ratio (0.9-2) TSH (0.300-4.500) uIu/ml Imaging Data Radiologist's Impression: Radiology results as stated below per my review and the radiologist's interpretation: XR chest 1V portable CLINICAL HISTORY: 69 years-old Female presenting with weakness. TECHNIQUE: Portable upright AP view of the chest was obtained. COMPARISON: 07/17/2018. FINDINGS: Left subclavian pacer with leads to the right atrium and right ventricular apex. Median sternotomy wires. Calcified left hilar lymphadenopathy. Atherosclerosis of the aortic arch. Cardiac silhouette mildly enlarged. Mild pulmonary vascular prominence. Mild bronchial wall thickening and vague perihilar opacity. Mildly low lung volumes as on prior exam. Minimal left basilar opacity. Trace pleural effusions may be present. No large pneumothorax. Degenerative changes of the thoracic spine. Upper abdomen normal. IMPRESSION: 1. Cardiomegaly with mild volume overload and congestive change. No lissy pulmonary edema. 2. Suspected left basilar atelectasis versus developing edema. 3. Trace pleural effusions may be present. 4. Evidence of old granulomatous disease. Electronically signed by: Dick Massey M.D. 02/20/2019 4:44 PM ECG Data Attestation: I personally reviewed and interpreted this ECG as follows: Indication: SOB/dyspnea Rate (beats per minute): 120 Rhythm: atrial fibrillation (with RVR) Findings: + other (Prolonged QT. ); no ST depression and no ST elevation Blood Pressure Blood Pressure Findings: Elevated blood pressure Blood Pressure Disposition: further management by hospitalist MDM Narrative This is a 69-year-old female who presents emergency department complaining of A. fib with RVR. The patient is on metoprolol at home therefore was given multiple metoprolol.boluses here in the emergency department. She was discussed with the hospitalist service who decided to admit her to the hospital. Hemoglobin was found to be 10.2 and her INR was 2.6. She is slightly dehydrated. She was given a normal saline bolus. Impression & Plan Atrial fibrillation with RVR, Shortness of breath Critical Care Time Prolonged Care Time I have personally spent greater than 30 minutes of critical care time in the direct management of this patient. This includes bedside care, interpretation of diagnostic studies, and testing, discussion with consultants, patient, and family members, and other required patient management activities. This 30 minutes is in excess of all separately billable procedures. Discharge Plan Visit Data *Final* Discharge Date/Time: 02/20/19 22:00 Chief Complaint: Arrhythmia/Palpitations Stated Complaint: SOB,AFIB W RVR,DIZZINESS,WEIGH GAIN,HYPOTENSION ED Provider: Fly Chaudhary Discharge Problem: Atrial fibrillation with RVR, Shortness of breath Patient Disposition: Admitted As Inpatient Discharge Instructions Interventions: ED Discharge Assessment Last Done: 02/20/19 22:00 The scribe's documentation has been prepared under my direction and personally reviewed by me in its entirety. I confirm that the note above accurately reflects all work, treatment, procedures, and medical decision making performed by me.
[2019-02-21 06:00] LABS: Basophils # (auto) 0.32 K/uL (0-0.2); Basophils % (auto) 3.9 %; Eosinophils # (auto) 0.79 K/uL (0-0.5); Eosinophils % (auto) 9.7 %; Hematocrit (blood only) 26.9 % (37-47); Hemoglobin 8.3 g/dL (12.0-16.0); Immature Granulocytes # (auto) 0.01 K/uL (0.00-0.02); Immature Granulocytes % (auto) 0.1 %; Lymphocytes # (auto) 3.02 K/uL (1.2-3.4); Mean Corpuscular Hemoglobin 26.2 pg (25-34); Mean Corpuscular Hgb Conc 30.9 g/dL (32-36); Mean Corpuscular Volume 84.9 fL (80-100); Mean Platelet Volume 11.3 fL (7.4-10.4); Monocytes # (auto) 1.08 K/uL (0.11-0.59); Monocytes % (auto) 13.2 %; Neutrophils # (auto) 2.95 K/uL (1.4-6.5); Neutrophils % (auto) 36.1 %; Platelet Count 316 K/uL (130-400); RDW Coefficient of Variation 16.9 % (11.5-14.5); RDW Standard Deviation 52.3 fL (36.4-46.3); Red Blood Count 3.17 M/uL (4.2-5.4); White Blood Count 8.17 K/uL (4.8-10.8)
[2019-02-21 06:11] LABS: INR 2.2 (0.9-1.1); Prothrombin Time 21.2 Seconds (9.0-12.0)
[2019-02-21 06:30] LABS: BUN Creatinine Ratio 32.1 (10-20); Blood Urea Nitrogen 28 mg/dl (7-18); Calcium 7.8 mg/dl (8.5-10.1); Carbon Dioxide 24 mmol/L (21-32); Chloride 116 mmol/L (98-107); Creatinine Clr Calc Pharmacy 73.8 ml/min; Est GFR (African American) 79.9; Est GFR (Non-African American) 68.9; Glucose 86 mg/dl (70-99); Potassium 3.7 mmol/L (3.5-5.1); Sodium 145 mmol/L (136-145)
[2019-02-21 06:34] LABS: Troponin I < 0.015 ng/ml (0-0.045)
[2019-02-21] MEDS: POTASSIUM CHLORIDE 10 MEQ TABCR PO SCH ×2 (08:33→20:05)
[2019-02-21] MEDS: FERROUS SULFATE 325 MG TAB PO SCH ×2 (08:33→20:04)
[2019-02-21] MEDS: MULTIVITAMIN TAB PO SCH (08:33)
[2019-02-21] MEDS: METOPROLOL TARTRATE 50 MG TAB PO SCH ×2 (08:34→20:06)
[2019-02-21] MEDS: FUROSEMIDE 40 MG in SYRINGE 0 ML IV SCH ×2 (08:35→16:52)
[2019-02-21] MEDS: LACTULOSE SYRUP 20 GM/30 ML UDC PO SCH ×2 (08:35→19:59)
--- NOTE | 2019-02-21 08:47 | Cardiology Consultation ---
Date of Consultation February 21, 2019 Assessment & Plan (1) Acute diastolic HF (heart failure): Continue IV diuresis today. Monitor I+O's Low sodium diet Resume oral lasix on discharge. Patient non compliant with home dose. Compliance encouraged. (2) Atrial fibrillation with RVR: Metoprolol dose reduced on admission due to hypotension. Currently tolerating metoprolol 50 mg BID add digoxin 125 mcg daily. Received several IV doses on admission for load. Previously intolerant of cardizem or other CCB due to worsening LE edema. Borderline prolonged QT, would not tolerate amidoarone or sotalol. (3) Anemia: Hbg stable at 8.3. No evidence of acute GI bleed patient notn compliant with oral iron supplement to be scheduled for IV iron infusion per GI outpatient notes. (4) Pacemaker: Appropriate function and battery longevity per interrogation yesterday. Case discussed with Dr. Kraft. Overall symptoms improving with IV diuresis and afib rates improving with medication management. Non compliance likely contributing to her current issues. Likely discharge in 1-2 days. Supervising Physician Co-Signing Physician Notes Patient seen and examined with Fifi Rocha PA-C. Agree with findings and assessment as above. Pt noncompliant with oral diuretics with resultant decompensation. Clinically improving with IV diuresis. Unfortunately, afib with RVR persists. BP borderline and not tolerant of increased beta kike dose. Hx of intolerance to CCB. Digoxin as per above. Prolonged QT interval, not an antiarrhythmic candidate. Compliance encouraged. General: Awake, alert and oriented x 3. No acute distress. HEENT: Normocephalic, atraumatic. Pupils equal, round and reactive to light and accommodation. Extraocular muscles are intact. Anicteric sclera. Moist mucous membranes. Neck: No JVD. No bruit. Cardiovascular: irregularly irregular, unable to appreciate murmur, rub or gallop. Pulmonary: Clear to auscultation bilaterally. No rales, rhonchi, or wheezing. Abdomen: Bowel sounds x 4, soft. No rebound, guarding or tenderness. No organomegaly. Extremities: No clubbing, cyanosis or edema. +2 pedal pulses bilaterally. Skin: Warm and dry. History of Present Illness Reason for Consultation: CHF; Afib RVR Requesting Physician: Dr. Lr Attending Physician: Dr. Laly Kraft History of Present Illness Patient is a 69-year-old female well-known to [facility] cardiology. Sent from cardiology office yesterday for complaints of dizziness, SOB, 20 lb weight gain and findings of afib RVR, hypotension and signfiicant volume overload on exam. 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 Prior ischemic work up resulted in abnormal stress, with Subsequent diagnostic cardiac catheterization performed in [facility] on 10/23/17 which demonstrated normal coronary arteries. Right sided heart cath also completed due to symptoms of dyspnea and mildly elevated pulmonary pressures and LVEDP noted. In June 2018, patient was admitted to with possible GI bleed with INR greater than 8. Coumadin held and vitamin K initiated. She was found to have a clean ulceration in the gastric pouch. Hemoglobin improved without transfusion and she was restarted on her Coumadin on discharge. She was previously on Cardizem, but discontinued due to LE edema. On admission, patient was treated with IV lasix, IV metoprolol and IV digoxin to aid with her elevated HR's. Cardiac enzymes negative. ELevated BNP noted with pulm congestion on xray. she diuresed overnight signfiant amounts. weight down. Edema improving. at time of consult, patient resting in bed comfortably. SOB improving. Abdominal bloating improving. Edema improving. HR's trending down. No dizziness. BP borderline. Allergies Allergy/AdvReac Type Severity Reaction Status Date / Time Quinolones Allergy Unknown LOCAL Verified 02/20/19 16:43 REACTION TO LEVAQUIN codeine AdvReac Unknown VOMITING Verified 02/20/19 16:43 nickel AdvReac Redness of Verified 02/20/19 16:43 Skin Home Medications Home Medications Medication Instructions Recorded Confirmed Type acetaminophen [Tylenol Extra 500 mg PO Q6H PRN 06/15/18 02/20/19 History Strength] ferrous sulfate 325 mg PO BID 06/15/18 02/20/19 History lactulose 30 ml PO BID 06/15/18 02/20/19 History metoprolol tartrate 50 mg PO BID 06/15/18 02/20/19 History multivitamin [Multiple Vitamins] 1 tab PO DAILY 06/15/18 02/20/19 History nitroglycerin [Nitrostat] 0.4 mg SUBLINGUAL UD 06/15/18 02/20/19 History warfarin 2 mg PO 2XWK 02/20/19 02/20/19 History warfarin 4 mg PO 5XWK 02/20/19 02/20/19 History Patient History Medical History UGIB (upper gastrointestinal bleed) Atrial fibrillation with RVR DVT (deep venous thrombosis) Pacemaker [employer]. Placed for tachy-kaz syndrome Anemia CVA (cerebral vascular accident) Patient denies states she had metabolic encephalopathy from elevated ammonia levels. Cirrhosis (Chronic) NAFLD Esophageal varices Surgical History H/O gastric bypass History of esophagogastroduodenoscopy (EGD) Social History Preferred Language: Samoan Communication Ability: Effective Visual Impairment: No Limitations Hearing Ability: Normal Cook Soup Required: No Beliefs That Will Affect Care: None marital status: / Current Living Situation: Alone Feels Safe at Home: Yes Safety Concerns: Feels Safe At This Time Smoking Status: Smoker, status unknown Hx Alcohol Use: Yes ("once in a while") Alcohol type: beer Hx Substance Use: No Review of Systems Review of Systems: All systems reviewed & are unremarkable except as noted in HPI & below Physical Exam Constitutional: WD/WN, vitals as above + obese; no acute distress Respiratory: normal respiratory effort Auscultation: + rales (bases b/l); no diminished lung sounds Cardiovascular: Rate/Rhythm: + tachycardic and + irregularly irregular Heart Sounds: + murmur (II/ systolic murmur) Extremities: + edema (trace pretibial and 1+ ankle b/l) Gastrointestinal (Abdomen): normal bowel sounds, soft, nontender, no hepatosplenomegaly Psychiatric: A+Ox3, euthymic affect Results & Data Vital Signs (Past 12 Hours) Vital Signs Temp Pulse Pulse Resp BP BP BP 02/21/19 03:29 36.6 C 98 H 19 150/68 H 02/20/19 23:36 36.6 C 91 H 20 113/73 02/20/19 23:30 102 H 02/20/19 22:41 02/20/19 22:21 36.4 C L 23 105/69 02/20/19 22:00 103 H 14 126/80 02/20/19 21:50 96 H 20 02/20/19 21:40 115 H 19 02/20/19 21:30 95 H 19 132/90 02/20/19 21:20 118 H 17 02/20/19 21:10 93 H 23 02/20/19 21:00 124 H 26 H 134/90 02/20/19 20:55 87 21 126/82 02/20/19 20:54 123 H 02/20/19 20:50 111 H 21 Pulse Ox Pulse Ox 02/21/19 03:29 92 02/20/19 23:36 99 02/20/19 23:30 02/20/19 22:41 96 02/20/19 22:21 97 02/20/19 22:00 97 02/20/19 21:50 98 02/20/19 21:40 97 02/20/19 21:30 97 02/20/19 21:20 98 02/20/19 21:10 98 02/20/19 21:00 98 02/20/19 20:55 97 02/20/19 20:54 02/20/19 20:50 96 Laboratory Results 02/21/19 02/21/19 02/21/19 Range/Units 05:32 05:32 05:32 WBC 8.17 (4.8-10.8) K/uL RBC 3.17 L (4.2-5.4) M/uL Hgb 8.3 L (12.0-16.0) g/dL Hct 26.9 L (37-47) % MCV 84.9 (80-100) fL MCH 26.2 (25-34) pg MCHC 30.9 L (32-36) g/dL RDW Std Deviation 52.3 H (36.4-46.3) fL RDW Coeff of Dayne 16.9 H (11.5-14.5) % Plt Count 316 (130-400) K/uL MPV 11.3 H (7.4-10.4) fL Immature Gran % (Auto) 0.1 % Neut % (Auto) 36.1 % Lymph % (Auto) 37.0 % Burt % (Auto) 13.2 % Eos % (Auto) 9.7 % Baso % (Auto) 3.9 % Immature Gran # (Auto) 0.01 (0.00-0.02) K/uL Neut # (Auto) 2.95 (1.4-6.5) K/uL Lymph # (Auto) 3.02 (1.2-3.4) K/uL Burt # (Auto) 1.08 H (0.11-0.59) K/uL Eos # (Auto) 0.79 H (0-0.5) K/uL Baso # (Auto) 0.32 H (0-0.2) K/uL PT 21.2 H (9.0-12.0) Seconds INR 2.2 H (0.9-1.1) Sodium 145 (136-145) mmol/L Potassium 3.7 (3.5-5.1) mmol/L Chloride 116 H (98-107) mmol/L Carbon Dioxide 24 (21-32) mmol/L Anion Gap 5.0 (3-11) BUN 28 H (7-18) mg/dl Creatinine 0.87 (0.6-1.2) mg/dl Est Cr Clr Drug Dosing 73.8 Est GFR ( Amer) 79.9 Est GFR (Non-Af Amer) 68.9 BUN/Creatinine Ratio 32.1 H (10-20) Glucose 86 (70-99) mg/dl Calcium 7.8 L (8.5-10.1) mg/dl Total Bilirubin (0.2-1) mg/dl AST (15-37) U/L ALT (12-78) U/L Alkaline Phosphatase (45-117) U/L Ammonia (11-32) umol/L Total Creatine Kinase (26-192) U/L CK-MB (CK-2) (0.5-3.6) ng/ml CK/CKMB % Calc (0-3.0) Troponin I < 0.015 (0-0.045) ng/ml NT-Pro-B Natriuret Pep (0-900) pg/ml Total Protein (6.4-8.2) gm/dl Albumin (3.4-5.0) gm/dl Globulin (2.5-4.0) gm/dl Albumin/Globulin Ratio (0.9-2) TSH (0.300-4.500) uIu/ml 02/20/19 02/20/19 02/20/19 Range/Units 18:10 17:19 17:19 WBC (4.8-10.8) K/uL RBC (4.2-5.4) M/uL Hgb (12.0-16.0) g/dL Hct (37-47) % MCV (80-100) fL MCH (25-34) pg MCHC (32-36) g/dL RDW Std Deviation (36.4-46.3) fL RDW Coeff of Dayne (11.5-14.5) % Plt Count (130-400) K/uL MPV (7.4-10.4) fL Immature Gran % (Auto) % Neut % (Auto) % Lymph % (Auto) % [place] % (Auto) % Eos % (Auto) % Baso % (Auto) % Immature Gran # (Auto) (0.00-0.02) K/uL Neut # (Auto) (1.4-6.5) K/uL Lymph # (Auto) (1.2-3.4) K/uL Burt # (Auto) (0.11-0.59) K/uL Eos # (Auto) (0-0.5) K/uL Baso # (Auto) (0-0.2) K/uL PT 20.9 H (9.0-12.0) Seconds INR 2.2 H (0.9-1.1) Sodium (136-145) mmol/L Potassium (3.5-5.1) mmol/L Chloride (98-107) mmol/L Carbon Dioxide (21-32) mmol/L Anion Gap (3-11) BUN (7-18) mg/dl Creatinine (0.6-1.2) mg/dl Est Cr Clr Drug Dosing Est GFR ( Amer) Est GFR (Non-Af Amer) BUN/Creatinine Ratio (10-20) Glucose (70-99) mg/dl Calcium (8.5-10.1) mg/dl Total Bilirubin (0.2-1) mg/dl AST (15-37) U/L ALT (12-78) U/L Alkaline Phosphatase (45-117) U/L Ammonia 22.0 (11-32) umol/L Total Creatine Kinase (26-192) U/L CK-MB (CK-2) (0.5-3.6) ng/ml CK/CKMB % Calc (0-3.0) Troponin I (0-0.045) ng/ml NT-Pro-B Natriuret Pep 3564 H (0-900) pg/ml Total Protein (6.4-8.2) gm/dl Albumin (3.4-5.0) gm/dl Globulin (2.5-4.0) gm/dl Albumin/Globulin Ratio (0.9-2) TSH (0.300-4.500) uIu/ml 02/20/19 02/20/19 Range/Units 17:19 17:19 WBC 8.12 (4.8-10.8) K/uL RBC 3.77 L (4.2-5.4) M/uL Hgb 9.7 L (12.0-16.0) g/dL Hct 32.6 L (37-47) % MCV 86.5 (80-100) fL MCH 25.7 (25-34) pg MCHC 29.8 L (32-36) g/dL RDW Std Deviation 52.9 H (36.4-46.3) fL RDW Coeff of Dayne 16.8 H (11.5-14.5) % Plt Count 343 (130-400) K/uL MPV 12.3 H (7.4-10.4) fL Immature Gran % (Auto) 0.1 % Neut % (Auto) 46.2 % Lymph % (Auto) 33.9 % Burt % (Auto) 12.1 % Eos % (Auto) 3.9 % Baso % (Auto) 3.8 % Immature Gran # (Auto) 0.01 (0.00-0.02) K/uL Neut # (Auto) 3.75 (1.4-6.5) K/uL Lymph # (Auto) 2.75 (1.2-3.4) K/uL Burt # (Auto) 0.98 H (0.11-0.59) K/uL Eos # (Auto) 0.32 (0-0.5) K/uL Baso # (Auto) 0.31 H (0-0.2) K/uL PT (9.0-12.0) Seconds INR (0.9-1.1) Sodium 144 (136-145) mmol/L Potassium 4.1 (3.5-5.1) mmol/L Chloride 116 H (98-107) mmol/L Carbon Dioxide 19 L (21-32) mmol/L Anion Gap 9.0 (3-11) BUN 27 H (7-18) mg/dl Creatinine 1.07 (0.6-1.2) mg/dl Est Cr Clr Drug Dosing Not Reportable Est GFR ( Amer) 62.2 Est GFR (Non-Af Amer) 53.7 BUN/Creatinine Ratio 25.0 H (10-20) Glucose 79 (70-99) mg/dl Calcium 8.7 (8.5-10.1) mg/dl Total Bilirubin 0.7 (0.2-1) mg/dl AST 25 (15-37) U/L ALT 25 (12-78) U/L Alkaline Phosphatase 100 (45-117) U/L Ammonia (11-32) umol/L Total Creatine Kinase 74 (26-192) U/L CK-MB (CK-2) 1.2 (0.5-3.6) ng/ml CK/CKMB % Calc 1.6 (0-3.0) Troponin I < 0.015 (0-0.045) ng/ml NT-Pro-B Natriuret Pep (0-900) pg/ml Total Protein 6.4 (6.4-8.2) gm/dl Albumin 2.9 L (3.4-5.0) gm/dl Globulin 3.5 (2.5-4.0) gm/dl Albumin/Globulin Ratio 0.8 L (0.9-2) TSH 3.400 (0.300-4.500) uIu/ml Diagnostic Findings EKG on arrival to ER dated February 20, 2019: Atrial fibrillation with rapid ventricular response Nonspecific T wave abnormality Prolonged QT Abnormal ECG When compared with ECG of 15-JUL-2018 12:33, T wave inversion now evident in Inferior leads T wave inversion no longer evident in Lateral leads 378/534 Repeat EKG this morning on February 21, 2019: Atrial fibrillation with rapid ventricular response Nonspecific ST and T wave abnormality Abnormal ECG When compared with ECG of 20-FEB-2019 16:13, (unconfirmed) Nonspecific T wave abnormality no longer evident in Anterior leads QT/QTc 356/490 ms Chest x-ray report reviewed on admission: MPRESSION: 1. Cardiomegaly with mild volume overload and congestive change. No lissy pulmonary edema. 2. Suspected left basilar atelectasis versus developing edema. 3. Trace pleural effusions may be present. 4. Evidence of old granulomatous disease. Pacemaker interrogation completed yesterday during cardiology office visit demonstrated appropriate battery longevity and function. Thresholds unable to be performed due to A. fib RVR. 4 epsidoes of A. fib RVR reported over the last 3 months. 1.3% burden 2D echocardiogram report reviewed dated July 2018: Small/underfilled LV chamber size with mild LVH. Hyperdynamic LV systolic function with ejection fraction greater than 70%. No segmental left ventricular wall motion abnormal knees are noted. Normal RV chamber size with reduced systolic function. Aortic valve sclerosis mild without significant aortic valvular stenosis. Moderate left atrial appendage. (1) Anemia Anemia type: unspecified type Qualified Code(s): D64.9 - Anemia, unspecified
[2019-02-21] MEDS: DIGOXIN 0.125 MG TAB PO SCH (10:55)
--- NOTE | 2019-02-21 18:08 | Hospitalist Progress Note ---
Date of Service February 21, 2019 Assessment & Plan (1) Acute diastolic HF (heart failure): Acute on chronic diastolic congestive heart failure Likely secondary to dietary discretion, non-adherence with medications Improving Continue Lasix IV Monitor I's and O's Cardiology service consulted, appreciate recommendations Chronic atrial fibrillation in RVR Digoxin p.o. started Continue metoprolol INR therapeutic, continue Coumadin Chronic anemia Hemoglobin baseline around 9, 8.3 today Denies bleeding Continue to monitor History of SSS sp PPM past hx DVT/portal vein thrombosis: On Coumadin hypertension: Monitor history CVA chronic Coumadin NAFLD cirrhosis, no overt decompensation except fluid retention from CHF history of esophageal varices ongoing tobacco abuse: Counseling DVT prophylaxis INR therapeutic, Coumadin Disposition Lives with family at home Will need PT and OT PCU Diuretic Rx Strict I/Os, daily weights, CHF education, fluid restriction Cardiology consult RE decompensated CHF Continue home beta-kike Rx for A. fib, may need dose titration if BP permits; Digoxin as needed for rate control given borderline BP Nicotine replacement therapy PRN DVT prophylaxis Coumadin INR goal between 2 and 3 Full code Subjective Follow-up for acute diastolic CHF exacerbation, atrial fibrillation with RVR Seen resting in bed, comfortable, not in distress States she feels improved compared to yesterday although feels very tired Denies shortness of breath, chest pain no palpitations, dizziness No melena, hematochezia, abdominal pain, nausea No other signs of bleeding Denies other symptoms Review of Systems Review of Systems: All systems reviewed & are unremarkable except as noted in HPI & below Physical Exam Physical Exam: General- oriented x 3, not in distress, speaks in sentences with no effort or accessory muscle use Head- atraumatic Eyes- PERRL, EOMI, anicteric ENT- oropharynx clear Neck- supple, positive mild JVD, no adenopathy, no thyromegaly; carotids +2/2, no bruits appreciated Lungs-mild rales bilaterally, diabetes, no wheezing, good air entry bilaterally Heart- normal rate, regular rhythm; no murmur, no gallop, no rub appreciated Abdomen- normal bowel sounds, nondistended, soft, nontender, no masses or hepatosplenomegaly Extremities- no pretibial edema, no calf tenderness; peripheral pulses intact Neuro- alert, oriented x 3; CN 2-12 grossly intact; motor 5/5 bilaterally;sensation 100% on all extremities; no other gross focal neurologic deficits Skin- warm & dry Results & Data Vital Signs (Past 12 Hours) Vital Signs Temp Pulse Pulse Resp BP BP Pulse Ox 02/21/19 16:00 88 02/21/19 15:00 36.5 C 82 20 104/72 95 02/21/19 11:00 36.7 C 93 H 16 109/75 95 02/21/19 10:55 88 02/21/19 09:19 37.3 C 74 16 97/62 L 95 02/21/19 08:00 Pulse Ox 02/21/19 16:00 02/21/19 15:00 02/21/19 11:00 02/21/19 10:55 02/21/19 09:19 02/21/19 08:00 96 Laboratory Results Laboratory Results - last 24 hr 02/20/19 02/20/19 02/21/19 17:19 18:10 05:32 WBC 8.17 RBC 3.17 L Hgb 8.3 L Hct 26.9 L MCV 84.9 MCH 26.2 MCHC 30.9 L RDW Std Deviation 52.3 H RDW Coeff of Dayne 16.9 H Plt Count 316 MPV 11.3 H Immature Gran % (Auto) 0.1 Neut % (Auto) 36.1 Lymph % (Auto) 37.0 [place] % (Auto) 13.2 Eos % (Auto) 9.7 Baso % (Auto) 3.9 Immature Gran # (Auto) 0.01 Neut # (Auto) 2.95 Lymph # (Auto) 3.02 [place] # (Auto) 1.08 H Eos # (Auto) 0.79 H Baso # (Auto) 0.32 H PT 20.9 H INR 2.2 H Sodium Potassium Chloride Carbon Dioxide Anion Gap BUN Creatinine Est Cr Clr Drug Dosing Est GFR ( Amer) Est GFR (Non-Af Amer) BUN/Creatinine Ratio Glucose Calcium Troponin I NT-Pro-B Natriuret Pep 3564 H 02/21/19 02/21/19 05:32 05:32 WBC RBC Hgb Hct MCV MCH MCHC RDW Std Deviation RDW Coeff of Dayne Plt Count MPV Immature Gran % (Auto) Neut % (Auto) Lymph % (Auto) [place] % (Auto) Eos % (Auto) Baso % (Auto) Immature Gran # (Auto) Neut # (Auto) Lymph # (Auto) [place] # (Auto) Eos # (Auto) Baso # (Auto) PT 21.2 H INR 2.2 H Sodium 145 Potassium 3.7 Chloride 116 H Carbon Dioxide 24 Anion Gap 5.0 BUN 28 H Creatinine 0.87 Est Cr Clr Drug Dosing 73.8 Est GFR ( Amer) 79.9 Est GFR (Non-Af Amer) 68.9 BUN/Creatinine Ratio 32.1 H Glucose 86 Calcium 7.8 L Troponin I < 0.015 NT-Pro-B Natriuret Pep
[2019-02-21] MEDS: WARFARIN SOD 6 MG TAB PO SCH (18:51)
[2019-02-21] MEDS: TRAMADOL HCL 50 MG TABLET PO PRN (22:39)
[2019-02-22] MEDS ORDERED: LORazepam 0.5 MG TAB PO STA (01:27)
[2019-02-22] MEDS: LACTULOSE SYRUP 20 GM/30 ML UDC PO SCH ×2 (09:58→19:45)
[2019-02-22] MEDS: POTASSIUM CHLORIDE 10 MEQ TABCR PO SCH ×2 (10:04→19:38)
[2019-02-22] MEDS: MULTIVITAMIN TAB PO SCH (10:05)
[2019-02-22] MEDS: METOPROLOL TARTRATE 50 MG TAB PO SCH ×2 (10:05→19:39)
[2019-02-22] MEDS: FERROUS SULFATE 325 MG TAB PO SCH ×2 (10:05→19:39)
[2019-02-22 11:01] LABS: Basophils # (auto) 0.26 K/uL (0-0.2); Basophils % (auto) 4.2 %; Eosinophils # (auto) 0.33 K/uL (0-0.5); Eosinophils % (auto) 5.4 %; Hematocrit (blood only) 28.4 % (37-47); Hemoglobin 8.6 g/dL (12.0-16.0); Lymphocytes # (auto) 2.01 K/uL (1.2-3.4); Lymphocytes % (auto) 32.6 %; Mean Corpuscular Hemoglobin 25.7 pg (25-34); Mean Corpuscular Hgb Conc 30.3 g/dL (32-36); Mean Corpuscular Volume 84.8 fL (80-100); Mean Platelet Volume 11.1 fL (7.4-10.4); Monocytes # (auto) 1.14 K/uL (0.11-0.59); Monocytes % (auto) 18.5 %; Neutrophils # (auto) 2.42 K/uL (1.4-6.5); Neutrophils % (auto) 39.3 %; Nucleated RBC # (auto) 0.03 K/uL (0-0); Nucleated RBC % (auto) 0.5 %; Platelet Count 334 K/uL (130-400); RDW Standard Deviation 52.5 fL (36.4-46.3); Red Blood Count 3.35 M/uL (4.2-5.4); White Blood Count 6.16 K/uL (4.8-10.8)
--- NOTE | 2019-02-22 11:07 | Cardiology Progress Note ---
Date of Service February 22, 2019 Assessment & Plan (1) Acute diastolic HF (heart failure): (2) Atrial fibrillation with RVR: (3) Anemia: (4) Pacemaker: I would continue the IV diuretics through today. I think the patient still is volume overloaded. Labs are still pending. Subjective Patient indicates that she feels much improved since admission. Review of Systems Review of Systems: All systems reviewed & are unremarkable except as noted in HPI & below Nothing additional Physical Exam Physical Exam: General: no acute distress and stated age Head: normocephalic, no masses, lesions, tenderness or abnormalities Eyes: conjunctiva are pink and non-injected, sclera clear Neck: supple, no adenopathy, no bruits, normal jugular venous pulse, no hepatojugular reflux Chest: normal shape and normal respiratory effort Lungs: clear to auscultation and percussion Cardiac Exam: - regular rate & rhythm, no murmurs gallops or rubs - normal S1, normal S2 Pulses: 2(+) throughout Abdomen: abdomen soft, non-tender, no abnormal masses and no hepatosplenomegaly Musculoskeletal: no gait disturbance, no joint inflammation, no deforming arthritis Extremities: Minimal edema in the calfs Neuro: grossly normal exam Results & Data Vital Signs (Past 12 Hours) Vital Signs Temp Pulse Resp BP Pulse Ox 02/22/19 05:58 36.6 C 78 14 90/61 L 97 02/22/19 05:15 36.9 C 84 14 83/50 L 95 02/21/19 23:15 36.8 C 85 18 109/75 95 Laboratory Results Laboratory Results - last 24 hr 02/22/19 02/22/19 02/22/19 10:43 10:43 10:43 WBC 6.16 RBC 3.35 L Hgb 8.6 L Hct 28.4 L MCV 84.8 MCH 25.7 MCHC 30.3 L RDW Std Deviation 52.5 H RDW Coeff of Dayne 17.0 H Plt Count 334 MPV 11.1 H Immature Gran % (Auto) 0.0 Neut % (Auto) 39.3 Lymph % (Auto) 32.6 [place] % (Auto) 18.5 Eos % (Auto) 5.4 Baso % (Auto) 4.2 Immature Gran # (Auto) 0.00 Neut # (Auto) 2.42 Lymph # (Auto) 2.01 [place] # (Auto) 1.14 H Eos # (Auto) 0.33 Baso # (Auto) 0.26 H Absolute Nucleated RBC 0.03 H Nucleated RBC % (auto) 0.5 PT Pending INR Pending Sodium Pending Potassium Pending Chloride Pending Carbon Dioxide Pending Anion Gap Pending BUN Pending Creatinine Pending Est Cr Clr Drug Dosing Pending Est GFR ( Amer) Pending Est GFR (Non-Af Amer) Pending BUN/Creatinine Ratio Pending Glucose Pending Calcium Pending Medications Administered Current Inpatient Medications Acetaminophen (Tylenol) 325 mg PO Q6H PRN PRN Reason: Pain or Fever Stop: 03/22/19 22:40 Digoxin (Lanoxin) 0.125 mg PO DAILY@1600 [facility] Stop: 03/23/19 09:59 Last Admin: 02/21/19 10:55 Dose: 0.125 mg Documented by: Ferrous Sulfate (Feosol) 325 mg PO BID [facility] Stop: 03/23/19 08:59 Last Admin: 02/22/19 10:05 Dose: 325 mg Documented by: Promethazine HCl 12.5 mg/ (Sodium Chloride) 50.5 mls @ 202 mls/hr IV Q6H PRN PRN Reason: Nausea And Vomiting Stop: 03/22/19 22:40 Lactulose (Chronulac) 30 gm PO BID [facility] Stop: 03/22/19 22:40 Last Admin: 02/22/19 09:58 Dose: Not Given Documented by: Metoprolol Tartrate (Lopressor) 50 mg PO BID [facility] Stop: 03/23/19 07:44 Last Admin: 02/22/19 10:05 Dose: Not Given Documented by: Multivitamins (Multivitamin Tab) 1 tab PO DAILY [facility] Stop: 03/23/19 08:59 Last Admin: 02/22/19 10:05 Dose: 1 tab Documented by: Nitroglycerin (Nitrostat) 0.4 mg SL UD PRN PRN Reason: Chest Pain Stop: 03/22/19 22:40 Potassium Chloride (Klor-Con M10) 20 meq PO BID [facility] Stop: 03/23/19 08:59 Last Admin: 02/22/19 10:04 Dose: 20 meq Documented by: Tramadol HCl (Ultram) 25 mg PO Q4H PRN PRN Reason: Pain Stop: 03/22/19 22:40 Last Admin: 02/21/19 22:39 Dose: 25 mg Documented by: Warfarin Sodium (Coumadin) 6 mg PO MoWeFr@1600 [facility] Stop: 03/23/19 18:29 Last Admin: 02/21/19 18:51 Dose: 6 mg Documented by: Warfarin Sodium (Coumadin) 4 mg PO SuTuThSa@1600 [facility] Stop: 03/24/19 15:59 (1) Anemia Anemia type: unspecified type Qualified Code(s): D64.9 - Anemia, unspecified
[2019-02-22 11:10] LABS: INR 2.1 (0.9-1.1); Prothrombin Time 20.7 Seconds (9.0-12.0)
[2019-02-22 11:28] LABS: BUN Creatinine Ratio 26.9 (10-20); Calcium 8.1 mg/dl (8.5-10.1); Creatinine Clr Calc Pharmacy 63.3 ml/min; Est GFR (African American) 67.5; Est GFR (Non-African American) 58.3; Potassium 3.8 mmol/L (3.5-5.1)
[2019-02-22] MEDS: DIGOXIN 0.125 MG TAB PO SCH (16:53)
[2019-02-22] MEDS: WARFARIN SOD 4 MG TAB PO SCH (16:53)
--- NOTE | 2019-02-22 17:50 | Hospitalist Progress Note ---
Date of Service February 22, 2019 Assessment & Plan (1) Acute diastolic HF (heart failure): Acute on chronic diastolic congestive heart failure Likely secondary to dietary discretion, non-adherence with medications -6 L so far Continue Lasix IV, monitor blood pressure Monitor I's and O's Cardiology service consulted, appreciate recommendations Chronic atrial fibrillation in RVR Rate controlled Digoxin p.o. started Continue metoprolol INR therapeutic, continue Coumadin Chronic anemia Hemoglobin baseline around 9, table 8 Denies bleeding Continue to monitor History of SSS sp PPM past hx DVT/portal vein thrombosis: On Coumadin hypertension: Monitor history CVA: On chronic Coumadin NAFLD cirrhosis, no overt decompensation except fluid retention from CHF history of esophageal varices ongoing tobacco abuse: Counseling DVT prophylaxis INR therapeutic, Coumadin Disposition Lives with family at home Will need PT and OT PCU Diuretic Rx Strict I/Os, daily weights, CHF education, fluid restriction Cardiology consult RE decompensated CHF Continue home beta-kike Rx for A. fib, may need dose titration if BP permits; Digoxin as needed for rate control given borderline BP Nicotine replacement therapy PRN DVT prophylaxis Coumadin INR goal between 2 and 3 Full code Subjective Follow-up for acute CHF Seen resting in bed, comfortable, not in distress States she feels improved compared to yesterday No dyspnea, no chest pain Still reports leg swelling Denies other symptoms Review of Systems Review of Systems: All systems reviewed & are unremarkable except as noted in HPI & below Physical Exam Physical Exam: General- oriented x 3, not in distress, speaks in sentences with no effort or accessory muscle use Eyes- anicteric Neck- no JVD Lungs-faint rales at the bases, no wheezing, good air entry bilaterally Heart- normal rate, regular rhythm; no murmurs Abdomen- normal bowel sounds, nondistended, soft, nontender Extremities-mild lower leg edema, no calf tenderness Neuro- alert, oriented x 3; no gross focal neurologic deficits Skin- warm & dry Results & Data Vital Signs (Past 12 Hours) Vital Signs Temp Pulse Pulse Resp BP BP Pulse Ox 02/22/19 16:53 88 02/22/19 15:22 37.1 C 61 18 115/76 96 02/22/19 11:14 36.3 C L 91 H 16 101/60 96 02/22/19 05:58 36.6 C 78 14 90/61 L 97 Laboratory Results Laboratory Results - last 24 hr 02/22/19 02/22/19 02/22/19 10:43 10:43 10:43 WBC 6.16 RBC 3.35 L Hgb 8.6 L Hct 28.4 L MCV 84.8 MCH 25.7 MCHC 30.3 L RDW Std Deviation 52.5 H RDW Coeff of Dayne 17.0 H Plt Count 334 MPV 11.1 H Immature Gran % (Auto) 0.0 Neut % (Auto) 39.3 Lymph % (Auto) 32.6 [place] % (Auto) 18.5 Eos % (Auto) 5.4 Baso % (Auto) 4.2 Immature Gran # (Auto) 0.00 Neut # (Auto) 2.42 Lymph # (Auto) 2.01 [place] # (Auto) 1.14 H Eos # (Auto) 0.33 Baso # (Auto) 0.26 H Absolute Nucleated RBC 0.03 H Nucleated RBC % (auto) 0.5 PT 20.7 H INR 2.1 H Sodium 143 Potassium 3.8 Chloride 112 H Carbon Dioxide 25 Anion Gap 6.0 BUN 27 H Creatinine 1.00 Est Cr Clr Drug Dosing 63.3 Est GFR ( Amer) 67.5 Est GFR (Non-Af Amer) 58.3 BUN/Creatinine Ratio 26.9 H Glucose 67 L Calcium 8.1 L
[2019-02-22] MEDS ORDERED: FUROSEMIDE 40 MG in SYRINGE 0 ML IV SCH (18:00)
[2019-02-23] MEDS ORDERED: ALBUMIN 25% 50 ML IV ONE (05:10)
[2019-02-23 06:05] LABS: Basophils # (auto) 0.28 K/uL (0-0.2); Basophils % (auto) 3.9 %; Eosinophils # (auto) 0.58 K/uL (0-0.5); Eosinophils % (auto) 8.1 %; Hematocrit (blood only) 28.5 % (37-47); Hemoglobin 8.8 g/dL (12.0-16.0); Immature Granulocytes # (auto) 0.01 K/uL (0.00-0.02); Immature Granulocytes % (auto) 0.1 %; Lymphocytes # (auto) 2.72 K/uL (1.2-3.4); Lymphocytes % (auto) 37.9 %; Mean Corpuscular Hemoglobin 26.2 pg (25-34); Mean Corpuscular Hgb Conc 30.9 g/dL (32-36); Mean Corpuscular Volume 84.8 fL (80-100); Mean Platelet Volume 11.3 fL (7.4-10.4); Monocytes # (auto) 1.03 K/uL (0.11-0.59); Monocytes % (auto) 14.3 %; Neutrophils # (auto) 2.56 K/uL (1.4-6.5); Neutrophils % (auto) 35.7 %; Nucleated RBC # (auto) 0.03 K/uL (0-0); Nucleated RBC % (auto) 0.4 %; Platelet Count 381 K/uL (130-400); RDW Coefficient of Variation 17.2 % (11.5-14.5); RDW Standard Deviation 52.9 fL (36.4-46.3); Red Blood Count 3.36 M/uL (4.2-5.4); White Blood Count 7.18 K/uL (4.8-10.8)
[2019-02-23 06:16] LABS: INR 2.3 (0.9-1.1); Prothrombin Time 21.9 Seconds (9.0-12.0)
[2019-02-23 06:41] LABS: BUN Creatinine Ratio 29.6 (10-20); Creatinine Clr Calc Pharmacy 62.9 ml/min; Est GFR (African American) 68.3; Magnesium 2.4 mg/dl (1.8-2.4); Potassium 4.3 mmol/L (3.5-5.1)
[2019-02-23] MEDS: FERROUS SULFATE 325 MG TAB PO SCH ×2 (07:50→20:48)
[2019-02-23] MEDS: POTASSIUM CHLORIDE 10 MEQ TABCR PO SCH (07:50)
[2019-02-23] MEDS: MULTIVITAMIN TAB PO SCH (07:51)
[2019-02-23] MEDS: LACTULOSE SYRUP 20 GM/30 ML UDC PO SCH ×2 (10:29→20:48)
[2019-02-23] MEDS: METOPROLOL TARTRATE 25 MG TAB PO SCH ×2 (10:29→20:49)
--- NOTE | 2019-02-23 11:19 | Cardiology Progress Note ---
Date of Service February 23, 2019 Assessment & Plan (1) Acute diastolic HF (heart failure): (2) Atrial fibrillation with RVR: I believe the patient is no longer in heart failure and the diuretics should be held considering she is hypotensive. She is in persistent atrial fibrillation. At times the heart rates are high. The metoprolol has also been held due to low blood pressure. We may have to consider restarting amiodarone for rate control only. Looking back through the chart, she may have had an increased QT interval on the amiodarone, this should be less of a problem for this medication as opposed to other antiarrhythmics. Subjective The patient has no new complaints today. The nursing staff has indicated that they have been giving her Lasix as well as metoprolol intermittently due to low blood pressure. Review of Systems Review of Systems: All systems reviewed & are unremarkable except as noted in HPI & below Nothing additional. Physical Exam Physical Exam: General: no acute distress and stated age Head: normocephalic, no masses, lesions, tenderness or abnormalities Eyes: conjunctiva are pink and non-injected, sclera clear Neck: supple, no adenopathy, no bruits, normal jugular venous pulse, no hepatojugular reflux Chest: normal shape and normal respiratory effort Lungs: clear to auscultation and percussion Cardiac Exam: - irregular rate & rhythm, no murmurs gallops or rubs - normal S1, normal S2 Pulses: 2(+) throughout Abdomen: abdomen soft, non-tender, no abnormal masses and no hepatosplenomegaly Musculoskeletal: no gait disturbance, no joint inflammation, no deforming arthritis Extremities: no edema and no cyanosis Neuro: grossly normal exam Results & Data Vital Signs (Past 12 Hours) Vital Signs Temp Pulse Resp BP BP Pulse Ox 02/23/19 07:48 73 103/68 02/23/19 07:26 36.7 C 89 15 74/45 L 96 02/23/19 06:00 105/72 02/23/19 05:00 78/40 L 02/23/19 04:42 36.6 C 87 16 73/50 L 96 02/22/19 23:39 37.2 C 88 18 91/59 L 95 Laboratory Results Laboratory Results - last 24 hr 02/22/19 02/23/19 02/23/19 10:43 05:44 05:44 WBC 7.18 RBC 3.36 L Hgb 8.8 L Hct 28.5 L MCV 84.8 MCH 26.2 MCHC 30.9 L RDW Std Deviation 52.9 H RDW Coeff of Dayne 17.2 H Plt Count 381 MPV 11.3 H Immature Gran % (Auto) 0.1 Neut % (Auto) 35.7 Lymph % (Auto) 37.9 [place] % (Auto) 14.3 Eos % (Auto) 8.1 Baso % (Auto) 3.9 Immature Gran # (Auto) 0.01 Neut # (Auto) 2.56 Lymph # (Auto) 2.72 [place] # (Auto) 1.03 H Eos # (Auto) 0.58 H Baso # (Auto) 0.28 H Absolute Nucleated RBC 0.03 H Nucleated RBC % (auto) 0.4 PT 21.9 H INR 2.3 H Sodium 143 Potassium 3.8 Chloride 112 H Carbon Dioxide 25 Anion Gap 6.0 BUN 27 H Creatinine 1.00 Est Cr Clr Drug Dosing 63.3 Est GFR ( Amer) 67.5 Est GFR (Non-Af Amer) 58.3 BUN/Creatinine Ratio 26.9 H Glucose 67 L Lactate Calcium 8.1 L Magnesium Digoxin Blood Type Antibody Screen 02/23/19 02/23/19 02/23/19 05:44 05:44 05:44 WBC RBC Hgb Hct MCV MCH MCHC RDW Std Deviation RDW Coeff of Dayne Plt Count MPV Immature Gran % (Auto) Neut % (Auto) Lymph % (Auto) [place] % (Auto) Eos % (Auto) Baso % (Auto) Immature Gran # (Auto) Neut # (Auto) Lymph # (Auto) [place] # (Auto) Eos # (Auto) Baso # (Auto) Absolute Nucleated RBC Nucleated RBC % (auto) PT INR Sodium 144 Potassium 4.3 Chloride 114 H Carbon Dioxide 24 Anion Gap 6.0 BUN 29 H Creatinine 0.99 Est Cr Clr Drug Dosing 62.9 Est GFR ( Amer) 68.3 Est GFR (Non-Af Amer) 59.0 BUN/Creatinine Ratio 29.6 H Glucose 88 Lactate 1.5 Calcium 8.0 L Magnesium 2.4 Digoxin 0.6 L Blood Type Antibody Screen 02/23/19 05:44 WBC RBC Hgb Hct MCV MCH MCHC RDW Std Deviation RDW Coeff of Dayne Plt Count MPV Immature Gran % (Auto) Neut % (Auto) Lymph % (Auto) [place] % (Auto) Eos % (Auto) Baso % (Auto) Immature Gran # (Auto) Neut # (Auto) Lymph # (Auto) [place] # (Auto) Eos # (Auto) Baso # (Auto) Absolute Nucleated RBC Nucleated RBC % (auto) PT INR Sodium Potassium Chloride Carbon Dioxide Anion Gap BUN Creatinine Est Cr Clr Drug Dosing Est GFR ( Amer) Est GFR (Non-Af Amer) BUN/Creatinine Ratio Glucose Lactate Calcium Magnesium Digoxin Blood Type B Negative Antibody Screen NEGATIVE Medications Administered Current Inpatient Medications Acetaminophen (Tylenol) 325 mg PO Q6H PRN PRN Reason: Pain or Fever Stop: 03/22/19 22:40 Digoxin (Lanoxin) 0.125 mg PO DAILY@1600 [facility] Stop: 03/23/19 09:59 Last Admin: 02/22/19 16:53 Dose: 0.125 mg Documented by: Ferrous Sulfate (Feosol) 325 mg PO BID [facility] Stop: 03/23/19 08:59 Last Admin: 02/23/19 07:50 Dose: 325 mg Documented by: Promethazine HCl 12.5 mg/ (Sodium Chloride) 50.5 mls @ 202 mls/hr IV Q6H PRN PRN Reason: Nausea And Vomiting Stop: 03/22/19 22:40 Lactulose (Chronulac) 30 gm PO BID [facility] Stop: 03/22/19 22:40 Last Admin: 02/23/19 10:29 Dose: Not Given Documented by: Metoprolol Tartrate (Lopressor) 12.5 mg PO BID [facility] Stop: 03/25/19 08:59 Last Admin: 02/23/19 10:29 Dose: Not Given Documented by: Multivitamins (Multivitamin Tab) 1 tab PO DAILY [facility] Stop: 03/23/19 08:59 Last Admin: 02/23/19 07:51 Dose: 1 tab Documented by: Nitroglycerin (Nitrostat) 0.4 mg SL UD PRN PRN Reason: Chest Pain Stop: 03/22/19 22:40 Tramadol HCl (Ultram) 25 mg PO Q4H PRN PRN Reason: Pain Stop: 03/22/19 22:40 Last Admin: 02/21/19 22:39 Dose: 25 mg Documented by: Warfarin Sodium (Coumadin) 6 mg PO MoWeFr@1600 [facility] Stop: 03/23/19 18:29 Last Admin: 02/21/19 18:51 Dose: 6 mg Documented by: Warfarin Sodium (Coumadin) 4 mg PO SuTuThSa@1600 [facility] Stop: 03/24/19 15:59 Last Admin: 02/22/19 16:53 Dose: 4 mg Documented by:
[2019-02-23] MEDS: DIGOXIN 0.125 MG TAB PO SCH (17:38)
[2019-02-23] MEDS: WARFARIN SOD 4 MG TAB PO SCH (17:38)
[2019-02-24 09:20] LABS: INR 2.3 (0.9-1.1); Prothrombin Time 22.3 Seconds (9.0-12.0)
[2019-02-24] MEDS: MULTIVITAMIN TAB PO SCH (09:21)
[2019-02-24] MEDS: LACTULOSE SYRUP 20 GM/30 ML UDC PO SCH ×2 (09:21→21:01)
[2019-02-24] MEDS: FERROUS SULFATE 325 MG TAB PO SCH ×2 (09:21→21:00)
[2019-02-24] MEDS: METOPROLOL TARTRATE 25 MG TAB PO SCH ×2 (09:21→21:01)
--- NOTE | 2019-02-24 09:29 | Cardiology Progress Note ---
Date of Service February 24, 2019 Assessment & Plan (1) Acute diastolic HF (heart failure): (2) Atrial fibrillation with RVR: Continue to hold diuretics. I would increase the dosage of her metoprolol to control her heart rate. She does have a pacemaker in his lungs her blood pressure will tolerate we should Subjective The patient is resting comfortably. Her blood pressure has improved with the stop of Lasix. She still has A. fib with high heart rates. Review of Systems Review of Systems: All systems reviewed & are unremarkable except as noted in HPI & below Nothing additional to add Physical Exam Physical Exam: General: no acute distress and stated age Head: normocephalic, no masses, lesions, tenderness or abnormalities Eyes: conjunctiva are pink and non-injected, sclera clear Neck: supple, no adenopathy, no bruits, normal jugular venous pulse, no hepatojugular reflux Chest: normal shape and normal respiratory effort Lungs: clear to auscultation and percussion Cardiac Exam: - irregular rate & rhythm, no murmurs gallops or rubs - normal S1, normal S2 Pulses: 2(+) throughout Abdomen: abdomen soft, non-tender, no abnormal masses and no hepatosplenomegaly Musculoskeletal: no gait disturbance, no joint inflammation, no deforming arthritis Extremities: no edema and no cyanosis Neuro: grossly normal exam Results & Data Vital Signs (Past 12 Hours) Vital Signs Temp Pulse Pulse Resp BP BP Pulse Ox 02/24/19 07:12 36.4 C L 86 18 114/69 97 02/24/19 03:38 36.4 C L 69 18 100/69 96 02/24/19 00:00 125 H 02/23/19 23:00 36.3 C L 90 18 107/64 95 Laboratory Results Laboratory Results - last 24 hr 02/24/19 02/24/19 08:50 08:50 PT 22.3 H INR 2.3 H Sodium Pending Potassium Pending Chloride Pending Carbon Dioxide Pending Anion Gap Pending BUN Pending Creatinine Pending Est Cr Clr Drug Dosing Pending Est GFR ( Amer) Pending Est GFR (Non-Af Amer) Pending BUN/Creatinine Ratio Pending Glucose Pending Calcium Pending Medications Administered Current Inpatient Medications Acetaminophen (Tylenol) 325 mg PO Q6H PRN PRN Reason: Pain or Fever Stop: 03/22/19 22:40 Digoxin (Lanoxin) 0.125 mg PO DAILY@1600 [facility] Stop: 03/23/19 09:59 Last Admin: 02/23/19 17:38 Dose: 0.125 mg Documented by: Ferrous Sulfate (Feosol) 325 mg PO BID [facility] Stop: 03/23/19 08:59 Last Admin: 02/24/19 09:21 Dose: 325 mg Documented by: Promethazine HCl 12.5 mg/ (Sodium Chloride) 50.5 mls @ 202 mls/hr IV Q6H PRN PRN Reason: Nausea And Vomiting Stop: 03/22/19 22:40 Lactulose (Chronulac) 30 gm PO BID [facility] Stop: 03/22/19 22:40 Last Admin: 02/24/19 09:21 Dose: Not Given Documented by: Metoprolol Tartrate (Lopressor) 12.5 mg PO NOW STA Stop: 02/24/19 09:26 Metoprolol Tartrate (Lopressor) 25 mg PO BID [facility] Stop: 03/26/19 20:59 Multivitamins (Multivitamin Tab) 1 tab PO DAILY [facility] Stop: 03/23/19 08:59 Last Admin: 02/24/19 09:21 Dose: 1 tab Documented by: Nitroglycerin (Nitrostat) 0.4 mg SL UD PRN PRN Reason: Chest Pain Stop: 03/22/19 22:40 Tramadol HCl (Ultram) 25 mg PO Q4H PRN PRN Reason: Pain Stop: 03/22/19 22:40 Last Admin: 02/21/19 22:39 Dose: 25 mg Documented by: Warfarin Sodium (Coumadin) 6 mg PO MoWeFr@1600 [facility] Stop: 03/23/19 18:29 Last Admin: 02/21/19 18:51 Dose: 6 mg Documented by: Warfarin Sodium (Coumadin) 4 mg PO SuTuThSa@1600 [facility] Stop: 03/24/19 15:59 Last Admin: 02/23/19 17:38 Dose: 4 mg Documented by:
[2019-02-24 09:35] LABS: Calcium 8.6 mg/dl (8.5-10.1); Creatinine Clr Calc Pharmacy 68.5 ml/min; Est GFR (African American) 76.7; Est GFR (Non-African American) 66.2
[2019-02-24] MEDS ORDERED: METOPROLOL TARTRATE 25 MG TAB PO ONE (10:00)
--- NOTE | 2019-02-24 11:27 | Hospitalist Progress Note ---
Date of Service Delayed entry Date of service February 23, 2019 February 24, 2019 Assessment & Plan (1) Acute diastolic HF (heart failure): Acute on chronic diastolic congestive heart failure Likely secondary to dietary discretion, non-adherence with medications She diuresed well with IV Lasix Blood pressure on the lower side Hold Lasix Continue to monitor blood pressure Cardiology service consulted, appreciate recommendations Chronic atrial fibrillation in RVR Rate controlled Digoxin p.o. started Continue metoprolol INR therapeutic, continue Coumadin Chronic anemia Hemoglobin baseline around 9, hemo-globin stable at 8 Denies bleeding Continue to monitor History of SSS sp PPM past hx DVT/portal vein thrombosis: On Coumadin, INR therapeutic hypertension: No lower side, monitor history CVA: On chronic Coumadin NAFLD cirrhosis, no overt decompensation except fluid retention from CHF history of esophageal varices ongoing tobacco abuse: Counseling DVT prophylaxis INR therapeutic, Coumadin Disposition Lives with family at home Will need PT and OT PCU Diuretic Rx Strict I/Os, daily weights, CHF education, fluid restriction Cardiology consult RE decompensated CHF Continue home beta-kike Rx for A. fib, may need dose titration if BP permits; Digoxin as needed for rate control given borderline BP Nicotine replacement therapy PRN DVT prophylaxis Coumadin INR goal between 2 and 3 Full code Subjective Follow-up for acute diastolic heart failure Seen resting in bed, comfortable, not in distress States that she feels fine overall Denies dizziness, lightheadedness, shortness of breath, chest pain Denies other symptoms Review of Systems Review of Systems: All systems reviewed & are unremarkable except as noted in HPI & below Physical Exam Physical Exam: General- oriented x 3, not in distress, speaks in sentences with no effort or accessory muscle use Eyes- anicteric Neck- no JVD Lungs- clear BS, no crackles, no wheezing bilaterally, good air entry bilaterally Heart-irregularly irregular rhythm, normal rate; no murmurs Abdomen- normal bowel sounds, nondistended, soft, nontender Extremities- no pretibial edema, no calf tenderness Neuro- alert, oriented x 3; no gross focal neurologic deficits Skin- warm & dry Results & Data Vital Signs (Past 12 Hours) Vital Signs Temp Pulse Pulse Resp BP BP Pulse Ox 02/24/19 11:20 37 C 79 20 103/69 96 02/24/19 07:12 36.4 C L 86 18 114/69 97 02/24/19 03:38 36.4 C L 69 18 100/69 96 02/24/19 00:00 125 H Laboratory Results Laboratory Results - last 24 hr 02/24/19 02/24/19 08:50 08:50 PT 22.3 H INR 2.3 H Sodium 149 H Potassium 4.0 Chloride 117 H Carbon Dioxide 24 Anion Gap 8.0 BUN 28 H Creatinine 0.90 Est Cr Clr Drug Dosing 68.5 Est GFR ( Amer) 76.7 Est GFR (Non-Af Amer) 66.2 BUN/Creatinine Ratio 31.0 H Glucose 105 H Calcium 8.6
--- NOTE | 2019-02-24 11:31 | Hospitalist Progress Note ---
Date of Service February 24, 2019 Assessment & Plan (1) Acute diastolic HF (heart failure): Acute on chronic diastolic congestive heart failure Likely secondary to dietary discretion, non-adherence with medications She diuresed well with IV Lasix Blood pressure remains on the lower side Hold Lasix Continue to monitor blood pressure Cardiology service consulted, appreciate recommendations Chronic atrial fibrillation in RVR Rate controlled Digoxin p.o. started Continue usual metoprolol 5 mg twice a day INR therapeutic, continue Coumadin Chronic anemia Hemoglobin baseline around 9, hemo-globin stable at 8 Denies bleeding Continue to monitor History of SSS sp PPM past hx DVT/portal vein thrombosis: On Coumadin, INR therapeutic hypertension: On the lower side, monitor history CVA: On chronic Coumadin NAFLD cirrhosis, no overt decompensation except fluid retention from CHF history of esophageal varices ongoing tobacco abuse: Counseling DVT prophylaxis INR therapeutic, Coumadin Disposition Lives with family at home Will need PT and OT Subjective Follow-up for acute congestive heart failure, diastolic type Seen sleeping, comfortable but easily awakened States she feels okay overall Denies dizziness, shortness of breath, chest pain, palpitations Ambulating in the room with no problems No other symptoms Review of Systems Review of Systems: All systems reviewed & are unremarkable except as noted in HPI & below Physical Exam Physical Exam: General- oriented x 3, not in distress, speaks in sentences with no effort or accessory muscle use Eyes- anicteric Neck- no JVD Lungs- clear breath sounds, no crackles, no wheezing bilaterally Heart- normal rate, regular rhythm; no murmurs Abdomen- normal bowel sounds, nondistended, soft, no tenderness Extremities- no pretibial edema, no calf tenderness Neuro- alert, oriented x 3; no gross focal neurologic deficits Skin- warm & dry Results & Data Vital Signs (Past 12 Hours) Vital Signs Temp Pulse Pulse Resp BP BP Pulse Ox 02/24/19 11:20 37 C 79 20 103/69 96 02/24/19 07:12 36.4 C L 86 18 114/69 97 02/24/19 03:38 36.4 C L 69 18 100/69 96 02/24/19 00:00 125 H Laboratory Results Laboratory Results - last 24 hr 02/24/19 02/24/19 08:50 08:50 PT 22.3 H INR 2.3 H Sodium 149 H Potassium 4.0 Chloride 117 H Carbon Dioxide 24 Anion Gap 8.0 BUN 28 H Creatinine 0.90 Est Cr Clr Drug Dosing 68.5 Est GFR ( Amer) 76.7 Est GFR (Non-Af Amer) 66.2 BUN/Creatinine Ratio 31.0 H Glucose 105 H Calcium 8.6
[2019-02-24 15:32] LABS: Hematocrit (blood only) 33.4 % (37-47); Hemoglobin 10.2 g/dL (12.0-16.0); Mean Corpuscular Hemoglobin 26.1 pg (25-34); Mean Corpuscular Volume 85.4 fL (80-100); Nucleated RBC # (auto) 0.03 K/uL (0-0); Nucleated RBC % (auto) 0.6 %; Platelet Count 421 K/uL (130-400); RDW Coefficient of Variation 17.8 % (11.5-14.5); RDW Standard Deviation 54.1 fL (36.4-46.3); Red Blood Count 3.91 M/uL (4.2-5.4); White Blood Count 5.65 K/uL (4.8-10.8)
[2019-02-24 15:42] LABS: Mean Corpuscular Hgb Conc 30.5 g/dL (32-36)
[2019-02-24 15:50] LABS: BUN Creatinine Ratio 29.1 (10-20); Calcium 8.5 mg/dl (8.5-10.1); Creatinine Clr Calc Pharmacy 59.9 ml/min; Est GFR (African American) 65.1; Est GFR (Non-African American) 56.2; Potassium 4.4 mmol/L (3.5-5.1)
--- NOTE | 2019-02-24 15:55 | CT Scan Report ---
CT head/brain wo con CLINICAL HISTORY: confusion COMPARISON STUDY: 07/18/2018 TECHNIQUE: Axial CT of the brain is performed from the vertex to the skull base. IV contrast was not administered for this examination. A dose lowering technique was utilized adhering to the principles of ALARA. CT DOSE: 729.78 mGycm FINDINGS: No intra or extra-axial mass lesions are visualized. There is no CT evidence of acute cortical infarc tion. There is no evidence of midline shift. There is no acute hemorrhage. No calvarial fractures ar e visualized. There are patchy white matter hypodensities likely on a small vessel basis. There is no evidence of pathologic ventricular dilatation. There is no evidence of acute sinusitis. Radiopaque densities are again visualized in the soft tissue s superficial to the left zygomatic arch. IMPRESSION: No acute intracranial findings Electronically signed by: Jorje Fink M.D. 02/24/2019 3:53 PM
[2019-02-24 16:31] LABS: Basophils # (auto) 0.33 K/uL (0-0.2); Basophils % (auto) 5.8 %; Echinocytes 1+; Eosinophils # (auto) 0.34 K/uL (0-0.5); Giant Platelets 1+; Howell-Jolly Bodies Occasional; Hypochromasia Present; Lymphocytes # (auto) 1.96 K/uL (1.2-3.4); Lymphocytes % (auto) 34.7 %; Monocytes # (auto) 0.86 K/uL (0.11-0.59); Monocytes % (auto) 15.2 %; Neutrophils # (auto) 2.16 K/uL (1.4-6.5); Neutrophils % (auto) 38.3 %; Poikilocytosis Present; Polychromasia 1+
[2019-02-24] MEDS: DIGOXIN 0.125 MG TAB PO SCH (17:01)
[2019-02-24] MEDS: WARFARIN SOD 6 MG TAB PO SCH (17:02)
[2019-02-24] MEDS: RIFAXIMIN 550 MG TABLET PO SCH (17:35)
[2019-02-25 06:46] LABS: BUN Creatinine Ratio 37.7 (10-20); Calcium 8.7 mg/dl (8.5-10.1); Creatinine Clr Calc Pharmacy 79.7 ml/min; Est GFR (African American) 92.6; Est GFR (Non-African American) 79.9; Potassium 3.9 mmol/L (3.5-5.1)
[2019-02-25] MEDS: METOPROLOL TARTRATE 25 MG TAB PO SCH ×2 (07:56→20:57)
[2019-02-25] MEDS: MULTIVITAMIN TAB PO SCH (07:57)
[2019-02-25] MEDS: FERROUS SULFATE 325 MG TAB PO SCH ×2 (07:57→20:57)
[2019-02-25] MEDS: LACTULOSE SYRUP 20 GM/30 ML UDC PO SCH ×3 (07:57→21:00)
[2019-02-25] MEDS: RIFAXIMIN 550 MG TABLET PO SCH ×2 (07:57→20:57)
--- NOTE | 2019-02-25 11:25 | Cardiology Progress Note ---
Date of Service February 25, 2019 Assessment & Plan (1) Atrial fibrillation, chronic: (2) Diastolic heart failure: The patient had an uneventful night. The plan is for rate control the patient's persistent atrial fibrillation with anticoagulation from warfarin. Prior to discharge the patient will need to be started on a home diuretic. Subjective No new cardiac complaints. Patient is doing well and feeling improvement. Review of Systems Review of Systems: All systems reviewed & are unremarkable except as noted in HPI & below Nothing additional to add. Physical Exam Physical Exam: General: no acute distress and stated age Head: normocephalic, no masses, lesions, tenderness or abnormalities Eyes: conjunctiva are pink and non-injected, sclera clear Neck: supple, no adenopathy, no bruits, normal jugular venous pulse, no hepatojugular reflux Chest: normal shape and normal respiratory effort Lungs: clear to auscultation and percussion Cardiac Exam: - irregular rate & rhythm, no murmurs gallops or rubs - normal S1, normal S2 Pulses: 2(+) throughout Abdomen: abdomen soft, non-tender, no abnormal masses and no hepatosplenomegaly Musculoskeletal: no gait disturbance, no joint inflammation, no deforming arthritis Extremities: no edema and no cyanosis Neuro: grossly normal exam Results & Data Vital Signs (Past 12 Hours) Vital Signs Temp Pulse Pulse Resp BP Pulse Ox 02/25/19 06:59 36.4 C L 61 15 118/80 95 02/25/19 04:08 36.7 C 61 19 105/68 96 02/25/19 01:08 36.7 C 89 15 121/79 96 Laboratory Results Laboratory Results - last 24 hr 02/24/19 02/24/19 02/24/19 15:23 15:23 15:23 WBC 5.65 RBC 3.91 L Hgb 10.2 L Hct 33.4 L MCV 85.4 MCH 26.1 MCHC 30.5 L RDW Std Deviation 54.1 H RDW Coeff of Dayne 17.8 H Plt Count 421 H MPV 11.0 H Immature Gran % (Auto) 0.0 Neut % (Auto) 38.3 Lymph % (Auto) 34.7 [place] % (Auto) 15.2 Eos % (Auto) 6.0 Baso % (Auto) 5.8 Immature Gran # (Auto) 0.00 Neut # (Auto) 2.16 Lymph # (Auto) 1.96 [place] # (Auto) 0.86 H Eos # (Auto) 0.34 Baso # (Auto) 0.33 H Absolute Nucleated RBC 0.03 H Nucleated RBC % (auto) 0.6 Hypersegmented Neuts 1+ Blood Smear Review Giant Platelets 1+ Polychromasia 1+ Hypochromasia Present Poikilocytosis Present Ramirez-Laird Bodies Occasional Echinocytes 1+ Sodium 146 H Potassium 4.4 Chloride 116 H Carbon Dioxide 24 Anion Gap 6.0 BUN 30 H Creatinine 1.03 Est Cr Clr Drug Dosing 59.9 Est GFR ( Amer) 65.1 Est GFR (Non-Af Amer) 56.2 BUN/Creatinine Ratio 29.1 H Glucose 105 H Calcium 8.5 Ammonia 130.0 H 02/25/19 02/25/19 05:49 10:09 WBC RBC Hgb Hct MCV MCH MCHC RDW Std Deviation RDW Coeff of Dayne Plt Count MPV Immature Gran % (Auto) Neut % (Auto) Lymph % (Auto) [place] % (Auto) Eos % (Auto) Baso % (Auto) Immature Gran # (Auto) Neut # (Auto) Lymph # (Auto) [place] # (Auto) Eos # (Auto) Baso # (Auto) Absolute Nucleated RBC Nucleated RBC % (auto) Hypersegmented Neuts Blood Smear Review Giant Platelets Polychromasia Hypochromasia Poikilocytosis Ramirez-Laird Bodies Echinocytes Sodium 147 H Potassium 3.9 Chloride 117 H Carbon Dioxide 22 Anion Gap 8.0 BUN 29 H Creatinine 0.77 Est Cr Clr Drug Dosing 79.7 Est GFR ( Amer) 92.6 Est GFR (Non-Af Amer) 79.9 BUN/Creatinine Ratio 37.7 H Glucose 87 Calcium 8.7 Ammonia 116.0 H Medications Administered Current Inpatient Medications Acetaminophen (Tylenol) 325 mg PO Q6H PRN PRN Reason: Pain or Fever Stop: 03/22/19 22:40 Digoxin (Lanoxin) 0.125 mg PO DAILY@1600 [facility] Stop: 03/23/19 09:59 Last Admin: 02/24/19 17:01 Dose: 0.125 mg Documented by: Ferrous Sulfate (Feosol) 325 mg PO BID [facility] Stop: 03/23/19 08:59 Last Admin: 02/25/19 07:57 Dose: 325 mg Documented by: Promethazine HCl 12.5 mg/ (Sodium Chloride) 50.5 mls @ 202 mls/hr IV Q6H PRN PRN Reason: Nausea And Vomiting Stop: 03/22/19 22:40 Lactulose (Chronulac) 30 gm PO BID [facility] Stop: 03/22/19 22:40 Last Admin: 02/25/19 08:02 Dose: Not Given Documented by: Metoprolol Tartrate (Lopressor) 25 mg PO BID [facility] Stop: 03/26/19 20:59 Last Admin: 02/25/19 07:56 Dose: 25 mg Documented by: Multivitamins (Multivitamin Tab) 1 tab PO DAILY [facility] Stop: 03/23/19 08:59 Last Admin: 02/25/19 07:57 Dose: 1 tab Documented by: Nitroglycerin (Nitrostat) 0.4 mg SL UD PRN PRN Reason: Chest Pain Stop: 03/22/19 22:40 Rifaximin (Xifaxan) 550 mg PO Q12H [facility] Stop: 03/26/19 15:59 Last Admin: 02/25/19 07:57 Dose: 550 mg Documented by: Tramadol HCl (Ultram) 25 mg PO Q4H PRN PRN Reason: Pain Stop: 03/22/19 22:40 Last Admin: 02/21/19 22:39 Dose: 25 mg Documented by: Warfarin Sodium (Coumadin) 6 mg PO MoWeFr@1600 [facility] Stop: 03/23/19 18:29 Last Admin: 02/24/19 17:02 Dose: 6 mg Documented by: Warfarin Sodium (Coumadin) 4 mg PO SuTuThSa@1600 [facility] Stop: 03/24/19 15:59 Last Admin: 02/23/19 17:38 Dose: 4 mg Documented by:
--- NOTE | 2019-02-25 13:50 | Gastrointestinal Consultation ---
Date of Consultation February 25, 2019 Assessment & Plan (1) Hepatic encephalopathy: (2) Cirrhosis of liver: Pt is a 69 y/o female w NAFLD cirrhosis currently admitted for volume overload, acute on chronic CHF, Afib, suspected non compliance to meds, f/u appts. Seen for confusion, elevated ammonia level. She has hx of hepatic encephalopathy, unsure her lactulose dose at home but says moving bowels 2-3x a day w/o signs of GI bleeding. She was supposed to be taking Xifaxan but said not on it. MELD 15. - CT head, CXR negative for infectious processes. Blood cx pending. Will obtain UA. Limited u/s abd for ascites check - Lactulose 30g BID and Xifaxan 550mg BID - Monitor H/H and s/s of GI bleeding given hx of varices s/p banding - F/U w Dr. Caballero (primary preventive maintenance engineer) upon DC - GI to sign off; pls recall prn Supervising Physician Co-Signing Physician Notes I saw and evaluated the patient. She has a history of [place] related liver disease and is followed by my partner Dr. Quijano. The patient presented with volume overload and hepatic encephalopathy. Today the patient appears to be within her normal mental range. Of note it appears that the patient may have stopped her medications at home. Physical examination Elderly appearing female in no obvious distress No asterixis or slurring of speech today Impression: She with a history of [place] related liver disease complicated by recurrent have hepatic encephalopathy. It appears that the patient had some difficulty with taking her medications as an outpatient but has responded well to resumption. I would suggest continued use of lactulose 1 time daily in addition to rifaximin 550 mg twice daily. Please call with any additional questions or concerns. History of Present Illness Reason for Consultation: Elevated ammonia, suspected hepatic encephalopathy Requesting Physician: Dr. John Garcia Attending Physician: Dr. Tariq Kenny History of Present Illness Pt is a 69 y/o female currently admitted for volume overload, acute on chronic CHF, Afib seen for elevated ammonia level and suspected hepatic encephalopathy. 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 She also has hx of anastomotic ulcer at RYGB anastomosis. Per her primary preventive maintenance engineer's (Dr. Quijano) last clinic note earlier this month she was noted to have leg edema and non compliant w low salt diet, diuretics, Cardiology f/u. She was noted to be confused yesterday and ammonia level noted to be elevated in 130s. Started on Xifaxan and Lactulose. Today pt's alert, oriented mostly to self and place. Still slow thought process and speech. She doens't know home Lactulose dose. She was supposed to be on Xifaxan but said not taking this. BM at home 2-3x a day. She denies any n/v, hematemesis, dark tarry stools, rectal bleeding. Labs, VS reviewed. Head CT negative, CXR showed of congestive dz and edema but no infectious process. Allergies Allergy/AdvReac Type Severity Reaction Status Date / Time Quinolones Allergy Unknown LOCAL Verified 02/20/19 16:43 REACTION TO LEVAQUIN codeine AdvReac Unknown VOMITING Verified 02/20/19 16:43 nickel AdvReac Redness of Verified 02/20/19 16:43 Skin Home Medications Home Medications Medication Instructions Recorded Confirmed Type acetaminophen [Tylenol Extra 500 mg PO Q6H PRN 06/15/18 02/20/19 History Strength] ferrous sulfate 325 mg PO BID 06/15/18 02/20/19 History lactulose 30 ml PO BID 06/15/18 02/20/19 History metoprolol tartrate 50 mg PO BID 06/15/18 02/20/19 History multivitamin [Multiple Vitamins] 1 tab PO DAILY 06/15/18 02/20/19 History nitroglycerin [Nitrostat] 0.4 mg SUBLINGUAL UD 06/15/18 02/20/19 History warfarin 2 mg PO 2XWK 02/20/19 02/20/19 History warfarin 4 mg PO 5XWK 02/20/19 02/20/19 History Patient History Medical History UGIB (upper gastrointestinal bleed) Atrial fibrillation with RVR DVT (deep venous thrombosis) Pacemaker [employer]. Placed for tachy-kaz syndrome Anemia CVA (cerebral vascular accident) Patient denies states she had metabolic encephalopathy from elevated ammonia levels. Cirrhosis (Chronic) NAFLD Esophageal varices Surgical History H/O gastric bypass History of esophagogastroduodenoscopy (EGD) Social History Preferred Language: Urdu Communication Ability: Impaired Visual Impairment: No Limitations Hearing Ability: Normal Telecommunications Manager Required: No Beliefs That Will Affect Care: None marital status: / Current Living Situation: Alone Feels Safe at Home: Yes Safety Concerns: Feels Safe At This Time Smoking Status: Smoker, status unknown Hx Alcohol Use: Yes ("once in a while") Alcohol type: beer Hx Substance Use: No Review of Systems Review of Systems: All systems reviewed & are unremarkable except as noted in HPI & below Physical Exam Constitutional: WD/WN, vitals as above well groomed, cooperative and comfortable Eyes: PERRL, conjunctivae normal, anicteric sclerae ENMT: external ear and nose normal, oropharynx normal Respiratory: no respiratory distress and does not use accessory muscles Auscultation: + diminished lung sounds Cardiovascular: RRR, no murmur, no edema Gastrointestinal (Abdomen): normal bowel sounds, soft, nontender, no hepatosplenomegaly Skin: no rashes, warm and dry no jaundice Neurologic: Motor/Sensory: no asterixis Psychiatric: Orientation: alert, oriented to person, oriented to place and cooperative; + not oriented to time Slow thought process and speech Lymphatic: no lymphedema Results & Data Vital Signs (Past 12 Hours) Vital Signs Temp Pulse Pulse Resp BP Pulse Ox 02/25/19 11:22 36.5 C 76 16 96/62 L 96 02/25/19 06:59 36.4 C L 61 15 118/80 95 02/25/19 04:08 36.7 C 61 19 105/68 96
--- NOTE | 2019-02-25 14:03 | Ultrasound Report ---
US abdomen ltd ascites CLINICAL HISTORY: Abdominal distention. Evaluate for ascites. COMPARISON STUDY: No previous studies for comparison. FINDINGS: A 4 quadrant survey was performed. No ascites was visualized. IMPRESSION: No ascites identified. Electronically signed by: Jorje Fink M.D. 02/25/2019 2:02 PM
[2019-02-25] MEDS: DIGOXIN 0.125 MG TAB PO SCH (17:06)
[2019-02-25] MEDS: WARFARIN SOD 4 MG TAB PO SCH (17:06)
--- NOTE | 2019-02-25 18:54 | Hospitalist Progress Note ---
Date of Service February 25, 2019 Assessment & Plan (1) Acute diastolic HF (heart failure): Acute on chronic diastolic congestive heart failure Likely secondary to dietary discretion, non-adherence with medications She diuresed well with IV Lasix Blood pressure remains on the lower side Hold Lasix Continue to monitor blood pressure Cardiology service consulted, appreciate recommendations Chronic atrial fibrillation in RVR Rate controlled Digoxin p.o. started Continue usual metoprolol 25 mg twice a day INR therapeutic, continue Coumadin Hepatic Encephalopathy HARDEN Cirrhosis Rifaximin added to Lactulose mental status improving GI consulted monitor Chronic anemia Hemoglobin baseline around 9, hemo-globin stable at 8 Denies bleeding Continue to monitor History of SSS sp PPM past hx DVT/portal vein thrombosis: On Coumadin, INR therapeutic hypertension: On the lower side, monitor history CVA: On chronic Coumadin ongoing tobacco abuse: Counseling DVT prophylaxis INR therapeutic, Coumadin Disposition Lives with family at home Will need PT and OT Subjective ff up for acute CHF, hepatic encephalopathy seen resting in bed, comfortable less confused, oriented x 3 with some cues states she feels tired but otherwise feels fine denies confusion, abdominal pain, nausea no chest pain , dyspnea no other symptoms Review of Systems Review of Systems: All systems reviewed & are unremarkable except as noted in HPI & below Physical Exam Physical Exam: General- oriented x 3, not in distress, speaks in sentences with no effort or accessory muscle use Eyes- anicteric Neck- no JVD Lungs- clear breath sounds bilaterally no rales BL Heart- normal rate, regular rhythm; no murmurs Abdomen- normal bowel sounds, nondistended, soft, nontender Extremities- no pretibial edema, no calf tenderness Neuro- alert, oriented x 3; no gross focal neurologic deficits Skin- warm & dry Results & Data Vital Signs (Past 12 Hours) Vital Signs Temp Pulse Pulse Pulse Resp BP Pulse Ox 02/25/19 16:00 108 H 02/25/19 15:28 36.7 C 79 20 101/68 96 02/25/19 11:22 36.5 C 76 16 96/62 L 96 02/25/19 08:00 95 H 02/25/19 06:59 36.4 C L 61 15 118/80 95
[2019-02-25 20:20] LABS: Appearance Urine Clear (Clear); Bacteria Urine Automated 4+ (Negative); Bilirubin Urine Negative (Negative); Blood Urine Negative (Negative); Color Urine Dark Yellow; Epithelial Cell Urine Auto >30 /lpf (0-5); Glucose Urine UA Negative (Negative); Ketones Urine Trace (Negative); Leukocyte Esterase Urine Trace (Negative); Nitrite Urine Positive (Negative); Protein Urine Negative (Negative); RBC Urine Automated 0-4 /hpf (0-4); Specific Gravity Urine 1.024 (1.000-1.030); Urobilinogen Urine Negative (Negative)
[2019-02-26] MEDS: TRAMADOL HCL 50 MG TABLET PO PRN (03:16)
[2019-02-26 06:26] LABS: BUN Creatinine Ratio 33.4 (10-20); Creatinine Clr Calc Pharmacy 66.1 ml/min; Est GFR (African American) 73.7; Est GFR (Non-African American) 63.6; Potassium 4.2 mmol/L (3.5-5.1)
[2019-02-26 06:29] LABS: INR 2.6 (0.9-1.1); Prothrombin Time 24.5 Seconds (9.0-12.0)
[2019-02-26] MEDS: FERROUS SULFATE 325 MG TAB PO SCH ×2 (09:24→19:46)
[2019-02-26] MEDS: RIFAXIMIN 550 MG TABLET PO SCH ×2 (09:24→19:46)
[2019-02-26] MEDS: MULTIVITAMIN TAB PO SCH (09:24)
[2019-02-26] MEDS: METOPROLOL TARTRATE 25 MG TAB PO SCH ×2 (09:24→19:46)
[2019-02-26] MEDS: LACTULOSE SYRUP 20 GM/30 ML UDC PO SCH ×2 (09:24→19:46)
--- NOTE | 2019-02-26 10:10 | Cardiology Progress Note ---
Date of Service February 26, 2019 Assessment & Plan (1) Atrial fibrillation, chronic: (2) Diastolic heart failure: Believe the patient is euvolemic today. She will need a maintenance dose of diuretic which I will start today. Subjective The patient has been ambulating in the hallway with the aid of a walker. She is resting comfortably and has no new cardiac complaints today. Review of Systems Review of Systems: All systems reviewed & are unremarkable except as noted in HPI & below Nothing additional to add. Physical Exam Physical Exam: General: no acute distress and stated age Head: normocephalic, no masses, lesions, tenderness or abnormalities Eyes: conjunctiva are pink and non-injected, sclera clear Neck: supple, no adenopathy, no bruits, normal jugular venous pulse, no hepatojugular reflux Chest: normal shape and normal respiratory effort Lungs: clear to auscultation and percussion Cardiac Exam: - regular rate & rhythm, no murmurs gallops or rubs - normal S1, normal S2 Pulses: 2(+) throughout Abdomen: abdomen soft, non-tender, no abnormal masses and no hepatosplenomegaly Musculoskeletal: no gait disturbance, no joint inflammation, no deforming arthritis Extremities: no edema and no cyanosis Neuro: grossly normal exam Results & Data Vital Signs (Past 12 Hours) Vital Signs Temp Pulse Pulse Pulse Resp BP Pulse Ox 02/26/19 08:00 105 H 02/26/19 07:40 36.6 C 79 18 96/65 L 96 02/26/19 03:25 36.4 C L 83 20 110/80 96 02/25/19 23:45 104 H 108/64 02/25/19 23:35 105 H 02/25/19 23:00 36.7 C 72 18 84/53 L 98 Laboratory Results Laboratory Results - last 24 hr 02/24/19 02/25/19 02/25/19 15:23 10:09 19:50 Blood Smear Review PT INR Sodium Potassium Chloride Carbon Dioxide Anion Gap BUN Creatinine Est Cr Clr Drug Dosing Est GFR ( Amer) Est GFR (Non-Af Amer) BUN/Creatinine Ratio Glucose Calcium Ammonia 116.0 H Urine Color Dark Yellow Urine Appearance Clear Urine pH 5.0 Ur Specific [place] 1.024 Urine Protein Negative Urine Glucose (UA) Negative Urine Ketones Trace H Urine Blood Negative Urine Nitrite Positive A Urine Bilirubin Negative Urine Urobilinogen Negative Ur Leukocyte Esterase Trace H Urine WBC (Auto) 5-10 H Urine RBC (Auto) 0-4 U Hyaline Cast (Auto) 1-5 U Epithel Cells (Auto) >30 H Urine Bacteria (Auto) 4+ H 02/26/19 02/26/19 02/26/19 05:55 05:55 05:55 Blood Smear Review PT 24.5 H INR 2.6 H Sodium 143 Potassium 4.2 Chloride 113 H Carbon Dioxide 24 Anion Gap 6.0 BUN 31 H Creatinine 0.93 Est Cr Clr Drug Dosing 66.1 Est GFR ( Amer) 73.7 Est GFR (Non-Af Amer) 63.6 BUN/Creatinine Ratio 33.4 H Glucose 90 Calcium 8.0 L Ammonia 126.0 H Urine Color Urine Appearance Urine pH Ur Specific [place] Urine Protein Urine Glucose (UA) Urine Ketones Urine Blood Urine Nitrite Urine Bilirubin Urine Urobilinogen Ur Leukocyte Esterase Urine WBC (Auto) Urine RBC (Auto) U Hyaline Cast (Auto) U Epithel Cells (Auto) Urine Bacteria (Auto) Medications Administered Current Inpatient Medications Acetaminophen (Tylenol) 325 mg PO Q6H PRN PRN Reason: Pain or Fever Stop: 03/22/19 22:40 Digoxin (Lanoxin) 0.125 mg PO DAILY@1600 [facility] Stop: 03/23/19 09:59 Last Admin: 02/25/19 17:06 Dose: 0.125 mg Documented by: Ferrous Sulfate (Feosol) 325 mg PO BID [facility] Stop: 03/23/19 08:59 Last Admin: 02/26/19 09:24 Dose: 325 mg Documented by: Furosemide (Lasix) 20 mg PO BID17 [facility] Promethazine HCl 12.5 mg/ (Sodium Chloride) 50.5 mls @ 202 mls/hr IV Q6H PRN PRN Reason: Nausea And Vomiting Stop: 03/22/19 22:40 Lactulose (Chronulac) 30 gm PO BID [facility] Stop: 03/22/19 22:40 Last Admin: 02/26/19 09:24 Dose: Not Given Documented by: Metoprolol Tartrate (Lopressor) 25 mg PO BID [facility] Stop: 03/26/19 20:59 Last Admin: 02/26/19 09:24 Dose: 25 mg Documented by: Multivitamins (Multivitamin Tab) 1 tab PO DAILY [facility] Stop: 03/23/19 08:59 Last Admin: 02/26/19 09:24 Dose: 1 tab Documented by: Nitroglycerin (Nitrostat) 0.4 mg SL UD PRN PRN Reason: Chest Pain Stop: 03/22/19 22:40 Rifaximin (Xifaxan) 550 mg PO Q12H [facility] Stop: 03/26/19 15:59 Last Admin: 02/26/19 09:24 Dose: 550 mg Documented by: Tramadol HCl (Ultram) 25 mg PO Q4H PRN PRN Reason: Pain Stop: 03/22/19 22:40 Last Admin: 02/26/19 03:16 Dose: 25 mg Documented by: Warfarin Sodium (Coumadin) 6 mg PO MoWeFr@1600 [facility] Stop: 03/23/19 18:29 Last Admin: 02/24/19 17:02 Dose: 6 mg Documented by: Warfarin Sodium (Coumadin) 4 mg PO SuTuThSa@1600 [facility] Stop: 03/24/19 15:59 Last Admin: 02/25/19 17:06 Dose: 4 mg Documented by:
--- NOTE | 2019-02-26 15:37 | Hospitalist Progress Note ---
Date of Service February 26, 2019 Assessment & Plan (1) Acute diastolic HF (heart failure): Acute on chronic diastolic congestive heart failure Likely secondary to dietary discretion, non-adherence with medications Patient diuresed well with IV Lasix Afterwards, blood pressure noted to be in the lower side Lasix held for few days now BP now stable overall Lasix 20 mg p.o. twice daily resumed per cardiology recommendations Monitor blood pressure and renal function closely Chronic atrial fibrillation in RVR Rate controlled Digoxin p.o. started during this admission Continued usual metoprolol 25 mg twice a day INR therapeutic, continue Coumadin Hepatic Encephalopathy HARDEN Cirrhosis Started to be confused and disoriented 3 days ago Ammonia level elevated at 130s, despite patient taking lactulose and having BMs Rifaximin added to Lactulose mental status improving GI consulted Continue to monitor closely Continue to follow-up with Dr. Quijano on discharge Chronic anemia Hemoglobin baseline around 9, hemo-globin stable at around 9 Denies bleeding Continue to monitor History of SSS sp PPM past hx DVT/portal vein thrombosis: On Coumadin, INR therapeutic hypertension: On the lower side, monitor while on Lasix history CVA: On chronic Coumadin ongoing tobacco abuse: Counseling DVT prophylaxis INR therapeutic, Coumadin Disposition Lives with family at home Will need PT and OT evaluation to determine need for possible inpatient rehab upon discharge Follow-up with PCP, software engineer, manager validation Subjective Follow-up for acute CHF exacerbation, hepatic encephalopathy Seen sleeping but easily awakened, not in distress States she feels tired Patient answers more questions appropriately, oriented x 3 Has more insight with medical condition Denies shortness of breath, chest pain, palpitations, dizziness No abdominal pain, no nausea or vomiting Positive BMs No other symptoms Review of Systems Review of Systems: All systems reviewed & are unremarkable except as noted in HPI & below Physical Exam Physical Exam: General- oriented x 3, not in distress, speaks in sentences with no effort or accessory muscle use Eyes- anicteric Neck- no JVD Lungs- clear breath sounds, no crackles or wheezing bilaterally Heart- normal rate, regular rhythm; no murmurs Abdomen- normal bowel sounds, nondistended, soft, nontender Extremities- no pretibial edema, no calf tenderness Neuro- alert, oriented x 3; no gross focal neurologic deficits Skin- warm & dry Results & Data Vital Signs (Past 12 Hours) Vital Signs Temp Pulse Pulse Resp BP BP Pulse Ox 02/26/19 15:17 36.6 C 77 16 105/66 97 02/26/19 11:55 36.5 C 76 18 100/69 97 02/26/19 08:00 105 H 02/26/19 07:40 36.6 C 79 18 96/65 L 96 Laboratory Results Laboratory Results - last 24 hr 02/25/19 02/26/19 02/26/19 19:50 05:55 05:55 PT 24.5 H INR 2.6 H Sodium Potassium Chloride Carbon Dioxide Anion Gap BUN Creatinine Est Cr Clr Drug Dosing Est GFR ( Amer) Est GFR (Non-Af Amer) BUN/Creatinine Ratio Glucose Calcium Ammonia 126.0 H Urine Color Dark Yellow Urine Appearance Clear Urine pH 5.0 Ur Specific [place] 1.024 Urine Protein Negative Urine Glucose (UA) Negative Urine Ketones Trace H Urine Blood Negative Urine Nitrite Positive A Urine Bilirubin Negative Urine Urobilinogen Negative Ur Leukocyte Esterase Trace H Urine WBC (Auto) 5-10 H Urine RBC (Auto) 0-4 U Hyaline Cast (Auto) 1-5 U Epithel Cells (Auto) >30 H Urine Bacteria (Auto) 4+ H 02/26/19 05:55 PT INR Sodium 143 Potassium 4.2 Chloride 113 H Carbon Dioxide 24 Anion Gap 6.0 BUN 31 H Creatinine 0.93 Est Cr Clr Drug Dosing 66.1 Est GFR ( Amer) 73.7 Est GFR (Non-Af Amer) 63.6 BUN/Creatinine Ratio 33.4 H Glucose 90 Calcium 8.0 L Ammonia Urine Color Urine Appearance Urine pH Ur Specific [place] Urine Protein Urine Glucose (UA) Urine Ketones Urine Blood Urine Nitrite Urine Bilirubin Urine Urobilinogen Ur Leukocyte Esterase Urine WBC (Auto) Urine RBC (Auto) U Hyaline Cast (Auto) U Epithel Cells (Auto) Urine Bacteria (Auto)
[2019-02-26] MEDS: WARFARIN SOD 6 MG TAB PO SCH (15:57)
[2019-02-26] MEDS: FUROSEMIDE 20 MG TAB PO SCH (15:57)
[2019-02-26] MEDS: DIGOXIN 0.125 MG TAB PO SCH (15:58)
[2019-02-27 06:56] LABS: BUN Creatinine Ratio 32.9 (10-20); Calcium 8.3 mg/dl (8.5-10.1); Creatinine Clr Calc Pharmacy 66.6 ml/min; Est GFR (African American) 73.7; Est GFR (Non-African American) 63.6; Potassium 4.1 mmol/L (3.5-5.1)
--- NOTE | 2019-02-27 08:49 | Hospitalist Progress Note ---
Date of Service February 27, 2019 Assessment & Plan (1) Acute diastolic HF (heart failure): Acute on chronic diastolic congestive heart failure Likely secondary to dietary discretion, non-adherence with medications Patient diuresed well with IV Lasix Afterwards, blood pressure noted to be in the lower side Lasix held for few days now BP now stable overall Lasix 20 mg p.o. twice daily resumed per cardiology recommendations Monitor blood pressure and renal function closely DC when OK c Cardiology to acute rehab Chronic atrial fibrillation in RVR Rate controlled Digoxin p.o. started during this admission Continued usual metoprolol 25 mg twice a day INR therapeutic, continue Coumadin Hepatic Encephalopathy HARDEN Cirrhosis Started to be confused and disoriented 3 days ago Ammonia level elevated at 130s, despite patient taking lactulose and having BMs Rifaximin added to Lactulose mental status improving Continue to monitor closely Continue to follow-up with Dr. 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 Appetite is Normal Physical Exam Gen-AAO x 3, NAD, Afebrile Head-NCAT, EOMI, PERRLA, Anicteric Sclera, No Posterior Pharyngeal Erythema Neck-Supple, No JVD, No Thyromegaly, No Masses, No LAD, No Bruits Lungs-Clear to Auscultation Bilaterally, No Rales, No Rhonchi, No Wheezing, No Crepitus Chest-No S4, +S1, +S2, No S3, No Murmurs, No Rubs, No Gallops, No Ectopy Abdomen-Soft, Bowel Sounds Present, Non Tender, Non Distended, No Hepatomegaly, No Splenomegaly, No Palpable Masses, No Rebound, No Rigidity, No Guarding Musculoskeletal-Full Range of Motion Bilaterally, No CVAT Extremities-No Cyanosis, No Clubbing, No Edema Nuero-Cranial Nerves II-XII grossly intact, Motor WNL, DTRs WNL, Strength WNL, Non Focal Psych-Normal Mood Results & Data Vital Signs (Past 12 Hours) Vital Signs Temp Pulse Pulse Resp BP Pulse Ox 02/27/19 07:45 36.9 C 68 20 103/68 96 02/27/19 03:00 36.8 C 81 18 117/79 98 02/26/19 23:00 36.9 C 67 20 89/62 L Current Diagnoses Anemia, unspecified (02/20/19) Chronic atrial fibrillation (02/20/19) Unspecified atrial fibrillation (02/20/19) Unspecified diastolic (congestive) heart failure (02/20/19) Acute diastolic (congestive) heart failure (02/20/19) Heart failure, unspecified (02/20/19) Hepatic failure, unspecified without coma (02/20/19) Unspecified cirrhosis of liver (02/20/19) Presence of cardiac pacemaker (02/20/19) Allergies Quinolones Allergy (Unknown, Verified 02/20/19 16:43) LOCAL REACTION TO LEVAQUIN codeine Adverse Reaction (Unknown, Verified 02/20/19 16:43) VOMITING nickel Adverse Reaction (Verified 02/20/19 16:43) Redness of Skin Height/Weight/Isolation Height 5 ft 6 in Weight 90.7 kg Chemistry 02/26/19 02/27/19 05:55 06:00 Sodium 143 145 Potassium 4.2 4.1 Chloride 113 H 116 H Carbon Dioxide 24 22 Anion Gap 6.0 8.0 BUN 31 H 31 H Creatinine 0.93 0.93 Glucose 90 106 H Urinalysis 02/25/19 19:50 Urine Color Dark Yellow Urine Appearance Clear Urine pH 5.0 Ur Specific [place] 1.024 Urine Protein Negative Urine Glucose (UA) Negative Urine Ketones Trace H Urine Blood Negative Urine Nitrite Positive A Urine Bilirubin Negative Microbiology 02/25/19 19:50 Urine,Clean Catch Urine Culture - Preliminary Escherichia coli
[2019-02-27] MEDS: LACTULOSE SYRUP 20 GM/30 ML UDC PO SCH ×2 (08:57→19:33)
[2019-02-27] MEDS: FERROUS SULFATE 325 MG TAB PO SCH ×2 (08:58→19:33)
[2019-02-27] MEDS: METOPROLOL TARTRATE 25 MG TAB PO SCH ×2 (08:59→19:33)
[2019-02-27] MEDS: FUROSEMIDE 20 MG TAB PO SCH ×2 (08:59→17:59)
[2019-02-27] MEDS: RIFAXIMIN 550 MG TABLET PO SCH ×2 (09:00→19:33)
[2019-02-27] MEDS: MULTIVITAMIN TAB PO SCH (09:00)
[2019-02-27] MEDS: cefTRIAXone SODIUM 1,000 MG in DEXTROSE 5% 50 ML IV SCH (12:38)
--- NOTE | 2019-02-27 14:51 | Cardiology Progress Note ---
Date of Service February 27, 2019 Assessment & Plan (1) Atrial fibrillation, chronic: (2) Diastolic heart failure: The patient remains in a controlled A. fib. Heart failure has improved. Believe she could be discharged per the hospitalist service. Subjective The patient has no new cardiac complaints. She is being treated for UTI. Review of Systems Review of Systems: All systems reviewed & are unremarkable except as noted in HPI & below Nothing additional. Physical Exam Physical Exam: General: no acute distress and stated age Head: normocephalic, no masses, lesions, tenderness or abnormalities Eyes: conjunctiva are pink and non-injected, sclera clear Neck: supple, no adenopathy, no bruits, normal jugular venous pulse, no hepatojugular reflux Chest: normal shape and normal respiratory effort Lungs: clear to auscultation and percussion Cardiac Exam: - irregular rate & rhythm, no murmurs gallops or rubs - normal S1, normal S2 Pulses: 2(+) throughout Abdomen: abdomen soft, non-tender, no abnormal masses and no hepatosplenomegaly Musculoskeletal: no gait disturbance, no joint inflammation, no deforming arthritis Extremities: no edema and no cyanosis Neuro: grossly normal exam Results & Data Vital Signs (Past 12 Hours) Vital Signs Temp Pulse Pulse Pulse Resp BP BP 02/27/19 10:49 36.6 C 75 18 92/61 L 02/27/19 08:00 79 02/27/19 07:45 36.9 C 68 20 103/68 02/27/19 03:00 36.8 C 81 18 117/79 Pulse Ox 02/27/19 10:49 96 02/27/19 08:00 02/27/19 07:45 96 02/27/19 03:00 98 Laboratory Results Laboratory Results - last 24 hr 02/27/19 06:00 Sodium 145 Potassium 4.1 Chloride 116 H Carbon Dioxide 22 Anion Gap 8.0 BUN 31 H Creatinine 0.93 Est Cr Clr Drug Dosing 66.6 Est GFR ( Amer) 73.7 Est GFR (Non-Af Amer) 63.6 BUN/Creatinine Ratio 32.9 H Glucose 106 H Calcium 8.3 L Medications Administered Current Inpatient Medications Acetaminophen (Tylenol) 325 mg PO Q6H PRN PRN Reason: Pain or Fever Stop: 03/22/19 22:40 Digoxin (Lanoxin) 0.125 mg PO DAILY@1600 [facility] Stop: 03/23/19 09:59 Last Admin: 02/26/19 15:58 Dose: 0.125 mg Documented by: Ferrous Sulfate (Feosol) 325 mg PO BID [facility] Stop: 03/23/19 08:59 Last Admin: 02/27/19 08:58 Dose: 325 mg Documented by: Furosemide (Lasix) 20 mg PO BID17 [facility] Stop: 03/28/19 16:59 Last Admin: 02/27/19 08:59 Dose: 20 mg Documented by: Promethazine HCl 12.5 mg/ (Sodium Chloride) 50.5 mls @ 202 mls/hr IV Q6H PRN PRN Reason: Nausea And Vomiting Stop: 03/22/19 22:40 Ceftriaxone Sodium 1,000 mg/ (Dextrose) 60 mls @ 100 mls/hr IV DAILY [facility] Stop: 03/04/19 11:44 Last Infusion: 02/27/19 13:42 Dose: Infused Documented by: Lactulose (Chronulac) 30 gm PO BID [facility] Stop: 03/22/19 22:40 Last Admin: 02/27/19 08:57 Dose: 30 gm Documented by: Metoprolol Tartrate (Lopressor) 25 mg PO BID [facility] Stop: 03/26/19 20:59 Last Admin: 02/27/19 08:59 Dose: 25 mg Documented by: Multivitamins (Multivitamin Tab) 1 tab PO DAILY [facility] Stop: 03/23/19 08:59 Last Admin: 02/27/19 09:00 Dose: 1 tab Documented by: Nitroglycerin (Nitrostat) 0.4 mg SL UD PRN PRN Reason: Chest Pain Stop: 03/22/19 22:40 Rifaximin (Xifaxan) 550 mg PO Q12H [facility] Stop: 03/26/19 15:59 Last Admin: 02/27/19 09:00 Dose: 550 mg Documented by: Tramadol HCl (Ultram) 25 mg PO Q4H PRN PRN Reason: Pain Stop: 03/22/19 22:40 Last Admin: 02/26/19 03:16 Dose: 25 mg Documented by: Warfarin Sodium (Coumadin) 6 mg PO MoWeFr@1600 [facility] Stop: 03/23/19 18:29 Last Admin: 02/26/19 15:57 Dose: 6 mg Documented by: Warfarin Sodium (Coumadin) 4 mg PO Ta@1600 [facility] Stop: 03/24/19 15:59 Last Admin: 02/25/19 17:06 Dose: 4 mg Documented by:
[2019-02-27] MEDS: WARFARIN SOD 4 MG TAB PO SCH (18:00)
[2019-02-27] MEDS: DIGOXIN 0.125 MG TAB PO SCH (18:00)
[2019-02-28 06:01] LABS: Hematocrit (blood only) 30.4 % (37-47); Hemoglobin 9.3 g/dL (12.0-16.0); Mean Corpuscular Hgb Conc 30.6 g/dL (32-36); Mean Corpuscular Volume 84.9 fL (80-100); Mean Platelet Volume 10.9 fL (7.4-10.4); Platelet Count 423 K/uL (130-400); RDW Coefficient of Variation 18.5 % (11.5-14.5); RDW Standard Deviation 56.9 fL (36.4-46.3); Red Blood Count 3.58 M/uL (4.2-5.4); White Blood Count 7.12 K/uL (4.8-10.8)
[2019-02-28 06:35] LABS: BUN Creatinine Ratio 32.7 (10-20); Calcium 8.1 mg/dl (8.5-10.1); Creatinine Clr Calc Pharmacy 68.1 ml/min; Est GFR (African American) 75.7; Est GFR (Non-African American) 65.3; Potassium 3.9 mmol/L (3.5-5.1)
[2019-02-28] MEDS: MULTIVITAMIN TAB PO SCH (08:10)
[2019-02-28] MEDS: cefTRIAXone SODIUM 1,000 MG in DEXTROSE 5% 50 ML IV SCH (08:10)
[2019-02-28] MEDS: METOPROLOL TARTRATE 25 MG TAB PO SCH (08:10)
[2019-02-28] MEDS: RIFAXIMIN 550 MG TABLET PO SCH (08:10)
[2019-02-28] MEDS: FERROUS SULFATE 325 MG TAB PO SCH (08:10)
[2019-02-28] MEDS: FUROSEMIDE 20 MG TAB PO SCH (08:11)
[2019-02-28] MEDS: LACTULOSE SYRUP 20 GM/30 ML UDC PO SCH (08:11)
--- NOTE | 2019-02-28 08:23 | Discharge Summary ---
Date of Service February 28, 2019 Admission HPI Per Admitting Provider History obtained from patient and records. Medical history significant for chronic diastolic heart failure (EF 70%, TTE 2018), SSS sp PPM on Coumadin, past hx DVT/portal vein thrombosis, hypertension, History CVA, NAFLD cirrhosis, history of esophageal varices, hx gastric bypass, chronic anemia (baseline hemoglobin 9-10), history mixed urinary incontinence as per records, ongoing tobacco abuse. Recent confinement July 2018 for decompensated CHF. 2 weeks history of intermittent S OB and exertion without chest pain or palpitations, weight gain of 20 pounds, increase bilateral leg swelling. Patient admits to dietary indiscretion, consumption of fried potatoes, skipping some Lasix doses. Patient also had lightheadedness symptoms. At the weatherization crew leader office, SBP noted to be 60-80s. Noted to be in rapid A. fib 130s. Patient sent to the ER for evaluation for CHF. MEDICAL HISTORY: As above. SURGERIES: She has had splenectomy, gastric bypass, cholecystectomy, pacemaker placement, facial fracture surgery, resection of pericardial cyst, hernia repair FAMILY HISTORY: Heart disease SOCIAL AND PERSONAL HISTORY: Few cigarettes a week, no chronic intake of alcoholic beverages. 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 Admission Exam Per Admitting Provider GENERAL: Comfortable, obese, no respiratory distress SKIN: Pallor, warm HEENT: Pale palpebral conjunctivae, no ptosis, dry buccal mucosa NECK : Supple, short neck, no tenderness CHEST : Decreased breath sounds , no tenderness HEART : Tachycardic, irregular , no obvious murmurs ABDOMEN: distention, nontender EXTREMITIES : Bilateral LE swelling, no LE tenderness, no other conspicuous deformities noted NEUROLOGIC : Coherent, no facial asymmetry, no other gross focality Principal Diagnosis Acute diastolic HF (heart failure): Chronic atrial fibrillation in RVR Hepatic Encephalopathy HARDEN Cirrhosis Chronic anemia History of SSS sp PPM hx DVT/portal vein thrombosis: hypertension history CVA: Tobacco abuse: Discharge Exam See below Discharge Data Allergies Allergy/AdvReac Type Severity Reaction Status Date / Time Quinolones Allergy Unknown LOCAL Verified 02/20/19 16:43 REACTION TO LEVAQUIN codeine AdvReac Unknown VOMITING Verified 02/20/19 16:43 nickel AdvReac Redness of Verified 02/20/19 16:43 Skin Consultations 02/20/19 19:20 ED Decision to Admit Stat 02/20/19 22:41 Consult Cardiology Routine 02/24/19 15:52 Consult Gastroenterology Routine 02/27/19 08:52 Consult Case Management - Discharge Planning Routine Ordered Studies 02/24/19 14:47 CT head/brain wo con Stat 02/25/19 11:11 US abdomen ltd ascites Routine Hospital Course (1) Acute diastolic HF (heart failure): Acute on chronic diastolic congestive heart failure Likely secondary to dietary discretion, non-adherence with medications Patient diuresed well with IV Lasix Lasix 20 mg p.o. twice daily resumed per cardiology recommendations DC to acute rehab Chronic atrial fibrillation in RVR Rate controlled Digoxin p.o. started during this admission Continued usual metoprolol 25 mg twice a day INR therapeutic, continue Coumadin Hepatic Encephalopathy HARDEN Cirrhosis Started to be confused and disoriented 3 days ago Ammonia level elevated at 130s, despite patient taking lactulose and having BMs Rifaximin added to Lactulose mental status improving Continue to follow-up with Dr. 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 Appetite is Normal Physical Exam Gen-AAO x 3, NAD, Afebrile Head-NCAT, EOMI, PERRLA, Anicteric Sclera, No Posterior Pharyngeal Erythema Neck-Supple, No JVD, No Thyromegaly, No Masses, No LAD, No Bruits Lungs-Clear to Auscultation Bilaterally, No Rales, No Rhonchi, No Wheezing, No Crepitus Chest-No S4, +S1, +S2, No S3, No Murmurs, No Rubs, No Gallops, No Ectopy Abdomen-Soft, Bowel Sounds Present, Non Tender, Non Distended, No Hepatomegaly, No Splenomegaly, No Palpable Masses, No Rebound, No Rigidity, No Guarding Musculoskeletal-Full Range of Motion Bilaterally, No CVAT Extremities-No Cyanosis, No Clubbing, No Edema Nuero-Cranial Nerves II-XII grossly intact, Motor WNL, DTRs WNL, Strength WNL, Non Focal Psych-Normal Mood Total Time Total Time Spent Total Time Spent (In Minutes): 55 mins Total Time Includes: Examination of the Patient, Discharge Planning, Medication Reconciliation and Communication With Other Providers Discharge Plan Discharge Items Patient Disposition: Transfer Inpatient Rehab Fac Reason For Visit: CHF Discharge Diagnosis: Acute diastolic HF (heart failure): Chronic atrial fibrillation in RVR Hepatic Encephalopathy HARDEN Cirrhosis Chronic anemia History of SSS sp PPM hx DVT/portal vein thrombosis: hypertension history CVA: Tobacco abuse: Condition on Discharge: Good Activity: Resume your previous activity Lifting: Gradually increase as tolerated Bathing: No limitations Exercise/Sports: Gradually increase as tolerated Weightbearing: Full weightbearing Non-emergency contact: Primary Care Provider, Associate Sales Manager and Iv Technician Call non-emergency contact if: you have any medication questions Follow-up/Referrals: Abdiel Kraft DO [Physician] - (Call for opening after DCd from rehab) Tariq Kenny [Physician] - Aminata Ly MD [Hospitalist] - 03/05/19 9:00 am Diet: Carb Consistent or DM2 and Heart Healthy Addtl Attending Provider Instructions: Monitor BP on Lasix Pending Studies at Discharge: No Stand-Alone Forms: My [facility] Skilled Items Patient informed of condition?: Yes DNR: No Discharge Level of Care: Acute rehab Communicable Disease: No Discharge Prognosis: Improving Lines: None Urinary Catheter: No Medications and DC Order Prescriptions: New digoxin 125 mcg Tablet 0.125 mg PO DAILY@1600 Qty: 30 RF: 0 metoprolol tartrate 25 mg Tablet 25 mg PO BID Qty: 60 RF: 0 Xifaxan 550 mg Tablet 550 mg PO Q12H Qty: 60 RF: 0 lactulose 20 gram/30 mL Solution 30 ml PO QID Qty: 1200 RF: 0 furosemide 20 mg Tablet 20 mg PO BID17 Qty: 60 RF: 0 Continued warfarin 2 mg tablet 4 mg PO 5XWK RF: 0 warfarin 2 mg tablet 2 mg PO 2XWK RF: 0 nitroglycerin [Nitrostat] 0.4 mg Tablet, Sublingual 0.4 mg Sublingual UD RF: 0 ferrous sulfate 325 mg (65 mg iron) Tablet 325 mg PO BID RF: 0 multivitamin [Multiple Vitamins] Tablet 1 tab PO DAILY RF: 0 acetaminophen [Tylenol Extra Strength] 500 mg Tablet 500 mg PO Q6H PRN (Reason: Pain) RF: 0 Discontinued metoprolol tartrate 50 mg Tablet 50 mg PO BID RF: 0 lactulose 10 gram/15 mL Solution 30 ml PO BID RF: 0 Admission Data Admit Date/Time: 02/20/19 21:16 Attending Provider: Anselmo Little Admit Provider: Vega Lr Primary Care Provider: Ishan García Other Providers: Vega Lr ; Abdiel Kraft Marten
[2019-02-28] MEDS: DIGOXIN 0.125 MG TAB PO SCH (15:15)
[2019-02-28] MEDS: WARFARIN SOD 6 MG TAB PO SCH (15:15)
== END 2019-02-28 16:00 | disposition home or self-care (01) | DRG 291 ==
LOC: ED 15:54 → 2S 21:16 → SUATTDRO 21:16 → 2S 22:00